=== PATIENT | female | born 1965 | race Asian ===

== ENCOUNTER 2017-08-25 20:28 | Inpatient (IN) | payer OTHER ==
[~2017-08-25] VITALS: Ht 152.4 cm; Wt 45.4 kg
[~2017-08-25 20:28] MED LIST: AMLODIPINE-ATO1 EAC4 ORAL; LOSARTAN-HCTZ1 EAC1 ORAL
[2017-08-25 20:40] VITALS: BP 99/75
--- NOTE | 2017-08-25 20:49 | Emergency Room Report ---
History of Present Illness General Chief Complaint: Nausea, Vomiting, and Diarrhea Source: Patient, Family Member, EMS Present Illness HPI Patient is a 60-year-old female brought in by EMS after increased nausea and abdominal pain. The patient reported history of alcohol abuse. Patient had increased pain to epigastric area associated nausea vomiting. Patient reportedly had been drinking alcohol more heavily in the past week. The patient had some lower pain in addition. Patient any fever. She had been mentating normally. Allergies: Coded Allergies: No Known Allergies (Unverified , 08/25/17) Patient History Past Medical History: see triage record Now: No Reviewed Nursing Documentation: PMH: Agreed, PSxH: Agreed Nursing Documentation-PMH Hx Hypertension: Yes History Of Psychiatric Problem: Yes - Alcoholism Review of Systems All Other Systems: negative except mentioned in HPI Physical Exam Vital Signs Date Time Temp Pulse Resp B/P (MAP) Pulse Ox O2 Delivery O2 Flow Rate FiO2 08/25/17 20:30 98.2 82 18 113/78 99 Room Air Sp02 EP Interpretation: reviewed, normal General Appearance: normal inspection, well appearing, no apparent distress, alert, GCS 15, Chronically Ill Head: atraumatic ENT: normal ENT inspection, hearing grossly normal, normal voice Neck: normal inspection, full range of motion, supple, no bony tend Respiratory: normal inspection, lungs clear, normal breath sounds, no respiratory distress, no retraction, no wheezing Cardiovascular #1: regular rate, rhythm, no edema Gastrointestinal: normal inspection, soft, no guarding, no hernia, tenderness - mild diffuse tenderness Genitourinary: no CVA tenderness Musculoskeletal: normal inspection, back normal, normal range of motion Neurologic: normal inspection, alert, oriented x3, responsive, web coordinator III-XII nml as tested, speech normal Psychiatric: normal inspection, judgement/insight normal, mood/affect normal Skin: normal inspection, normal color, no rash Medical Decision Making Diagnostic Impression: Primary Impression: Dehydration Additional Impressions: Hypotension Common bile duct dilation Gastritis ER Course Patient presented for abdominal pain. Differential diagnoses included ischemic bowel, appendicitis, perforated viscus, abdominal aortic aneurysm, inferior myocardial infarction, viral gastroenteritis Because of complexity of patient's case laboratory testing and imaging studies were ordered. Patient given IV fluids as well as IV Pepcid. Laboratory testing was notable for normal white blood count. The patient's liver tests were notable for some elevation of the transaminases without evidence of hepatitis. CT abdomen pelvis read by radiology showed mildly dilated common bile duct up to 8mm, no calcified gallstones, questionable mucosal thickening. A CT head was ordered due to headache and recent fall. CT head read by radiology showed no evidence of acute intracranial hemorrhage or CVA, chronic white matter changes noted Fatty infiltration of liver. Dr. Soares was contacted for inpatient management due to complexity of medical condition. Labs Test 08/25/17 20:55 08/25/17 23:30 White Blood Count 5.6 K/UL (4.8-10.8) Red Blood Count 2.81 M/UL (4.20-5.40) Hemoglobin 11.1 G/DL (12.0-16.0) Hematocrit 33.6 % (37.0-47.0) Mean Corpuscular Volume 119 FL (80-99) Mean Corpuscular Hemoglobin 39.5 PG (27.0-31.0) Mean Corpuscular Hemoglobin Concent 33.1 G/DL (32.0-36.0) Red Cell Distribution Width 12.1 % (11.6-14.8) Platelet Count 323 K/UL (150-450) Mean Platelet Volume 4.7 FL (6.5-10.1) Neutrophils (%) (Auto) % (45.0-75.0) Lymphocytes (%) (Auto) % (20.0-45.0) Monocytes (%) (Auto) % (1.0-10.0) Eosinophils (%) (Auto) % (0.0-3.0) Basophils (%) (Auto) % (0.0-2.0) Differential Total Cells Counted 100 Neutrophils % (Manual) 48 % (45-75) Lymphocytes % (Manual) 39 % (20-45) Monocytes % (Manual) 10 % (1-10) Eosinophils % (Manual) 2 % (0-3) Basophils % (Manual) 0 % (0-2) Band Neutrophils 1 % (0-8) Platelet Estimate Adequate Platelet Morphology Normal Hypochromasia 1+ Anisocytosis 1+ Macrocytosis 2+ Prothrombin Time 9.8 SEC (9.30-11.50) Prothromb Time International Ratio 0.9 (0.9-1.1) Activated Partial Thromboplast Time 30 SEC (23-33) Sodium Level 139 MMOL/L (136-145) Potassium Level 3.4 MMOL/L (3.5-5.1) Chloride Level 98 MMOL/L (98-107) Carbon Dioxide Level 28 MMOL/L (21-32) Anion Gap 13 mmol/L (5-15) Blood Urea Nitrogen 7 mg/dL (7-18) Creatinine 0.6 MG/DL (0.55-1.30) Estimat Glomerular Filtration Rate > 60 mL/min (>60) Glucose Level 82 MG/DL (74-106) Calcium Level 9.3 MG/DL (8.5-10.1) Total Bilirubin 1.1 MG/DL (0.2-1.0) Direct Bilirubin 0.5 MG/DL (0.0-0.3) Aspartate Amino Transf (AST/SGOT) 178 U/L (15-37) Alanine Aminotransferase (ALT/SGPT) 44 U/L (12-78) Alkaline Phosphatase 118 U/L (46-116) Total Protein 7.8 G/DL (6.4-8.2) Albumin 4.1 G/DL (3.4-5.0) Globulin 3.7 g/dL Albumin/Globulin Ratio 2.1 (1.0-2.7) Lipase 167 U/L (73-393) Urine Color Pale yellow Urine Appearance Clear Urine pH 7 (4.5-8.0) Urine Specific [place] 1.010 (1.005-1.035) Urine Protein Negative (NEGATIVE) Urine Glucose (UA) Negative (NEGATIVE) Urine Ketones Negative (NEGATIVE) Urine Occult Blood Negative (NEGATIVE) Urine Nitrite Negative (NEGATIVE) Urine Bilirubin Negative (NEGATIVE) Urine Urobilinogen Normal MG/DL (0.0-1.0) Urine Leukocyte Esterase Negative (NEGATIVE) Last Vital Signs Date Time Temp Pulse Resp B/P (MAP) Pulse Ox O2 Delivery O2 Flow Rate FiO2 08/25/17 20:30 98.2 82 18 113/78 99 Room Air Status: unchanged Disposition: ADMITTED INPATIENT Condition: Serious Jmaes Horn Aug 25, 2017 20:49
[2017-08-25 21:23] LABS: MEAN CORPUSCULAR HEMOGLOBIN 39.5 PG (27.0-31.0); MEAN CORPUSCULAR HGB CONC 33.1 G/DL (32.0-36.0); MEAN CORPUSCULAR VOLUME 119 FL (80-99); MEAN PLATELET VOLUME 4.7 FL (6.5-10.1); PLATELET COUNT 323 K/UL (150-450); RED BLOOD COUNT 2.81 M/UL (4.20-5.40); RED CELL DISTRIBUTION WIDTH 12.1 % (11.6-14.8); WHITE BLOOD COUNT 5.6 K/UL (4.8-10.8)
[2017-08-25 21:30] LABS: INR 0.9 (0.9-1.1); PROTHROMBIN TIME 9.8 SEC (9.30-11.50)
[2017-08-25 21:51] LABS: ALANINE AMINOTRANSFERASE 44 U/L (12-78); ANION GAP 13 mmol/L (5-15); ASPARTATE AMINO TRANSFERASE 178 U/L (15-37); CALCIUM 9.3 MG/DL (8.5-10.1); CARBON DIOXIDE 28 MMOL/L (21-32); CHLORIDE 98 MMOL/L (98-107); CREATININE 0.6 MG/DL (0.55-1.30); GLOMERULAR FILTRATION RATE > 60 mL/min (>60); LIPASE 167 U/L (73-393); POTASSIUM 3.4 MMOL/L (3.5-5.1); SODIUM 139 MMOL/L (136-145)
[2017-08-25 22:26] LABS: TOTAL PROTEIN 7.8 G/DL (6.4-8.2)
[2017-08-25 22:29] LABS: ALBUMIN/GLOBULIN RATIO 2.1 (1.0-2.7)
[2017-08-25 22:30] LABS: BILIRUBIN,DIRECT 0.5 MG/DL (0.0-0.3)
[2017-08-25 22:38] LABS: BAND NEUTROPHILS % (MANUAL) 1 % (0-8); EOSINOPHILS % (MANUAL) 2 % (0-3); LYMPHOCYTES % (MANUAL) 39 % (20-45); NEUTROPHILS % (MANUAL) 48 % (45-75); TOTAL CELLS COUNTED 100
[2017-08-25 22:39] LABS: ANISOCYTOSIS 1+; BASOPHILS % (MANUAL) 0 % (0-2); HYPOCHROMASIA 1+; MACROCYTES 2+; PLATELET ESTIMATE ADEQUATE; PLATELET MORPHOLOGY NORMAL
[2017-08-25 23:30] VITALS: BP 115/78
[2017-08-26] VITALS (7 sets, daily range): BP systolic 88–138; BP diastolic 58–85
[2017-08-26] LABS: APPEARANCE,URINE CLEAR; KETONES,URINE NEGATIVE (NEGATIVE); LEUKOCYTE ESTERASE ,URINE NEGATIVE (NEGATIVE); NITRITE,URINE NEGATIVE (NEGATIVE); PH,URINE 7 (4.5-8.0); PROTEIN,URINE NEGATIVE (NEGATIVE); UROBILINOGEN,URINE NORMAL MG/DL (0.0-1.0)
[2017-08-26] MEDS ORDERED: Sodium Chloride 500ML 500 ML IVPB ONE (02:15)
[2017-08-26] MEDS ORDERED: UNOBMED (02:55)
[2017-08-26] MEDS ORDERED: Miralax 17gm pkt ORAL PRN (07:00)
[2017-08-26] MEDS ORDERED: Morphine Sulfate 2mg/ml Inj IVP PRN (07:00)
[2017-08-26] MEDS ORDERED: Nitroglycerin Subl 0.4mg tab SL PRN (07:00)
[2017-08-26] MEDS ORDERED: LORazepam Inj 2mg/ml 1ml IV PRN (07:00)
[2017-08-26] MEDS ORDERED: Mylanta II UD 30ml ORAL PRN (07:00)
[2017-08-26] MEDS: Heparin 5000 units/ml inj SUBQ SCH ×2 (09:00→20:37)
[2017-08-26] MEDS: Pantoprazole Inj IV SCH (09:03)
--- NOTE | 2017-08-26 09:36 | Diagnostic Imaging Report ---
Clinical Indication: Nausea, vomiting, diarrhea x2.5 weeks Technique: No oral contrast utilized, per emergency room physician request IV administration nonionic contrast. Venous phase spiral acquisition obtained through the abdomen and pelvis. Multiplanar reconstructions were generated. Total dose length product 424 mGycm. CTDIvol(s) 8 mGy. Dose reduction achieved using automated exposure control Comparison: None Findings: The appendix is normal. No evidence of diverticulosis or diverticulitis. No small bowel distention. No free or loculated intraperitoneal air or fluid is evident. The distal esophagus, stomach, duodenum are unremarkable. There is equivocal mild wall thickening of the ascending colon. The extrahepatic bile ducts are mildly ectatic, common hepatic duct measuring up to 9 mm in diameter. No downstream obstructive lesion is demonstrated. No gallstones are evident on CT. The liver demonstrates diffuse low attenuation, consistent with fatty change. The pancreas, spleen, adrenals, kidneys are unremarkable. No retroperitoneal or mesenteric mass or adenopathy. No pelvic mass or adenopathy. The bones are unremarkable except for some degenerative spondylosis changes. The included lung bases demonstrate some posterior dependent atelectasis bilaterally. Impression: Equivocal mild wall thickening of the ascending colon, could indicate mild colitis changes if real. Correlate with clinical findings No acute abnormality otherwise Ectatic extrahepatic bile ducts, without definite downstream obstructing lesion. Significance uncertain. Correlate with liver function tests, consider MRCP if clinically suspicious Fatty liver This agrees with the preliminary interpretation provided overnight by [facility] telerad[facility] service. The CT scanner at [facility] is accredited by the [employer] and the scans are performed using protocols designed to limit radiation exposure to as low as reasonably achievable to attain images of sufficient resolution adequate for diagnostic evaluation.
--- NOTE | 2017-08-26 09:57 | Diagnostic Imaging Report ---
Indication: PAIN Technique: spiral acquisitions obtained through the brain. Angled axial and coronal 5 x 5 mm slices were reconstructed. No IV contrast utilized. Radiation dose was minimized using automated exposure control Total dose length product 1459 mGycm. CTDIvol(s) 70 mGy Comparison: none FINDINGS: No acute hemorrhage or edema. No mass effect or midline shift. There is age-related enlargement of the ventricles and extra axial CSF spaces. There is periventricular deep white matter ischemic change. Normal al-white differentiation. Visualized orbits are unremarkable. Visualized sinuses are unremarkable. Intact calvarium. IMPRESSION: Chronic and age-related changes. Negative for acute intracranial bleed or mass effect This agrees with the preliminary interpretation provided overnight by [facility] service. The CT scanner at [facility] is accredited by the [employer] and the scans are performed using protocols designed to limit radiation exposure to as low as reasonably achievable to attain images of sufficient resolution adequate for diagnostic evaluation
--- NOTE | 2017-08-26 12:45 | Diagnostic Imaging Report ---
Indication: Abdominal pain, abnormal liver function tests. Technique: Riojas-scale and duplex images of the upper abdomen were obtained Comparison: Reference made to CT scan Findings: Gallbladder is unremarkable, without stones, wall thickening, nor pericholecystic fluid. Sonographic Anders's sign is negative. Common bile duct measures 10 mm in diameter. No intrahepatic biliary ductal dilatation. Liver demonstrates diffusely increased echogenicity, consistent with fatty change described on recent CT scan. Portal vein and hepatic veins are patent. Pancreas is unremarkable. Spleen is unremarkable. Left kidney measures 10.3 cm in length. Right kidney measures 9.4 cm length. Both kidneys demonstrate normal echogenicity. There is no hydronephrosis. No focal abnormality . Non-aneurysmal abdominal aorta . Impression: Negative for gallstones. Common bile duct is dilated, however. Downstream obstruction not completely excludable despite absence of evidence of such on recent CT. Correlate with liver function tests, consider further evaluation with MRCP if clinically indicated Fatty liver, also demonstrated on recent CT scan
--- NOTE | 2017-08-26 14:07 | GI Initial Consult Note ---
History of Present Illness General Date patient seen: Aug 26, 2017 Time patient seen: 13:59 Reason for Hospitalization: Nausea, Vomiting, and Diarrhea Referring physician: SAMANTHA LESTER Reason for Consultation: ETOH HEPATITIS Present Illness HPI Patient is a 60-year-old female brought in by EMS after increased nausea and abdominal pain. The patient reported history of alcohol abuse. Patient had increased pain to epigastric area associated nausea vomiting. Patient reportedly had been drinking alcohol more heavily in the past week. The patient had some lower pain in addition. Patient any fever. She had been mentating normally. GI consulted for alcoholic hepatitis. HPI as noted above. Pt seen on floor, awake A&Ox4 NAD with no active s/x of N/V/D. Pt reports some nausea, hunger, and ETOH withdrawal symptoms. Per patient, she has been drinking 2-3 bottles of soju daily because of caregiver strain from her mother. In addition, the patient state she needs ETOH to sleep. She has been drinking heavily for the past year. Unknown history of endoscopy/colonoscopy. Home Meds Reported Medications Unable to Obtain Medications (UNABLE TO OBTAIN MEDS) 1 Ea Ea 08/26/17 Med list reviewed/reconciled: Yes Allergies: Coded Allergies: No Known Allergies (Unverified , 08/25/17) Patient History History Provided By: Patient, Medical Record PMH Narrative Past Medical History: see triage record Now: No Reviewed Nursing Documentation: PMH: Agreed, PSxH: Agreed Nursing Documentation-PMH Hx Hypertension: Yes History Of Psychiatric Problem: Yes - Alcoholism Social History: Reports: alcohol use Review of Systems All Other Systems: negative except mentioned in HPI Physical Exam Vital Signs Date Time Temp Pulse Resp B/P (MAP) Pulse Ox O2 Delivery O2 Flow Rate FiO2 08/25/17 20:30 98.2 82 18 113/78 99 Room Air Sp02 EP Interpretation: reviewed, normal Labs Laboratory Tests Test 08/25/17 20:55 08/25/17 23:30 White Blood Count 5.6 K/UL (4.8-10.8) Red Blood Count 2.81 M/UL (4.20-5.40) L Hemoglobin 11.1 G/DL (12.0-16.0) L Hematocrit 33.6 % (37.0-47.0) L Mean Corpuscular Volume 119 FL (80-99) H Mean Corpuscular Hemoglobin 39.5 PG (27.0-31.0) H Mean Corpuscular Hemoglobin Concent 33.1 G/DL (32.0-36.0) Red Cell Distribution Width 12.1 % (11.6-14.8) Platelet Count 323 K/UL (150-450) Mean Platelet Volume 4.7 FL (6.5-10.1) L Neutrophils (%) (Auto) % (45.0-75.0) Lymphocytes (%) (Auto) % (20.0-45.0) Monocytes (%) (Auto) % (1.0-10.0) Eosinophils (%) (Auto) % (0.0-3.0) Basophils (%) (Auto) % (0.0-2.0) Differential Total Cells Counted 100 Neutrophils % (Manual) 48 % (45-75) Lymphocytes % (Manual) 39 % (20-45) Monocytes % (Manual) 10 % (1-10) Eosinophils % (Manual) 2 % (0-3) Basophils % (Manual) 0 % (0-2) Band Neutrophils 1 % (0-8) Platelet Estimate Adequate Platelet Morphology Normal Hypochromasia 1+ Anisocytosis 1+ Macrocytosis 2+ Prothrombin Time 9.8 SEC (9.30-11.50) Prothromb Time International Ratio 0.9 (0.9-1.1) Activated Partial Thromboplast Time 30 SEC (23-33) Sodium Level 139 MMOL/L (136-145) Potassium Level 3.4 MMOL/L (3.5-5.1) L Chloride Level 98 MMOL/L (98-107) Carbon Dioxide Level 28 MMOL/L (21-32) Anion Gap 13 mmol/L (5-15) Blood Urea Nitrogen 7 mg/dL (7-18) Creatinine 0.6 MG/DL (0.55-1.30) Estimat Glomerular Filtration Rate > 60 mL/min (>60) Glucose Level 82 MG/DL (74-106) Calcium Level 9.3 MG/DL (8.5-10.1) Total Bilirubin 1.1 MG/DL (0.2-1.0) H Direct Bilirubin 0.5 MG/DL (0.0-0.3) H Aspartate Amino Transf (AST/SGOT) 178 U/L (15-37) H Alanine Aminotransferase (ALT/SGPT) 44 U/L (12-78) Alkaline Phosphatase 118 U/L (46-116) H Total Protein 7.8 G/DL (6.4-8.2) Albumin 4.1 G/DL (3.4-5.0) Globulin 3.7 g/dL Albumin/Globulin Ratio 2.1 (1.0-2.7) Lipase 167 U/L (73-393) Urine Color Pale yellow Urine Appearance Clear Urine pH 7 (4.5-8.0) Urine Specific [place] 1.010 (1.005-1.035) Urine Protein Negative (NEGATIVE) Urine Glucose (UA) Negative (NEGATIVE) Urine Ketones Negative (NEGATIVE) Urine Occult Blood Negative (NEGATIVE) Urine Nitrite Negative (NEGATIVE) Urine Bilirubin Negative (NEGATIVE) Urine Urobilinogen Normal MG/DL (0.0-1.0) Urine Leukocyte Esterase Negative (NEGATIVE) General Appearance: well appearing, no apparent distress, alert Head: normocephalic EENT: PERRL/EOMI, normal ENT inspection Neck: supple Respiratory: normal breath sounds, no respiratory distress Cardiovascular: normal rate Gastrointestinal: normal inspection, non tender, soft, normal bowel sounds, non -distended Rectal: deferred Genitourinary: no CVA tenderness Musculoskeletal: normal inspection, back normal Neurologic: normal inspection, alert, oriented x3, responsive Psychiatric: normal inspection, judgement/insight normal, memory normal Skin: normal inspection, normal color, no rash, warm/dry, palpation normal, well hydrated Lymphatic: normal inspection, no adenopathy Current Medications Current Medications Medications (Trade) Dose Ordered Sig/Desiree Route PRN Reason Start Time Stop Time Status Last Admin Dose Admin Acetaminophen (Tylenol) 650 mg Q4H PRN ORAL fever 08/26/17 07:00 09/25/17 06:59 Al Hydroxide/Mg Hydroxide (Mylanta II) 30 ml Q6H PRN ORAL dyspepsia 08/26/17 07:00 09/25/17 06:59 Dextrose (Dextrose 50%) STAT PRN IV Hypoglycemia 08/26/17 07:00 09/25/17 06:59 Dextrose/Sodium Chloride 1,000 ml @ 75 mls/hr [id number] IV 08/26/17 17:40 09/25/17 17:39 Diphenhydramine HCl (Benadryl) 25 mg Q6H PRN ORAL Itching/Pruritis 08/26/17 07:00 09/25/17 06:59 Heparin Sodium (Porcine) (Heparin 5000 units/ml) 5,000 units EVERY 12 HOURS SUBQ 08/26/17 09:00 09/25/17 08:59 Lorazepam (Ativan 2mg/ml 1ml) 1 mg EVERY 4 HOURS PRN IV agitation 08/26/17 07:00 09/02/17 06:59 Metoclopramide HCl (Reglan) 10 mg EVERY 6 HOURS PRN IVP servere nauasea 08/26/17 07:00 09/25/17 06:59 Morphine Sulfate (Morphine Sulfate) 2 mg EVERY 4 HOURS PRN IVP severe Pain (Pain Scale 7-10) 08/26/17 07:00 09/02/17 06:59 Nitroglycerin (Ntg) 0.4 mg Q5M X 3 DOSES PRN SL Prn Chest Pain 08/26/17 07:00 09/25/17 06:59 Ondansetron HCl (Zofran) 4 mg Q6H PRN IVP Nausea & Vomiting 08/26/17 07:00 09/25/17 06:59 Pantoprazole (Protonix) 40 mg DAILY IV 08/26/17 09:00 09/25/17 08:59 08/26/17 09:03 Polyethylene Glycol (Miralax) 17 gm HSPRN PRN ORAL Constipation 08/26/17 07:00 09/25/17 06:59 Temazepam (Restoril) 15 mg HSPRN PRN ORAL Insomnia 08/26/17 07:00 09/02/17 06:59 GI: Plan Problems: (1) Hepatitis, alcoholic, acute (2) Dehydration (3) Hypotension (4) Common bile duct dilation (5) Gastritis Plan macrocytic, hyperchromic anemia abdominal US reviewed >> No biliary obstruction. CBD dilation of 10mm >> will consider MRCP. supportive/symptomatic treatment at this time advance to cardiac diet Librium Benadryl prn insomnia follow LFTs anemia work up OB stool r/o GI bleed monitor H&H, prn transfusions bowel regime ppi fu labs, B12/folate needs support for alcoholism Discussed with Dr. Guerrero. Thank you for this patient referral, we will follow. Xochitl Bartlett N.P. Aug 26, 2017 14:07
[2017-08-26] MEDS ORDERED: DiphenhydrAMINE 50mg/ml Inj IVP PRN (14:15)
--- NOTE | 2017-08-26 15:12 | History and Physical ---
History of Present Illness General Date patient seen: Aug 25, 2017 Reason for Hospitalization: Nausea, Vomiting, and Diarrhea Present Illness HPI 60-year-old female with hx of ETOH abuse brought in by EMS after increased nausea and abdominal pain. Patient had increased pain to epigastric area associated nausea vomiting. Patient reportedly had been drinking alcohol more heavily in the past week. The patient had some lower pain in addition. Pt is admitted for possible ETOH hepatitis and intractable nausea and vomiting. Allergies: Coded Allergies: No Known Allergies (Unverified , 08/25/17) Medication History Miscellaneous Medications Unable to Obtain Medications (Unable To Obtain Meds), (Reported) Patient History Healthcare decision maker Resuscitation status Full Code Advanced Directive on File Past Medical/Surgical History Past Medical/Surgical History: (1) ETOH abuse Review of Systems All Other Systems: negative except mentioned in HPI Physical Exam General Appearance: WD/WN Lines, tubes and drains: peripheral HEENT: normocephalic, atraumatic Neck: non-tender, normal alignment Respiratory/Chest: chest wall non-tender, lungs clear Breasts: no masses Abdomen: normal bowel sounds, non tender Genitourinary/Rectal: normal genital exam, normal rectal exam Extremities: normal range of motion Last 24 Hour Vital Signs Date Time Temp Pulse Resp B/P (MAP) Pulse Ox O2 Delivery O2 Flow Rate FiO2 08/26/17 12:15 100.2 79 21 130/83 97 Room Air 08/26/17 05:28 98.1 76 20 134/85 91 Room Air 08/26/17 05:10 98.2 74 17 107/68 99 Room Air 08/26/17 05:00 98.2 74 17 107/68 99 Room Air 08/26/17 03:00 70 16 105/63 98 Room Air 08/26/17 01:30 69 17 88/58 99 Room Air 08/25/17 23:30 84 16 115/78 95 Room Air 08/25/17 20:40 98.5 74 17 99/75 97 Room Air 08/25/17 20:30 98.2 82 18 113/78 99 Room Air Laboratory Tests Test 08/25/17 20:55 08/25/17 23:30 White Blood Count 5.6 K/UL (4.8-10.8) Red Blood Count 2.81 M/UL (4.20-5.40) L Hemoglobin 11.1 G/DL (12.0-16.0) L Hematocrit 33.6 % (37.0-47.0) L Mean Corpuscular Volume 119 FL (80-99) H Mean Corpuscular Hemoglobin 39.5 PG (27.0-31.0) H Mean Corpuscular Hemoglobin Concent 33.1 G/DL (32.0-36.0) Red Cell Distribution Width 12.1 % (11.6-14.8) Platelet Count 323 K/UL (150-450) Mean Platelet Volume 4.7 FL (6.5-10.1) L Neutrophils (%) (Auto) % (45.0-75.0) Lymphocytes (%) (Auto) % (20.0-45.0) Monocytes (%) (Auto) % (1.0-10.0) Eosinophils (%) (Auto) % (0.0-3.0) Basophils (%) (Auto) % (0.0-2.0) Differential Total Cells Counted 100 Neutrophils % (Manual) 48 % (45-75) Lymphocytes % (Manual) 39 % (20-45) Monocytes % (Manual) 10 % (1-10) Eosinophils % (Manual) 2 % (0-3) Basophils % (Manual) 0 % (0-2) Band Neutrophils 1 % (0-8) Platelet Estimate Adequate Platelet Morphology Normal Hypochromasia 1+ Anisocytosis 1+ Macrocytosis 2+ Prothrombin Time 9.8 SEC (9.30-11.50) Prothromb Time International Ratio 0.9 (0.9-1.1) Activated Partial Thromboplast Time 30 SEC (23-33) Sodium Level 139 MMOL/L (136-145) Potassium Level 3.4 MMOL/L (3.5-5.1) L Chloride Level 98 MMOL/L (98-107) Carbon Dioxide Level 28 MMOL/L (21-32) Anion Gap 13 mmol/L (5-15) Blood Urea Nitrogen 7 mg/dL (7-18) Creatinine 0.6 MG/DL (0.55-1.30) Estimat Glomerular Filtration Rate > 60 mL/min (>60) Glucose Level 82 MG/DL (74-106) Calcium Level 9.3 MG/DL (8.5-10.1) Total Bilirubin 1.1 MG/DL (0.2-1.0) H Direct Bilirubin 0.5 MG/DL (0.0-0.3) H Aspartate Amino Transf (AST/SGOT) 178 U/L (15-37) H Alanine Aminotransferase (ALT/SGPT) 44 U/L (12-78) Alkaline Phosphatase 118 U/L (46-116) H Total Protein 7.8 G/DL (6.4-8.2) Albumin 4.1 G/DL (3.4-5.0) Globulin 3.7 g/dL Albumin/Globulin Ratio 2.1 (1.0-2.7) Lipase 167 U/L (73-393) Urine Color Pale yellow Urine Appearance Clear Urine pH 7 (4.5-8.0) Urine Specific [place] 1.010 (1.005-1.035) Urine Protein Negative (NEGATIVE) Urine Glucose (UA) Negative (NEGATIVE) Urine Ketones Negative (NEGATIVE) Urine Occult Blood Negative (NEGATIVE) Urine Nitrite Negative (NEGATIVE) Urine Bilirubin Negative (NEGATIVE) Urine Urobilinogen Normal MG/DL (0.0-1.0) Urine Leukocyte Esterase Negative (NEGATIVE) Height (Feet): 5 Height (Inches): 0.00 Weight (Pounds): 100 Medications Current Medications Medications (Trade) Dose Ordered Sig/Desiree Route PRN Reason Start Time Stop Time Status Last Admin Dose Admin Al Hydroxide/Mg Hydroxide (Mylanta II) 30 ml Q6H PRN ORAL dyspepsia 08/26/17 07:00 09/25/17 06:59 Chlordiazepoxide (Librium) 25 mg Q6H PRN ORAL Agitation 08/26/17 14:15 09/02/17 14:14 Dextrose (Dextrose 50%) STAT PRN IV Hypoglycemia 08/26/17 07:00 09/25/17 06:59 Dextrose/Sodium Chloride 1,000 ml @ 75 mls/hr [id number] IV 08/26/17 17:40 09/25/17 17:39 Diphenhydramine HCl (Benadryl) 25 mg Q6H PRN ORAL Itching/Pruritis 08/26/17 07:00 09/25/17 06:59 Diphenhydramine HCl (Benadryl) 25 mg QHS PRN IVP INSOMNIA 08/26/17 14:15 09/25/17 14:14 Heparin Sodium (Porcine) (Heparin 5000 units/ml) 5,000 units EVERY 12 HOURS SUBQ 08/26/17 09:00 09/25/17 08:59 Lorazepam (Ativan 2mg/ml 1ml) 1 mg EVERY 4 HOURS PRN IV agitation 08/26/17 07:00 09/02/17 06:59 Metoclopramide HCl (Reglan) 10 mg EVERY 6 HOURS PRN IVP servere nauasea 08/26/17 07:00 09/25/17 06:59 Morphine Sulfate (Morphine Sulfate) 2 mg EVERY 4 HOURS PRN IVP severe Pain (Pain Scale 7-10) 08/26/17 07:00 09/02/17 06:59 Nitroglycerin (Ntg) 0.4 mg Q5M X 3 DOSES PRN SL Prn Chest Pain 08/26/17 07:00 09/25/17 06:59 Ondansetron HCl (Zofran) 4 mg Q6H PRN IVP Nausea & Vomiting 08/26/17 07:00 09/25/17 06:59 Pantoprazole (Protonix) 40 mg DAILY IV 08/26/17 09:00 09/25/17 08:59 08/26/17 09:03 Polyethylene Glycol (Miralax) 17 gm HSPRN PRN ORAL Constipation 08/26/17 07:00 09/25/17 06:59 Temazepam (Restoril) 15 mg HSPRN PRN ORAL Insomnia 08/26/17 07:00 09/02/17 06:59 Assessment/Plan Problem List: (1) Hepatitis, alcoholic, acute ICD Codes: K70.10 - Alcoholic hepatitis without ascites SNOMED: 3942360 (2) ETOH abuse ICD Codes: F10.10 - Alcohol abuse, uncomplicated SNOMED: 18843933 (3) Gastritis ICD Codes: K29.70 - Gastritis, unspecified, without bleeding SNOMED: 5598858 Assessment/Plan NPO IV hydration GI evaluation SAMANTHA KAY Aug 26, 2017 15:12
--- NOTE | 2017-08-26 15:13 | Pulmonology Progress Note ---
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 Subjective ROS Limited/Unobtainable: No Constitutional: Reports: no symptoms HEENT: Repors: no symptoms Respiratory: Reports: no symptoms Allergies: Coded Allergies: No Known Allergies (Unverified , 08/25/17) Objective Last 24 Hour Vital Signs Date Time Temp Pulse Resp B/P (MAP) Pulse Ox O2 Delivery O2 Flow Rate FiO2 08/26/17 12:15 100.2 79 21 130/83 97 Room Air 08/26/17 05:28 98.1 76 20 134/85 91 Room Air 08/26/17 05:10 98.2 74 17 107/68 99 Room Air 08/26/17 05:00 98.2 74 17 107/68 99 Room Air 08/26/17 03:00 70 16 105/63 98 Room Air 08/26/17 01:30 69 17 88/58 99 Room Air 08/25/17 23:30 84 16 115/78 95 Room Air 08/25/17 20:40 98.5 74 17 99/75 97 Room Air 08/25/17 20:30 98.2 82 18 113/78 99 Room Air General Appearance: WD/WN HEENT: normocephalic, atraumatic, PERRL Respiratory/Chest: lungs clear, normal breath sounds Breasts: no masses Cardiovascular: normal rate, no JVD Abdomen: no organomegaly Genitourinary: normal external genitalia Skin: no ulcers Laboratory Tests 08/25/17 20:55: White Blood Count 5.6, Red Blood Count 2.81L, Hemoglobin 11.1L, Hematocrit 33.6L , Mean Corpuscular Volume 119H, Mean Corpuscular Hemoglobin 39.5H, Mean Corpuscular Hemoglobin Concent 33.1, Red Cell Distribution Width 12.1, Platelet Count 323, Mean Platelet Volume 4.7L, Neutrophils (%) (Auto) , Lymphocytes (%) ( Auto) , Monocytes (%) (Auto) , Eosinophils (%) (Auto) , Basophils (%) (Auto) , Differential Total Cells Counted 100, Neutrophils % (Manual) 48, Lymphocytes % ( Manual) 39, Monocytes % (Manual) 10, Eosinophils % (Manual) 2, Basophils % ( Manual) 0, Band Neutrophils 1, Platelet Estimate Adequate, Platelet Morphology Normal, Hypochromasia 1+, Anisocytosis 1+, Macrocytosis 2+, Prothrombin Time 9.8 , Prothromb Time International Ratio 0.9, Activated Partial Thromboplast Time 30 , Sodium Level 139, Potassium Level 3.4L, Chloride Level 98, Carbon Dioxide Level 28, Anion Gap 13, Blood Urea Nitrogen 7, Creatinine 0.6, Estimat Glomerular Filtration Rate > 60, Glucose Level 82, Calcium Level 9.3, Total Bilirubin 1.1H, Direct Bilirubin 0.5H, Aspartate Amino Transf (AST/SGOT) 178H, Alanine Aminotransferase (ALT/SGPT) 44, Alkaline Phosphatase 118H, Total Protein 7.8, Albumin 4.1, Globulin 3.7, Albumin/Globulin Ratio 2.1, Lipase 167 08/25/17 23:30: Urine Color Pale yellow, Urine Appearance Clear, Urine pH 7, Urine Specific [place] 1.010, Urine Protein Negative, Urine Glucose (UA) Negative, Urine Ketones Negative, Urine Occult Blood Negative, Urine Nitrite Negative, Urine Bilirubin Negative, Urine Urobilinogen Normal, Urine Leukocyte Esterase Negative Current Medications Medications (Trade) Dose Ordered Sig/Desiree Route PRN Reason Start Time Stop Time Status Last Admin Dose Admin Al Hydroxide/Mg Hydroxide (Mylanta II) 30 ml Q6H PRN ORAL dyspepsia 08/26/17 07:00 09/25/17 06:59 Chlordiazepoxide (Librium) 25 mg Q6H PRN ORAL Agitation 08/26/17 14:15 09/02/17 14:14 Dextrose (Dextrose 50%) STAT PRN IV Hypoglycemia 08/26/17 07:00 09/25/17 06:59 Dextrose/Sodium Chloride 1,000 ml @ 75 mls/hr [id number] IV 08/26/17 17:40 09/25/17 17:39 Diphenhydramine HCl (Benadryl) 25 mg Q6H PRN ORAL Itching/Pruritis 08/26/17 07:00 09/25/17 06:59 Diphenhydramine HCl (Benadryl) 25 mg QHS PRN IVP INSOMNIA 08/26/17 14:15 09/25/17 14:14 Heparin Sodium (Porcine) (Heparin 5000 units/ml) 5,000 units EVERY 12 HOURS SUBQ 08/26/17 09:00 09/25/17 08:59 Lorazepam (Ativan 2mg/ml 1ml) 1 mg EVERY 4 HOURS PRN IV agitation 08/26/17 07:00 09/02/17 06:59 Metoclopramide HCl (Reglan) 10 mg EVERY 6 HOURS PRN IVP serverdaniela umanzora 08/26/17 07:00 09/25/17 06:59 Morphine Sulfate (Morphine Sulfate) 2 mg EVERY 4 HOURS PRN IVP severe Pain (Pain Scale 7-10) 08/26/17 07:00 09/02/17 06:59 Nitroglycerin (Ntg) 0.4 mg Q5M X 3 DOSES PRN SL Prn Chest Pain 08/26/17 07:00 09/25/17 06:59 Ondansetron HCl (Zofran) 4 mg Q6H PRN IVP Nausea & Vomiting 08/26/17 07:00 09/25/17 06:59 Pantoprazole (Protonix) 40 mg DAILY IV 08/26/17 09:00 09/25/17 08:59 08/26/17 09:03 Polyethylene Glycol (Miralax) 17 gm HSPRN PRN ORAL Constipation 08/26/17 07:00 09/25/17 06:59 Temazepam (Restoril) 15 mg HSPRN PRN ORAL Insomnia 08/26/17 07:00 09/02/17 06:59 SAMANTHA KAY Aug 26, 2017 15:13
[2017-08-26] MEDS: D5 1/2NS 1,000 ML IV SCH (17:25)
[2017-08-27] VITALS: BP 142/77
[2017-08-27 04:35] VITALS: BP 106/72
[2017-08-27] MEDS: D5 1/2NS 1,000 ML IV SCH (06:10)
[2017-08-27 08:03] VITALS: BP 113/77
[2017-08-27] MEDS: Pantoprazole Inj IV SCH (08:35)
[2017-08-27 08:38] LABS: MEAN CORPUSCULAR HEMOGLOBIN 41.5 PG (27.0-31.0); MEAN CORPUSCULAR VOLUME 119 FL (80-99); MEAN PLATELET VOLUME 5.1 FL (6.5-10.1); PLATELET COUNT 306 K/UL (150-450); RED CELL DISTRIBUTION WIDTH 12.3 % (11.6-14.8); WHITE BLOOD COUNT 6.8 K/UL (4.8-10.8)
[2017-08-27] MEDS: Heparin 5000 units/ml inj SUBQ SCH (08:49)
[2017-08-27 09:03] LABS: ALANINE AMINOTRANSFERASE 37 U/L (12-78); ALBUMIN/GLOBULIN RATIO 1.1 (1.0-2.7); AMYLASE 64 U/L (25-115); ANION GAP 8 mmol/L (5-15); ASPARTATE AMINO TRANSFERASE 94 U/L (15-37); CALCIUM 9.4 MG/DL (8.5-10.1); CARBON DIOXIDE 28 MMOL/L (21-32); CHLORIDE 102 MMOL/L (98-107); CREATININE 0.6 MG/DL (0.55-1.30); GLOMERULAR FILTRATION RATE > 60 mL/min (>60); LIPASE 101 U/L (73-393); POTASSIUM 3.8 MMOL/L (3.5-5.1); SODIUM 138 MMOL/L (136-145)
[2017-08-27 09:11] LABS: BILIRUBIN,DIRECT 0.7 MG/DL (0.0-0.3)
[2017-08-27 11:16] LABS: BAND NEUTROPHILS % (MANUAL) 0 % (0-8); BASOPHILS % (MANUAL) 0 % (0-2); EOSINOPHILS % (MANUAL) 4 % (0-3); LYMPHOCYTES % (MANUAL) 14 % (20-45); MACROCYTES 1+; NEUTROPHILS % (MANUAL) 74 % (45-75); PLATELET ESTIMATE ADEQUATE; PLATELET MORPHOLOGY NORMAL; TOTAL CELLS COUNTED 100
[2017-08-27] MEDS: chlordiazePOXIDE 25mg Cap ORAL PRN ×2 (11:24→17:28)
[2017-08-27] MEDS: Metoclopramide 10mg/2ml Inj IVP PRN ×2 (11:24→17:28)
--- NOTE | 2017-08-27 11:30 | GI Progress Note ---
Assessment/Plan Problems: (1) ETOH abuse ICD Codes: F10.10 - Alcohol abuse, uncomplicated SNOMED: 15050601 (2) Hepatitis, alcoholic, acute ICD Codes: K70.10 - Alcoholic hepatitis without ascites SNOMED: 0621641 (3) Gastritis ICD Codes: K29.70 - Gastritis, unspecified, without bleeding SNOMED: 7070789 (4) Common bile duct dilation ICD Codes: K83.8 - Other specified diseases of biliary tract SNOMED: 674953525 (5) Dehydration ICD Codes: E86.0 - Dehydration SNOMED: 92594869 Status: stable Status Narrative Discussed with Dr. Guerrero. Assessment/Plan macrocytic, hyperchromic anemia abdominal US reviewed >> No biliary obstruction. CBD dilation of 10mm >> defer MRCP. supportive/symptomatic treatment at this time cardiac diet, tolerating Librium prn Benadryl prn insomnia follow LFTs OB stool r/o GI bleed monitor H&H, prn transfusions bowel regime ppi fu labs, B12/folate needs support for alcoholism Subjective Gastrointestinal/Abdominal: Reports: abdominal pain Objective Last 24 Hour Vital Signs Date Time Temp Pulse Resp B/P (MAP) Pulse Ox O2 Delivery O2 Flow Rate FiO2 08/27/17 08:03 98.6 80 19 113/77 95 Room Air 08/27/17 04:35 98.2 76 18 106/72 94 Room Air 08/27/17 00:00 97.9 80 18 142/77 94 Room Air 08/26/17 20:15 98.4 79 19 138/81 92 Room Air 08/26/17 15:49 97.8 80 19 127/77 95 Room Air 08/26/17 12:15 100.2 79 21 130/83 97 Room Air Intake and Output 08/27/17 08/28/17 19:00 07:00 Intake Total 75 ml Balance 75 ml IV Total 75 ml Laboratory Tests Test 08/27/17 08:00 White Blood Count 6.8 K/UL (4.8-10.8) Red Blood Count 2.60 M/UL (4.20-5.40) L Hemoglobin 10.8 G/DL (12.0-16.0) L Hematocrit 30.8 % (37.0-47.0) L Mean Corpuscular Volume 119 FL (80-99) H Mean Corpuscular Hemoglobin 41.5 PG (27.0-31.0) H Mean Corpuscular Hemoglobin Concent 35.0 G/DL (32.0-36.0) Red Cell Distribution Width 12.3 % (11.6-14.8) Platelet Count 306 K/UL (150-450) Mean Platelet Volume 5.1 FL (6.5-10.1) L Neutrophils (%) (Auto) % (45.0-75.0) Lymphocytes (%) (Auto) % (20.0-45.0) Monocytes (%) (Auto) % (1.0-10.0) Eosinophils (%) (Auto) % (0.0-3.0) Basophils (%) (Auto) % (0.0-2.0) Differential Total Cells Counted 100 Neutrophils % (Manual) 74 % (45-75) Lymphocytes % (Manual) 14 % (20-45) L Monocytes % (Manual) 8 % (1-10) Eosinophils % (Manual) 4 % (0-3) H Basophils % (Manual) 0 % (0-2) Band Neutrophils 0 % (0-8) Platelet Estimate Adequate Platelet Morphology Normal Macrocytosis 1+ Activated Partial Thromboplast Time 32 SEC (23-33) Sodium Level 138 MMOL/L (136-145) Potassium Level 3.8 MMOL/L (3.5-5.1) Chloride Level 102 MMOL/L (98-107) Carbon Dioxide Level 28 MMOL/L (21-32) Anion Gap 8 mmol/L (5-15) Blood Urea Nitrogen 4 mg/dL (7-18) L Creatinine 0.6 MG/DL (0.55-1.30) Estimat Glomerular Filtration Rate > 60 mL/min (>60) Glucose Level 109 MG/DL (74-106) H Calcium Level 9.4 MG/DL (8.5-10.1) Total Bilirubin 2.1 MG/DL (0.2-1.0) H Direct Bilirubin 0.7 MG/DL (0.0-0.3) H Aspartate Amino Transf (AST/SGOT) 94 U/L (15-37) H Alanine Aminotransferase (ALT/SGPT) 37 U/L (12-78) Alkaline Phosphatase 108 U/L (46-116) Total Protein 7.0 G/DL (6.4-8.2) Albumin 3.7 G/DL (3.4-5.0) Globulin 3.3 g/dL Albumin/Globulin Ratio 1.1 (1.0-2.7) Amylase Level 64 U/L (25-115) Lipase 101 U/L (73-393) Height (Feet): 5 Height (Inches): 0.00 Weight (Pounds): 100 General Appearance: WD/WN, no apparent distress, alert Cardiovascular: normal rate Respiratory/Chest: normal breath sounds, no respiratory distress Abdominal Exam: normal bowel sounds, non tender, soft Extremities: normal range of motion, non-tender Xochitl Bartlett N.P. Aug 27, 2017 11:30
[2017-08-27 11:45] VITALS: BP 104/56
[2017-08-27 16:00] VITALS: BP 114/81
[2017-08-27] MEDS ORDERED: LIBRIUM10 MG ORAL (16:08)
[2017-08-27] MEDS ORDERED: REGLAN10 MG ORAL (16:10)
[2017-08-27] MEDS ORDERED: D5 1/2NS 1000ml IV ONE (19:39)
--- NOTE | 2017-08-28 10:30 | Discharge Summary ---
Discharge Summary Hospital Course Date of Admission Aug 26, 2017 at 02:37 Date of Discharge Aug 27, 2017 at 19:40 Admitting Diagnosis abdominal pain, gastritis GIANA Williamson is a 52 year old female who was admitted on Aug 26, 2017 at 02:37 for Abdominal Pain, Gastritis Hospital Course [id number] Discharge Discharge Disposition Patient was discharged to Home (01) Discharge Diagnoses: Emi Major NP Aug 28, 2017 10:30
--- NOTE | 2017-08-29 03:45 | Discharge Summary 2 SIG ---
DATE OF ADMISSION: 08/26/2017 DATE OF DISCHARGE: 08/27/2017 MAINTENANCE LEADER: Brandyn Guerrero M.D. BRIEF HOSPITAL COURSE: The patient is a 52-year-old female with history of ETOH abuse was brought in by EMS after increased nausea and abdominal pain. The pain was described to be located in the epigastric area and with associated nausea and vomiting. She has reportedly been drinking alcohol more heavily in the past week. On evaluation at ED, there was elevation in liver transaminases. CT of the abdomen and pelvis showed mildly dilated common bile duct. CT of the head showed no evidence of acute intracranial hemorrhage. She was admitted to medical floor and was placed on NPO with IV hydration. She underwent GI evaluation. She was given Librium. Abdominal CT was negative for gallstones. MRCP was canceled. She was tolerating diet and LFTs down trended. She was referred to health social work professor and was eventually discharged home. FINAL DIAGNOSES: 1. Acute alcoholic hepatitis. 2. Ethanol abuse. 3. Gastritis. 4. Dehydration. 5. Common bile duct dilation. DISPOSITION: The patient was discharged home. DISCHARGE MEDICATIONS: Refer to med list. FOLLOWUP: The patient was advised to follow up with PMD in a week. Yuni Soares M.D. I have been assigned to dictate discharge summary on this account and I was not involved in the patient's management. Emi Major N.P. DR: SABA JOB#: [id number] CC: YANELY
== END 2017-08-27 19:40 | disposition home or self-care (01) | DRG 280 ==
LOC: EDBD 20:28 → EMR 20:51 → EDBD 20:51 → EDUNIT# 08-26 02:37 → 4E 08-26 02:37 → EDBEDREQ 08-26 03:02
DX: K70.10 Alcoholic hepatitis without ascites (principal); I95.9 Hypotension, unspecified; K83.8 Other specified diseases of biliary tract; F10.188 Alcohol abuse with other alcohol-induced disorder; K29.70 Gastritis, unspecified, without bleeding; E86.0 Dehydration; F10.10 Alcohol abuse, uncomplicated
CPT/HCPCS: 36415; 70450; 74177; 76700; 80053; 81003; 82150; 82248; 83690; 85007; 85025; 85610; 85730; 99285; J2405; J2765

== ENCOUNTER 2017-10-03 20:20 | Inpatient (IN) | payer MEDICAID, OTHER ==
[~2017-10-03] VITALS: Ht 152.4 cm; Wt 39.9 kg
[~2017-10-03 20:20] MED LIST changes: +LIBRIUM10 MG ORAL; +REGLAN10 MG ORAL; +UNOBMED
--- NOTE | 2017-10-03 21:00 | Emergency Room Report ---
History of Present Illness General Chief Complaint: Abdominal Pain Source: Patient Present Illness HPI 52-year-old female history of chronic alcohol abuse p/w nvd abdominal pain 7 days. Patient states pain started after vomiting, localized to epigastric area, non radiating, burning in nature, intermittent. No relieving or exacerbating factors. Severity is 5/10. Pt reports n/v, more than 6 episodes of nbnb vomiting per day, more than 6 episodes of watery non bloody diarrhea Denies fever, chills. No hx of abdominal surgeries. No hx of endoscopies/colonoscopies. Daughter states that patient is a chronic alcoholic, but has not drink alcohol and she cannot keep anything down Allergies: Coded Allergies: No Known Allergies (Unverified , 02/15/15) Patient History Past Medical History: see triage record Past Surgical History: none Pertinent Family History: none Now: No Reviewed Nursing Documentation: PMH: Agreed, PSxH: Agreed Nursing Documentation-PMH Past Medical History: No History, Except For Hx Hypertension: Yes Hx Cancer: No Hx Gastrointestinal Problems: No Hx Neurological Problems: No Review of Systems All Other Systems: negative except mentioned in HPI Physical Exam Vital Signs Date Time Temp Pulse Resp B/P (MAP) Pulse Ox O2 Delivery O2 Flow Rate FiO2 10/03/17 20:22 97.5 125 14 99/70 97 Room Air Sp02 EP Interpretation: reviewed, normal General Appearance: alert, GCS 15, non-toxic, moderate distress Head: normocephalic, atraumatic Eyes: bilateral eye normal inspection, bilateral eye PERRL, bilateral eye EOMI ENT: normal ENT inspection, normal pharynx, normal voice, dry mucus membranes Neck: normal inspection, full range of motion, supple Respiratory: normal inspection, lungs clear, normal breath sounds, no respiratory distress, no retraction, no wheezing, speaking full sentences, chest symmetrical Cardiovascular #1: normal inspection, regular rate, rhythm, no edema, normal capillary refill Cardiovascular #2: 2+ radial (R), 2+ radial (L) Gastrointestinal: soft, non-distended, no guarding, other - mild epigastric tenderness no guarding or rebound Musculoskeletal: normal inspection, back normal, normal range of motion, non- tender Neurologic: normal inspection, alert, oriented x3, responsive, motor strength/ tone normal, sensory intact, normal gait, speech normal Psychiatric: normal inspection, judgement/insight normal, memory normal Skin: normal inspection, normal color, no rash, warm/dry, well hydrated, normal turgor Medical Decision Making Diagnostic Impression: Primary Impression: Intractable nausea and vomiting Additional Impressions: Hypokalemia Hyponatremia Dehydration Alcohol abuse ER Course 52-year-old female, chronic alcohol abuse, with abdominal pain and intractable nausea vomiting Differential Diagnosis: Alcoholic gastritis, Gastritis, gastroenteritis, cholecystitis, appendicitis, diverticulitis,cardiac, UTI/pyelo At this time abdomen is soft nontender, not likely to have acute intra- abdominal surgical pathology, will hold CT for now. Plan: Basic labs, ua, ekg Pepcid, maalox, pain control, IVF ER course: Patient has remained HD stable during ED stay. Continues to appear very weak, will admit for intractable nausea vomiting +hypokalemic, supplemented Disposition: Patient will be admitted to med surg. Discussed with hospitalist Please note that this Emergency Department Report was dictated using [employer] assessor technology software, occasionally this can lead to erroneous entry secondary to interpretation by the dictation equipment EKG Diagnostic Results EP Interpretation: Yes Rate: Tachycardic Rhythm: NSR ST Segments: TWI V2 only ASA given to patient: No Rhythm Strip EP Interpretation: Yes Rate: 100 Rhythm: NSR, no PVCs, no ectopy Laboratory Tests Test 10/03/17 20:50 10/03/17 21:00 10/04/17 06:20 Urine Color [place] Urine Appearance Slightly cloudy Urine pH 6.5 (4.5-8.0) Urine Specific [place] 1.010 (1.005-1.035) Urine Protein 1+ (NEGATIVE) H Urine Glucose (UA) Negative (NEGATIVE) Urine Ketones 1+ (NEGATIVE) H Urine Occult Blood Negative (NEGATIVE) Urine Nitrite Negative (NEGATIVE) Urine Bilirubin 1+ (NEGATIVE) H Urine Ictotest Positive Urine Urobilinogen 8 MG/DL (0.0-1.0) H Urine Leukocyte Esterase 2+ (NEGATIVE) H Urine RBC 2-4 /HPF (0 - 2) H Urine WBC 0-2 /HPF (0 - 2) Urine Squamous Epithelial Cells Occasional /LPF Urine Bacteria Few /HPF (NONE) White Blood Count 5.5 K/UL (4.8-10.8) 4.6 K/UL (4.8-10.8) L Red Blood Count 2.30 M/UL (4.20-5.40) L 1.95 M/UL (4.20-5.40) L Hemoglobin 9.0 G/DL (12.0-16.0) L 7.6 G/DL (12.0-16.0) L Hematocrit 25.8 % (37.0-47.0) L 22.4 % (37.0-47.0) L Mean Corpuscular Volume 112 FL (80-99) H 115 FL (80-99) H Mean Corpuscular Hemoglobin 39.2 PG (27.0-31.0) H 39.1 PG (27.0-31.0) H Mean Corpuscular Hemoglobin Concent 35.0 G/DL (32.0-36.0) 34.1 G/DL (32.0-36.0) Red Cell Distribution Width 10.4 % (11.6-14.8) L 10.5 % (11.6-14.8) L Platelet Count 414 K/UL (150-450) 376 K/UL (150-450) Mean Platelet Volume 5.9 FL (6.5-10.1) L 5.9 FL (6.5-10.1) L Neutrophils (%) (Auto) 68.9 % (45.0-75.0) % (45.0-75.0) Lymphocytes (%) (Auto) 18.5 % (20.0-45.0) L % (20.0-45.0) Monocytes (%) (Auto) 9.5 % (1.0-10.0) % (1.0-10.0) Eosinophils (%) (Auto) 823.0 % (0.0-3.0) H % (0.0-3.0) Basophils (%) (Auto) 2.2 % (0.0-2.0) H % (0.0-2.0) Sodium Level 129 MMOL/L (136-145) L 135 MMOL/L (136-145) L Potassium Level 2.8 MMOL/L (3.5-5.1) L 4.4 MMOL/L (3.5-5.1) # Chloride Level 90 MMOL/L (98-107) L 102 MMOL/L (98-107) Carbon Dioxide Level 24 MMOL/L (21-32) 24 MMOL/L (21-32) Anion Gap 15 mmol/L (5-15) 9 mmol/L (5-15) Blood Urea Nitrogen 19 mg/dL (7-18) H 14 mg/dL (7-18) Creatinine 0.8 MG/DL (0.55-1.30) 0.7 MG/DL (0.55-1.30) Estimate Glomerular Filtration Rate > 60 mL/min (>60) > 60 mL/min (>60) Glucose Level 109 MG/DL (74-106) H 101 MG/DL (74-106) Calcium Level 10.1 MG/DL (8.5-10.1) 9.1 MG/DL (8.5-10.1) Total Bilirubin 2.1 MG/DL (0.2-1.0) H 2.1 MG/DL (0.2-1.0) H Direct Bilirubin 0.9 MG/DL (0.0-0.3) H 0.8 MG/DL (0.0-0.3) H Aspartate Amino Transferase (AST) 325 U/L (15-37) H 230 U/L (15-37) H Alanine Aminotransferase (ALT) 74 U/L (12-78) 53 U/L (12-78) Alkaline Phosphatase 151 U/L (46-116) H 117 U/L (46-116) H Troponin I 0.000 ng/mL (0.000-0.056) Total Protein 8.4 G/DL (6.4-8.2) H 6.9 G/DL (6.4-8.2) Albumin 4.3 G/DL (3.4-5.0) 3.4 G/DL (3.4-5.0) Globulin 4.1 g/dL 3.5 g/dL Albumin/Globulin Ratio 1.0 (1.0-2.7) 1.0 (1.0-2.7) Lipase 235 U/L (73-393) 235 U/L (73-393) Serum Alcohol 101 mg/dL Differential Total Cells Counted 100 Neutrophils % (Manual) 58 % (45-75) Lymphocytes % (Manual) 29 % (20-45) Monocytes % (Manual) 12 % (1-10) H Eosinophils % (Manual) 1 % (0-3) Basophils % (Manual) 0 % (0-2) Band Neutrophils 0 % (0-8) Platelet Estimate Adequate Platelet Morphology Normal Hypochromasia 1+ Macrocytosis 1+ PTT 30 SEC (23-33) Amylase Level 54 U/L (25-115) Last Vital Signs Date Time Temp Pulse Resp B/P (MAP) Pulse Ox O2 Delivery O2 Flow Rate FiO2 10/03/17 20:22 97.5 125 14 99/70 97 Room Air Dominik Carrasco M.D. Oct 03, 2017 21:00
[2017-10-03 21:07] VITALS: BP 109/70
[2017-10-03 21:08] LABS: APPEARANCE,URINE SLIGHTLY CLOUDY; KETONES,URINE 1+ (NEGATIVE); LEUKOCYTE ESTERASE ,URINE 2+ (NEGATIVE); NITRITE,URINE NEGATIVE (NEGATIVE); PH,URINE 6.5 (4.5-8.0); PROTEIN,URINE 1+ (NEGATIVE); UROBILINOGEN,URINE 8 MG/DL (0.0-1.0)
[2017-10-03 21:13] LABS: ICTOTEST POSITIVE
[2017-10-03 21:14] LABS: MEAN CORPUSCULAR HEMOGLOBIN 39.2 PG (27.0-31.0); MEAN CORPUSCULAR VOLUME 112 FL (80-99); MEAN PLATELET VOLUME 5.9 FL (6.5-10.1); PLATELET COUNT 414 K/UL (150-450); RED CELL DISTRIBUTION WIDTH 10.4 % (11.6-14.8); WHITE BLOOD COUNT 5.5 K/UL (4.8-10.8)
[2017-10-03 21:20] LABS: BACTERIA,URINE FEW /HPF; SQUAMOUS EPITHELIAL CELL,UR OCCASIONAL /LPF (NONE/OCC); WBC,URINE 0-2 /HPF (0 - 2)
[2017-10-03 21:22] LABS: BASOPHILS % (AUTO) 2.2 % (0.0-2.0); LYMPHOCYTES % (AUTO) 18.5 % (20.0-45.0); MONOCYTES % (AUTO) 9.5 % (1.0-10.0); NEUTROPHILS % (AUTO) 68.9 % (45.0-75.0)
[2017-10-03 21:33] LABS: ANION GAP 15 mmol/L (5-15); CALCIUM 10.1 MG/DL (8.5-10.1); CARBON DIOXIDE 24 MMOL/L (21-32); CHLORIDE 90 MMOL/L (98-107); CREATININE 0.8 MG/DL (0.55-1.30); GLOMERULAR FILTRATION RATE > 60 mL/min (>60); POTASSIUM 2.8 MMOL/L (3.5-5.1); SODIUM 129 MMOL/L (136-145)
[2017-10-03 21:43] LABS: ALANINE AMINOTRANSFERASE 74 U/L (12-78); ALCOHOL 101 mg/dL; ASPARTATE AMINO TRANSFERASE 325 U/L (15-37); LIPASE 235 U/L (73-393); TOTAL PROTEIN 8.4 G/DL (6.4-8.2)
[2017-10-03 21:44] LABS: BILIRUBIN,DIRECT 0.9 MG/DL (0.0-0.3)
[2017-10-03] MEDS ORDERED: Miralax 17gm pkt ORAL PRN (22:30)
[2017-10-03] MEDS ORDERED: Nitroglycerin Subl 0.4mg tab SL PRN (22:30)
[2017-10-03] MEDS ORDERED: LORazepam Inj 2mg/ml 1ml IV PRN (22:30)
[2017-10-03] MEDS ORDERED: Mylanta II UD 30ml ORAL PRN (22:30)
[2017-10-03] MEDS ORDERED: NS 250 ML IVPB ONE (22:30)
[2017-10-03] MEDS ORDERED: Metoclopramide 10mg/2ml Inj IVP PRN (22:30)
[2017-10-03] MEDS ORDERED: Morphine Sulfate 2mg/ml Inj IVP PRN (22:30)
[2017-10-03 22:57] VITALS: BP 104/69
[2017-10-03] MEDS: D5 1/2NS 1,000 ML IV SCH (23:30)
[2017-10-03 23:48] VITALS: BP 109/72
[2017-10-04 00:30] VITALS: BP 109/76
[2017-10-04 04:00] VITALS: BP 112/68
[2017-10-04 07:54] LABS: MEAN CORPUSCULAR HEMOGLOBIN 39.1 PG (27.0-31.0); MEAN CORPUSCULAR HGB CONC 34.1 G/DL (32.0-36.0); MEAN CORPUSCULAR VOLUME 115 FL (80-99); MEAN PLATELET VOLUME 5.9 FL (6.5-10.1); PLATELET COUNT 376 K/UL (150-450); RED BLOOD COUNT 1.95 M/UL (4.20-5.40); RED CELL DISTRIBUTION WIDTH 10.5 % (11.6-14.8); WHITE BLOOD COUNT 4.6 K/UL (4.8-10.8)
[2017-10-04 08:33] VITALS: BP 99/62
[2017-10-04 08:36] LABS: ALANINE AMINOTRANSFERASE 53 U/L (12-78); AMYLASE 54 U/L (25-115); ANION GAP 9 mmol/L (5-15); ASPARTATE AMINO TRANSFERASE 230 U/L (15-37); BILIRUBIN,DIRECT 0.8 MG/DL (0.0-0.3); CALCIUM 9.1 MG/DL (8.5-10.1); CARBON DIOXIDE 24 MMOL/L (21-32); CHLORIDE 102 MMOL/L (98-107); CREATININE 0.7 MG/DL (0.55-1.30); GLOMERULAR FILTRATION RATE > 60 mL/min (>60); LIPASE 235 U/L (73-393); POTASSIUM 4.4 MMOL/L (3.5-5.1); SODIUM 135 MMOL/L (136-145); TOTAL PROTEIN 6.9 G/DL (6.4-8.2)
[2017-10-04 08:38] LABS: BAND NEUTROPHILS % (MANUAL) 0 % (0-8); BASOPHILS % (MANUAL) 0 % (0-2); EOSINOPHILS % (MANUAL) 1 % (0-3); HYPOCHROMASIA 1+; LYMPHOCYTES % (MANUAL) 29 % (20-45); MACROCYTES 1+; NEUTROPHILS % (MANUAL) 58 % (45-75); PLATELET ESTIMATE ADEQUATE; PLATELET MORPHOLOGY NORMAL; TOTAL CELLS COUNTED 100
[2017-10-04] MEDS: Pantoprazole Inj IV SCH (09:24)
[2017-10-04] MEDS: Heparin 5000 units/ml inj SUBQ SCH ×2 (09:26→20:26)
--- NOTE | 2017-10-04 10:32 | History and Physical ---
History of Present Illness General Date patient seen: Oct 04, 2017 Time patient seen: 08:30 Reason for Hospitalization: Abdominal Pain Present Illness HPI 52-year-old female with history of chronic alcohol abuse p/w nausea, vomiting , abdominal pain x 7 days. epigastric pain, started after vomiting, non radiating, burning , intermittent , 5/10 on a scale 1 to 10 more than 6 episodes of non bloody non bilious vomiting per day, more than 6 episodes of watery non bloody diarrhea Denied fever, chills. No prior hx of abdominal surgeries. serum alcohol level-101 workup in ED revealed hypo Na, hypo K, anemia, low blood pressure with tachycardia lipase WNK, elevated AST, T/D bili this am HH down further -7.6/22.4 patient was given Pepcid, Maalox, started on IVF , medicated for pain and transferred to [facility] floor for further management Allergies: Coded Allergies: No Known Allergies (Unverified , 02/15/15) Medication History Scheduled Amlodipine-Atorvastatin 10-20 Mg (Amlodipine-Atorvastatin 10-20 Mg), 1 TAB ORAL DAILY, (Reported) Losartan/Hydrochlorothiazide (Losartan-Hctz 100-25 Mg Tab), 1 TAB ORAL DAILY, ( Reported) Patient History History Provided By: Patient, Medical Record Healthcare decision maker Resuscitation status Full Code Advanced Directive on File No Past Medical/Surgical History Past Medical/Surgical History: (1) Alcohol abuse (2) Tobacco abuse (3) Hepatitis, alcoholic, acute Review of Systems Constitutional: Reports: weakness Eye: Reports: no symptoms ENT: Reports: no symptoms Respiratory: Reports: no symptoms Cardiovascular: Reports: no symptoms Gastrointestinal: Reports: see HPI Genitourinary: Reports: no symptoms Musculoskeletal: Reports: no symptoms Skin: Reports: no symptoms Psychiatric: Reports: no symptoms Neurological: Reports: no symptoms Endocrine: Reports: no symptoms Hematologic/Lymphatic: Reports: anemia Physical Exam General Appearance: no apparent distress, alert, cachetic Lines, tubes and drains: peripheral Neck: non-tender, supple Respiratory/Chest: lungs clear, normal breath sounds, no respiratory distress, no accessory muscle use Cardiovascular/Chest: normal rate, regular rhythm, no JVD Abdomen: normal bowel sounds - epigastric tenderness, no guarding, no rebound , soft Extremities: normal range of motion, non-tender, no calf tenderness, normal capillary refill Neurologic: no motor/sensory deficits, alert, oriented x 3, responsive Musculoskeletal: normal muscle bulk Last 24 Hour Vital Signs Date Time Temp Pulse Resp B/P (MAP) Pulse Ox O2 Delivery O2 Flow Rate FiO2 10/04/17 08:33 98.3 89 16 99/62 96 Room Air 10/04/17 06:48 Room Air 10/04/17 04:00 97.8 92 19 112/68 96 10/04/17 00:30 97.6 100 18 109/76 96 10/04/17 00:15 97.4 97 18 109/72 97 Room Air 10/03/17 23:48 97.4 97 18 109/72 97 Room Air 10/03/17 22:57 97.4 98 18 104/69 98 Room Air 10/03/17 21:07 97.5 98 16 109/70 99 Room Air 10/03/17 20:22 97.5 125 14 99/70 97 Room Air Laboratory Tests Test 10/03/17 20:50 10/03/17 21:00 10/04/17 06:20 Urine Color [place] Urine Appearance Slightly cloudy Urine pH 6.5 (4.5-8.0) Urine Specific [place] 1.010 (1.005-1.035) Urine Protein 1+ (NEGATIVE) H Urine Glucose (UA) Negative (NEGATIVE) Urine Ketones 1+ (NEGATIVE) H Urine Occult Blood Negative (NEGATIVE) Urine Nitrite Negative (NEGATIVE) Urine Bilirubin 1+ (NEGATIVE) H Urine Ictotest Positive Urine Urobilinogen 8 MG/DL (0.0-1.0) H Urine Leukocyte Esterase 2+ (NEGATIVE) H Urine RBC 2-4 /HPF (0 - 2) H Urine WBC 0-2 /HPF (0 - 2) Urine Squamous Epithelial Cells Occasional /LPF Urine Bacteria Few /HPF (NONE) White Blood Count 5.5 K/UL (4.8-10.8) 4.6 K/UL (4.8-10.8) L Red Blood Count 2.30 M/UL (4.20-5.40) L 1.95 M/UL (4.20-5.40) L Hemoglobin 9.0 G/DL (12.0-16.0) L 7.6 G/DL (12.0-16.0) L Hematocrit 25.8 % (37.0-47.0) L 22.4 % (37.0-47.0) L Mean Corpuscular Volume 112 FL (80-99) H 115 FL (80-99) H Mean Corpuscular Hemoglobin 39.2 PG (27.0-31.0) H 39.1 PG (27.0-31.0) H Mean Corpuscular Hemoglobin Concent 35.0 G/DL (32.0-36.0) 34.1 G/DL (32.0-36.0) Red Cell Distribution Width 10.4 % (11.6-14.8) L 10.5 % (11.6-14.8) L Platelet Count 414 K/UL (150-450) 376 K/UL (150-450) Mean Platelet Volume 5.9 FL (6.5-10.1) L 5.9 FL (6.5-10.1) L Neutrophils (%) (Auto) 68.9 % (45.0-75.0) % (45.0-75.0) Lymphocytes (%) (Auto) 18.5 % (20.0-45.0) L % (20.0-45.0) Monocytes (%) (Auto) 9.5 % (1.0-10.0) % (1.0-10.0) Eosinophils (%) (Auto) 823.0 % (0.0-3.0) H % (0.0-3.0) Basophils (%) (Auto) 2.2 % (0.0-2.0) H % (0.0-2.0) Sodium Level 129 MMOL/L (136-145) L 135 MMOL/L (136-145) L Potassium Level 2.8 MMOL/L (3.5-5.1) L 4.4 MMOL/L (3.5-5.1) # Chloride Level 90 MMOL/L (98-107) L 102 MMOL/L (98-107) Carbon Dioxide Level 24 MMOL/L (21-32) 24 MMOL/L (21-32) Anion Gap 15 mmol/L (5-15) 9 mmol/L (5-15) Blood Urea Nitrogen 19 mg/dL (7-18) H 14 mg/dL (7-18) Creatinine 0.8 MG/DL (0.55-1.30) 0.7 MG/DL (0.55-1.30) Estimat Glomerular Filtration Rate > 60 mL/min (>60) > 60 mL/min (>60) Glucose Level 109 MG/DL (74-106) H 101 MG/DL (74-106) Calcium Level 10.1 MG/DL (8.5-10.1) 9.1 MG/DL (8.5-10.1) Total Bilirubin 2.1 MG/DL (0.2-1.0) H 2.1 MG/DL (0.2-1.0) H Direct Bilirubin 0.9 MG/DL (0.0-0.3) H 0.8 MG/DL (0.0-0.3) H Aspartate Amino Transf (AST/SGOT) 325 U/L (15-37) H 230 U/L (15-37) H Alanine Aminotransferase (ALT/SGPT) 74 U/L (12-78) 53 U/L (12-78) Alkaline Phosphatase 151 U/L (46-116) H 117 U/L (46-116) H Troponin I 0.000 ng/mL (0.000-0.056) Total Protein 8.4 G/DL (6.4-8.2) H 6.9 G/DL (6.4-8.2) Albumin 4.3 G/DL (3.4-5.0) 3.4 G/DL (3.4-5.0) Globulin 4.1 g/dL 3.5 g/dL Albumin/Globulin Ratio 1.0 (1.0-2.7) 1.0 (1.0-2.7) Lipase 235 U/L (73-393) 235 U/L (73-393) Serum Alcohol 101 mg/dL Differential Total Cells Counted 100 Neutrophils % (Manual) 58 % (45-75) Lymphocytes % (Manual) 29 % (20-45) Monocytes % (Manual) 12 % (1-10) H Eosinophils % (Manual) 1 % (0-3) Basophils % (Manual) 0 % (0-2) Band Neutrophils 0 % (0-8) Platelet Estimate Adequate Platelet Morphology Normal Hypochromasia 1+ Macrocytosis 1+ Activated Partial Thromboplast Time 30 SEC (23-33) Amylase Level 54 U/L (25-115) Height (Feet): 5 Height (Inches): 0.00 Weight (Pounds): 88 Medications Current Medications Medications (Trade) Dose Ordered Sig/Desiree Route PRN Reason Start Time Stop Time Status Last Admin Dose Admin Acetaminophen (Tylenol) 650 mg Q4H PRN ORAL fever 10/03/17 22:30 11/02/17 22:29 Al Hydroxide/Mg Hydroxide (Mylanta II) 30 ml Q6H PRN ORAL dyspepsia 10/03/17 22:30 11/02/17 22:29 Dextrose (Dextrose 50%) STAT PRN IV Hypoglycemia 10/03/17 22:30 11/02/17 22:29 Dextrose/Sodium Chloride 1,000 ml @ 75 mls/hr [id number] IV 10/03/17 23:30 11/02/17 23:29 10/03/17 23:30 Diphenhydramine HCl (Benadryl) 25 mg Q6H PRN ORAL Itching/Pruritis 10/03/17 22:30 11/02/17 22:29 Heparin Sodium (Porcine) (Heparin 5000 units/ml) 5,000 units EVERY 12 HOURS SUBQ 10/04/17 09:00 11/03/17 08:59 10/04/17 09:26 Lorazepam (Ativan 2mg/ml 1ml) 1 mg Q4H PRN IV agitation 10/03/17 22:30 10/10/17 22:29 Metoclopramide HCl (Reglan) 10 mg Q6H PRN IVP servere nausea 10/03/17 22:30 11/02/17 22:29 Morphine Sulfate (Morphine Sulfate) 2 mg Q4H PRN IVP severe Pain (Pain Scale 7-10) 10/03/17 22:30 10/10/17 22:29 Nitroglycerin (Ntg) 0.4 mg Q5M X 3 DOSES PRN SL Prn Chest Pain 10/03/17 22:30 11/02/17 22:29 Ondansetron HCl (Zofran) 4 mg Q6H PRN IVP Nausea & Vomiting 10/03/17 22:30 11/02/17 22:29 Pantoprazole (Protonix) 40 mg DAILY IV 10/04/17 09:00 11/03/17 08:59 10/04/17 09:24 Polyethylene Glycol (Miralax) 17 gm HSPRN PRN ORAL Constipation 10/03/17 22:30 11/02/17 22:29 Promethazine HCl (Phenergan) 25 mg EVERY 8 HOURS PRN IV refractory nausea 10/03/17 22:30 11/02/17 22:29 UNV Temazepam (Restoril) 15 mg HSPRN PRN ORAL Insomnia 10/03/17 22:30 10/10/17 22:29 10/04/17 02:16 Assessment/Plan Assessment/Plan ASSESSMENT intractable n/v with epigastric pain likely alcoholic gastritis acute anemia requiring blood transfusion dehydration hypo Na hypo K transaminitis ETOH abuse PLAN OF CARE MS floor IVF NPO GI consult transfuse 1 u PRBC anemia w/up GI prophylaxis a/emetic prn K and Na stable after K replacement and IVF with NS trend LFT children's counselor on ETOH cessation case discussed and evaluated by supervising physician Dipti Bowens NP ([facility]) Oct 04, 2017 10:32
[2017-10-04 12:27] VITALS: BP 102/67
[2017-10-04] MEDS: D5 1/2NS 1,000 ML IV SCH (12:31)
[2017-10-04] MEDS ORDERED: NS 250 ML IVPB ONE (15:00)
[2017-10-04 16:31] VITALS: BP 89/60
--- NOTE | 2017-10-04 18:20 | Cardiology Report ---
APPROVED REPORT EKG Measurement Heart [id number] Sinus tachycardia Possible Left atrial enlargement Nonspecific ST and T wave abnormality Abnormal ECG
[2017-10-04 20:00] VITALS: BP 105/69
--- NOTE | 2017-10-04 20:54 | General Progress Note ---
Assessment/Plan Assessment/Plan GI CONSULT Assessment - EtOH abuse - EtOH hepatitis - severe anemia - RUQ pain Recommendations - IVF - MVI/Thiamine - Transfuse PRN - PPI - watch for DT - EGD Friday Thank you Camron Gardner MD Subjective Allergies: Coded Allergies: No Known Allergies (Unverified , 02/15/15) Objective Last 24 Hour Vital Signs Date Time Temp Pulse Resp B/P (MAP) Pulse Ox O2 Delivery O2 Flow Rate FiO2 10/04/17 17:07 98.4 10/04/17 16:31 99.1 81 16 89/60 97 Room Air 10/04/17 12:27 97.6 95 18 102/67 98 Room Air 10/04/17 08:33 98.3 89 16 99/62 96 Room Air 10/04/17 06:48 Room Air 10/04/17 04:00 97.8 92 19 112/68 96 10/04/17 00:30 97.6 100 18 109/76 96 10/04/17 00:15 97.4 97 18 109/72 97 Room Air 10/03/17 23:48 97.4 97 18 109/72 97 Room Air 10/03/17 22:57 97.4 98 18 104/69 98 Room Air 10/03/17 21:07 97.5 98 16 109/70 99 Room Air Intake and Output 10/04/17 10/05/17 19:00 07:00 Intake Total 585 ml Balance 585 ml Intake Oral 360 ml IV Total 225 ml # Voids 1 Laboratory Tests 10/03/17 21:00: White Blood Count 5.5, Red Blood Count 2.30L, Hemoglobin 9.0L, Hematocrit 25.8L , Mean Corpuscular Volume 112H, Mean Corpuscular Hemoglobin 39.2H, Mean Corpuscular Hemoglobin Concent 35.0, Red Cell Distribution Width 10.4L, Platelet Count 414, Mean Platelet Volume 5.9L, Neutrophils (%) (Auto) 68.9, Lymphocytes (%) (Auto) 18.5L, Monocytes (%) (Auto) 9.5, Eosinophils (%) (Auto) 823.0H, Basophils (%) (Auto) 2.2H, Sodium Level 129L, Potassium Level 2.8L, Chloride Level 90L, Carbon Dioxide Level 24, Anion Gap 15, Blood Urea Nitrogen 19H, Creatinine 0.8, Estimat Glomerular Filtration Rate > 60, Glucose Level 109H , Calcium Level 10.1, Total Bilirubin 2.1H, Direct Bilirubin 0.9H, Aspartate Amino Transf (AST/SGOT) 325H, Alanine Aminotransferase (ALT/SGPT) 74, Alkaline Phosphatase 151H, Troponin I 0.000, Total Protein 8.4H, Albumin 4.3, Globulin 4.1, Albumin/Globulin Ratio 1.0, Lipase 235, Serum Alcohol 101 10/04/17 06:20: White Blood Count 4.6L, Red Blood Count 1.95L, Hemoglobin 7.6L, Hematocrit 22.4L , Mean Corpuscular Volume 115H, Mean Corpuscular Hemoglobin 39.1H, Mean Corpuscular Hemoglobin Concent 34.1, Red Cell Distribution Width 10.5L, Platelet Count 376, Mean Platelet Volume 5.9L, Neutrophils (%) (Auto) , Lymphocytes (%) (Auto) , Monocytes (%) (Auto) , Eosinophils (%) (Auto) , Basophils (%) (Auto) , Sodium Level 135L, Potassium Level 4.4#, Chloride Level 102, Carbon Dioxide Level 24, Anion Gap 9, Blood Urea Nitrogen 14, Creatinine 0.7, Estimat Glomerular Filtration Rate > 60, Glucose Level 101, Calcium Level 9.1, Total Bilirubin 2.1H, Direct Bilirubin 0.8H, Aspartate Amino Transf (AST/ SGOT) 230H, Alanine Aminotransferase (ALT/SGPT) 53, Alkaline Phosphatase 117H, Total Protein 6.9, Albumin 3.4, Globulin 3.5, Albumin/Globulin Ratio 1.0, Lipase 235, Differential Total Cells Counted 100, Neutrophils % (Manual) 58, Lymphocytes % (Manual) 29, Monocytes % (Manual) 12H, Eosinophils % (Manual) 1, Basophils % (Manual) 0, Band Neutrophils 0, Platelet Estimate Adequate, Platelet Morphology Normal, Hypochromasia 1+, Macrocytosis 1+, Activated Partial Thromboplast Time 30, Amylase Level 54 Height (Feet): 5 Height (Inches): 0.00 Weight (Pounds): 88 CAMRON GARDNER Oct 04, 2017 20:54
--- NOTE | 2017-10-05 01:15 | Consultation ---
DATE OF CONSULTATION: 10/04/2017 GASTROENTEROLOGY CONSULTATION CONSULTING PHYSICIAN: Camron Gardner M.D. REFERRING PHYSICIAN: Yuni Soares M.D. CHIEF COMPLAINT: I was asked to see this patient by Dr. Yuni Soares for evaluation of anemia. HISTORY OF PRESENT ILLNESS: The patient is a 52-year-old Sami woman with history of longstanding alcohol abuse, who came into the hospital due to nausea, vomiting, and abdominal pain for about seven days. The patient was found to have severe anemia and therefore, she was admitted and she has had to be transfused. The patient was admitted about a month ago with different set of items and at that time, she was noted to have some mild elevation in bilirubin. She did not have any gallstones, but did have some biliary ductal dilatation with no obstruction either on ultrasound or CT scan. This was felt to be medical liver disease. On this occasion, she still has an elevated bilirubin level with AST and ALT ratio suggestive of alcoholic hepatitis. In addition, she has detectable alcohol level consistent with alcohol use history. She has had no reported history of melena or hematochezia, but her blood count is severely low and dramatically lower than what it was a month ago. PAST MEDICAL HISTORY: History of alcoholism, history of hypertension, and history of mild bilirubin elevation. FAMILY HISTORY: Noncontributory. SOCIAL HISTORY: The patient is a Sami, drinks alcohol heavily. REVIEW OF SYSTEMS: Otherwise negative. PHYSIAL EXAMINATION: GENERAL: woman seen in her room. HEENT: Normocephalic and atraumatic. Oropharynx is clear. NECK: Supple. CHEST: Clear to auscultation. CARDIOVASCULAR: Regular rate. ABDOMEN: Soft with some right lower quadrant abdominal tenderness. EXTREMITIES: No edema. LABORATORY DATA: Noted. ASSESSMENT: This patient presents with progressive anemia which is dramatically lower than what it was a month ago. The patient does have abdominal pain and she will undergo endoscopy to evaluate the upper gastrointestinal tract for ulcers or other bleeding lesions such as varices. In the meantime, the patient should receive blood transfusion to keep the hemoglobin above 7. I will check coagulation parameters in the morning. She received proton-pump inhibitor and should be observed very closely. In the meantime, the patient will be observed very closely and she should be kept on proton-pump inhibitor. The liver test abnormalities are likely due to alcoholic hepatitis and should resolve with abstinence of alcohol. RECOMMENDATIONS: Per above discussion and per orders written in the chart. Thank you for asking me to participate in the care of this patient. Camron Gardner M.D. DR: Alexey JOB#: [id number] CC: YANELY
[2017-10-05] MEDS: D5 1/2NS 1,000 ML IV SCH ×3 (02:10→21:21)
[2017-10-05 04:00] VITALS: BP 91/70
--- NOTE | 2017-10-05 07:41 | Pulmonology Progress Note ---
Assessment/Plan Assessment/Plan ASSESSMENT intractable n/v with epigastric pain likely alcoholic gastritis dehydration hypo Na hypo ka acute anemia requiring blood transfusion transaminitis ETOH abuse PLAN OF CARE MS floor IVF CL diet and advance as tolerated GI follows EGD planned for next week s/p 1 u PRBC HH better anemia w/up with stable iron, high ferritin check stool OB< CEA GI prophylaxis a/emetic prn replace K trend LFT auto travel counselor on ETOH cessation case discussed and evaluated by supervising physician Subjective Allergies: Coded Allergies: No Known Allergies (Unverified , 02/15/15) Subjective HH better after blood transfusion tolerates CL diet seen and evaluated by GI GI procedure planned no n/v/ + intermittent abdominal pain Objective Last 24 Hour Vital Signs Date Time Temp Pulse Resp B/P (MAP) Pulse Ox O2 Delivery O2 Flow Rate FiO2 10/05/17 04:00 97.9 77 18 91/70 98 Room Air 10/04/17 20:00 97.8 83 18 105/69 99 Room Air 10/04/17 17:07 98.4 10/04/17 16:31 99.1 81 16 89/60 97 Room Air 10/04/17 12:27 97.6 95 18 102/67 98 Room Air 10/04/17 08:33 98.3 89 16 99/62 96 Room Air Objective General Appearance: no apparent distress, alert, cachetic Lines, tubes and drains: peripheral Neck: non-tender, supple Respiratory/Chest: lungs clear, normal breath sounds, no respiratory distress, no accessory muscle use Cardiovascular/Chest: normal rate, regular rhythm, no JVD Abdomen: normal bowel sounds - epigastric tenderness, no guarding, no rebound , soft Extremities: normal range of motion, non-tender, no calf tenderness, normal capillary refill Neurologic: no motor/sensory deficits, alert, oriented x 3, responsive Musculoskeletal: normal muscle bulk Laboratory Tests 10/05/17 05:20: Prothrombin Time [Pending], Prothromb Time International Ratio [Pending], Activated Partial Thromboplast Time [Pending], Sodium Level [Pending], Potassium Level [Pending], Chloride Level [Pending], Carbon Dioxide Level [ Pending], Blood Urea Nitrogen [Pending], Creatinine [Pending], Estimat Glomerular Filtration Rate [Pending], Glucose Level [Pending], Calcium Level [ Pending], Iron Level [Pending], Unsaturated Iron Binding [Pending], Ferritin [ Pending], Vitamin B12 Level [Pending], Folate [Pending] Current Medications Medications (Trade) Dose Ordered Sig/Desiree Route PRN Reason Start Time Stop Time Status Last Admin Dose Admin Acetaminophen (Tylenol) 650 mg Q4H PRN ORAL fever 10/03/17 22:30 11/02/17 22:29 10/04/17 16:08 Al Hydroxide/Mg Hydroxide (Mylanta II) 30 ml Q6H PRN ORAL dyspepsia 10/03/17 22:30 11/02/17 22:29 Dextrose (Dextrose 50%) STAT PRN IV Hypoglycemia 10/03/17 22:30 11/02/17 22:29 Dextrose/Sodium Chloride 1,000 ml @ 75 mls/hr [id number] IV 10/03/17 23:30 11/02/17 23:29 10/05/17 06:54 Diphenhydramine HCl (Benadryl) 25 mg Q6H PRN ORAL Itching/Pruritis 10/03/17 22:30 11/02/17 22:29 Heparin Sodium (Porcine) (Heparin 5000 units/ml) 5,000 units EVERY 12 HOURS SUBQ 10/04/17 09:00 11/03/17 08:59 10/04/17 20:26 Lorazepam (Ativan 2mg/ml 1ml) 1 mg Q4H PRN IV agitation 10/03/17 22:30 10/10/17 22:29 Metoclopramide HCl (Reglan) 10 mg Q6H PRN IVP servere nausea 10/03/17 22:30 11/02/17 22:29 Morphine Sulfate (Morphine Sulfate) 2 mg Q4H PRN IVP severe Pain (Pain Scale 7-10) 10/03/17 22:30 10/10/17 22:29 Nitroglycerin (Ntg) 0.4 mg Q5M X 3 DOSES PRN SL Prn Chest Pain 10/03/17 22:30 11/02/17 22:29 Ondansetron HCl (Zofran) 4 mg Q6H PRN IVP Nausea & Vomiting 10/03/17 22:30 11/02/17 22:29 Pantoprazole (Protonix) 40 mg DAILY IV 10/04/17 09:00 11/03/17 08:59 10/04/17 09:24 Polyethylene Glycol (Miralax) 17 gm HSPRN PRN ORAL Constipation 10/03/17 22:30 11/02/17 22:29 Temazepam (Restoril) 15 mg HSPRN PRN ORAL Insomnia 10/03/17 22:30 10/10/17 22:29 10/04/17 20:24 Kwan ([facility])Dipti NP Oct 05, 2017 07:40
[2017-10-05 07:55] LABS: PROTHROMBIN TIME 10.7 SEC (9.30-11.50)
[2017-10-05] MEDS: Pantoprazole Inj IV SCH (08:14)
[2017-10-05] MEDS: Heparin 5000 units/ml inj SUBQ SCH ×2 (08:17→21:00)
[2017-10-05 08:20] VITALS: BP 100/67
[2017-10-05 08:28] LABS: ANION GAP 8 mmol/L (5-15); CALCIUM 9.2 MG/DL (8.5-10.1); CARBON DIOXIDE 25 MMOL/L (21-32); CHLORIDE 103 MMOL/L (98-107); CREATININE 0.6 MG/DL (0.55-1.30); FERRITIN 3368 NG/ML (8-388); GLOMERULAR FILTRATION RATE > 60 mL/min (>60); POTASSIUM 3.3 MMOL/L (3.5-5.1); SODIUM 136 MMOL/L (136-145)
[2017-10-05 08:29] LABS: BASOPHILS % (AUTO) 2.3 % (0.0-2.0); EOSINOPHILS % (AUTO) 3.7 % (0.0-3.0); LYMPHOCYTES % (AUTO) 31.9 % (20.0-45.0); MEAN CORPUSCULAR HEMOGLOBIN 37.7 PG (27.0-31.0); MEAN CORPUSCULAR HGB CONC 35.5 G/DL (32.0-36.0); MEAN CORPUSCULAR VOLUME 106 FL (80-99); MONOCYTES % (AUTO) 14.3 % (1.0-10.0); NEUTROPHILS % (AUTO) 47.8 % (45.0-75.0); PLATELET COUNT 345 K/UL (150-450); RED BLOOD COUNT 2.33 M/UL (4.20-5.40); RED CELL DISTRIBUTION WIDTH 17.1 % (11.6-14.8)
[2017-10-05 08:44] LABS: FOLIC ACID 11.1 NG/ML (8.6-58.9); IRON 170 ug/dL (50-175); TOTAL IRON BINDING CAPACITY 171 ug/dL (250-450)
[2017-10-05 13:42] VITALS: BP 123/75
[2017-10-05] MEDS ORDERED: D5 1/2NS 1000ml IV ONE (14:47)
[2017-10-05] MEDS ORDERED: Tubing IV Secondary IV ONE (14:47)
[2017-10-05] MEDS ORDERED: NS 275ml ONE (14:47)
[2017-10-05 17:58] VITALS: BP 103/65
--- NOTE | 2017-10-05 19:52 | General Progress Note ---
Assessment/Plan Assessment/Plan Assessment - EtOH abuse - EtOH hepatitis - severe anemia - RUQ pain Recommendations - IVF - MVI/Thiamine - Transfuse PRN - PPI - watch for DT - EGD Friday Subjective Allergies: Coded Allergies: No Known Allergies (Unverified , 02/15/15) Subjective above noted NAD still with some abd pain Objective Last 24 Hour Vital Signs Date Time Temp Pulse Resp B/P (MAP) Pulse Ox O2 Delivery O2 Flow Rate FiO2 10/05/17 17:58 97.8 87 17 103/65 99 Room Air 10/05/17 13:42 97.0 102 20 123/75 93 10/05/17 08:20 98.0 78 17 100/67 99 Room Air 10/05/17 04:00 97.9 77 18 91/70 98 Room Air 10/04/17 20:00 97.8 83 18 105/69 99 Room Air Intake and Output 10/05/17 10/06/17 19:00 07:00 Intake Total 1740 ml Balance 1740 ml Intake Oral 840 ml IV Total 900 ml # Voids 2 Laboratory Tests 10/05/17 05:20: White Blood Count 4.0L, Red Blood Count 2.33L, Hemoglobin 8.8L, Hematocrit 24.7L , Mean Corpuscular Volume 106H, Mean Corpuscular Hemoglobin 37.7H, Mean Corpuscular Hemoglobin Concent 35.5, Red Cell Distribution Width 17.1H, Platelet Count 345, Mean Platelet Volume 6.0L, Neutrophils (%) (Auto) 47.8, Lymphocytes (%) (Auto) 31.9, Monocytes (%) (Auto) 14.3H, Eosinophils (%) (Auto) 3.7H, Basophils (%) (Auto) 2.3H, Prothrombin Time 10.7, Prothromb Time International Ratio 1.0, Activated Partial Thromboplast Time 32, Sodium Level 136, Potassium Level 3.3L, Chloride Level 103, Carbon Dioxide Level 25, Anion Gap 8, Blood Urea Nitrogen 6L, Creatinine 0.6, Estimat Glomerular Filtration Rate > 60, Glucose Level 113H, Calcium Level 9.2, Iron Level 170, Total Iron Binding Capacity 171L, Percent Iron Saturation 99H, Unsaturated Iron Binding 1L , Ferritin 3368H, Vitamin B12 Level 1396H, Folate 11.1 Height (Feet): 5 Height (Inches): 0.00 Weight (Pounds): 88 Objective Thin woman NCAT supple CTA RRR Soft ND mild TTP RUQ no edema non focal BAKARI AKBAR Oct 05, 2017 19:52
[2017-10-05 20:16] VITALS: BP 96/65
[2017-10-06] VITALS (10 sets, daily range): BP systolic 100–119; BP diastolic 71–79
--- NOTE | 2017-10-06 07:48 | Anethesia Preoperative Eval ---
Anesthesia Pre-op PMH/ROS General Date of Evaluation: Oct 06, 2017 Time of Evaluation: 07:45 Anesthesiologist: pablito ASA Score: ASA 3 Mallampati Score Class I : Soft palate, uvula, fauces, pillars visible Class II: Soft palate, uvula, fauces visible Class III: Soft palate, base of uvula visible Class IV: Only hard plate visible Mallampati Classification: Class II Surgeon: waldemar Diagnosis: intractable nausea and vomiting Surgical Procedure: egd Anesthesia History: none Social History: current smoker, alcohol use Family History: no anesthesia problems Allergies: Coded Allergies: No Known Allergies (Unverified , 02/15/15) Medications: see eMAR Past Medical History Cardiovascular: Reports: HTN Anesthesia Pre-op Phys. Exam Physician Exam Last Vital Signs Date Time Temp Pulse Resp B/P (MAP) Pulse Ox O2 Delivery O2 Flow Rate FiO2 10/06/17 04:00 97.8 79 17 113/72 98 10/05/17 17:58 Room Air Constitutional: NAD Neurologic: CN 2-12 intact Cardiovascular: RRR Respiratory: CTA Gastrointestinal: S/NT/ND Airway Exam Mallampati Score: Class II MO: full Neck: supple TMD: 2fb ROM: full Anesthesia Pre-op A/P Labs Labs Test 10/03/17 20:50 10/03/17 21:00 10/04/17 06:20 10/05/17 05:20 Urine Color [place] Urine Appearance Slightly cloudy Urine pH 6.5 (4.5-8.0) Urine Specific [place] 1.010 (1.005-1.035) Urine Protein 1+ (NEGATIVE) Urine Glucose (UA) Negative (NEGATIVE) Urine Ketones 1+ (NEGATIVE) Urine Occult Blood Negative (NEGATIVE) Urine Nitrite Negative (NEGATIVE) Urine Bilirubin 1+ (NEGATIVE) Urine Ictotest Positive Urine Urobilinogen 8 MG/DL (0.0-1.0) Urine Leukocyte Esterase 2+ (NEGATIVE) Urine RBC 2-4 /HPF (0 - 2) Urine WBC 0-2 /HPF (0 - 2) Urine Squamous Epithelial Cells Occasional /LPF Urine Bacteria Few /HPF (NONE) White Blood Count 5.5 K/UL (4.8-10.8) 4.6 K/UL (4.8-10.8) 4.0 K/UL (4.8-10.8) Red Blood Count 2.30 M/UL (4.20-5.40) 1.95 M/UL (4.20-5.40) 2.33 M/UL (4.20-5.40) Hemoglobin 9.0 G/DL (12.0-16.0) 7.6 G/DL (12.0-16.0) 8.8 G/DL (12.0-16.0) Hematocrit 25.8 % (37.0-47.0) 22.4 % (37.0-47.0) 24.7 % (37.0-47.0) Mean Corpuscular Volume 112 FL (80-99) 115 FL (80-99) 106 FL (80-99) Mean Corpuscular Hemoglobin 39.2 PG (27.0-31.0) 39.1 PG (27.0-31.0) 37.7 PG (27.0-31.0) Mean Corpuscular Hemoglobin Concent 35.0 G/DL (32.0-36.0) 34.1 G/DL (32.0-36.0) 35.5 G/DL (32.0-36.0) Red Cell Distribution Width 10.4 % (11.6-14.8) 10.5 % (11.6-14.8) 17.1 % (11.6-14.8) Platelet Count 414 K/UL (150-450) 376 K/UL (150-450) 345 K/UL (150-450) Mean Platelet Volume 5.9 FL (6.5-10.1) 5.9 FL (6.5-10.1) 6.0 FL (6.5-10.1) Neutrophils (%) (Auto) 68.9 % (45.0-75.0) % (45.0-75.0) 47.8 % (45.0-75.0) Lymphocytes (%) (Auto) 18.5 % (20.0-45.0) % (20.0-45.0) 31.9 % (20.0-45.0) Monocytes (%) (Auto) 9.5 % (1.0-10.0) % (1.0-10.0) 14.3 % (1.0-10.0) Eosinophils (%) (Auto) 823.0 % (0.0-3.0) % (0.0-3.0) 3.7 % (0.0-3.0) Basophils (%) (Auto) 2.2 % (0.0-2.0) % (0.0-2.0) 2.3 % (0.0-2.0) Sodium Level 129 MMOL/L (136-145) 135 MMOL/L (136-145) 136 MMOL/L (136-145) Potassium Level 2.8 MMOL/L (3.5-5.1) 4.4 MMOL/L (3.5-5.1) 3.3 MMOL/L (3.5-5.1) Chloride Level 90 MMOL/L (98-107) 102 MMOL/L (98-107) 103 MMOL/L (98-107) Carbon Dioxide Level 24 MMOL/L (21-32) 24 MMOL/L (21-32) 25 MMOL/L (21-32) Anion Gap 15 mmol/L (5-15) 9 mmol/L (5-15) 8 mmol/L (5-15) Blood Urea Nitrogen 19 mg/dL (7-18) 14 mg/dL (7-18) 6 mg/dL (7-18) Creatinine 0.8 MG/DL (0.55-1.30) 0.7 MG/DL (0.55-1.30) 0.6 MG/DL (0.55-1.30) Estimat Glomerular Filtration Rate > 60 mL/min (>60) > 60 mL/min (>60) > 60 mL/min (>60) Glucose Level 109 MG/DL (74-106) 101 MG/DL (74-106) 113 MG/DL (74-106) Calcium Level 10.1 MG/DL (8.5-10.1) 9.1 MG/DL (8.5-10.1) 9.2 MG/DL (8.5-10.1) Total Bilirubin 2.1 MG/DL (0.2-1.0) 2.1 MG/DL (0.2-1.0) Direct Bilirubin 0.9 MG/DL (0.0-0.3) 0.8 MG/DL (0.0-0.3) Aspartate Amino Transf (AST/SGOT) 325 U/L (15-37) 230 U/L (15-37) Alanine Aminotransferase (ALT/SGPT) 74 U/L (12-78) 53 U/L (12-78) Alkaline Phosphatase 151 U/L (46-116) 117 U/L (46-116) Troponin I 0.000 ng/mL (0.000-0.056) Total Protein 8.4 G/DL (6.4-8.2) 6.9 G/DL (6.4-8.2) Albumin 4.3 G/DL (3.4-5.0) 3.4 G/DL (3.4-5.0) Globulin 4.1 g/dL 3.5 g/dL Albumin/Globulin Ratio 1.0 (1.0-2.7) 1.0 (1.0-2.7) Lipase 235 U/L (73-393) 235 U/L (73-393) Serum Alcohol 101 mg/dL Differential Total Cells Counted 100 Neutrophils % (Manual) 58 % (45-75) Lymphocytes % (Manual) 29 % (20-45) Monocytes % (Manual) 12 % (1-10) Eosinophils % (Manual) 1 % (0-3) Basophils % (Manual) 0 % (0-2) Band Neutrophils 0 % (0-8) Platelet Estimate Adequate Platelet Morphology Normal Hypochromasia 1+ Macrocytosis 1+ Activated Partial Thromboplast Time 30 SEC (23-33) 32 SEC (23-33) Amylase Level 54 U/L (25-115) Prothrombin Time 10.7 SEC (9.30-11.50) Prothromb Time International Ratio 1.0 (0.9-1.1) Iron Level 170 ug/dL (50-175) Total Iron Binding Capacity 171 ug/dL (250-450) Percent Iron Saturation 99 % (15-50) Unsaturated Iron Binding 1 ug/dL (112-346) Ferritin 3368 NG/ML (8-388) Vitamin B12 Level 1396 PG/ML (193-986) Folate 11.1 NG/ML (8.6-58.9) Risk Assessment & Plan Assessment: asa3 Plan: mac Status Change Before Surgery: No Pre-Antibiotics Drug: CAROL ANN Flores Oct 06, 2017 07:48
[2017-10-06 08:19] LABS: BASOPHILS % (AUTO) 2.3 % (0.0-2.0); EOSINOPHILS % (AUTO) 3.7 % (0.0-3.0); LYMPHOCYTES % (AUTO) 30.9 % (20.0-45.0); MEAN CORPUSCULAR HEMOGLOBIN 37.4 PG (27.0-31.0); MEAN CORPUSCULAR HGB CONC 35.1 G/DL (32.0-36.0); MEAN CORPUSCULAR VOLUME 107 FL (80-99); MEAN PLATELET VOLUME 5.5 FL (6.5-10.1); NEUTROPHILS % (AUTO) 49.1 % (45.0-75.0); PLATELET COUNT 450 K/UL (150-450); RED BLOOD COUNT 2.49 M/UL (4.20-5.40); RED CELL DISTRIBUTION WIDTH 17.1 % (11.6-14.8); WHITE BLOOD COUNT 4.7 K/UL (4.8-10.8)
[2017-10-06 08:33] LABS: ALANINE AMINOTRANSFERASE 43 U/L (12-78); ANION GAP 6 mmol/L (5-15); ASPARTATE AMINO TRANSFERASE 130 U/L (15-37); CALCIUM 9.5 MG/DL (8.5-10.1); CARBON DIOXIDE 29 MMOL/L (21-32); CHLORIDE 105 MMOL/L (98-107); CREATININE 0.7 MG/DL (0.55-1.30); GLOMERULAR FILTRATION RATE > 60 mL/min (>60); POTASSIUM 3.4 MMOL/L (3.5-5.1); SODIUM 140 MMOL/L (136-145); TOTAL PROTEIN 6.4 G/DL (6.4-8.2)
[2017-10-06] MEDS ORDERED: DiphenhydrAMINE 50mg/ml Inj IVP PRN (08:45)
[2017-10-06] MEDS ORDERED: fentaNYL 100 mcg/2 mL IV PRN (08:45)
[2017-10-06] MEDS ORDERED: Atropine Inj 1mg/10ml Syr IV PRN (08:45)
[2017-10-06] MEDS ORDERED: Midazolam 2mg/2ml Inj IVP PRN (08:45)
[2017-10-06] MEDS ORDERED: NS 500ML IV ONE (08:57)
[2017-10-06] MEDS ORDERED: Lidocaine 1% MPF 10mg/ml 5ml ONE (09:00)
[2017-10-06] MEDS ORDERED: Propofol 200mg/20ml IV ONE (09:00)
[2017-10-06] MEDS: Pantoprazole Inj IV SCH ×2 (09:00→10:53)
[2017-10-06] MEDS: Heparin 5000 units/ml inj SUBQ SCH ×2 (09:00→10:54)
--- NOTE | 2017-10-06 09:26 | Pre-Procedure Note/Attestation ---
Pre-Procedure Note/Attestation Complete Prior to Procedure Planned Procedure: not applicable Procedure Narrative: egd Indications for Procedure Pre-Operative Diagnosis: anemia Attestation I attest that I discussed the nature of the procedure; its benefits; risks and complications; and alternatives (and the risks and benefits of such alternatives ), prior to the procedure, with the patient (or the patient's legal outside dealer sales representative). I attest that, if there was a reasonable possibility of needing a blood transfusion, the patient (or the patient's legal outside dealer sales representative) was given the [facility] standardized written summary, pursuant to the [facility] Blood Safety Act ([place] Health and Safety Code # 1645, as amended). I attest that I re-evaluated the patient just prior to the surgery and that there has been no change in the patient's H&P, except as documented below: KATRINA BECERRIL Oct 06, 2017 09:26
--- NOTE | 2017-10-06 09:35 | Endoscopy Procedure Note ---
Endoscopy Procedure Note Indication for Procedure: vomiting Operative Findings/Diagnosis: gastritis Specimen: yes Pt Tolerated Procedure Well: Yes Estimated Blood Loss: none Anesthesiologist: balaji Anesthesia: MAC Implant(s) used?: No 50 yrs or older w/o bx or poly: Not Applicable 10yrs. F/U not recommended: Not Applicable KATRINA BECERRIL Oct 06, 2017 09:35
--- NOTE | 2017-10-06 10:04 | Immediate Post-Op Evaluation ---
Immediate Post-Op Evalulation Immediate Post-Op Evalulation Procedure: egd Date of Evaluation: Oct 06, 2017 Time of Evaluation: 09:57 IV Fluids: 200ml 0.9ns Blood Products: none Estimated Blood Loss: negligible Blood Pressure Systolic: 100 Blood Pressure Diastolic: 73 Pulse Rate: 69 Respiratory Rate: 18 O2 Sat by Pulse Oximetry: 100 Temperature (Fahrenheit): 97.3 Pain Score (1-10): 0 Nausea: No Vomiting: No Complications none Patient Status: awake, reacts, patent Hydration Status: adequate Drug: CAROL ANN Flores Oct 06, 2017 10:04
--- NOTE | 2017-10-06 10:06 | 48 Hour Post Anesthesia Eval ---
Post Anesthesia Evaluation Procedure: egd Date of Evaluation: Oct 06, 2017 Time of Evaluation: 10:05 Blood Pressure Systolic: 118 0: 79 Pulse Rate: 69 Respiratory Rate: 18 Temperature (Fahrenheit): 97.3 O2 Sat by Pulse Oximetry: 100 Airway: patent Nausea: No Vomiting: No Pain Intensity: 0 Hydration Status: adequate Cardiopulmonary Status: stable Mental Status/LOC: patient returned to baseline Post-Anesthesia Complications: none Follow-up care needed: N/A CAROL ANN SOLORZANO Oct 06, 2017 10:06
[2017-10-06] MEDS: D5 1/2NS 1,000 ML IV SCH (13:02)
--- NOTE | 2017-10-06 13:55 | Diagnostic Imaging Report ---
Indication: Abdominal pain Technique: Riojas-scale and duplex images of the upper abdomen were obtained Comparison: None Findings: Gallbladder is unremarkable, without stones, wall thickening, nor pericholecystic fluid. Common bile duct measures 2 mm in diameter. No intrahepatic biliary ductal dilatation. Liver demonstrates normal echogenicity, no focal abnormality. Portal vein and hepatic veins are patent. Pancreas is unremarkable. Spleen is unremarkable. Left kidney measures 10.8 cm in length. Right kidney measures 10.5 cm length. Both kidneys demonstrate normal echogenicity. There is no hydronephrosis. No focal abnormality . Non-aneurysmal abdominal aorta . Impression: Negative
--- NOTE | 2017-10-06 15:32 | Pulmonology Progress Note ---
Assessment/Plan Problems: (1) Intractable nausea and vomiting (2) Alcohol abuse (3) Hyponatremia Assessment/Plan improving endoscopy noted pt wants to go home. Subjective ROS Limited/Unobtainable: No Interval Events: endoscopy done, showing onlyl gastritis Constitutional: Reports: no symptoms Allergies: Coded Allergies: No Known Allergies (Unverified , 02/15/15) Objective Last 24 Hour Vital Signs Date Time Temp Pulse Resp B/P (MAP) Pulse Ox O2 Delivery O2 Flow Rate FiO2 10/06/17 12:00 98.1 74 18 112/74 100 10/06/17 10:20 97.6 61 13 118/75 100 Room Air 10/06/17 10:06 69 18 100 10/06/17 10:05 61 13 119/77 100 Nasal Cannula 3.0 10/06/17 10:04 69 18 100 10/06/17 09:55 63 12 118/79 100 Nasal Cannula 3.0 10/06/17 09:50 65 13 114/76 100 Nasal Cannula 3.0 10/06/17 09:45 97.3 69 21 100/73 100 Nasal Cannula 3.0 10/06/17 08:00 98.4 71 18 110/71 97 10/06/17 04:00 97.8 79 17 113/72 98 10/06/17 00:34 98.3 80 18 111/75 98 10/05/17 20:16 99.2 87 19 96/65 96 10/05/17 17:58 97.8 87 17 103/65 99 Room Air Intake and Output 10/06/17 10/07/17 19:00 07:00 Intake Total 575 ml Output Total 300 ml Balance 275 ml IV Total 575 ml Output Urine Total 300 ml # Voids 1 General Appearance: WD/WN HEENT: normocephalic, atraumatic, anicteric Respiratory/Chest: chest wall non-tender, lungs clear Breasts: no masses Cardiovascular: normal peripheral pulses Abdomen: normal bowel sounds, soft, non tender Genitourinary: normal external genitalia Skin: no rash Microbiology Date/Time Source Procedure Growth Status 10/05/17 18:00 Stool Clostridium difficile Toxin Assay - Final Complete Laboratory Tests 10/06/17 06:51: White Blood Count 4.7L, Red Blood Count 2.49L, Hemoglobin 9.3L, Hematocrit 26.6L , Mean Corpuscular Volume 107H, Mean Corpuscular Hemoglobin 37.4H, Mean Corpuscular Hemoglobin Concent 35.1, Red Cell Distribution Width 17.1H, Platelet Count 450, Mean Platelet Volume 5.5L, Neutrophils (%) (Auto) 49.1, Lymphocytes (%) (Auto) 30.9, Monocytes (%) (Auto) 14.0H, Eosinophils (%) (Auto) 3.7H, Basophils (%) (Auto) 2.3H, Sodium Level 140, Potassium Level 3.4L, Chloride Level 105, Carbon Dioxide Level 29, Anion Gap 6, Blood Urea Nitrogen 2L , Creatinine 0.7, Estimat Glomerular Filtration Rate > 60, Glucose Level 102, Calcium Level 9.5, Total Bilirubin 0.9, Aspartate Amino Transf (AST/SGOT) 130H, Alanine Aminotransferase (ALT/SGPT) 43, Alkaline Phosphatase 107, Total Protein 6.4, Albumin 3.2L, Globulin 3.2, Albumin/Globulin Ratio 1.0 Current Medications Medications (Trade) Dose Ordered Sig/Desiree Route PRN Reason Start Time Stop Time Status Last Admin Dose Admin Acetaminophen (Tylenol) 650 mg Q4H PRN ORAL fever 10/03/17 22:30 11/02/17 22:29 10/04/17 16:08 Al Hydroxide/Mg Hydroxide (Mylanta II) 30 ml Q6H PRN ORAL dyspepsia 10/03/17 22:30 11/02/17 22:29 Dextrose (Dextrose 50%) STAT PRN IV Hypoglycemia 10/03/17 22:30 11/02/17 22:29 Dextrose/Sodium Chloride 1,000 ml @ 75 mls/hr [id number] IV 10/03/17 23:30 11/02/17 23:29 10/06/17 13:02 Diphenhydramine HCl (Benadryl) 25 mg Q6H PRN ORAL Itching/Pruritis 10/03/17 22:30 11/02/17 22:29 Heparin Sodium (Porcine) (Heparin 5000 units/ml) 5,000 units EVERY 12 HOURS SUBQ 10/04/17 09:00 11/03/17 08:59 10/06/17 10:54 Lorazepam (Ativan 2mg/ml 1ml) 1 mg Q4H PRN IV agitation 10/03/17 22:30 10/10/17 22:29 Metoclopramide HCl (Reglan) 10 mg Q6H PRN IVP servere nausea 10/03/17 22:30 11/02/17 22:29 Morphine Sulfate (Morphine Sulfate) 2 mg Q4H PRN IVP severe Pain (Pain Scale 7-10) 10/03/17 22:30 10/10/17 22:29 Nitroglycerin (Ntg) 0.4 mg Q5M X 3 DOSES PRN SL Prn Chest Pain 10/03/17 22:30 11/02/17 22:29 Ondansetron HCl (Zofran) 4 mg Q6H PRN IVP Nausea & Vomiting 10/03/17 22:30 11/02/17 22:29 Pantoprazole (Protonix) 40 mg DAILY IV 10/04/17 09:00 11/03/17 08:59 10/06/17 10:53 Polyethylene Glycol (Miralax) 17 gm HSPRN PRN ORAL Constipation 10/03/17 22:30 11/02/17 22:29 Temazepam (Restoril) 15 mg HSPRN PRN ORAL Insomnia 10/03/17 22:30 10/10/17 22:29 10/05/17 21:47 SAMANTHA KAY Oct 06, 2017 15:32
--- NOTE | 2017-10-06 15:45 | Procedure Note ---
DATE OF PROCEDURE: 10/06/2017 SURGEON: Brandyn Guerrero M.D. REFERRING PHYSICIAN: Yuni Soares M.D. PROCEDURE: Upper endoscopy with biopsy. ANESTHESIOLOGIST: Juan Rivera. INSTRUMENT: Olympus adult flexible upper endoscope. INDICATION: Anemia, history of alcohol usage, nausea, and vomiting. DESCRIPTION OF PROCEDURE: The procedure, risks, benefits, and possible consequences, including hemorrhage, aspiration, perforation and infection, and alternative treatments, were explained to the patient/legal guardian by Dr. Brandyn Guerrero and the patient/legal guardian understood and accepted these risks. After informed consent was obtained, the patient was adequately sedated. The Olympus upper endoscope was advanced from mouth into the second portion of duodenum and retroflexion was performed in the stomach. The patient had evidence of diffuse gastritis. Random biopsy from antrum and body of the stomach was obtained to rule out H. pylori infection. No evidence of any esophageal or gastric varices. In the duodenal bulb, there was a small polyp which was removed with the cold biopsy forcep technique. The patient tolerated the procedure very well without any complication. SUMMARY OF FINDINGS: 1. Diffuse gastritis, status post biopsy. 2. One duodenal polyp removed, see above for details. 3. No evidence of any gastric nor esophageal varices. RECOMMENDATIONS: Follow up biopsy results and treat accordingly. I want to thank Dr. Soares for this kind referral. Brandyn Guerrero M.D. DR: AUTUMN JOB#: [id number] CC: Yuni Soares M.D.; Fax#: [phone]
[2017-10-07 11:31] LABS: OTHERS PATHOLOGIST COMMENT
--- NOTE | 2017-10-08 11:40 | Discharge Summary ---
Discharge Summary Hospital Course Date of Admission Oct 03, 2017 at 23:20 Date of Discharge Oct 06, 2017 at 20:30 Admitting Diagnosis intractable nausea/vomiting GIANA Williamson is a 52 year old female who was admitted on Oct 03, 2017 at 23:20 for Intractable Nausea/Vomiting Hospital Course dc summary #[id number] Discharge Medications Continued Medications: Amlodipine-Atorvastatin 10-20 Mg (Amlodipine-Atorvastatin 10-20 Mg) 1 Each Tablet 1 TAB ORAL DAILY, TAB Discharge Condition Upon Discharge: stable Discharge Disposition Patient was discharged to Home () Discharge Diagnoses: Kwan (Bianca),Dipti MOSELEY Oct 08, 2017 11:40
--- NOTE | 2017-10-08 20:45 | Discharge Summary 2 SIG ---
DATE OF ADMISSION: 10/03/2017 DATE OF DISCHARGE: 10/06/2017 REASON FOR ADMISSION: 52-year-old female with a history of alcohol abuse presented with nausea, vomiting and epigastric abdominal pain for seven days. Pain started after vomiting. Pain described as nonradiating, burning, intermittent. In addition, she described more than six episodes of nonbloody nonbilious vomiting, and more than six episodes of watery nonbloody diarrhea. She denied fever or chills. No prior history of abdominal surgery. Serum alcohol level in the emergency room -101. Workup in the emergency room revealed hyponatremia, hypokalemia, anemia, and low blood pressure with tachycardia. Lipase within normal limits. Elevated AST, total and direct bilirubin. The patient was given Pepcid and Maalox, started on IV fluids, medicated for pain and transferred to Medical/Surgical floor for further management with the diagnosis of intractable nausea and vomiting, epigastric pain, likely alcoholic gastritis, dehydration, hyponatremia and hypokalemia. HOSPITAL COURSE: The patient was admitted to Medical/Surgical floor. The patient was kept NPO. The patient started on IV fluids. Pain management provided. Antiemetic provided as needed. The patient started on PPI. GI consult requested. The next day after admission, hemoglobin trending down: hemoglobin - 7.6 and hematocrit -22.4. The patient undergone transfusion of one unit of packed red blood cells after which hemoglobin prior to discharge -9.3 and hematocrit -26.6. Sodium improved with IV hydration. Sodium -140 prior to discharge. Potassium was replaced, K- 3.4 prior to discharge. Anemia workup initiated and revealed stable iron, stable B12 and folate. Abdominal ultrasound revealed unremarkable spleen. Normal echogenicity of bilateral kidneys. No hydronephrosis. No focal abnormality. Gallbladder unremarkable. No stones. No pericholecystic fluid. No biliary ductal dilatation. Liver demonstrated normal echogenicity. Pancreas unremarkable. The patient was initially on symptomatic treatment. GI scheduled the patient for esophagogastroduodenoscopy due to the acute anemia, nausea, vomiting and epigastric pain. The patient subsequently undergone on 10/06/2017 esophagogastroduodenoscopy, which revealed diffuse gastritis, status post biopsy, one duodenal polyp was removed and no evidence of any gastric or esophageal varices. GI recommended follow up with the biopsy results and treat accordingly. Biopsy results still pending. Diet was advanced as tolerated. The patient was able to tolerate diet. Hemoglobin and hematocrit remained stable as well as the electrolytes. Stool for C.difficile negative. Diarrhea subsided. LFT were closely monitored, last total bilirubin - 0.9. AST down to 130 from initial of 325. The patient was stable for discharge home. The patient was counseled on abstinence from alcohol. FINAL DIAGNOSES: 1. Intractable nausea, vomiting, and diarrhea with epigastric pain, resolved. 2. Likely alcoholic gastritis. 3. Dehydration. 4. Electrolyte abnormalities: hyponatremia, hypokalemia, corrected. 5. Acute anemia requiring blood transfusion. 6. Transaminitis. 7. Alcohol abuse. 8. Status post EGD on 10/06. DISCHARGE MEDICATIONS: See medication reconciliation list. DISCHARGE INSTRUCTION: The patient was discharged home. Follow up with primary medical doctor in next week. Yuni Soares M.D. [facility] NKathy DR: HARMAN JOB#: [id number] CC: YANELY
== END 2017-10-06 20:30 | disposition home or self-care (01) | DRG 241 ==
LOC: EMR 21:32 → EDBEDREQ 21:38 → 3E 23:20 → EDBEDREQ 23:29 → 3E 10-05 20:09
PROC: 30233N1 Transfusion of Nonautologous Red Blood Cells into Peripheral Vein, Percutaneous Approach (ICD-10-PCS; principal; 2017-10-04)
PROC: 0DB68ZX Excision of Stomach, Via Natural or Artificial Opening Endoscopic, Diagnostic (ICD-10-PCS; 2017-10-06)
PROC: 0DB78ZX Excision of Stomach, Pylorus, Via Natural or Artificial Opening Endoscopic, Diagnostic (ICD-10-PCS; 2017-10-06)
PROC: 0DB98ZZ Excision of Duodenum, Via Natural or Artificial Opening Endoscopic (ICD-10-PCS; 2017-10-06)
DX: K29.20 Alcoholic gastritis without bleeding (principal); E87.1 Hypo-osmolality and hyponatremia; E86.0 Dehydration; E87.6 Hypokalemia; F10.20 Alcohol dependence, uncomplicated; D64.9 Anemia, unspecified; R74.0 Nonspecific elevation of levels of transaminase and lactic acid dehydrogenase [LDH]; K31.7 Polyp of stomach and duodenum
CPT/HCPCS: 36415; 76700; 80048; 80053; 80329; 81003; 82150; 82248; 82378; 82607; 82728; 82746; 83540; 83550; 83690; 84484; 85007; 85025; 85610; 85730; 86850; 86900; 86901; 86920; 87324; 93005; 94003; 94150; 97802; 99285; J2405; J8499

== ENCOUNTER 2017-12-31 21:06 | Inpatient (IN) | payer OTHER ==
[~2017-12-31] VITALS: Ht 149.9 cm; Wt 39.5 kg
[2017-12-31 21:49] VITALS: BP 141/91
[2017-12-31] MEDS ORDERED: Sodium Chloride 500ML 500 ML IV ONE (22:26)
--- NOTE | 2017-12-31 22:48 | Emergency Room Report ---
History of Present Illness General Chief Complaint: Syncope Source: Patient Present Illness [facility] The patient 52 female presented after increased falls. Patient had prior history of alcohol abuse. She reports having increased pain to her head. She reports having some chest pain. Patient had drinking alcohol earlier in the day. She did vomit multiple times she denies hematemesis. Allergies: Coded Allergies: No Known Allergies (Unverified , 02/15/15) Patient History Past Medical History: see triage record Last Menstrual Period: na Reviewed Nursing Documentation: PMH: Agreed, PSxH: Agreed Nursing Documentation-PMH Hx Hypertension: Yes Hx Cancer: No Hx Gastrointestinal Problems: No - alcoholic Hx Neurological Problems: No Review of Systems All Other Systems: negative except mentioned in HPI Physical Exam Vital Signs Date Time Temp Pulse Resp B/P (MAP) Pulse Ox O2 Delivery O2 Flow Rate FiO2 12/31/17 21:12 99.1 85 18 144/94 98 Room Air 99.1 Sp02 EP Interpretation: reviewed, normal General Appearance: normal inspection, well appearing, no apparent distress, alert, GCS 15 Head: atraumatic ENT: normal ENT inspection, hearing grossly normal, normal voice Neck: normal inspection, full range of motion, supple, no bony tend Respiratory: normal inspection, lungs clear, normal breath sounds, no respiratory distress, no retraction, no wheezing Cardiovascular #1: regular rate, rhythm, no edema Gastrointestinal: normal inspection, normal bowel sounds, non tender, soft, no guarding, no hernia Genitourinary: no CVA tenderness Musculoskeletal: normal inspection, back normal, normal range of motion Neurologic: normal inspection, alert, responsive, speech normal Psychiatric: normal inspection, judgement/insight normal, mood/affect normal Skin: normal inspection, normal color, no rash Medical Decision Making Diagnostic Impression: Primary Impression: Syncope Additional Impressions: Hepatitis, alcoholic, acute Hypoglycemia ER Course Patient is a syncope. Differential diagnosis included but not limited to syncope versus seizure. Potential causes for syncope included arrhythmia, dehydration, acute coronary syndrome, severe anemia, pulmonary embolus. Because of complexity of patient's case laboratory testing and imaging studies were ordered. Lab for studies are notable for hyperglycemia. Patient given IV glucose with improvement in her blood sugar. The patient given IV medications for nausea. The patient noted have a likely hypoglycemia secondary to poor reserve. Dr. Parish Hamlin was contacted for inpatient management. Labs Test 12/31/17 22:40 White Blood Count 4.9 K/UL (4.8-10.8) Red Blood Count 3.17 M/UL (4.20-5.40) Hemoglobin 12.5 G/DL (12.0-16.0) Hematocrit 35.2 % (37.0-47.0) Mean Corpuscular Volume 111 FL (80-99) Mean Corpuscular Hemoglobin 39.5 PG (27.0-31.0) Mean Corpuscular Hemoglobin Concent 35.6 G/DL (32.0-36.0) Red Cell Distribution Width 13.6 % (11.6-14.8) Platelet Count 314 K/UL (150-450) Mean Platelet Volume 5.4 FL (6.5-10.1) Neutrophils (%) (Auto) 52.9 % (45.0-75.0) Lymphocytes (%) (Auto) 34.5 % (20.0-45.0) Monocytes (%) (Auto) 8.9 % (1.0-10.0) Eosinophils (%) (Auto) 1.2 % (0.0-3.0) Basophils (%) (Auto) 2.5 % (0.0-2.0) Sodium Level 134 MMOL/L (136-145) Potassium Level 3.4 MMOL/L (3.5-5.1) Chloride Level 92 MMOL/L (98-107) Carbon Dioxide Level 24 MMOL/L (21-32) Anion Gap 18 mmol/L (5-15) Blood Urea Nitrogen 7 mg/dL (7-18) Creatinine 0.5 MG/DL (0.55-1.30) Estimat Glomerular Filtration Rate > 60 mL/min (>60) Glucose Level 45 MG/DL (74-106) Calcium Level 9.4 MG/DL (8.5-10.1) Total Bilirubin 2.1 MG/DL (0.2-1.0) Direct Bilirubin 0.9 MG/DL (0.0-0.3) Aspartate Amino Transf (AST/SGOT) 103 U/L (15-37) Alanine Aminotransferase (ALT/SGPT) 42 U/L (12-78) Alkaline Phosphatase 129 U/L (46-116) Total Creatine Kinase 45 U/L (26-308) Creatine Kinase MB 0.8 NG/ML (0.0-3.6) Creatine Kinase MB Relative Index 1.7 Troponin I 0.000 ng/mL (0.000-0.056) Pro-B-Type Natriuretic Peptide 49 pg/mL (0-125) Total Protein 7.9 G/DL (6.4-8.2) Albumin 4.2 G/DL (3.4-5.0) Globulin 3.7 g/dL Albumin/Globulin Ratio 1.1 (1.0-2.7) Lipase 101 U/L (73-393) Serum Alcohol 206 mg/dL EKG Diagnostic Results Rate: normal Rhythm: NSR ST Segments: no acute changes Rhythm Strip Diag. Results EP Interpretation: yes Rhythm: NSR, no PVC's, no ectopy Last Vital Signs Date Time Temp Pulse Resp B/P (MAP) Pulse Ox O2 Delivery O2 Flow Rate FiO2 12/31/17 21:49 69 19 141/91 95 Room Air 12/31/17 21:12 99.1 99.1 Status: unchanged Disposition: ADMITTED INPATIENT Condition: Serious Referrals: NON PHYSICIAN (PCP) James Horn Dec 31, 2017 22:48
[2017-12-31 22:56] LABS: HEMATOCRIT 35.2 % (37.0-47.0); HEMOGLOBIN 12.5 G/DL (12.0-16.0); MEAN CORPUSCULAR VOLUME 111 FL (80-99); PLATELET COUNT 314 K/UL (150-450); RED BLOOD COUNT 3.17 M/UL (4.20-5.40); RED CELL DISTRIBUTION WIDTH 13.6 % (11.6-14.8); WHITE BLOOD COUNT 4.9 K/UL (4.8-10.8)
[2017-12-31 22:57] LABS: BASOPHILS % (AUTO) 2.5 % (0.0-2.0); EOSINOPHILS % (AUTO) 1.2 % (0.0-3.0); LYMPHOCYTES % (AUTO) 34.5 % (20.0-45.0); MONOCYTES % (AUTO) 8.9 % (1.0-10.0); NEUTROPHILS % (AUTO) 52.9 % (45.0-75.0)
[2017-12-31 23:08] LABS: ANION GAP 18 mmol/L (5-15); BLOOD UREA NITROGEN 7 mg/dL (7-18); CALCIUM 9.4 MG/DL (8.5-10.1); CARBON DIOXIDE 24 MMOL/L (21-32); CHLORIDE 92 MMOL/L (98-107); CREATININE 0.5 MG/DL (0.55-1.30); POTASSIUM 3.4 MMOL/L (3.5-5.1); SODIUM 134 MMOL/L (136-145)
[2017-12-31 23:22] LABS: ALANINE AMINOTRANSFERASE 42 U/L (12-78); ALBUMIN 4.2 G/DL (3.4-5.0); ALBUMIN/GLOBULIN RATIO 1.1 (1.0-2.7); ALKALINE PHOSPHATASE 129 U/L (46-116); ASPARTATE AMINO TRANSFERASE 103 U/L (15-37); BILIRUBIN,TOTAL 2.1 MG/DL (0.2-1.0); CKMB 0.8 NG/ML (0.0-3.6); CREATINE KINASE 45 U/L (26-308)
[2017-12-31 23:24] LABS: BILIRUBIN,DIRECT 0.9 MG/DL (0.0-0.3)
[2018-01-01 01:00] VITALS: BP 98/65
[2018-01-01 03:25] VITALS: BP 121/69
[2018-01-01] MEDS ORDERED: D5 1/2NS w/KCl 20mEq 1,000 ML IV SCH (05:00)
[2018-01-01] MEDS ORDERED: D5 1/2NS w/KCl 20mEq 1,000 ML IV ONE (05:02)
[2018-01-01 05:37] VITALS: BP 124/69
[2018-01-01] MEDS ORDERED: VITAMIN D400 INTLU ORAL (06:10)
[2018-01-01] MEDS ORDERED: CITALOPRAM HBR20 M1 ORAL (06:10)
[2018-01-01] MEDS ORDERED: VITAMIN B-121000 MCG PO (06:10)
[2018-01-01] MEDS ORDERED: METOCLOPRAMIDE H5 M1 ORAL (06:10)
[2018-01-01] MEDS ORDERED: FOLIC ACID1 MG ORAL (06:10)
[2018-01-01] MEDS ORDERED: OMEPRAZOLE40 M1 ORAL (06:10)
[2018-01-01] MEDS ORDERED: BYSTOLIC2.5 MG ORAL (06:10)
[2018-01-01] MEDS ORDERED: ZANTAC150 MG ORAL (06:10)
[2018-01-01 07:17] VITALS: BP 126/75
[2018-01-01 08:39] VITALS: BP 114/72
--- NOTE | 2018-01-01 09:19 | General Progress Note ---
Progress Note Progress Note [id number] full note dictated KANDY DEAN Jan 01, 2018 09:19
--- NOTE | 2018-01-01 10:00 | Diagnostic Imaging Report ---
Indication: Shortness of breath Technique: One view of the chest Comparison: 02/15/2015 Findings: Fairly extensive granulomas calcifications project in the left lung apex and right paratracheal region. Left basilar opacity likely represents a nipple shadow. The lungs and pleural spaces are otherwise clear. Heart size is normal. No significant interim change Impression: Left basilar nodular opacity, probably nipple shadow. Recommend repeat chest radiograph with nipple markers. Dr. Parish Hamlin notified of this finding at the time of interpretation No acute process otherwise Evidence of old granulomatous disease
--- NOTE | 2018-01-01 10:41 | Neurology Progress Note ---
Objective Physical Exam Last Vital Signs Date Time Temp Pulse Resp B/P (MAP) Pulse Ox O2 Delivery O2 Flow Rate FiO2 01/01/18 09:06 98.0 74 14 114/72 98 Room Air 98.0 Laboratory Tests Test 12/31/17 22:40 White Blood Count 4.9 K/UL (4.8-10.8) Red Blood Count 3.17 M/UL (4.20-5.40) L Hemoglobin 12.5 G/DL (12.0-16.0) Hematocrit 35.2 % (37.0-47.0) L Mean Corpuscular Volume 111 FL (80-99) H Mean Corpuscular Hemoglobin 39.5 PG (27.0-31.0) H Mean Corpuscular Hemoglobin Concent 35.6 G/DL (32.0-36.0) Red Cell Distribution Width 13.6 % (11.6-14.8) Platelet Count 314 K/UL (150-450) Mean Platelet Volume 5.4 FL (6.5-10.1) L Neutrophils (%) (Auto) 52.9 % (45.0-75.0) Lymphocytes (%) (Auto) 34.5 % (20.0-45.0) Monocytes (%) (Auto) 8.9 % (1.0-10.0) Eosinophils (%) (Auto) 1.2 % (0.0-3.0) Basophils (%) (Auto) 2.5 % (0.0-2.0) H Sodium Level 134 MMOL/L (136-145) L Potassium Level 3.4 MMOL/L (3.5-5.1) L Chloride Level 92 MMOL/L (98-107) L Carbon Dioxide Level 24 MMOL/L (21-32) Anion Gap 18 mmol/L (5-15) H Blood Urea Nitrogen 7 mg/dL (7-18) Creatinine 0.5 MG/DL (0.55-1.30) L Estimat Glomerular Filtration Rate > 60 mL/min (>60) Glucose Level 45 MG/DL (74-106) L Calcium Level 9.4 MG/DL (8.5-10.1) Total Bilirubin 2.1 MG/DL (0.2-1.0) H Direct Bilirubin 0.9 MG/DL (0.0-0.3) H Aspartate Amino Transf (AST/SGOT) 103 U/L (15-37) H Alanine Aminotransferase (ALT/SGPT) 42 U/L (12-78) Alkaline Phosphatase 129 U/L (46-116) H Total Creatine Kinase 45 U/L (26-308) Creatine Kinase MB 0.8 NG/ML (0.0-3.6) Creatine Kinase MB Relative Index 1.7 Troponin I 0.000 ng/mL (0.000-0.056) Pro-B-Type Natriuretic Peptide 49 pg/mL (0-125) Total Protein 7.9 G/DL (6.4-8.2) Albumin 4.2 G/DL (3.4-5.0) Globulin 3.7 g/dL Albumin/Globulin Ratio 1.1 (1.0-2.7) Lipase 101 U/L (73-393) Serum Alcohol 206 mg/dL Impression/Recommendations Problems: (1) Syncope (2) Transaminitis (3) Intractable abdominal pain (4) Hepatitis, alcoholic, acute Status: unchanged Recommendations # [id number] BASIM GARCIA Jan 01, 2018 10:41
--- NOTE | 2018-01-01 10:57 | GI Initial Consult Note ---
History of Present Illness General Date patient seen: Jan 01, 2018 Time patient seen: 10:47 Reason for Hospitalization: Syncope Referring physician: JAIDA JACKSON Reason for Consultation: ALCOHOLIC HEPATITIS Present Illness HPI The patient 52 female presented after increased falls. Patient had prior history of alcohol abuse. She reports having increased pain to her head. She reports having some chest pain. Patient had drinking alcohol earlier in the day. She did vomit multiple times she denies hematemesis. GI consulted for alcoholic hepatitis. Pt seen, awake A&Ox4 no active s/sx of V/ D. No agitation seen. Reports of nausea. Per patient, had ETOH abuse approximately 2 bottles daily with abdominal pain x 1 month. No other medical history noted. She presents today with elevated ETOH serum level and abnormal LFTs. Unknown history of endoscopy / colonoscopy. Home Meds Reported Medications Nebivolol Hcl* (BYSTOLIC*) 2.5 Mg Tablet, 2.5 MG ORAL DAILY, TAB 01/01/18 Vitamin D (Vitamin D3) 400 Unit Tablet, 2000 UNITS ORAL DAILY, TAB 01/01/18 Metoclopramide Hcl* (METOCLOPRAMIDE HCL*) 5 Mg Tablet, 10 MG ORAL EVERY 6 HOURS , TAB 01/01/18 Ranitidine Hcl* (ZANTAC*) 150 Mg Tablet, 300 MG ORAL DAILY, TAB 0 Refills 01/01/18 Folic Acid* (FOLIC ACID*) 1 Mg Tablet, 1 MG ORAL DAILY, TAB 01/01/18 Citalopram Hydrobromide* (CITALOPRAM HBR*) 20 Mg Tablet, 20 MG ORAL DAILY, TAB 01/01/18 Cyanocobalamin (Vitamin B-12) (VITAMIN B-12) 1,000 Mcg Tablet, 1000 MCG PO DAILY , TAB 01/01/18 Omeprazole (OMEPRAZOLE) 40 Mg Capsule.dr, 40 MG ORAL DAILY, CAP 01/01/18 Metoclopramide Hcl* (REGLAN*) 10 Mg Tablet, 10 MG ORAL EVERY 8 HOURS, #30 TAB 08/27/17 Chlordiazepoxide Hcl* (LIBRIUM*) 10 Mg Capsule, 25 MG ORAL EVERY 8 HOURS, #30 CAP 0 Refills 08/27/17 Unable to Obtain Medications (UNABLE TO OBTAIN MEDS) 1 Ea Ea 08/26/17 Losartan/Hydrochlorothiazide (LOSARTAN-HCTZ 100-25 MG TAB) 1 Each Tablet, 1 TAB ORAL DAILY, TAB 02/16/15 Amlodipine-Atorvastatin 10-20 Mg (AMLODIPINE-ATORVASTATIN 10-20 MG) 1 Each Tablet, 1 TAB ORAL DAILY, TAB 02/16/15 Med list reviewed/reconciled: Yes Allergies: Coded Allergies: No Known Allergies (Unverified , 02/15/15) Patient History Limited by: medical condition History Provided By: Patient PMH Narrative Past Medical History: see triage record Last Menstrual Period: na Reviewed Nursing Documentation: PMH: Agreed, PSxH: Agreed Nursing Documentation-PMH Hx Hypertension: Yes Hx Cancer: No Hx Gastrointestinal Problems: No - alcoholic Hx Neurological Problems: No Social History: Reports: alcohol use Review of Systems All Other Systems: negative except mentioned in HPI Physical Exam Vital Signs Date Time Temp Pulse Resp B/P (MAP) Pulse Ox O2 Delivery O2 Flow Rate FiO2 12/31/17 21:12 99.1 85 18 144/94 98 Room Air 99.1 Sp02 EP Interpretation: reviewed, normal Labs Laboratory Tests Test 12/31/17 22:40 White Blood Count 4.9 K/UL (4.8-10.8) Red Blood Count 3.17 M/UL (4.20-5.40) L Hemoglobin 12.5 G/DL (12.0-16.0) Hematocrit 35.2 % (37.0-47.0) L Mean Corpuscular Volume 111 FL (80-99) H Mean Corpuscular Hemoglobin 39.5 PG (27.0-31.0) H Mean Corpuscular Hemoglobin Concent 35.6 G/DL (32.0-36.0) Red Cell Distribution Width 13.6 % (11.6-14.8) Platelet Count 314 K/UL (150-450) Mean Platelet Volume 5.4 FL (6.5-10.1) L Neutrophils (%) (Auto) 52.9 % (45.0-75.0) Lymphocytes (%) (Auto) 34.5 % (20.0-45.0) Monocytes (%) (Auto) 8.9 % (1.0-10.0) Eosinophils (%) (Auto) 1.2 % (0.0-3.0) Basophils (%) (Auto) 2.5 % (0.0-2.0) H Sodium Level 134 MMOL/L (136-145) L Potassium Level 3.4 MMOL/L (3.5-5.1) L Chloride Level 92 MMOL/L (98-107) L Carbon Dioxide Level 24 MMOL/L (21-32) Anion Gap 18 mmol/L (5-15) H Blood Urea Nitrogen 7 mg/dL (7-18) Creatinine 0.5 MG/DL (0.55-1.30) L Estimat Glomerular Filtration Rate > 60 mL/min (>60) Glucose Level 45 MG/DL (74-106) L Calcium Level 9.4 MG/DL (8.5-10.1) Total Bilirubin 2.1 MG/DL (0.2-1.0) H Direct Bilirubin 0.9 MG/DL (0.0-0.3) H Aspartate Amino Transf (AST/SGOT) 103 U/L (15-37) H Alanine Aminotransferase (ALT/SGPT) 42 U/L (12-78) Alkaline Phosphatase 129 U/L (46-116) H Total Creatine Kinase 45 U/L (26-308) Creatine Kinase MB 0.8 NG/ML (0.0-3.6) Creatine Kinase MB Relative Index 1.7 Troponin I 0.000 ng/mL (0.000-0.056) Pro-B-Type Natriuretic Peptide 49 pg/mL (0-125) Total Protein 7.9 G/DL (6.4-8.2) Albumin 4.2 G/DL (3.4-5.0) Globulin 3.7 g/dL Albumin/Globulin Ratio 1.1 (1.0-2.7) Lipase 101 U/L (73-393) Serum Alcohol 206 mg/dL General Appearance: well appearing, no apparent distress, alert Head: normocephalic EENT: PERRL/EOMI, normal ENT inspection Neck: supple Respiratory: normal breath sounds, no respiratory distress Cardiovascular: normal rate Gastrointestinal: normal inspection, non tender, soft, normal bowel sounds, non -distended Rectal: deferred Genitourinary: no CVA tenderness Musculoskeletal: normal inspection, back normal Neurologic: normal inspection, alert, oriented x3, responsive Psychiatric: normal inspection, judgement/insight normal, memory normal Skin: normal inspection, normal color, no rash, warm/dry, palpation normal, well hydrated Lymphatic: normal inspection, no adenopathy Current Medications Current Medications Medications (Trade) Dose Ordered Sig/Desiree Route PRN Reason Start Time Stop Time Status Last Admin Dose Admin Acetaminophen (Tylenol) 650 mg Q4H PRN ORAL Mild Pain (Pain Scale 1-3) 01/01/18 11:00 01/31/18 10:59 Dextrose (Dextrose 50%) STAT PRN IV Hypoglycemia 01/01/18 10:15 01/31/18 10:14 UNV Lorazepam (Ativan 2mg/ml 1ml) 0.5 mg Q4H PRN IV For Anxiety 01/01/18 10:15 01/08/18 10:14 UNV Lorazepam (Ativan) 0.5 mg TIDPRN PRN ORAL For Anxiety 01/01/18 10:30 01/08/18 10:29 UNV Ondansetron HCl (Zofran) 4 mg Q6H PRN IVP Nausea & Vomiting 01/01/18 11:00 01/31/18 10:59 Pantoprazole (Protonix) 40 mg ACBREAKFAST ORAL 01/02/18 06:30 02/01/18 06:29 Thiamine HCl 100 mg/Folic Acid 1 mg/Magnesium Sulfate 2000 mg/ Multivitamins 10 ml/Sodium Chloride 1,015.2 ml @ 125 mls/ hr Q24H IV 01/01/18 10:30 01/31/18 10:29 UNV GI: Plan Problems: (1) Transaminitis (2) Hepatitis, alcoholic, acute (3) Intractable abdominal pain (4) Dizziness (5) ETOH abuse Plan symptomatic treatment adv diet PO/IV hydration + electrolyte replacement zofran prn ativan prn B12/folate supplement alcohol abstinence trend LFTs outpatient GI procedures Discussed with Dr. Guerrero. Thank you for this patient referral, we will follow. Xochitl Bartlett N.P. Jan 01, 2018 10:57
[2018-01-01] MEDS ORDERED: LORazepam Inj 2mg/ml 1ml IV PRN ×2 (11:00)
[2018-01-01 11:38] LABS: CHOLESTEROL 222 MG/DL (< 200); HDL CHOLESTEROL 137 MG/DL (40-60); TRIGLYCERIDES 66 MG/DL (30-150)
[2018-01-01] MEDS ORDERED: Thiamine HCl 100 MG, Folic Acid 1 MG, Magnesium Sulfate 2,000 MG, Multivitamin - 12 Inj... IV SCH ×5 (12:30)
--- NOTE | 2018-01-01 12:33 | Consultation ---
History of Present Illness General Date patient seen: Jan 01, 2018 Chief Complaint: Syncope Referring physician: JAIDA JACKSON Reason for Consultation: ALCOHOLIC HEPATITIS Present Illness HPI 52 female with hx of ETOH abuse presented after increased falls and pain to her head. She reports having some chest pain. Patient had drinking alcohol earlier in the day. She did vomit multiple times she denies hematemesis. Allergies: Coded Allergies: No Known Allergies (Unverified , 02/15/15) Medication History Scheduled Amlodipine-Atorvastatin 10-20 Mg (Amlodipine-Atorvastatin 10-20 Mg), 1 TAB ORAL DAILY, (Reported) Chlordiazepoxide Hcl* (Librium*), 25 MG ORAL EVERY 8 HOURS, (Reported) Citalopram Hydrobromide* (Citalopram Hbr*), 20 MG ORAL DAILY, (Reported) Cyanocobalamin (Vitamin B-12) (Vitamin B-12), 1,000 MCG PO DAILY, (Reported) Folic Acid* (Folic Acid*), 1 MG ORAL DAILY, (Reported) Losartan/Hydrochlorothiazide (Losartan-Hctz 100-25 Mg Tab), 1 TAB ORAL DAILY, ( Reported) Metoclopramide Hcl* (Reglan*), 10 MG ORAL EVERY 8 HOURS, (Reported) Metoclopramide Hcl* (Metoclopramide Hcl*), 10 MG ORAL EVERY 6 HOURS, (Reported) Nebivolol Hcl* (Bystolic*), 2.5 MG ORAL DAILY, (Reported) Omeprazole (Omeprazole), 40 MG ORAL DAILY, (Reported) Ranitidine Hcl* (Zantac*), 300 MG ORAL DAILY, (Reported) Vitamin D (Vitamin D3), 2,000 UNITS ORAL DAILY, (Reported) Miscellaneous Medications Unable to Obtain Medications (Unable To Obtain Meds), (Reported) Patient History Healthcare decision maker Resuscitation status Advanced Directive on File Past Medical/Surgical History Past Medical/Surgical History: (1) Hepatitis, alcoholic, acute (2) Hyponatremia (3) ETOH abuse Review of Systems All Other Systems: negative except mentioned in HPI Physical Exam General Appearance: WD/WN, no apparent distress Lines, tubes and drains: peripheral HEENT: normocephalic, atraumatic Neck: non-tender, normal alignment Respiratory/Chest: chest wall non-tender, lungs clear Cardiovascular/Chest: normal peripheral pulses, normal rate Abdomen: normal bowel sounds, soft Genitourinary/Rectal: normal genital exam Extremities: normal range of motion Skin Exam: normal pigmentation Last 24 Hour Vital Signs Date Time Temp Pulse Resp B/P (MAP) Pulse Ox O2 Delivery O2 Flow Rate FiO2 01/01/18 12:20 105 01/01/18 12:10 105 01/01/18 12:05 105 01/01/18 12:00 87 01/01/18 09:06 98.0 74 14 114/72 98 Room Air 98.0 01/01/18 08:39 98.0 74 14 114/72 98 Room Air 98.0 01/01/18 07:17 98.0 73 12 126/75 98 Room Air 98.0 01/01/18 05:37 67 12 124/69 98 Room Air 01/01/18 03:25 98.0 65 14 121/69 96 Room Air 98.0 01/01/18 02:15 121/69 01/01/18 01:00 98.0 75 14 98/65 96 Room Air 98.0 12/31/17 21:49 69 19 141/91 95 Room Air 12/31/17 21:12 99.1 85 18 144/94 98 Room Air 99.1 Intake and Output 12/31/17 01/01/18 19:00 07:00 Intake Total 500 ml Balance 500 ml IV Total 500 ml Laboratory Tests Test 12/31/17 22:40 01/01/18 11:15 White Blood Count 4.9 K/UL (4.8-10.8) Red Blood Count 3.17 M/UL (4.20-5.40) L Hemoglobin 12.5 G/DL (12.0-16.0) Hematocrit 35.2 % (37.0-47.0) L Mean Corpuscular Volume 111 FL (80-99) H Mean Corpuscular Hemoglobin 39.5 PG (27.0-31.0) H Mean Corpuscular Hemoglobin Concent 35.6 G/DL (32.0-36.0) Red Cell Distribution Width 13.6 % (11.6-14.8) Platelet Count 314 K/UL (150-450) Mean Platelet Volume 5.4 FL (6.5-10.1) L Neutrophils (%) (Auto) 52.9 % (45.0-75.0) Lymphocytes (%) (Auto) 34.5 % (20.0-45.0) Monocytes (%) (Auto) 8.9 % (1.0-10.0) Eosinophils (%) (Auto) 1.2 % (0.0-3.0) Basophils (%) (Auto) 2.5 % (0.0-2.0) H Sodium Level 134 MMOL/L (136-145) L Potassium Level 3.4 MMOL/L (3.5-5.1) L Chloride Level 92 MMOL/L (98-107) L Carbon Dioxide Level 24 MMOL/L (21-32) Anion Gap 18 mmol/L (5-15) H Blood Urea Nitrogen 7 mg/dL (7-18) Creatinine 0.5 MG/DL (0.55-1.30) L Estimat Glomerular Filtration Rate > 60 mL/min (>60) Glucose Level 45 MG/DL (74-106) L Calcium Level 9.4 MG/DL (8.5-10.1) Total Bilirubin 2.1 MG/DL (0.2-1.0) H Direct Bilirubin 0.9 MG/DL (0.0-0.3) H Aspartate Amino Transf (AST/SGOT) 103 U/L (15-37) H Alanine Aminotransferase (ALT/SGPT) 42 U/L (12-78) Alkaline Phosphatase 129 U/L (46-116) H Total Creatine Kinase 45 U/L (26-308) Creatine Kinase MB 0.8 NG/ML (0.0-3.6) Creatine Kinase MB Relative Index 1.7 Troponin I 0.000 ng/mL (0.000-0.056) Pro-B-Type Natriuretic Peptide 49 pg/mL (0-125) Total Protein 7.9 G/DL (6.4-8.2) Albumin 4.2 G/DL (3.4-5.0) Globulin 3.7 g/dL Albumin/Globulin Ratio 1.1 (1.0-2.7) Lipase 101 U/L (73-393) Serum Alcohol 206 mg/dL Triglycerides Level 66 MG/DL (30-150) Cholesterol Level 222 MG/DL (< 200) H LDL Cholesterol 87 mg/dL (<100) HDL Cholesterol 137 MG/DL (40-60) H Cholesterol/HDL Ratio 1.6 (3.3-4.4) L Vitamin B12 Level 760 PG/ML (193-986) Height (Feet): 5 Weight (Pounds): 86 Medications Current Medications Medications (Trade) Dose Ordered Sig/Desiree Route PRN Reason Start Time Stop Time Status Last Admin Dose Admin Acetaminophen (Tylenol) 650 mg Q4H PRN ORAL Mild Pain (Pain Scale 1-3) 01/01/18 11:00 01/31/18 10:59 Dextrose (Dextrose 50%) STAT PRN IV Hypoglycemia 01/01/18 11:00 01/31/18 10:59 Folic Acid 1 mg/ Magnesium Sulfate 2000 mg/ Multivitamins 10 ml/Sodium Chloride 1,014.2 ml @ 125 mls/ hr Q24H IV 01/01/18 12:00 01/31/18 11:59 Lorazepam (Ativan 2mg/ml 1ml) 0.5 mg Q4H PRN IV For Anxiety 01/01/18 11:00 01/08/18 10:59 Lorazepam (Ativan) 0.5 mg TIDPRN PRN ORAL For Anxiety 01/01/18 11:00 01/08/18 10:59 Multivitamins (Multivitamins) 1 tab DAILY ORAL 01/01/18 11:30 01/31/18 11:29 01/01/18 12:06 Ondansetron HCl (Zofran) 4 mg Q6H PRN IVP Nausea & Vomiting 01/01/18 11:00 01/31/18 10:59 01/01/18 12:06 Pantoprazole (Protonix) 40 mg ACBREAKFAST ORAL 01/02/18 06:30 02/01/18 06:29 Thiamine HCl 100 mg/Sodium Chloride 56 ml @ 112 mls/hr Q24H IVPB 01/01/18 12:00 01/31/18 11:59 Assessment/Plan Problem List: (1) Dizziness ICD Codes: R42 - Dizziness and giddiness SNOMED: 040639061 (2) Acute chest pain ICD Codes: R07.9 - Chest pain, unspecified SNOMED: 880509559 (3) Hyponatremia ICD Codes: E87.1 - Hypo-osmolality and hyponatremia SNOMED: 77388864 (4) Hepatitis, alcoholic, acute ICD Codes: K70.10 - Alcoholic hepatitis without ascites SNOMED: 3345945 (5) ETOH abuse ICD Codes: F10.10 - Alcohol abuse, uncomplicated SNOMED: 73252284 Assessment/Plan serial ekg, troponin Banana bag symptomatic treatment SAMANTHA KAY Jan 01, 2018 12:33
--- NOTE | 2018-01-01 12:36 | Diagnostic Imaging Report ---
Indication: Shortness of breath, evaluation of abnormality seen on prior chest radiograph Technique: One view of the chest Comparison: 12/31/2017 Findings: Previously demonstrated left basilar nodular opacity is again demonstrated, and is marked by nipple markers, confirming it is indeed a nipple shadow. Cranial was calcifications in the right paratracheal region and left upper lobe are unchanged. No new pulmonary opacities demonstrated. Heart size is normal Impression: Previous reported left basilar nodular opacity is confirmed to represent a nipple shadow Other stable findings as described. No acute process
[2018-01-01] MEDS: Folic Acid 1 MG, Magnesium Sulfate 2,000 MG, Multivitamin - 12 Injection 10 ML in NS w/... IV SCH ×2 (12:44→12:57)
[2018-01-01] MEDS: Thiamine HCl 100 MG in NS 55 ML IVPB SCH ×2 (12:44→12:58)
[2018-01-01 14:56] LABS: APPEARANCE,URINE CLEAR; BILIRUBIN, URINE 2+ (NEGATIVE); COLOR,URINE BROWN; GLUCOSE, URINE (UA) 1+ (NEGATIVE); KETONES,URINE 4+ (NEGATIVE); LEUKOCYTE ESTERASE ,URINE 1+ (NEGATIVE); PH,URINE 6 (4.5-8.0); PROTEIN,URINE 2+ (NEGATIVE); UROBILINOGEN,URINE 8 MG/DL (0.0-1.0)
[2018-01-01 15:02] LABS: NITRITE,URINE NEGATIVE (NEGATIVE)
--- NOTE | 2018-01-01 16:30 | Consultation ---
DATE OF CONSULTATION: 01/01/2018 NEPHROLOGY CONSULTATION CONSULTING PHYSICIAN: Chani Williamson M.D. REFERRING PHYSICIAN: Parish Hamlin M.D. REASON FOR CONSULTATION: Hyponatremia, hypokalemia, and electrolyte imbalance. HISTORY OF PRESENT ILLNESS: The patient is a 52-year-old female who presented to emergency room with multiple episodes of fall. Apparently the patient has history of prior ETOH abuse. She reports having increasing pain in her right upper quadrant of the . She had multiple episodes of nausea and vomiting. She was admitted to the hospital for possible ETOH abuse and multiple falls, found to have abnormal electrolytes. I was called for management of renal disease and electrolyte imbalance. PAST MEDICAL HISTORY: History of ETOH abuse. No other history was reported. ALLERGIES: No known drug allergies. SOCIAL HISTORY: Regularly drinking alcohol. There is no history of tobacco or drug use. FAMILY HISTORY: Noncontributory. REVIEW OF SYSTEMS: GENERAL: She complained of generalized weakness. Denied any fever, chills, or night sweats. HEAD AND NECK: Denies any dysphagia, odynophagia, blurry vision, headache, or neck stiffness. PULMONARY: Mild shortness of breath. No cough. No sputum. CARDIOVASCULAR: Denies any chest pain or palpitations. GASTROINTESTINAL: Complained of her right upper quadrant pain, nausea, vomiting. No melena. No hematemesis or hematochezia. GENITOURINARY: Denies any dysuria, frequency, hematuria. MUSCULOSKELETAL: Denies any weakness or numbness. PHYSICAL EXAMINATION: VITAL SIGNS: The patient had temperature of 99 degrees, blood pressure 144/94, respiratory rate of 18. HEAD AND NECK: No JVP. No LAD. No thyromegaly. Extraocular movement intact. Pupils are reactive to light and accommodation. LUNGS: Clear to auscultation. CARDIAC: Regular rate and rhythm. S1 and S2. No murmur. No rub. ABDOMEN: Right upper quadrant tenderness. No guarding. No rebound. EXTREMITIES: No edema. No clubbing. No cyanosis. LABORATORY AND DIAGNOSTIC DATA: Revealed WBC count of 4.9, hemoglobin of 12.5, hematocrit of 35, platelet count of 340. Chemistry revealed sodium 134, potassium 3.4, chloride 92, bicarb 24, BUN of 7, creatinine of 0.5, glucose . Total bilirubin of 2.1, AST 103, ALT of 42. There is no UA. ASSESSMENT: 1. Mild hyponatremia. 2. Hypokalemia. 3. Dehydration. 4. Intractable nausea and vomiting. 5. Possible alcohol withdrawal. PLAN: 1. Plan for the patient to obtain a UA. 2. Replace the potassium. 3. Check the chemistries again. 4. I would do ultrasound of the abdomen. 5. Check the magnesium level. 6. Mix all IV piggyback with normal saline. Again, I would like to thank Dr. Parish Hamlin for allowing me to participate in the care of this patient. Chani Williamson M.D. DR: Mayte JOB#: [id number] CC:
[2018-01-01] MEDS: Morphine Sulfate 2mg/ml Inj IVP PRN (17:28)
--- NOTE | 2018-01-01 19:34 | Cardiology Progress Note ---
Assessment/Plan Assessment/Plan The patient is seen and examined, full consult note will be dictated. Objective Last 24 Hour Vital Signs Date Time Temp Pulse Resp B/P (MAP) Pulse Ox O2 Delivery O2 Flow Rate FiO2 01/01/18 16:15 106 01/01/18 16:10 77 01/01/18 16:05 77 01/01/18 16:00 72 01/01/18 12:20 105 01/01/18 12:10 105 01/01/18 12:05 105 01/01/18 12:00 87 01/01/18 12:00 77 01/01/18 09:06 98.0 74 14 114/72 98 Room Air 98.0 01/01/18 08:39 98.0 74 14 114/72 98 Room Air 98.0 01/01/18 07:17 98.0 73 12 126/75 98 Room Air 98.0 01/01/18 05:37 67 12 124/69 98 Room Air 01/01/18 03:25 98.0 65 14 121/69 96 Room Air 98.0 01/01/18 02:15 121/69 01/01/18 01:00 98.0 75 14 98/65 96 Room Air 98.0 12/31/17 21:49 69 19 141/91 95 Room Air 12/31/17 21:12 99.1 85 18 144/94 98 Room Air 99.1 Intake and Output 12/31/17 01/01/18 19:00 07:00 Intake Total 500 ml Balance 500 ml IV Total 500 ml Laboratory Tests Test 12/31/17 22:40 01/01/18 11:15 01/01/18 14:30 White Blood Count 4.9 K/UL (4.8-10.8) Red Blood Count 3.17 M/UL (4.20-5.40) L Hemoglobin 12.5 G/DL (12.0-16.0) Hematocrit 35.2 % (37.0-47.0) L Mean Corpuscular Volume 111 FL (80-99) H Mean Corpuscular Hemoglobin 39.5 PG (27.0-31.0) H Mean Corpuscular Hemoglobin Concent 35.6 G/DL (32.0-36.0) Red Cell Distribution Width 13.6 % (11.6-14.8) Platelet Count 314 K/UL (150-450) Mean Platelet Volume 5.4 FL (6.5-10.1) L Neutrophils (%) (Auto) 52.9 % (45.0-75.0) Lymphocytes (%) (Auto) 34.5 % (20.0-45.0) Monocytes (%) (Auto) 8.9 % (1.0-10.0) Eosinophils (%) (Auto) 1.2 % (0.0-3.0) Basophils (%) (Auto) 2.5 % (0.0-2.0) H Sodium Level 134 MMOL/L (136-145) L Potassium Level 3.4 MMOL/L (3.5-5.1) L Chloride Level 92 MMOL/L (98-107) L Carbon Dioxide Level 24 MMOL/L (21-32) Anion Gap 18 mmol/L (5-15) H Blood Urea Nitrogen 7 mg/dL (7-18) Creatinine 0.5 MG/DL (0.55-1.30) L Estimat Glomerular Filtration Rate > 60 mL/min (>60) Glucose Level 45 MG/DL (74-106) L Calcium Level 9.4 MG/DL (8.5-10.1) Total Bilirubin 2.1 MG/DL (0.2-1.0) H Direct Bilirubin 0.9 MG/DL (0.0-0.3) H Aspartate Amino Transf (AST/SGOT) 103 U/L (15-37) H Alanine Aminotransferase (ALT/SGPT) 42 U/L (12-78) Alkaline Phosphatase 129 U/L (46-116) H Total Creatine Kinase 45 U/L (26-308) Creatine Kinase MB 0.8 NG/ML (0.0-3.6) Creatine Kinase MB Relative Index 1.7 Troponin I 0.000 ng/mL (0.000-0.056) Pro-B-Type Natriuretic Peptide 49 pg/mL (0-125) Total Protein 7.9 G/DL (6.4-8.2) Albumin 4.2 G/DL (3.4-5.0) Globulin 3.7 g/dL Albumin/Globulin Ratio 1.1 (1.0-2.7) Lipase 101 U/L (73-393) Serum Alcohol 206 mg/dL Triglycerides Level 66 MG/DL (30-150) Cholesterol Level 222 MG/DL (< 200) H LDL Cholesterol 87 mg/dL (<100) HDL Cholesterol 137 MG/DL (40-60) H Cholesterol/HDL Ratio 1.6 (3.3-4.4) L Vitamin B12 Level 760 PG/ML (193-986) Urine Color Brown Urine Appearance Clear Urine pH 6 (4.5-8.0) Urine Specific [place] 1.020 (1.005-1.035) Urine Protein 2+ (NEGATIVE) H Urine Glucose (UA) 1+ (NEGATIVE) H Urine Ketones 4+ (NEGATIVE) H Urine Occult Blood 1+ (NEGATIVE) H Urine Nitrite Negative (NEGATIVE) Urine Bilirubin 2+ (NEGATIVE) H Urine Ictotest Negative Urine Urobilinogen 8 MG/DL (0.0-1.0) H Urine Leukocyte Esterase 1+ (NEGATIVE) H Urine RBC 2-4 /HPF (0 - 2) H Urine WBC 2-4 /HPF (0 - 2) Urine Squamous Epithelial Cells Few /LPF (NONE/OCC) Urine Bacteria Few /HPF (NONE) Urine Random Total Protein 39 MG/DL (< 11.9) H Urine Random Sodium 71 mmol/L (20-110) Urine Potassium Timed 69 mmol/L (12-62) H SHAHZAD IVEY Jan 01, 2018 19:34
--- NOTE | 2018-01-01 19:45 | Consultation ---
DATE OF CONSULTATION: 01/01/2018 NEUROLOGICAL CONSULTATION REQUESTING PHYSICIAN: Parish Hamlin D.O. HISTORY OF PRESENT ILLNESS: This is a 52-year-old female, seen in neurological consultation to evaluate episodes of recurrent loss of consciousness. The patient informs that within the last 3-4 years, she has at least 10 episodes of being "fainted." The last episode she described like a month ago, describing a pattern of loss of consciousness. The patient noted that occurred mainly when she is getting up from supine position or she is prolonged standing. The patient recalled that when she gets up, she feels very dizzy, at times, she was found to be unconscious by her daughter. She denies urine or bowel incontinence or tongue biting. She is unaware of having generalized tremors or other seizure activities. The patient arrived to this facility after having increasing abdominal pain. The patient now recalled that she developed epigastric pain at least months ago, but last 10 days, she also developed recurrent nausea and vomiting. Denying headache, visual or hearing abnormalities. She was brought to the emergency room. Her vital signs were stable, blood pressure 144/94, temperature 99.1 degrees and pulse oximetry 98%. She was able to ambulate, being stable. Her Flora coma scale was 15. Her initial laboratory work included elevated MCV, MCH, and hematocrit of 35.2. Chemistry panel; sodium 134, potassium 3.4, chloride 92, but also elevated total bilirubin 2.1, direct 0.9, elevated AST 103, and alkaline phosphatase 129. Normal CPK. Normal troponin, lipase and BNP. Toxicology panel, alcohol level of 206. Her chest x-ray revealed old granulomatous disease, left basilar nodular opacity. Following admission till present, there was no paroxysmal event. MEDICATIONS: Treatment list prior to admission included atorvastatin, amlodipine, Librium p.r.n., B12 supplements, citalopram 20 mg daily, folate, losartan, hydrochlorothiazide, Reglan, Bystolic, omeprazole, Zantac, and vitamin D supplement. Following admission, she was maintained on IV fluids, sodium chloride supplements, Ativan p.r.n., and Protonix. The patient reported sleeping well. The patient now indicate that she is drinking at least one liter a day of Bengali alcohol, . She indicates that she takes it because she has daily episodes of palpitation and following use of alcohol, she feel "calm down", intermittently depressed. She also indicate some cramping sensation in both legs, tingling in both feet, but main concern is persistent epigastric pain discomfort, nausea, vomiting, and positional dizziness. FAMILY HISTORY: Noncontributory. SOCIAL HISTORY: Lives alone, has a daughter, who is supportive. She is unemployed. REVIEW OF SYSTEMS: Otherwise, was negative. She has no difficulty with ambulation. No chest pain. No urine or bowel incontinence. No tongue biting. No shortness of breath. PHYSICAL EXAMINATION: GENERAL: Well developed, somewhat ill-appearing lady, not in acute distress with nasal cannula in place. VITAL SIGNS: Her blood pressure 114/72 and temperature 98.0 degrees. HEENT: Head, normocephalic. No evidence of trauma. Eyes, ears, and throat are clear. NECK: Supple. No meningeal signs. MUSCULOSKELETAL: Unremarkable. There are no deformities. Peripheral pulses 1+ and symmetric. MENTAL STATUS EXAMINATION: She is alert and oriented x3. Spoke predominantly Bengali with a Bengali speaking nurse. She was coherent, follows command, mood appears somewhat depressed. CRANIAL NERVE II: Pupils both responding to light and accommodation. Extraocular movement intact. No nystagmus. CRANIAL NERVE V: Normal corneal responses. CRANIAL NERVE VII: No facial asymmetry. CRANIAL NERVE VIII: Normal hearing. CRANIAL NERVE IX THROUGH XII: With normal limits. Normal swallowing. MOTOR EXAMINATION: Normal muscle tone. Strength 5/5 in all extremities. Fine tremor of both hands noted. Deep tendon reflexes are brisk, 3+ bilaterally. Plantar response is flexor. SENSORY EXAMINATION: Withdrawing to pin stimulation in upper and lower extremities. Gait is slow, stable. IMPRESSION: 1. Recurrent syncope, probably vasovagal, rule out orthostatic hypotension, doubt presence of seizure activity. 2. Alcohol abuse, alcohol intoxication, rule out impending alcohol withdrawal. 3. Transaminitis, probably alcoholic liver disease. 4. History of alcohol gastritis, now presenting with persistent epigastric pain. 5. Hypertension. 6. History of hyperlipidemia. 7. Intermittent palpitation, rule out supraventricular tachycardia. 8. 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 9. Anxiety, rule out depression. RECOMMENDATIONS: 1. Start on banana bag (thiamine, folate, and normal saline supplement). 2. Librium 25 mg q.6 h. p.r.n. 3. Orthostatic blood pressure every shift x3. 4. Observe for any paroxysmal events, maintain cardiac monitoring to detect cardiac arrhythmia/tachycardia. 5. GI workup pending. Thank you for allowing me to see this interesting patient in neurological consultation. Omid Timo Benito DR: ANDERSON JOB#: [id number] CC:
[2018-01-01] MEDS: LORazepam 0.5mg tab ORAL PRN (21:46)
--- NOTE | 2018-01-01 21:51 | General Progress Note ---
Assessment/Plan Problem List: (1) Hepatitis, alcoholic, acute ICD Codes: K70.10 - Alcoholic hepatitis without ascites SNOMED: 9684539 (2) Syncope ICD Codes: R55 - Syncope and collapse SNOMED: 977318332 (3) Hypoglycemia ICD Codes: E16.2 - Hypoglycemia, unspecified SNOMED: 240140151 (4) ETOH abuse ICD Codes: F10.10 - Alcohol abuse, uncomplicated SNOMED: 17118623 Assessment/Plan hypoglycemic is due to alcohol intake will monitor glucose without insulin coverage IVF - banana bag is ordered Subjective Allergies: Coded Allergies: No Known Allergies (Unverified , 02/15/15) All Systems: reviewed and negative except above Subjective admitted with syncopal episode hx of alcoholism - ETOH level very high no hx of DM hypoglycemia on presentation Objective Last 24 Hour Vital Signs Date Time Temp Pulse Resp B/P (MAP) Pulse Ox O2 Delivery O2 Flow Rate FiO2 01/01/18 20:30 106 106 106 01/01/18 16:15 106 01/01/18 16:10 77 01/01/18 16:05 77 01/01/18 16:00 72 01/01/18 12:20 105 01/01/18 12:10 105 01/01/18 12:05 105 01/01/18 12:00 87 01/01/18 12:00 77 01/01/18 09:06 98.0 74 14 114/72 98 Room Air 98.0 01/01/18 08:39 98.0 74 14 114/72 98 Room Air 98.0 01/01/18 07:17 98.0 73 12 126/75 98 Room Air 98.0 01/01/18 05:37 67 12 124/69 98 Room Air 01/01/18 03:25 98.0 65 14 121/69 96 Room Air 98.0 01/01/18 02:15 121/69 01/01/18 01:00 98.0 75 14 98/65 96 Room Air 98.0 12/31/17 21:49 69 19 141/91 95 Room Air Intake and Output 12/31/17 01/01/18 19:00 07:00 Intake Total 500 ml Balance 500 ml IV Total 500 ml Laboratory Tests 12/31/17 22:40: White Blood Count 4.9, Red Blood Count 3.17L, Hemoglobin 12.5, Hematocrit 35.2L , Mean Corpuscular Volume 111H, Mean Corpuscular Hemoglobin 39.5H, Mean Corpuscular Hemoglobin Concent 35.6, Red Cell Distribution Width 13.6, Platelet Count 314, Mean Platelet Volume 5.4L, Neutrophils (%) (Auto) 52.9, Lymphocytes ( %) (Auto) 34.5, Monocytes (%) (Auto) 8.9, Eosinophils (%) (Auto) 1.2, Basophils (%) (Auto) 2.5H, Sodium Level 134L, Potassium Level 3.4L, Chloride Level 92L, Carbon Dioxide Level 24, Anion Gap 18H, Blood Urea Nitrogen 7, Creatinine 0.5L, Estimat Glomerular Filtration Rate > 60, Glucose Level 45L, Calcium Level 9.4, Total Bilirubin 2.1H, Direct Bilirubin 0.9H, Aspartate Amino Transf (AST/SGOT) 103H, Alanine Aminotransferase (ALT/SGPT) 42, Alkaline Phosphatase 129H, Total Creatine Kinase 45, Creatine Kinase MB 0.8, Creatine Kinase MB Relative Index 1.7, Troponin I 0.000, Pro-B-Type Natriuretic Peptide 49, Total Protein 7.9, Albumin 4.2, Globulin 3.7, Albumin/Globulin Ratio 1.1, Lipase 101, Serum Alcohol 206 01/01/18 11:15: Triglycerides Level 66, Cholesterol Level 222H, LDL Cholesterol 87, HDL Cholesterol 137H, Cholesterol/HDL Ratio 1.6L, Vitamin B12 Level 760 01/01/18 14:30: Urine Color Brown, Urine Appearance Clear, Urine pH 6, Urine Specific [place] 1.020, Urine Protein 2+H, Urine Glucose (UA) 1+H, Urine Ketones 4+H, Urine Occult Blood 1+H, Urine Nitrite Negative, Urine Bilirubin 2+H, Urine Ictotest Negative, Urine Urobilinogen 8H, Urine Leukocyte Esterase 1+H, Urine RBC 2-4H, Urine WBC 2-4, Urine Squamous Epithelial Cells Few, Urine Bacteria Few, Urine Random Total Protein 39H, Urine Random Sodium 71, Urine Potassium Timed 69H Height (Feet): 4 Height (Inches): 11.00 Weight (Pounds): 87 General Appearance: no apparent distress EENT: pale conjunctivae Neck: normal alignment Cardiovascular: normal rate Respiratory/Chest: lungs clear Abdomen: normal bowel sounds Pelvis: normal external exam Edema: no edema noted Arm (L), no edema noted Arm (R), no edema noted Leg (L), no edema noted Leg (R), no edema noted Pedal (L), no edema noted Pedal (R), no edema noted Generalized Objective Current Medications Medications (Trade) Dose Ordered Sig/Desiree Route PRN Reason Start Time Stop Time Status Last Admin Dose Admin Acetaminophen (Tylenol) 650 mg Q4H PRN ORAL Mild Pain (Pain Scale 1-3) 01/01/18 11:00 01/31/18 10:59 Dextrose (Dextrose 50%) STAT PRN IV Hypoglycemia 01/01/18 11:00 01/31/18 10:59 Folic Acid 1 mg/ Magnesium Sulfate 2000 mg/ Multivitamins 10 ml/Sodium Chloride 1,014.2 ml @ 125 mls/ hr Q24H IV 01/01/18 12:00 01/31/18 11:59 01/01/18 12:57 Lorazepam (Ativan 2mg/ml 1ml) 0.5 mg Q4H PRN IV For Anxiety 01/01/18 11:00 01/08/18 10:59 Lorazepam (Ativan) 0.5 mg TIDPRN PRN ORAL For Anxiety 01/01/18 11:00 01/08/18 10:59 Morphine Sulfate (Morphine Sulfate) 2 mg Q4H PRN IVP Moderate to Severe Pain (4-10) 01/01/18 14:30 01/08/18 14:29 01/01/18 17:28 Multivitamins (Multivitamins) 1 tab DAILY ORAL 01/01/18 11:30 01/31/18 11:29 01/01/18 12:06 Ondansetron HCl (Zofran) 4 mg Q6H PRN IVP Nausea & Vomiting 01/01/18 11:00 01/31/18 10:59 01/01/18 18:40 Pantoprazole (Protonix) 40 mg ACBREAKFAST ORAL 01/02/18 06:30 02/01/18 06:29 Thiamine HCl 100 mg/Sodium Chloride 56 ml @ 112 mls/hr Q24H IVPB 01/01/18 12:00 01/31/18 11:59 01/01/18 12:58 REMINTGON MARTIN 1, 2018 21:50
--- NOTE | 2018-01-02 | History and Physical Report ---
DATE OF ADMISSION: 01/01/2018 APPROXIMATE TIME: 2 p.m. CONSULTANTS: 1. Alhaji Espinoza M.D. 2. Chani Williamson M.D. 3. Benjamin Avila M.D. 4. Brandyn Guerrero M.D. 5. Omid Benito M.D. CHIEF COMPLAINT: Syncope, chest pain, alcohol abuse, hypoglycemia. BRIEF HISTORY: This is a 52-year-old female who lives at home presents with history of syncope and some palpitations, slight chest pain and tightness, no radiation. No loss of consciousness. She also had abdominal pain as well. The patient diagnosed with the above. Hypoglycemic at 45, admitted to telemetry for further care. Currently, slightly calm in bed, slight leg pain bilaterally, no complaints. REVIEW OF SYSTEMS: Slight chest pain. Slight short of breath. No nausea, vomiting, or diarrhea. PAST MEDICAL HISTORY: Includes hepatitis, alcohol abuse, chest pain. PAST SURGICAL HISTORY: None. MEDICATIONS: Include pantoprazole, morphine, thiamine, folic acid, multivitamin, Tylenol, Zofran, lorazepam, dextrose. ALLERGIES: Denies. SOCIAL HISTORY: Positive . Positive alcohol. No intravenous drug use. FAMILY HISTORY: Noncontributory. PHYSICAL EXAMINATION: GENERAL: Calm in bed, oriented x2, in no acute distress. VITAL SIGNS: Temperature is 98, pulse 84, respiratory rate 14, blood pressure 114/72. CARDIOVASCULAR: No murmur. LUNGS: Distant and clear. ABDOMEN: Bowel sounds distant. EXTREMITIES: No cyanosis, clubbing, or edema. NEUROLOGIC: The patient moves all extremities, slightly weak. LABORATORY DATA: CBC, hematocrit 35 otherwise CBC is normal. BMP shows sodium 134, potassium 3.4, chloride 92, BUN and creatinine 7 and 0.5, glucose 45. Total bilirubin 2.1 and direct bilirubin 0.9, AST 103 alkaline phosphatase 129. Troponin 0.00. ASSESSMENT: 1. Syncope. 2. Abdominal pain. 3. Chest pain, possible palpitations. 4. Alcohol abuse. 5. Hypokalemia. 6. Hypoglycemia. 7. Nausea and vomiting. 8. Hepatitis history. PLAN: 1. Continue premedications. 2. OT/PT. 3. Dietary evaluation. 4. IV fluids. 5. Replace potassium. 6. CBC and BMP in morning. 7. Cardiology followup. 8. Dr. Espinoza, Dr. Williamson, Dr. Avila, Dr. Guerrero, and Dr. Benito to consult. Parish Hamlin D.O. DR: Breanna JOB#: [id number] CC:
--- NOTE | 2018-01-02 07:04 | General Progress Note ---
Assessment/Plan Problem List: (1) UTI (urinary tract infection) ICD Codes: N39.0 - Urinary tract infection, site not specified SNOMED: 62476748 (2) Nausea ICD Codes: R11.0 - Nausea SNOMED: 010749532 (3) Vomiting ICD Codes: R11.10 - Vomiting, unspecified SNOMED: 562070985 (4) Hypoglycemia ICD Codes: E16.2 - Hypoglycemia, unspecified SNOMED: 861917154 (5) Syncope ICD Codes: R55 - Syncope and collapse SNOMED: 079563390 (6) Dizziness ICD Codes: R42 - Dizziness and giddiness SNOMED: 397103695 (7) Acute chest pain ICD Codes: R07.9 - Chest pain, unspecified SNOMED: 897793368 Status: unchanged Assessment/Plan ot pt diet abx ivf cardio gi f/u cbc bmp am Subjective Constitutional: Reports: weakness Allergies: Coded Allergies: No Known Allergies (Unverified , 02/15/15) All Systems: reviewed and negative except above Subjective calm in bed sl cp Objective Last 24 Hour Vital Signs Date Time Temp Pulse Resp B/P (MAP) Pulse Ox O2 Delivery O2 Flow Rate FiO2 01/02/18 04:00 74 82 106 01/02/18 04:00 73 01/02/18 00:00 95 01/02/18 00:00 74 01/01/18 20:30 106 106 106 01/01/18 20:00 66 95 93 01/01/18 20:00 71 01/01/18 16:15 106 01/01/18 16:10 77 01/01/18 16:05 77 01/01/18 16:00 72 01/01/18 12:20 105 01/01/18 12:10 105 01/01/18 12:05 105 01/01/18 12:00 87 01/01/18 12:00 77 01/01/18 09:06 98.0 74 14 114/72 98 Room Air 98.0 01/01/18 08:39 98.0 74 14 114/72 98 Room Air 98.0 01/01/18 07:17 98.0 73 12 126/75 98 Room Air 98.0 Intake and Output 01/01/18 01/02/18 19:00 07:00 Intake Total 715 ml Balance 715 ml Intake Oral 590 ml IV Total 125 ml # Voids 2 2 Laboratory Tests 01/01/18 11:15: Triglycerides Level 66, Cholesterol Level 222H, LDL Cholesterol 87, HDL Cholesterol 137H, Cholesterol/HDL Ratio 1.6L, Vitamin B12 Level 760 01/01/18 14:30: Urine Color Brown, Urine Appearance Clear, Urine pH 6, Urine Specific [place] 1.020, Urine Protein 2+H, Urine Glucose (UA) 1+H, Urine Ketones 4+H, Urine Occult Blood 1+H, Urine Nitrite Negative, Urine Bilirubin 2+H, Urine Ictotest Negative, Urine Urobilinogen 8H, Urine Leukocyte Esterase 1+H, Urine RBC 2-4H, Urine WBC 2-4, Urine Squamous Epithelial Cells Few, Urine Bacteria Few, Urine Random Total Protein 39H, Urine Random Sodium 71, Urine Potassium Timed 69H Height (Feet): 4 Height (Inches): 11.00 Weight (Pounds): 87 General Appearance: lethargic EENT: normal ENT inspection Neck: normal alignment Cardiovascular: normal peripheral pulses, normal rate, regular rhythm Respiratory/Chest: chest wall non-tender, lungs clear, normal breath sounds Abdomen: normal bowel sounds, non tender, soft Extremities: normal inspection Edema: no edema noted Arm (L), no edema noted Arm (R), no edema noted Leg (L), no edema noted Leg (R), no edema noted Pedal (L), no edema noted Pedal (R), no edema noted Generalized Neurologic: motor weakness Skin: normal pigmentation, warm/dry JAIDA JACKSON Jan 02, 2018 07:04
[2018-01-02 08:00] VITALS: BP 117/79
[2018-01-02 08:12] LABS: HEMATOCRIT 31.9 % (37.0-47.0); HEMOGLOBIN 11.2 G/DL (12.0-16.0); MEAN CORPUSCULAR VOLUME 114 FL (80-99); PLATELET COUNT 273 K/UL (150-450); RED BLOOD COUNT 2.81 M/UL (4.20-5.40); RED CELL DISTRIBUTION WIDTH 13.5 % (11.6-14.8); WHITE BLOOD COUNT 5.1 K/UL (4.8-10.8)
[2018-01-02 08:36] LABS: ALANINE AMINOTRANSFERASE 37 U/L (12-78); ALBUMIN 3.6 G/DL (3.4-5.0); ALBUMIN/GLOBULIN RATIO 1.1 (1.0-2.7); ALKALINE PHOSPHATASE 116 U/L (46-116); ANION GAP 7 mmol/L (5-15); ASPARTATE AMINO TRANSFERASE 121 U/L (15-37); BILIRUBIN,TOTAL 2.5 MG/DL (0.2-1.0); BLOOD UREA NITROGEN 6 mg/dL (7-18); CALCIUM 9.1 MG/DL (8.5-10.1); CARBON DIOXIDE 29 MMOL/L (21-32); CHLORIDE 99 MMOL/L (98-107); CREATININE 0.6 MG/DL (0.55-1.30); PHOSPHORUS 2.8 MG/DL (2.5-4.9); POTASSIUM 4.1 MMOL/L (3.5-5.1); SODIUM 135 MMOL/L (136-145)
[2018-01-02 08:37] LABS: BILIRUBIN,DIRECT 0.8 MG/DL (0.0-0.3)
[2018-01-02] MEDS ORDERED: Sodium Chloride 500ML 500 ML IV ONE (09:15)
--- NOTE | 2018-01-02 10:50 | GI Progress Note ---
Assessment/Plan Problems: (1) Nausea ICD Codes: R11.0 - Nausea SNOMED: 633722760 (2) Hepatitis, alcoholic, acute ICD Codes: K70.10 - Alcoholic hepatitis without ascites SNOMED: 9801829 (3) Hepatitis, alcoholic, acute ICD Codes: K70.10 - Alcoholic hepatitis without ascites SNOMED: 0516129 (4) Transaminitis ICD Codes: R74.0 - Nonspec elev of levels of transamns & lactic acid dehydrgnse SNOMED: 415368784 Status: stable Status Narrative Discussed with Dr. Guerrero. Assessment/Plan symptomatic treatment adv diet PO/IV hydration + electrolyte replacement zofran prn Ativan prn B12/folate supplement alcohol abstinence trend LFTs outpatient GI procedures Subjective Subjective nausea anxious Objective Last 24 Hour Vital Signs Date Time Temp Pulse Resp B/P (MAP) Pulse Ox O2 Delivery O2 Flow Rate FiO2 01/02/18 08:00 51 55 65 01/02/18 08:00 98.0 73 20 117/79 95 Room Air 98.0 01/02/18 08:00 83 01/02/18 04:00 74 82 106 01/02/18 04:00 73 01/02/18 00:00 95 01/02/18 00:00 74 01/01/18 20:30 106 106 106 01/01/18 20:00 66 95 93 01/01/18 20:00 71 01/01/18 16:15 106 01/01/18 16:10 77 01/01/18 16:05 77 01/01/18 16:00 72 01/01/18 12:20 105 01/01/18 12:10 105 01/01/18 12:05 105 01/01/18 12:00 87 01/01/18 12:00 77 Intake and Output 01/01/18 01/02/18 19:00 07:00 Intake Total 715 ml Balance 715 ml Intake Oral 590 ml IV Total 125 ml # Voids 2 2 Laboratory Tests Test 01/01/18 11:15 01/01/18 14:30 01/02/18 07:24 Triglycerides Level 66 MG/DL (30-150) Cholesterol Level 222 MG/DL (< 200) H LDL Cholesterol 87 mg/dL (<100) HDL Cholesterol 137 MG/DL (40-60) H Cholesterol/HDL Ratio 1.6 (3.3-4.4) L Vitamin B12 Level 760 PG/ML (193-986) Urine Color Brown Urine Appearance Clear Urine pH 6 (4.5-8.0) Urine Specific [place] 1.020 (1.005-1.035) Urine Protein 2+ (NEGATIVE) H Urine Glucose (UA) 1+ (NEGATIVE) H Urine Ketones 4+ (NEGATIVE) H Urine Occult Blood 1+ (NEGATIVE) H Urine Nitrite Negative (NEGATIVE) Urine Bilirubin 2+ (NEGATIVE) H Urine Ictotest Negative Urine Urobilinogen 8 MG/DL (0.0-1.0) H Urine Leukocyte Esterase 1+ (NEGATIVE) H Urine RBC 2-4 /HPF (0 - 2) H Urine WBC 2-4 /HPF (0 - 2) Urine Squamous Epithelial Cells Few /LPF (NONE/OCC) Urine Bacteria Few /HPF (NONE) Urine Random Total Protein 39 MG/DL (< 11.9) H Urine Random Sodium 71 mmol/L (20-110) Urine Potassium Timed 69 mmol/L (12-62) H White Blood Count 5.1 K/UL (4.8-10.8) Red Blood Count 2.81 M/UL (4.20-5.40) L Hemoglobin 11.2 G/DL (12.0-16.0) L Hematocrit 31.9 % (37.0-47.0) L Mean Corpuscular Volume 114 FL (80-99) H Mean Corpuscular Hemoglobin 39.9 PG (27.0-31.0) H Mean Corpuscular Hemoglobin Concent 35.1 G/DL (32.0-36.0) Red Cell Distribution Width 13.5 % (11.6-14.8) Platelet Count 273 K/UL (150-450) Mean Platelet Volume 6.1 FL (6.5-10.1) L Neutrophils (%) (Auto) % (45.0-75.0) Lymphocytes (%) (Auto) % (20.0-45.0) Monocytes (%) (Auto) % (1.0-10.0) Eosinophils (%) (Auto) % (0.0-3.0) Basophils (%) (Auto) % (0.0-2.0) Neutrophils % (Manual) Pending Lymphocytes % (Manual) Pending Platelet Estimate Pending Platelet Morphology Pending Sodium Level 135 MMOL/L (136-145) L Potassium Level 4.1 MMOL/L (3.5-5.1) Chloride Level 99 MMOL/L (98-107) Carbon Dioxide Level 29 MMOL/L (21-32) Anion Gap 7 mmol/L (5-15) Blood Urea Nitrogen 6 mg/dL (7-18) L Creatinine 0.6 MG/DL (0.55-1.30) Estimat Glomerular Filtration Rate > 60 mL/min (>60) Glucose Level 111 MG/DL (74-106) H Calcium Level 9.1 MG/DL (8.5-10.1) Phosphorus Level 2.8 MG/DL (2.5-4.9) Magnesium Level 2.0 MG/DL (1.8-2.4) Total Bilirubin 2.5 MG/DL (0.2-1.0) H Direct Bilirubin 0.8 MG/DL (0.0-0.3) H Aspartate Amino Transf (AST/SGOT) 121 U/L (15-37) H Alanine Aminotransferase (ALT/SGPT) 37 U/L (12-78) Alkaline Phosphatase 116 U/L (46-116) Total Protein 6.8 G/DL (6.4-8.2) Albumin 3.6 G/DL (3.4-5.0) Globulin 3.2 g/dL Albumin/Globulin Ratio 1.1 (1.0-2.7) Height (Feet): 4 Height (Inches): 11.00 Weight (Pounds): 87 General Appearance: WD/WN, no apparent distress, alert, thin Cardiovascular: normal rate Respiratory/Chest: normal breath sounds, no respiratory distress Abdominal Exam: normal bowel sounds, non tender, soft Extremities: normal range of motion, non-tender Xochitl Bartlett N.Becky Jan 02, 2018 10:50
[2018-01-02] MEDS: LORazepam 0.5mg tab ORAL PRN (11:20)
[2018-01-02] MEDS: Heparin 5000 units/ml inj SUBQ SCH ×2 (11:25→21:00)
--- NOTE | 2018-01-02 11:29 | Cardiology Report ---
APPROVED REPORT EKG Measurement Heart [id number] Sinus rhythm with 1st degree AV block Prolonged QT Abnormal ECG
[2018-01-02 12:00] VITALS: BP 105/73
[2018-01-02 16:00] VITALS: BP 106/72
--- NOTE | 2018-01-02 16:09 | General Progress Note ---
Assessment/Plan Problem List: (1) Hepatitis, alcoholic, acute ICD Codes: K70.10 - Alcoholic hepatitis without ascites SNOMED: 3222272 (2) Syncope ICD Codes: R55 - Syncope and collapse SNOMED: 960072751 (3) Hypoglycemia ICD Codes: E16.2 - Hypoglycemia, unspecified SNOMED: 183697352 (4) ETOH abuse ICD Codes: F10.10 - Alcohol abuse, uncomplicated SNOMED: 56962865 Assessment/Plan no more hypoglycemic episode will monitor glucose without insulin coverage Subjective Allergies: Coded Allergies: No Known Allergies (Unverified , 02/15/15) All Systems: reviewed and negative except above Subjective events noted Objective Last 24 Hour Vital Signs Date Time Temp Pulse Resp B/P (MAP) Pulse Ox O2 Delivery O2 Flow Rate FiO2 01/02/18 12:00 67 01/02/18 12:00 97.5 70 18 105/73 95 Room Air 97.5 01/02/18 08:00 51 55 65 01/02/18 08:00 98.0 73 20 117/79 95 Room Air 98.0 01/02/18 08:00 83 01/02/18 04:00 74 82 106 01/02/18 04:00 73 01/02/18 00:00 95 01/02/18 00:00 74 01/01/18 20:30 106 106 106 01/01/18 20:00 66 95 93 01/01/18 20:00 71 01/01/18 16:15 106 01/01/18 16:10 77 Intake and Output 01/01/18 01/02/18 19:00 07:00 Intake Total 715 ml Balance 715 ml Intake Oral 590 ml IV Total 125 ml # Voids 2 2 Laboratory Tests 01/02/18 07:24: White Blood Count 5.1, Red Blood Count 2.81L, Hemoglobin 11.2L, Hematocrit 31.9L , Mean Corpuscular Volume 114H, Mean Corpuscular Hemoglobin 39.9H, Mean Corpuscular Hemoglobin Concent 35.1, Red Cell Distribution Width 13.5, Platelet Count 273, Mean Platelet Volume 6.1L, Neutrophils (%) (Auto) , Lymphocytes (%) ( Auto) , Monocytes (%) (Auto) , Eosinophils (%) (Auto) , Basophils (%) (Auto) , Differential Total Cells Counted 100, Neutrophils % (Manual) 63, Lymphocytes % ( Manual) 29, Monocytes % (Manual) 7, Eosinophils % (Manual) 1, Basophils % ( Manual) 0, Band Neutrophils 0, Platelet Estimate Adequate, Platelet Morphology Normal, Macrocytosis 1+, Sodium Level 135L, Potassium Level 4.1, Chloride Level 99, Carbon Dioxide Level 29, Anion Gap 7, Blood Urea Nitrogen 6L, Creatinine 0.6 , Estimat Glomerular Filtration Rate > 60, Glucose Level 111H, Calcium Level 9.1 , Phosphorus Level 2.8, Magnesium Level 2.0, Total Bilirubin 2.5H, Direct Bilirubin 0.8H, Aspartate Amino Transf (AST/SGOT) 121H, Alanine Aminotransferase (ALT/SGPT) 37, Alkaline Phosphatase 116, Total Protein 6.8, Albumin 3.6, Globulin 3.2, Albumin/Globulin Ratio 1.1 Height (Feet): 4 Height (Inches): 11.00 Weight (Pounds): 87 General Appearance: no apparent distress EENT: pale conjunctivae Neck: normal alignment Cardiovascular: normal rate Respiratory/Chest: lungs clear Abdomen: normal bowel sounds Pelvis: normal external exam Objective Current Medications Medications (Trade) Dose Ordered Sig/Desiree Route PRN Reason Start Time Stop Time Status Last Admin Dose Admin Acetaminophen (Tylenol) 650 mg Q4H PRN ORAL Mild Pain (Pain Scale 1-3) 01/01/18 11:00 01/31/18 10:59 Dextrose (Dextrose 50%) STAT PRN IV Hypoglycemia 01/01/18 11:00 01/31/18 10:59 Folic Acid 1 mg/ Magnesium Sulfate 2000 mg/ Multivitamins 10 ml/Sodium Chloride 1,014.2 ml @ 125 mls/ hr Q24H IV 01/01/18 12:00 01/31/18 11:59 01/01/18 12:57 Heparin Sodium (Porcine) (Heparin 5000 units/ml) 5,000 units Q12HR SUBQ 01/02/18 09:46 02/01/18 09:45 01/02/18 11:25 Lorazepam (Ativan 2mg/ml 1ml) 0.5 mg Q4H PRN IV For Anxiety 01/01/18 11:00 01/08/18 10:59 Lorazepam (Ativan) 0.5 mg TIDPRN PRN ORAL For Anxiety 01/01/18 11:00 01/08/18 10:59 01/02/18 11:20 Morphine Sulfate (Morphine Sulfate) 2 mg Q4H PRN IVP Moderate to Severe Pain (4-10) 01/01/18 14:30 01/08/18 14:29 01/01/18 17:28 Multivitamins (Multivitamins) 1 tab DAILY ORAL 01/01/18 11:30 01/31/18 11:29 01/02/18 09:20 Ondansetron HCl (Zofran) 4 mg Q6H PRN IVP Nausea & Vomiting 01/01/18 11:00 01/31/18 10:59 01/02/18 09:24 Pantoprazole (Protonix) 40 mg ACBREAKFAST ORAL 01/02/18 06:30 02/01/18 06:29 01/02/18 06:35 Thiamine HCl 100 mg/Sodium Chloride 56 ml @ 112 mls/hr Q24H IVPB 01/01/18 12:00 01/31/18 11:59 01/01/18 12:58 REMINGTON MARTIN 2, 2018 16:09
--- NOTE | 2018-01-02 16:32 | Consultation ---
Consult Note Consult Note ID DIC # [id number] OSVALDO COTTER M.D. Jan 02, 2018 16:32
--- NOTE | 2018-01-02 18:22 | Nephrology Progress Note ---
Assessment/Plan Assessment 1. Mild hyponatremia. 2. Hypokalemia. 3. Dehydration. 4. Intractable nausea and vomiting. 5. Possible alcohol withdrawal. Plan to continue free water restriction monitoring renal function replace electrolyte check mg IVF Subjective Constitutional: Reports: malaise, weakness HEENT: Reports: no symptoms Genitourinary: Reports: no symptoms Neurologic/Psychiatric: Reports: no symptoms Subjective alert and awake Objective Objective Last 24 Hour Vital Signs Date Time Temp Pulse Resp B/P (MAP) Pulse Ox O2 Delivery O2 Flow Rate FiO2 01/02/18 16:00 79 01/02/18 16:00 97.5 73 20 106/72 93 Room Air 97.5 01/02/18 12:00 67 01/02/18 12:00 97.5 70 18 105/73 95 Room Air 97.5 01/02/18 08:00 51 55 65 01/02/18 08:00 98.0 73 20 117/79 95 Room Air 98.0 01/02/18 08:00 83 01/02/18 04:00 74 82 106 01/02/18 04:00 73 01/02/18 00:00 95 01/02/18 00:00 74 01/01/18 20:30 106 106 106 01/01/18 20:00 66 95 93 01/01/18 20:00 71 Intake and Output 01/01/18 01/02/18 19:00 07:00 Intake Total 715 ml Balance 715 ml Intake Oral 590 ml IV Total 125 ml # Voids 2 2 Laboratory Tests 01/02/18 07:24: White Blood Count 5.1, Red Blood Count 2.81L, Hemoglobin 11.2L, Hematocrit 31.9L , Mean Corpuscular Volume 114H, Mean Corpuscular Hemoglobin 39.9H, Mean Corpuscular Hemoglobin Concent 35.1, Red Cell Distribution Width 13.5, Platelet Count 273, Mean Platelet Volume 6.1L, Neutrophils (%) (Auto) , Lymphocytes (%) ( Auto) , Monocytes (%) (Auto) , Eosinophils (%) (Auto) , Basophils (%) (Auto) , Differential Total Cells Counted 100, Neutrophils % (Manual) 63, Lymphocytes % ( Manual) 29, Monocytes % (Manual) 7, Eosinophils % (Manual) 1, Basophils % ( Manual) 0, Band Neutrophils 0, Platelet Estimate Adequate, Platelet Morphology Normal, Macrocytosis 1+, Sodium Level 135L, Potassium Level 4.1, Chloride Level 99, Carbon Dioxide Level 29, Anion Gap 7, Blood Urea Nitrogen 6L, Creatinine 0.6 , Estimat Glomerular Filtration Rate > 60, Glucose Level 111H, Calcium Level 9.1 , Phosphorus Level 2.8, Magnesium Level 2.0, Total Bilirubin 2.5H, Direct Bilirubin 0.8H, Aspartate Amino Transf (AST/SGOT) 121H, Alanine Aminotransferase (ALT/SGPT) 37, Alkaline Phosphatase 116, Total Protein 6.8, Albumin 3.6, Globulin 3.2, Albumin/Globulin Ratio 1.1, Hepatitis A IgM Antibody [Pending], Hepatitis B Surface Antigen [Pending], Hepatitis B Core IgM Antibody [Pending], Hepatitis C Antibody [Pending] Height (Feet): 4 Height (Inches): 11.00 Weight (Pounds): 87 Objective HEAD AND NECK: No JVP. No LAD. No thyromegaly. Extraocular movement intact. Pupils are reactive to light and accommodation. LUNGS: Clear to auscultation. CARDIAC: Regular rate and rhythm. S1 and S2. No murmur. No rub. ABDOMEN: Right upper quadrant tenderness. No guarding. No rebound. EXTREMITIES: No edema. No clubbing. No cyanosis. KANDY DEAN Jan 02, 2018 18:22
[2018-01-02] MEDS: Morphine Sulfate 2mg/ml Inj IVP PRN (19:58)
[2018-01-02 20:14] VITALS: BP 115/77
--- NOTE | 2018-01-02 23:30 | Consultation ---
DATE OF CONSULTATION: INFECTIOUS DISEASE CONSULTATION CONSULTING PHYSICIAN: Torin Jacobsen M.D. REFERRING PHYSICIAN: Parish Hamlin D.O. REASON FOR CONSULTATION: Evaluation of patient for hepatitis. HISTORY OF PRESENT ILLNESS: The patient is a 52-year-old female with multiple medical problDems as listed below, who was admitted to this medical center with syncopal episode and chest tightness. The patient was found to have elevated liver function tests. The patient denies having dysuria, fever, or chills; however, the patient has occasional cough. The patient is a smoker and also complaining of epigastric pain. PAST MEDICAL HISTORY: 1. Hypertension. 2. History of alcohol abuse. MEDICATIONS: Currently is off of antibiotics. FAMILY HISTORY: Not contributing. SOCIAL HISTORY: Significant for smoking and drugs (tobacco), or alcohol abuse. PHYSICAL EXAMINATION: VITAL SIGNS: Temperature 97, blood pressure 104/73, pulse 86, respiratory rate 18. HEENT: No pale conjunctiva. No icterus. CHEST: Clear. HEART: S1 and S2. ABDOMEN: Mild epigastric pain. EXTREMITIES: No cyanosis at this time. NEUROLOGIC: Awake and alert. LABORATORY AND DIAGNOSTIC DATA: White blood cells 5.1, hemoglobin 11, and platelets 273,000. UA unremarkable. BUN 6, creatinine 0.6. AST 121, ALT is 7, alkaline phosphatase is 116. Chest x-ray showed left basal nodular opacity that is confined to be in by comparing the previous x-ray. ASSESSMENT: The patient is a 52-year-old female: 1. Hepatitis, mostly due to alcohol abuse in view of patient's AST be significantly elevated compared to ALT. 2. Rule out viral hepatitis and rule out cirrhosis. PLAN: 1. We will monitor the patient off of antibiotics, resume hepatitis panel. 2. Ultrasound of the abdomen. 3. Monitor patient's liver function tests, CBC and BMP. 4. Based on the patient's laboratories, we will do further recommendations. Thank you, Dr. Parish Hamlin, for allowing me to participate in the care of this patient. I will follow the patient with you during this hospitalization. Torin Jacobsen M.D. DR: EUSEBIO JOB#: [id number] CC:
[2018-01-03] VITALS: BP 126/77
[2018-01-03] MEDS: LORazepam 0.5mg tab ORAL PRN ×2 (00:07→08:52)
[2018-01-03 04:00] VITALS: BP 115/76
[2018-01-03 08:00] VITALS: BP 122/75
[2018-01-03 08:04] LABS: HEMATOCRIT 30.5 % (37.0-47.0); HEMOGLOBIN 10.8 G/DL (12.0-16.0); MEAN CORPUSCULAR VOLUME 114 FL (80-99); PLATELET COUNT 261 K/UL (150-450); RED BLOOD COUNT 2.67 M/UL (4.20-5.40); RED CELL DISTRIBUTION WIDTH 13.1 % (11.6-14.8); WHITE BLOOD COUNT 4.1 K/UL (4.8-10.8)
[2018-01-03 08:27] LABS: ANION GAP 6 mmol/L (5-15); BLOOD UREA NITROGEN 5 mg/dL (7-18); CALCIUM 9.7 MG/DL (8.5-10.1); CARBON DIOXIDE 30 MMOL/L (21-32); CHLORIDE 99 MMOL/L (98-107); CREATININE 0.6 MG/DL (0.55-1.30); POTASSIUM 4.1 MMOL/L (3.5-5.1); SODIUM 135 MMOL/L (136-145)
[2018-01-03] MEDS: Morphine Sulfate 2mg/ml Inj IVP PRN (08:43)
[2018-01-03] MEDS: Heparin 5000 units/ml inj SUBQ SCH (08:52)
--- NOTE | 2018-01-03 09:46 | General Progress Note ---
Assessment/Plan Problem List: (1) UTI (urinary tract infection) ICD Codes: N39.0 - Urinary tract infection, site not specified SNOMED: 13146190 (2) Nausea ICD Codes: R11.0 - Nausea SNOMED: 312730432 (3) Vomiting ICD Codes: R11.10 - Vomiting, unspecified SNOMED: 090914185 (4) Hypoglycemia ICD Codes: E16.2 - Hypoglycemia, unspecified SNOMED: 628276857 (5) Syncope ICD Codes: R55 - Syncope and collapse SNOMED: 076559538 (6) Dizziness ICD Codes: R42 - Dizziness and giddiness SNOMED: 910293111 (7) Acute chest pain ICD Codes: R07.9 - Chest pain, unspecified SNOMED: 547874969 Status: unchanged Assessment/Plan ot pt diet abx ivf cardio gi f/u cbc bmp am dc plan Subjective Constitutional: Reports: weakness Allergies: Coded Allergies: No Known Allergies (Unverified , 02/15/15) All Systems: reviewed and negative except above Subjective calm in bed sl cp Objective Last 24 Hour Vital Signs Date Time Temp Pulse Resp B/P (MAP) Pulse Ox O2 Delivery O2 Flow Rate FiO2 01/03/18 08:00 97.2 67 20 122/75 96 Room Air 97.2 01/03/18 04:00 97.9 66 18 115/76 95 Room Air 97.9 01/03/18 04:00 70 01/03/18 00:00 98.1 67 20 126/77 96 Room Air 98.1 01/03/18 00:00 64 01/02/18 20:14 98.6 81 20 115/77 Room Air 97.0 98.6 01/02/18 20:00 83 01/02/18 16:00 79 01/02/18 16:00 97.5 73 20 106/72 93 Room Air 97.5 01/02/18 12:00 67 01/02/18 12:00 97.5 70 18 105/73 95 Room Air 97.5 Intake and Output 01/02/18 01/03/18 19:00 07:00 Intake Total 1260 ml Balance 1260 ml Intake Oral 760 ml IV Total 500 ml # Voids 1 6 Laboratory Tests 01/03/18 06:10: White Blood Count 4.1L, Red Blood Count 2.67L, Hemoglobin 10.8L, Hematocrit 30.5L, Mean Corpuscular Volume 114H, Mean Corpuscular Hemoglobin 40.6H, Mean Corpuscular Hemoglobin Concent 35.6, Red Cell Distribution Width 13.1, Platelet Count 261, Mean Platelet Volume 5.9L, Neutrophils (%) (Auto) , Lymphocytes (%) ( Auto) , Monocytes (%) (Auto) , Eosinophils (%) (Auto) , Basophils (%) (Auto) , Neutrophils % (Manual) [Pending], Lymphocytes % (Manual) [Pending], Platelet Estimate [Pending], Platelet Morphology [Pending], Sodium Level 135L, Potassium Level 4.1, Chloride Level 99, Carbon Dioxide Level 30, Anion Gap 6, Blood Urea Nitrogen 5L, Creatinine 0.6, Estimat Glomerular Filtration Rate > 60, Glucose Level 92, Calcium Level 9.7 Height (Feet): 4 Height (Inches): 11.00 Weight (Pounds): 87 General Appearance: lethargic EENT: normal ENT inspection Neck: normal alignment Cardiovascular: normal peripheral pulses, normal rate, regular rhythm Respiratory/Chest: chest wall non-tender, lungs clear, normal breath sounds Abdomen: normal bowel sounds, non tender, soft Extremities: normal inspection Edema: no edema noted Arm (L), no edema noted Arm (R), no edema noted Leg (L), no edema noted Leg (R), no edema noted Pedal (L), no edema noted Pedal (R), no edema noted Generalized Neurologic: responsive, motor weakness Skin: normal pigmentation, warm/dry JAIDA JACKSON Jan 03, 2018 09:46
--- NOTE | 2018-01-03 11:41 | General Progress Note ---
Assessment/Plan Problem List: (1) Vomiting ICD Codes: R11.10 - Vomiting, unspecified SNOMED: 575705259 (2) Hepatitis, alcoholic, acute ICD Codes: K70.10 - Alcoholic hepatitis without ascites SNOMED: 6868799 Assessment/Plan symptomatic treatment PO/IV hydration + electrolyte replacement zofran prn Ativan prn B12/folate supplement alcohol abstinence trend LFTs outpatient GI procedures Subjective ROS Limited/Unobtainable: Yes Allergies: Coded Allergies: No Known Allergies (Unverified , 02/15/15) Subjective no event Objective Last 24 Hour Vital Signs Date Time Temp Pulse Resp B/P (MAP) Pulse Ox O2 Delivery O2 Flow Rate FiO2 01/03/18 08:00 97.2 67 20 122/75 96 Room Air 97.2 01/03/18 07:04 66 01/03/18 04:00 97.9 66 18 115/76 95 Room Air 97.9 01/03/18 04:00 70 01/03/18 00:00 98.1 67 20 126/77 96 Room Air 98.1 01/03/18 00:00 64 01/02/18 20:14 98.6 81 20 115/77 Room Air 97.0 98.6 01/02/18 20:00 83 01/02/18 16:00 79 01/02/18 16:00 97.5 73 20 106/72 93 Room Air 97.5 01/02/18 12:00 67 01/02/18 12:00 97.5 70 18 105/73 95 Room Air 97.5 Intake and Output 01/02/18 01/03/18 19:00 07:00 Intake Total 1260 ml Balance 1260 ml Intake Oral 760 ml IV Total 500 ml # Voids 1 6 Laboratory Tests 01/03/18 06:10: White Blood Count 4.1L, Red Blood Count 2.67L, Hemoglobin 10.8L, Hematocrit 30.5L, Mean Corpuscular Volume 114H, Mean Corpuscular Hemoglobin 40.6H, Mean Corpuscular Hemoglobin Concent 35.6, Red Cell Distribution Width 13.1, Platelet Count 261, Mean Platelet Volume 5.9L, Neutrophils (%) (Auto) , Lymphocytes (%) ( Auto) , Monocytes (%) (Auto) , Eosinophils (%) (Auto) , Basophils (%) (Auto) , Differential Total Cells Counted 100, Neutrophils % (Manual) 49, Lymphocytes % ( Manual) 42, Monocytes % (Manual) 4, Eosinophils % (Manual) 2, Basophils % ( Manual) 3H, Band Neutrophils 0, Platelet Estimate Adequate, Platelet Morphology Normal, Hypochromasia 1+, Macrocytosis 2+, Sodium Level 135L, Potassium Level 4.1, Chloride Level 99, Carbon Dioxide Level 30, Anion Gap 6, Blood Urea Nitrogen 5L, Creatinine 0.6, Estimat Glomerular Filtration Rate > 60, Glucose Level 92, Calcium Level 9.7 Height (Feet): 4 Height (Inches): 11.00 Weight (Pounds): 87 General Appearance: no apparent distress EENT: normal ENT inspection Neck: supple Cardiovascular: normal peripheral pulses, normal rate Respiratory/Chest: decreased breath sounds Abdomen: normal bowel sounds, non tender, soft Extremities: non-tender KATRINA BECERRIL Jan 03, 2018 11:41
[2018-01-03 12:00] VITALS: BP 109/71
[2018-01-03] MEDS: Folic Acid 1 MG, Magnesium Sulfate 2,000 MG, Multivitamin - 12 Injection 10 ML in NS w/... IV SCH (12:00)
[2018-01-03] MEDS: Thiamine HCl 100 MG in NS 55 ML IVPB SCH (12:00)
[2018-01-03] MEDS ORDERED: NS 500ML ONE (13:44)
--- NOTE | 2018-01-03 14:48 | Nephrology Progress Note ---
Assessment/Plan Assessment 1. Mild hyponatremia. 2. Hypokalemia. 3. Dehydration. 4. Intractable nausea and vomiting. 5. Possible alcohol withdrawal. Plan to continue free water restriction monitoring renal function replace electrolyte IVF Subjective Constitutional: Reports: no symptoms HEENT: Reports: no symptoms Genitourinary: Reports: no symptoms Neurologic/Psychiatric: Reports: no symptoms Subjective alert and awake Objective Objective Last 24 Hour Vital Signs Date Time Temp Pulse Resp B/P (MAP) Pulse Ox O2 Delivery O2 Flow Rate FiO2 01/03/18 12:00 97.2 19 109/71 95 Room Air 97.2 01/03/18 12:00 68 01/03/18 08:00 97.2 67 20 122/75 96 Room Air 97.2 01/03/18 07:04 66 01/03/18 04:00 97.9 66 18 115/76 95 Room Air 97.9 01/03/18 04:00 70 01/03/18 00:00 98.1 67 20 126/77 96 Room Air 98.1 01/03/18 00:00 64 01/02/18 20:14 98.6 81 20 115/77 Room Air 97.0 98.6 01/02/18 20:00 83 01/02/18 16:00 79 01/02/18 16:00 97.5 73 20 106/72 93 Room Air 97.5 Intake and Output 01/02/18 01/03/18 19:00 07:00 Intake Total 1260 ml Balance 1260 ml Intake Oral 760 ml IV Total 500 ml # Voids 1 6 Laboratory Tests 01/03/18 06:10: White Blood Count 4.1L, Red Blood Count 2.67L, Hemoglobin 10.8L, Hematocrit 30.5L, Mean Corpuscular Volume 114H, Mean Corpuscular Hemoglobin 40.6H, Mean Corpuscular Hemoglobin Concent 35.6, Red Cell Distribution Width 13.1, Platelet Count 261, Mean Platelet Volume 5.9L, Neutrophils (%) (Auto) , Lymphocytes (%) ( Auto) , Monocytes (%) (Auto) , Eosinophils (%) (Auto) , Basophils (%) (Auto) , Differential Total Cells Counted 100, Neutrophils % (Manual) 49, Lymphocytes % ( Manual) 42, Monocytes % (Manual) 4, Eosinophils % (Manual) 2, Basophils % ( Manual) 3H, Band Neutrophils 0, Platelet Estimate Adequate, Platelet Morphology Normal, Hypochromasia 1+, Macrocytosis 2+, Sodium Level 135L, Potassium Level 4.1, Chloride Level 99, Carbon Dioxide Level 30, Anion Gap 6, Blood Urea Nitrogen 5L, Creatinine 0.6, Estimat Glomerular Filtration Rate > 60, Glucose Level 92, Calcium Level 9.7 Height (Feet): 4 Height (Inches): 11.00 Weight (Pounds): 87 Objective HEAD AND NECK: No JVP. No LAD. No thyromegaly. Extraocular movement intact. Pupils are reactive to light and accommodation. LUNGS: Clear to auscultation. CARDIAC: Regular rate and rhythm. S1 and S2. No murmur. No rub. ABDOMEN: Right upper quadrant tenderness. No guarding. No rebound. EXTREMITIES: No edema. No clubbing. No cyanosis. KANDY DEAN Jan 03, 2018 14:48
--- NOTE | 2018-01-03 23:22 | Cardiology Progress Note ---
Assessment/Plan Assessment/Plan 1. Possible syncope vs fall due to ETOH intoxication and gait imbalance, replace electrolyte, hydration and banana bag and anti-emetics. 2D echo shows normal LV systolic function with LVEF at 65%. 2. ETOH abuse 3. HTN, consider propranolol or clonidine. Subjective Subjective Sinus rhythm at 68. Denies chest pain or SOB. Objective Last 24 Hour Vital Signs Date Time Temp Pulse Resp B/P (MAP) Pulse Ox O2 Delivery O2 Flow Rate FiO2 01/03/18 12:00 97.2 19 109/71 95 Room Air 97.2 01/03/18 12:00 68 01/03/18 08:00 97.2 67 20 122/75 96 Room Air 97.2 01/03/18 07:04 66 01/03/18 04:00 97.9 66 18 115/76 95 Room Air 97.9 01/03/18 04:00 70 01/03/18 00:00 98.1 67 20 126/77 96 Room Air 98.1 01/03/18 00:00 64 Intake and Output 01/02/18 01/03/18 19:00 07:00 Intake Total 1260 ml Balance 1260 ml Intake Oral 760 ml IV Total 500 ml # Voids 1 6 2D Echo: LVEF 65%, Grade I LVDD, RVSP 40 mmHg, Mild MR Laboratory Tests Test 01/03/18 06:10 White Blood Count 4.1 K/UL (4.8-10.8) L Red Blood Count 2.67 M/UL (4.20-5.40) L Hemoglobin 10.8 G/DL (12.0-16.0) L Hematocrit 30.5 % (37.0-47.0) L Mean Corpuscular Volume 114 FL (80-99) H Mean Corpuscular Hemoglobin 40.6 PG (27.0-31.0) H Mean Corpuscular Hemoglobin Concent 35.6 G/DL (32.0-36.0) Red Cell Distribution Width 13.1 % (11.6-14.8) Platelet Count 261 K/UL (150-450) Mean Platelet Volume 5.9 FL (6.5-10.1) L Neutrophils (%) (Auto) % (45.0-75.0) Lymphocytes (%) (Auto) % (20.0-45.0) Monocytes (%) (Auto) % (1.0-10.0) Eosinophils (%) (Auto) % (0.0-3.0) Basophils (%) (Auto) % (0.0-2.0) Differential Total Cells Counted 100 Neutrophils % (Manual) 49 % (45-75) Lymphocytes % (Manual) 42 % (20-45) Monocytes % (Manual) 4 % (1-10) Eosinophils % (Manual) 2 % (0-3) Basophils % (Manual) 3 % (0-2) H Band Neutrophils 0 % (0-8) Platelet Estimate Adequate Platelet Morphology Normal Hypochromasia 1+ Macrocytosis 2+ Sodium Level 135 MMOL/L (136-145) L Potassium Level 4.1 MMOL/L (3.5-5.1) Chloride Level 99 MMOL/L (98-107) Carbon Dioxide Level 30 MMOL/L (21-32) Anion Gap 6 mmol/L (5-15) Blood Urea Nitrogen 5 mg/dL (7-18) L Creatinine 0.6 MG/DL (0.55-1.30) Estimat Glomerular Filtration Rate > 60 mL/min (>60) Glucose Level 92 MG/DL (74-106) Calcium Level 9.7 MG/DL (8.5-10.1) Objective HEENT: Atraumatic, anicteric, PERRLA, EOMI. NECK: No JVP, no carotid bruit. LUNGS: Clear to auscultation. CARDIAC: Regular rate and rhythm. Normal S1 and S2. No murmur, gallops or rubs. ABDOMEN: Right upper quadrant tenderness. No guarding. No rebound. EXTREMITIES: No edema, clubbing or cyanosis. SHAHZAD IVEY Jan 03, 2018 23:22
--- NOTE | 2018-01-04 03:30 | Consultation ---
DATE OF CONSULTATION: 01/01/2018 CARDIOLOGY CONSULTATION REFERRING PHYSICIAN: Parish Hamlin D.O. REASON FOR CONSULTATION: Management of syncope. HISTORY OF PRESENT ILLNESS: The patient is a very unfortunate 52-year-old [place] female, who presents to the hospital after increased number of falls that have been going on recently. The patient has prior history of alcohol abuse. It appears that she had complained of chest pain and headaches, which is attributed to her recent fall. The patient was drinking alcohol prior to her fall. She had also a few episodes of emesis. At the time she was brought in to this hospital, initial blood pressure was 144/94 and heart rate of 84. Blood pressure, however, dropped to 98/65 mmHg. Cardiology consultation was made at the request of Dr. Hamlin for management of syncope and possible hypovolemia. PAST MEDICAL HISTORY: Includes hypertension and history of ETOH abuse. MEDICATIONS: List of medications include amlodipine and atorvastatin 10/20 mg one tablet daily, Librium 25 mg q.8 h., citalopram 20 mg p.o. daily, vitamin B12 1000 mcg p.o. daily, folic acid 1 mg p.o. daily, losartan and hydrochlorothiazide 100/25 mg one tablet daily, Reglan 10 mg p.o. q.8 h., Bystolic 2.5 mg daily, omeprazole 40 mg p.o. daily, Zantac 300 mg p.o. daily, and vitamin D3 2000 units p.o. daily. ALLERGIES: No known drug allergies. SOCIAL HISTORY: No history of tobacco or illicit drug use. She drinks alcohol on a regular basis. FAMILY HISTORY: No premature coronary artery disease in first-degree relatives. REVIEW OF SYSTEMS: HEENT: Denies any blurred vision. She had dizziness and lightheadedness as well as headaches. CONSTITUTIONAL: Complains of generalized weakness, but no fever, chills, night sweats, or weight loss. CARDIOVASCULAR: Denies any chest pain, shortness of breath, PND, orthopnea, or leg swelling. PULMONARY: Denies any cough, hemoptysis, or wheezing. GASTROINTESTINAL: Denies any diarrhea or constipation. She has a few episodes of emesis associated with her falls. No hematemesis, hematochezia, or melena. GENITOURINARY: Denies any hematuria, dysuria, or incontinence. NEUROLOGIC: Denies any motor dysfunction, sensory deficits, or altered speech. PHYSICAL EXAMINATION: VITAL SIGNS: Blood pressure was 144/94 mmHg, the blood pressure dropped to 98/65 mmHg, initial heart rate was 69, respirations 19, O2 saturation 95% on room air, and temperature 98.0 degrees Fahrenheit. GENERAL: The patient is a very unfortunate 52-year-old female, in no apparent respiratory distress. HEENT: Atraumatic and normocephalic. Anicteric. Pupils are equal, round, and reactive to light and accommodation. Extraocular muscles intact. NECK: JVP less than 5 cm. No carotid bruits. Carotid upstrokes 2+ bilaterally. CVS: Normal S1 and S2. Regular rate and rhythm. No murmurs, gallops, or rubs. PMI is at fourth intercostal space at the midclavicular line. LUNGS: Clear to auscultation bilaterally. ABDOMEN: Some right upper quadrant tenderness. No guarding or rebound. Positive bowel sounds. EXTREMITIES: No evidence of edema, clubbing, or cyanosis. LABORATORY AND DIAGNOSTIC DATA: Laboratory findings, WBC was 4.9, hemoglobin was 12.5, hematocrit was 35.2, and platelet counts 314,000. Sodium was 134, potassium was 3.4, chloride 92, bicarbonate 24, BUN of 7, creatinine 0.5, glucose was 45, and calcium was 9.4. AST was 103. Total bilirubin was 2.1. Troponin I is 0.0. ProBNP was 49. Total cholesterol was 222, HDL of 137, and LDL of 87. Toxicology showed serum alcohol of 206. A 12-lead electrocardiogram was significant for sinus rhythm with first-degree AV block and prolonged QT interval. ASSESSMENT AND PLAN: The patient is a very unfortunate 52-year-old female, seen in Cardiology consultation at the request of Dr. Hamlin. 1. Possible syncope. The patient has had trouble with ethyl alcohol intoxication. Her fall could be secondary to gait imbalance due to alcohol. She was clinically dehydrated, given the episodes of emesis as well as laboratory findings of dehydration including hyponatremia and hypokalemia. She would benefit from aggressive hydration for hemodynamic stability, electrolyte replacement in particular magnesium as there is also presence of QT prolongation on 12-lead electrocardiogram. I would like to obtain magnesium level in this patient. She would benefit from 2D echocardiography and carotid artery ultrasound and also orthostatic vitals. 2. History of hypertension. I would avoid diuretics as the patient might be hypovolemic. Clonidine and propranolol would be good choices for management of hypertension. I would like to thank, Dr. Hamlin, for the courtesy of this consultation. Alhaji Espinoza M.D. DR: Ree JOB#: [id number] CC:
--- NOTE | 2018-01-04 12:46 | Diagnostic Imaging Report ---
Indication:Abdominal pain Technique: Grayscale and duplex Doppler imaging of the abdomen performed. Comparison: None Findings: The demonstrated part of the pancreas, gallbladder, aorta and IVC, both kidneys, spleen appear unremarkable. Liver is echogenic. CBD is 6 mm. There is no biliary ductal dilatation identified. Doppler evaluation of the main portal vein shows patency. There is no ascites. No hydronephrosis seen. Impression: Fatty liver
--- NOTE | 2018-01-04 14:54 | Cardiology Report ---
APPROVED REPORT EXAM: Two-dimensional and M-mode echocardiogram with Doppler and color Doppler. INDICATION Syncope M-Mode DIMENSIONS IVSd1.2 (0.7-1.1cm)Left Atrium (MM)3.1 (1.6-4.0cm) LVDd3.7 (3.5-5.6cm)Aortic Root3.1 (2.0-3.7cm) PWd1.2 (0.7-1.1cm)Aortic Cusp Exc.1.8 (1.5-2.0cm) LVDs2.3 (2.5-4.0cm) PWs1.7 cm Normal left ventricular chamber size, systolic function and wall motion. Left ventricular ejection fraction estimated to be 65 %. No evidence of left ventricular hypertrophy. No evidence of pericardial effusion. All other cardiac chamber sizes are within normal limits. Mild focal aortic valve sclerosis with adequate cusp excursion. Mildly thickened mitral valve leaflets with normal excursion. Mild mitral annulus and aortic root calcification. Pulmonic valve not well visualized. Normal tricuspid valve structure. IVC at normal size with physiologic collapse. A color flow and spectral Doppler study was performed and revealed: Trace aortic regurgitation. Mild mitral regurgitation. Mitral diastolic velocities suggest reduced left ventricular relaxation c/w mild LV diastolic dysfunction (Grade I ). Mild tricuspid regurgitation. Tricuspid systolic velocities suggests peak right ventricular systolic pressure of 40 mmHg, consistent with mild pulmonary hypertension.
--- NOTE | 2018-01-07 08:31 | Discharge Summary ---
Discharge Summary Hospital Course Date of Admission Jan 01, 2018 at 03:18 Date of Discharge Jan 03, 2018 at 13:45 Admitting Diagnosis SYNCOPE GIANA Williamson is a 52 year old female who was admitted on Jan 01, 2018 at 03:18 for Syncope Hospital Course dc summary #[id number] Discharge Condition Upon Discharge: stable Discharge Disposition Patient was discharged to Home with Home Health(06) Discharge Diagnoses: Discharge Instructions Discharge Instructions Special Instructions I have been assigned to complete a D/C Summary on this account. I was not involved in the patient management Dipti Bowens NP ([place]) Jan 07, 2018 08:31
--- NOTE | 2018-01-08 03:45 | Discharge Summary 2 SIG ---
DATE OF ADMISSION: 01/01/2018 DATE OF DISCHARGE: 01/03/2018 REASON FOR ADMISSION: 52-year-old female with a history of alcohol abuse and hypertension, presented to emergency department complaining of recurrent falls. The patient had a recent fall that morning prior to presentation. The patient with a history of alcohol abuse. She admitted to drinking alcohol and vomiting multiple times in the morning prior to fall. She denied hematemesis. Vital signs were stable. No leukocytosis. Stable hemoglobin and hematocrit. Sodium -134 and potassium -3.4. Troponin negative. Pro BNP-49. AST -103 and ALT -42. Lipase -101. Serum alcohol level -206. EKG showed normal sinus rhythm. No acute ischemic changes. Blood sugar - 45. The patient was admitted with diagnoses of probable syncope, acute alcoholic hepatitis, and hypoglycemia. HOSPITAL COURSE: The patient admitted. Cardiology, Neurology, Nephrology, Endocrinology, and GI consults were requested. The patient was aggressively hydrated with banana bag. Electrolytes were replaced as needed. Librium was ordered as needed for withdrawal symptoms. Magnesium level was stable. Echocardiogram revealed preserved ejection fraction of 65%, right ventricular systolic pressure of 40 consistent with mild pulmonary hypertension. No evidence of wall motion abnormalities. DVT and GI prophylaxis provided. Blood pressure remained stable. No need for antihypertensive at this time. Multimedia Developer recommended that if the need for antihypertensive medication arise, consider propranolol or clonidine. Lipid panel revealed total cholesterol -222 and LDL- 137. The patient was counseled on low-fat low-cholesterol diet and therapeutic lifestyle changes. Hepatitis panel was negative. Abdominal ultrasound revealed fatty liver. No other acute changes. Per torch cutter, the patient possibly had a syncope due to acute alcohol intoxication. Mechanical fall could also be secondary to gait imbalance or alcohol intoxication. She was clinically dehydrated as well , given multiple episodes of n vomiting and laboratory findings of dehydration, including hyponatremia and hypokalemia. He recommended to avoid diuretic because the patient was hypovolemic at that time. Loss Claim Clerk followed. Electrolytes replaced and stable prior to discharge. Visual Basic Programmer seen the patient, hypoglycemia was secondary to alcohol abuse. No further episodes of hypoglycemia. The patient was nondiabetic. Blood sugar remained stable. GI closely followed. Antiemetic provided as needed. Diet advanced and the patient was able to tolerate diet. The patient was advised on alcohol abstinence and recommended outpatient GI procedure. The patient was stable for discharge. FINAL DIAGNOSES: 1. Possible syncope secondary to alcohol intoxication. 2. Acute alcoholic hepatitis. 3. Hypoglycemia. 4. Transaminitis. 5. Acute alcohol intoxication. 6. Alcohol abuse. 7. History of hypertension. 8. Hyperlipidemia. 9. History of alcoholic gastritis. 10. Dehydration secondary to intractable nausea and vomiting. 11. Electrolyte imbalance: hypokalemia and hyponatremia. DISCHARGE INSTRUCTIONS: The patient discharged home with home health services. Follow up with the primary care provider next week. DISCHARGE MEDICATIONS: List of medication was given to the patient. Parish Hamlin D.O. I have been assigned to dictate discharge summary on this account and I was not involved in the patient's management. Dipti BlackburnMohawk Valley General HospitalIsrrael N.PPilar DR: HARMAN JOB#: [id number] CC: YANELY
== END 2018-01-03 13:45 | disposition home health service (06) | DRG 280 ==
LOC: EMR 21:51 → 2E 01-01 03:18 → EDBEDREQ 01-01 05:22 → 2E 01-02 06:33
DX: K70.10 Alcoholic hepatitis without ascites (principal); E87.1 Hypo-osmolality and hyponatremia; I10 Essential (primary) hypertension; E16.2 Hypoglycemia, unspecified; R55 Syncope and collapse; E86.0 Dehydration; E87.6 Hypokalemia; F10.20 Alcohol dependence, uncomplicated; Z91.81 History of falling; R10.9 Unspecified abdominal pain; R07.9 Chest pain, unspecified; R42 Dizziness and giddiness; R00.2 Palpitations; G62.9 Polyneuropathy, unspecified; F41.9 Anxiety disorder, unspecified; N39.0 Urinary tract infection, site not specified; R74.0 Nonspecific elevation of levels of transaminase and lactic acid dehydrogenase [LDH]; E78.5 Hyperlipidemia, unspecified; R11.2 Nausea with vomiting, unspecified
CPT/HCPCS: 36415; 71045; 76700; 80048; 80053; 80061; 80329; 81001; 82044; 82248; 82550; 82553; 82607; 82962; 83690; 83735; 83880; 84100; 84133; 84300; 84484; 85007; 85025; 86705; 86709; 86803; 87340; 93005; 93306; 97803; 99285; J2405

== ENCOUNTER 2018-01-25 17:50 | Inpatient (IN) | payer OTHER ==
[~2018-01-25] VITALS: Ht 154.9 cm; Wt 39.0 kg
[~2018-01-25 17:50] MED LIST changes: +BYSTOLIC2.5 MG ORAL; +CITALOPRAM HBR20 M1 ORAL; +FOLIC ACID1 MG ORAL; +METOCLOPRAMIDE H5 M1 ORAL; +OMEPRAZOLE40 M1 ORAL; +VITAMIN B-121000 MCG PO; +VITAMIN D400 INTLU ORAL; +ZANTAC150 MG ORAL
[2018-01-25] MEDS ORDERED: BYSTOLIC2.5 MG ORAL (18:04)
[2018-01-25] MEDS ORDERED: LOSARTAN POTASS25 MG ORAL (18:04)
[2018-01-25] MEDS ORDERED: VITAMIN B-122000 MC1 PO (18:04)
[2018-01-25] MEDS ORDERED: VITAMIN B-1100 MG ORAL (18:04)
[2018-01-25 18:13] VITALS: BP 109/74
[2018-01-25] MEDS ORDERED: Morphine Sulfate 4mg/ml Inj IVP ONE (18:30)
[2018-01-25 19:06] LABS: APPEARANCE,URINE SLIGHTLY CLOUDY; BILIRUBIN, URINE 1+ (NEGATIVE); GLUCOSE, URINE (UA) NEGATIVE (NEGATIVE); KETONES,URINE 4+ (NEGATIVE); LEUKOCYTE ESTERASE ,URINE 1+ (NEGATIVE); NITRITE,URINE NEGATIVE (NEGATIVE); PH,URINE 6 (4.5-8.0); PROTEIN,URINE 3+ (NEGATIVE); UROBILINOGEN,URINE 4 MG/DL (0.0-1.0)
[2018-01-25 19:09] LABS: COLOR,URINE AMBER
[2018-01-25 19:11] LABS: HEMATOCRIT 32.9 % (37.0-47.0); HEMOGLOBIN 11.9 G/DL (12.0-16.0); MEAN CORPUSCULAR VOLUME 115 FL (80-99); PLATELET COUNT 319 K/UL (150-450); RED BLOOD COUNT 2.87 M/UL (4.20-5.40); RED CELL DISTRIBUTION WIDTH 11.3 % (11.6-14.8); WHITE BLOOD COUNT 5.9 K/UL (4.8-10.8)
[2018-01-25 19:12] LABS: BASOPHILS % (AUTO) 2.3 % (0.0-2.0); EOSINOPHILS % (AUTO) 0.8 % (0.0-3.0); LYMPHOCYTES % (AUTO) 27.5 % (20.0-45.0); MONOCYTES % (AUTO) 8.7 % (1.0-10.0); NEUTROPHILS % (AUTO) 60.8 % (45.0-75.0)
[2018-01-25 19:25] LABS: AMMONIA 27 umol/L (11-32); ANION GAP 21 mmol/L (5-15); BLOOD UREA NITROGEN 8 mg/dL (7-18); CALCIUM 9.3 MG/DL (8.5-10.1); CARBON DIOXIDE 22 MMOL/L (21-32); CHLORIDE 91 MMOL/L (98-107); CREATININE 0.6 MG/DL (0.55-1.30); POTASSIUM 3.5 MMOL/L (3.5-5.1); SODIUM 134 MMOL/L (136-145)
[2018-01-25 19:35] LABS: ALANINE AMINOTRANSFERASE 37 U/L (12-78); ALBUMIN 4.2 G/DL (3.4-5.0); ALBUMIN/GLOBULIN RATIO 1.1 (1.0-2.7); ALKALINE PHOSPHATASE 115 U/L (46-116); ASPARTATE AMINO TRANSFERASE 91 U/L (15-37); BILIRUBIN,TOTAL 2.4 MG/DL (0.2-1.0)
[2018-01-25 19:38] LABS: BILIRUBIN,DIRECT 0.7 MG/DL (0.0-0.3)
--- NOTE | 2018-01-25 19:41 | Emergency Room Report ---
History of Present Illness General Chief Complaint: Abdominal Pain Source: Patient Present Illness HPI Patient presents with vomiting and epigastric pain. This is been going on for several days. She was a evaluated for this a few months ago. She's been drinking alcohol and feels it might be related to that. She is vomiting bile. No coffeegrounds or blood. No melena. Stools have been loose and brown color. The pain in her stomach is 10/10, constant, burning and radiates somewhat to her back. She was hospitalized in October for similar complaints and had endoscopy. This revealed gastritis felt to be secondary to alcohol. Also in the past 2 days as she's had several syncopal episodes. She's hit her knees and also the back of her head. Her legs have been weak. She is unable to keep down her usual medications orally. According to the patient she lost consciousness today for approximately 1 hour. She has some tenderness in her head also and also her knees but is ambulatory. Several years ago she had a seizure but hasn't had seizure since that time. She drinks alcohol daily and feels she cannot stop. She get the shakes when she tries to stop. She is depressed about this. She was admitted 01/01-01/03. D/C dx: 1. Possible syncope secondary to alcohol intoxication. 2. Acute alcoholic hepatitis. 3. Hypoglycemia. 4. Transaminitis. 5. Acute alcohol intoxication. 6. Alcohol abuse. 7. History of hypertension. 8. Hyperlipidemia. 9. History of alcoholic gastritis. 10. Dehydration secondary to intractable nausea and vomiting. 11. Electrolyte imbalance: hypokalemia and hyponatremia. Allergies: Coded Allergies: No Known Allergies (Unverified , 02/15/15) Patient History Past Medical History: see triage record, old chart reviewed Social History: Reports: smoking, alcohol use Social History Narrative at home Reviewed Nursing Documentation: PMH: Agreed; PSxH: Agreed Nursing Documentation-PMH Past Medical History: No History, Except For Hx Hypertension: Yes Hx Cancer: No Hx Gastrointestinal Problems: No - alcoholic Hx Neurological Problems: No Review of Systems All Other Systems: negative except mentioned in HPI Physical Exam Vital Signs Date Time Temp Pulse Resp B/P (MAP) Pulse Ox O2 Delivery O2 Flow Rate FiO2 01/25/18 17:55 98.2 70 18 109/74 91 Room Air 98.2 Sp02 EP Interpretation: reviewed, abnormal - low as interpreted by me General Appearance: GCS 15, mild distress - with vomiting, thin, other - weak Head: normocephalic, other - tenderness occiput Eyes: bilateral eye normal inspection, bilateral eye PERRL ENT: moist mucus membranes Neck: supple Respiratory: lungs clear, normal breath sounds Cardiovascular #1: regular rate, rhythm Cardiovascular #2: 2+ radial (R) Gastrointestinal: normal inspection, normal bowel sounds, no mass, non- distended, no guarding, no rebound, tenderness - epigastric Genitourinary: no CVA tenderness Musculoskeletal: back normal, normal range of motion Neurologic: alert, oriented x3, canteen operator III-XII nml as tested, motor strength/tone normal - subjective weakness, DTRs symmetric, sensory intact Psychiatric: depressed affect Skin: warm/dry, other - sallo, abrasions - knees Medical Decision Making Diagnostic Impression: Primary Impression: Syncope Qualified Codes: R55 - Syncope and collapse Additional Impressions: Intractable abdominal pain Alcohol intoxication Qualified Codes: F10.929 - Alcohol use, unspecified with intoxication, unspecified Weakness Head injury Qualified Codes: S09.90XA - Unspecified injury of head, initial encounter Falling episodes Gastritis Qualified Codes: K29.20 - Alcoholic gastritis without bleeding Alcohol dependence Qualified Codes: F10.229 - Alcohol dependence with intoxication, unspecified ER Course The patient presents with abdominal pain vomiting and syncopal episodes with history of alcohol abuse. The differential is broad and can include gastritis, hepatitis, vasovagal, arrhythmia, acute myocardial infarction, dehydration, GI bleed, hypoglycemia, vitamin deficiency amongst others. The patient needs evaluation with CT the head, chest x-ray, abdominal films and laboratory. The patient will be treated for pain, gastritis and given IV hydration. Also patient will be given a dose of thiamine. Due to the fact that she is weak and has had syncopal episodes she needs to have continuous cardiac monitoring. She is at risk for alcohol withdrawal and possibly DTs. EKG without injury. Abd film with NSBGP. Labs with normal WBC. CMP with elevated LFTs. CT head without bleed, mass, fx or infarct -- involutional changes. Patient vomiting stopped. Still complained of epigastric pain. Repeat morphine. Discussion with patient regarding alcohol addiction and need for measures for cessation. Admit telemetry Dr. Hamlin. (Later notified that Dr. Peace covering.) Laboratory Tests Test 01/25/18 18:33 White Blood Count 5.9 K/UL (4.8-10.8) Red Blood Count 2.87 M/UL (4.20-5.40) L Hemoglobin 11.9 G/DL (12.0-16.0) L Hematocrit 32.9 % (37.0-47.0) L Mean Corpuscular Volume 115 FL (80-99) H Mean Corpuscular Hemoglobin 41.5 PG (27.0-31.0) H Mean Corpuscular Hemoglobin Concent 36.2 G/DL (32.0-36.0) H Red Cell Distribution Width 11.3 % (11.6-14.8) L Platelet Count 319 K/UL (150-450) Mean Platelet Volume 5.6 FL (6.5-10.1) L Neutrophils (%) (Auto) 60.8 % (45.0-75.0) Lymphocytes (%) (Auto) 27.5 % (20.0-45.0) Monocytes (%) (Auto) 8.7 % (1.0-10.0) Eosinophils (%) (Auto) 0.8 % (0.0-3.0) Basophils (%) (Auto) 2.3 % (0.0-2.0) H Prothrombin Time 10.1 SEC (9.30-11.50) Prothrombin Time INR 1.0 (0.9-1.1) PTT 29 SEC (23-33) Urine Color [place] Urine Appearance Slightly cloudy Urine pH 6 (4.5-8.0) Urine Specific [place] 1.015 (1.005-1.035) Urine Protein 3+ (NEGATIVE) H Urine Glucose (UA) Negative (NEGATIVE) Urine Ketones 4+ (NEGATIVE) H Urine Occult Blood 1+ (NEGATIVE) H Urine Nitrite Negative (NEGATIVE) Urine Bilirubin 1+ (NEGATIVE) H Urine Ictotest Positive Urine Urobilinogen 4 MG/DL (0.0-1.0) H Urine Leukocyte Esterase 1+ (NEGATIVE) H Urine RBC 0-2 /HPF (0 - 2) Urine WBC 2-4 /HPF (0 - 2) Urine Squamous Epithelial Cells Moderate /LPF (NONE/OCC) H Urine Bacteria Few /HPF (NONE) Sodium Level 134 MMOL/L (136-145) L Potassium Level 3.5 MMOL/L (3.5-5.1) Chloride Level 91 MMOL/L (98-107) L Carbon Dioxide Level 22 MMOL/L (21-32) Anion Gap 21 mmol/L (5-15) H Blood Urea Nitrogen 8 mg/dL (7-18) Creatinine 0.6 MG/DL (0.55-1.30) Estimate Glomerular Filtration Rate > 60 mL/min (>60) Glucose Level 58 MG/DL (74-106) L Calcium Level 9.3 MG/DL (8.5-10.1) Total Bilirubin 2.4 MG/DL (0.2-1.0) H Direct Bilirubin 0.7 MG/DL (0.0-0.3) H Aspartate Amino Transferase (AST) 91 U/L (15-37) H Alanine Aminotransferase (ALT) 37 U/L (12-78) Alkaline Phosphatase 115 U/L (46-116) Ammonia 27 umol/L (11-32) Troponin I 0.000 ng/mL (0.000-0.056) Total Protein 8.1 G/DL (6.4-8.2) Albumin 4.2 G/DL (3.4-5.0) Globulin 3.9 g/dL Albumin/Globulin Ratio 1.1 (1.0-2.7) Lipase 121 U/L (73-393) Urine Opiates Screen Negative (NEGATIVE) Urine Barbiturates Screen Negative (NEGATIVE) Phencyclidine (PCP) Screen Negative (NEGATIVE) Urine Amphetamines Screen Negative (NEGATIVE) Urine Benzodiazepines Screen Negative (NEGATIVE) Urine Cocaine Screen Negative (NEGATIVE) Urine Marijuana (THC) Screen Negative (NEGATIVE) Serum Alcohol 219 mg/dL EKG Diagnostic Results Rate: normal Rhythm: NSR ST Segments: no acute changes Rhythm Strip Diag. Results EP Interpretation: yes Rhythm: NSR, no PVC's, no ectopy Other X-Ray Diagnostic Results Other X-Ray Diagnostic Results : X-Ray ordered: abd # of Views/Limited Vs Complete: 1 View Indication: Pain EP Interpretation: Yes Interpretation: nonspecific bowel gas, no sbo, other - no masses Impression: Other Electronically Signed by: Electronically signed by Omid Lacy MD CT/MRI/US Diagnostic Results CT/MRI/US Diagnostic Results : Imaging Test Ordered: herd Impression No mass, fractures or bleed. Involutional changes. Last Vital Signs Date Time Temp Pulse Resp B/P (MAP) Pulse Ox O2 Delivery O2 Flow Rate FiO2 01/25/18 23:30 97.9 65 21 149/84 94 Room Air 97.9 Status: improved Disposition: ADMITTED INPATIENT Condition: Serious Referrals: NON PHYSICIAN (PCP) Omid Lacy M.D. Jan 25, 2018 19:41
[2018-01-25] MEDS ORDERED: Thiamine HCl 100mg/ml 2 ml Inj ONE (20:08)
[2018-01-25] MEDS: Thiamine HCl 100 MG in D5W 55 ML IVPB SCH (20:18)
[2018-01-25 20:30] VITALS: BP 128/75
[2018-01-25 23:00] VITALS: BP 113/70
[2018-01-25 23:30] VITALS: BP 149/84
[2018-01-26] MEDS ORDERED: Morphine Sulfate 2mg/ml Inj IVP PRN (01:30)
[2018-01-26] MEDS: D5 1/2NS 1,000 ML IV SCH ×2 (01:59→18:22)
[2018-01-26 04:00] VITALS: BP 133/76
[2018-01-26 07:57] LABS: HEMATOCRIT 30.6 % (37.0-47.0); HEMOGLOBIN 10.6 G/DL (12.0-16.0); MEAN CORPUSCULAR VOLUME 115 FL (80-99); PLATELET COUNT 291 K/UL (150-450); RED BLOOD COUNT 2.67 M/UL (4.20-5.40); RED CELL DISTRIBUTION WIDTH 11.1 % (11.6-14.8); WHITE BLOOD COUNT 5.1 K/UL (4.8-10.8)
[2018-01-26 08:00] VITALS: BP 133/76
[2018-01-26 08:27] LABS: ALANINE AMINOTRANSFERASE 27 U/L (12-78); ALBUMIN 3.5 G/DL (3.4-5.0); ALBUMIN/GLOBULIN RATIO 1.1 (1.0-2.7); ALKALINE PHOSPHATASE 97 U/L (46-116); ANION GAP 14 mmol/L (5-15); ASPARTATE AMINO TRANSFERASE 73 U/L (15-37); BILIRUBIN,TOTAL 2.5 MG/DL (0.2-1.0); BLOOD UREA NITROGEN 6 mg/dL (7-18); CALCIUM 8.4 MG/DL (8.5-10.1); CARBON DIOXIDE 25 MMOL/L (21-32); CHLORIDE 101 MMOL/L (98-107); CREATININE 0.6 MG/DL (0.55-1.30); POTASSIUM 3.2 MMOL/L (3.5-5.1); SODIUM 140 MMOL/L (136-145)
[2018-01-26 08:28] LABS: BILIRUBIN,DIRECT 0.8 MG/DL (0.0-0.3)
[2018-01-26] MEDS ORDERED: LORazepam Inj 2mg/ml 1ml IV PRN (09:00)
--- NOTE | 2018-01-26 09:41 | Diagnostic Imaging Report ---
Indication: Syncope, dizziness, headache, trauma Technique: spiral acquisitions obtained through the brain. Angled axial and coronal 5 x 5 mm slices were reconstructed. No IV contrast utilized. Radiation dose was minimized using automated exposure control Total dose length product 1242.37 mGycm. CTDIvol(s) 70.38 mGy Comparison: 02/15/2015 FINDINGS: No acute hemorrhage or edema. No mass effect or midline shift. There is age-related enlargement of the ventricles and extra axial CSF spaces. There is periventricular deep white matter ischemic change. Normal al-white differentiation. Visualized orbits are unremarkable. Visualized sinuses are unremarkable. Intact calvarium. IMPRESSION: Chronic and age-related changes, somewhat out of proportion to patient's age. Negative for acute intracranial bleed or mass effect This agrees with the preliminary interpretation provided overnight by [facility] teleradiology service. The CT scanner at [facility] is accredited by the [employer] and the scans are performed using protocols designed to limit radiation exposure to as low as reasonably achievable to attain images of sufficient resolution adequate for diagnostic evaluation
--- NOTE | 2018-01-26 09:42 | Diagnostic Imaging Report ---
Indication: Abdominal pain and nausea Technique: Supine view of the abdomen Comparison: Findings: Bowel gas pattern is unremarkable. No unusual masses or calcifications. Impression: No acute process This agrees with the preliminary interpretation provided by the emergency room physician
[2018-01-26] MEDS: Pantoprazole Inj IVP SCH (11:05)
--- NOTE | 2018-01-26 11:31 | GI Initial Consult Note ---
History of Present Illness General Date patient seen: Jan 26, 2018 Time patient seen: 11:23 Reason for Hospitalization: Abdominal Pain Referring physician: JAIDA JACKSON Reason for Consultation: N/V Present Illness HPI Patient presents with vomiting and epigastric pain. This is been going on for several days. She was a evaluated for this a few months ago. She's been drinking alcohol and feels it might be related to that. She is vomiting bile. No coffeegrounds or blood. No melena. Stools have been loose and brown color. The pain in her stomach is 10/10, constant, burning and radiates somewhat to her back. She was hospitalized in October for similar complaints and had endoscopy. This revealed gastritis felt to be secondary to alcohol. Also in the past 2 days as she's had several syncopal episodes. She's hit her knees and also the back of her head. Her legs have been weak. She is unable to keep down her usual medications orally. According to the patient she lost consciousness today for approximately 1 hour. She has some tenderness in her head also and also her knees but is ambulatory. Several years ago she had a seizure but hasn't had seizure since that time. She drinks alcohol daily and feels she cannot stop. She get the shakes when she tries to stop. She is depressed about this. GI consulted for alcoholic hepatitis. Pt seen, awake A&Ox4 no active s/sx of V/ D. No agitation seen. Reports of nausea. Per patient, had ETOH abuse approximately 2 bottles daily with abdominal pain x 1 month. No other medical history noted. She presents today with elevated ETOH serum level and abnormal LFTs. Unknown history of endoscopy / colonoscopy. She was admitted 01/01-01/03. D/C dx: 1. Possible syncope secondary to alcohol intoxication. 2. Acute alcoholic hepatitis. 3. Hypoglycemia. 4. Transaminitis. 5. Acute alcohol intoxication. 6. Alcohol abuse. 7. History of hypertension. 8. Hyperlipidemia. 9. History of alcoholic gastritis. 10. Dehydration secondary to intractable nausea and vomiting. 11. Electrolyte imbalance: hypokalemia and hyponatremia. Home Meds Reported Medications Nebivolol Hcl* (BYSTOLIC*) 2.5 Mg Tablet, 2.5 MG ORAL DAILY, TAB 01/25/18 Losartan Potassium* (LOSARTAN POTASSIUM*) 25 Mg Tablet, 25 MG ORAL DAILY, TAB 01/25/18 Cyanocobalamin (Vitamin B-12) (Vitamin B-12) 2,000 Mcg Tablet, 1000 MCG PO DAILY , TAB 01/25/18 Thiamine Hcl* (VITAMIN B-1*) 100 Mg Tablet, 250 MG ORAL DAILY, #30 TAB 0 Refills 01/25/18 Nebivolol Hcl* (BYSTOLIC*) 2.5 Mg Tablet, 2.5 MG ORAL DAILY, TAB 01/01/18 Vitamin D (Vitamin D3) 400 Unit Tablet, 2000 UNITS ORAL DAILY, TAB 01/01/18 Metoclopramide Hcl* (METOCLOPRAMIDE HCL*) 5 Mg Tablet, 10 MG ORAL EVERY 6 HOURS , TAB 01/01/18 Ranitidine Hcl* (ZANTAC*) 150 Mg Tablet, 300 MG ORAL DAILY, TAB 0 Refills 01/01/18 Folic Acid* (FOLIC ACID*) 1 Mg Tablet, 1 MG ORAL DAILY, TAB 01/01/18 Citalopram Hydrobromide* (CITALOPRAM HBR*) 20 Mg Tablet, 20 MG ORAL DAILY, TAB 01/01/18 Cyanocobalamin (Vitamin B-12) (VITAMIN B-12) 1,000 Mcg Tablet, 1000 MCG PO DAILY , TAB 01/01/18 Omeprazole (OMEPRAZOLE) 40 Mg Capsule.dr, 40 MG ORAL DAILY, CAP 01/01/18 Metoclopramide Hcl* (REGLAN*) 10 Mg Tablet, 10 MG ORAL EVERY 8 HOURS, #30 TAB 08/27/17 Chlordiazepoxide Hcl* (LIBRIUM*) 10 Mg Capsule, 25 MG ORAL EVERY 8 HOURS, #30 CAP 0 Refills 08/27/17 Unable to Obtain Medications (UNABLE TO OBTAIN MEDS) 1 Ea Ea 08/26/17 Losartan/Hydrochlorothiazide (LOSARTAN-HCTZ 100-25 MG TAB) 1 Each Tablet, 1 TAB ORAL DAILY, TAB 02/16/15 Amlodipine-Atorvastatin 10-20 Mg (AMLODIPINE-ATORVASTATIN 10-20 MG) 1 Each Tablet, 1 TAB ORAL DAILY, TAB 02/16/15 Med list reviewed/reconciled: Yes Allergies: Coded Allergies: No Known Allergies (Unverified , 02/15/15) Patient History History Provided By: Patient, Medical Record PMH Narrative Past Medical History: see triage record, old chart reviewed Social History: Reports: smoking, alcohol use Social History Narrative at home Reviewed Nursing Documentation: PMH: Agreed; PSxH: Agreed Nursing Documentation-PMH Past Medical History: No History, Except For Hx Hypertension: Yes Hx Cancer: No Hx Gastrointestinal Problems: No - alcoholic Hx Neurological Problems: No Social History: Reports: alcohol use - abuse Review of Systems All Other Systems: negative except mentioned in HPI Physical Exam Vital Signs Date Time Temp Pulse Resp B/P (MAP) Pulse Ox O2 Delivery O2 Flow Rate FiO2 01/25/18 17:55 98.2 70 18 109/74 91 Room Air 98.2 Sp02 EP Interpretation: reviewed, normal Labs Laboratory Tests Test 01/25/18 18:33 01/26/18 07:30 White Blood Count 5.9 K/UL (4.8-10.8) 5.1 K/UL (4.8-10.8) Red Blood Count 2.87 M/UL (4.20-5.40) L 2.67 M/UL (4.20-5.40) L Hemoglobin 11.9 G/DL (12.0-16.0) L 10.6 G/DL (12.0-16.0) L Hematocrit 32.9 % (37.0-47.0) L 30.6 % (37.0-47.0) L Mean Corpuscular Volume 115 FL (80-99) H 115 FL (80-99) H Mean Corpuscular Hemoglobin 41.5 PG (27.0-31.0) H 39.8 PG (27.0-31.0) H Mean Corpuscular Hemoglobin Concent 36.2 G/DL (32.0-36.0) H 34.7 G/DL (32.0-36.0) Red Cell Distribution Width 11.3 % (11.6-14.8) L 11.1 % (11.6-14.8) L Platelet Count 319 K/UL (150-450) 291 K/UL (150-450) Mean Platelet Volume 5.6 FL (6.5-10.1) L 5.2 FL (6.5-10.1) L Neutrophils (%) (Auto) 60.8 % (45.0-75.0) % (45.0-75.0) Lymphocytes (%) (Auto) 27.5 % (20.0-45.0) % (20.0-45.0) Monocytes (%) (Auto) 8.7 % (1.0-10.0) % (1.0-10.0) Eosinophils (%) (Auto) 0.8 % (0.0-3.0) % (0.0-3.0) Basophils (%) (Auto) 2.3 % (0.0-2.0) H % (0.0-2.0) Prothrombin Time 10.1 SEC (9.30-11.50) Prothromb Time International Ratio 1.0 (0.9-1.1) Activated Partial Thromboplast Time 29 SEC (23-33) Urine Color [place] Urine Appearance Slightly cloudy Urine pH 6 (4.5-8.0) Urine Specific [place] 1.015 (1.005-1.035) Urine Protein 3+ (NEGATIVE) H Urine Glucose (UA) Negative (NEGATIVE) Urine Ketones 4+ (NEGATIVE) H Urine Occult Blood 1+ (NEGATIVE) H Urine Nitrite Negative (NEGATIVE) Urine Bilirubin 1+ (NEGATIVE) H Urine Ictotest Positive Urine Urobilinogen 4 MG/DL (0.0-1.0) H Urine Leukocyte Esterase 1+ (NEGATIVE) H Urine RBC 0-2 /HPF (0 - 2) Urine WBC 2-4 /HPF (0 - 2) Urine Squamous Epithelial Cells Moderate /LPF (NONE/OCC) H Urine Bacteria Few /HPF (NONE) Sodium Level 134 MMOL/L (136-145) L 140 MMOL/L (136-145) Potassium Level 3.5 MMOL/L (3.5-5.1) 3.2 MMOL/L (3.5-5.1) L Chloride Level 91 MMOL/L (98-107) L 101 MMOL/L (98-107) Carbon Dioxide Level 22 MMOL/L (21-32) 25 MMOL/L (21-32) Anion Gap 21 mmol/L (5-15) H 14 mmol/L (5-15) Blood Urea Nitrogen 8 mg/dL (7-18) 6 mg/dL (7-18) L Creatinine 0.6 MG/DL (0.55-1.30) 0.6 MG/DL (0.55-1.30) Estimat Glomerular Filtration Rate > 60 mL/min (>60) > 60 mL/min (>60) Glucose Level 58 MG/DL (74-106) L 79 MG/DL (74-106) Calcium Level 9.3 MG/DL (8.5-10.1) 8.4 MG/DL (8.5-10.1) L Total Bilirubin 2.4 MG/DL (0.2-1.0) H 2.5 MG/DL (0.2-1.0) H Direct Bilirubin 0.7 MG/DL (0.0-0.3) H 0.8 MG/DL (0.0-0.3) H Aspartate Amino Transf (AST/SGOT) 91 U/L (15-37) H 73 U/L (15-37) H Alanine Aminotransferase (ALT/SGPT) 37 U/L (12-78) 27 U/L (12-78) Alkaline Phosphatase 115 U/L (46-116) 97 U/L (46-116) Ammonia 27 umol/L (11-32) Troponin I 0.000 ng/mL (0.000-0.056) Total Protein 8.1 G/DL (6.4-8.2) 6.7 G/DL (6.4-8.2) Albumin 4.2 G/DL (3.4-5.0) 3.5 G/DL (3.4-5.0) Globulin 3.9 g/dL 3.2 g/dL Albumin/Globulin Ratio 1.1 (1.0-2.7) 1.1 (1.0-2.7) Lipase 121 U/L (73-393) Urine Opiates Screen Negative (NEGATIVE) Urine Barbiturates Screen Negative (NEGATIVE) Phencyclidine (PCP) Screen Negative (NEGATIVE) Urine Amphetamines Screen Negative (NEGATIVE) Urine Benzodiazepines Screen Negative (NEGATIVE) Urine Cocaine Screen Negative (NEGATIVE) Urine Marijuana (THC) Screen Negative (NEGATIVE) Serum Alcohol 219 mg/dL Differential Total Cells Counted 100 Neutrophils % (Manual) 64 % (45-75) Lymphocytes % (Manual) 23 % (20-45) Monocytes % (Manual) 11 % (1-10) H Eosinophils % (Manual) 1 % (0-3) Basophils % (Manual) 1 % (0-2) Band Neutrophils 0 % (0-8) Platelet Estimate Adequate Platelet Morphology Normal Macrocytosis 1+ General Appearance: well appearing, no apparent distress, alert Head: normocephalic EENT: PERRL/EOMI, normal ENT inspection Neck: supple Respiratory: normal breath sounds, no respiratory distress Cardiovascular: normal rate Gastrointestinal: normal inspection, non tender, soft, normal bowel sounds, non -distended Rectal: deferred Genitourinary: no CVA tenderness Musculoskeletal: normal inspection, back normal Neurologic: normal inspection, alert, oriented x3, responsive Psychiatric: normal inspection, judgement/insight normal, memory normal Skin: normal inspection, normal color, no rash, warm/dry, palpation normal, well hydrated Lymphatic: normal inspection, no adenopathy Current Medications Current Medications Medications (Trade) Dose Ordered Sig/Desiree Route PRN Reason Start Time Stop Time Status Last Admin Dose Admin Acetaminophen (Tylenol) 650 mg Q4H PRN ORAL Mild Pain (Pain Scale 1-3) 01/26/18 01:30 02/25/18 01:29 Dextrose (Dextrose 50%) STAT PRN IV Hypoglycemia 01/26/18 01:30 02/25/18 01:29 Dextrose/Sodium Chloride 1,000 ml @ 60 mls/hr [id number] IV 01/26/18 02:22 02/25/18 02:21 01/26/18 01:59 Folic Acid (Folate) 1 mg DAILY ORAL 01/26/18 09:45 02/25/18 09:44 01/26/18 11:05 Lorazepam (Ativan 2mg/ml 1ml) 1 mg Q4H PRN IV For Anxiety 01/26/18 09:00 02/02/18 08:59 Morphine Sulfate (Morphine Sulfate) 2 mg Q4H PRN IVP Moderate Pain (Pain Scale 4-6) 01/26/18 01:30 02/02/18 01:29 Multivitamins (Multivitamins) 1 tab DAILY ORAL 01/26/18 09:45 02/25/18 09:44 01/26/18 11:05 Ondansetron HCl (Zofran) 4 mg Q6H PRN IVP Nausea & Vomiting 01/26/18 01:30 02/25/18 01:29 Pantoprazole (Protonix) 40 mg DAILY IVP 01/26/18 11:00 02/25/18 10:59 01/26/18 11:05 Thiamine HCl 100 mg/Dextrose 56 ml @ 112 mls/hr Q24H IVPB 01/25/18 19:45 02/24/18 19:44 01/25/18 20:18 GI: Plan Problems: (1) ETOH abuse (2) Intractable abdominal pain (3) Syncope (4) Weakness (5) Alcohol intoxication (6) Vomiting (7) Nausea (8) Hepatitis, alcoholic, acute Plan symptomatic treatment / supportive care FLD, adv as tolerated PO/IV hydration + electrolyte replacement zofran prn Ativan prn B12/folate supplement alcohol abstinence trend LFTs needs social security assessor outpatient GI procedures Discussed with Dr. Guerrero. Thank you for this patient referral, we will follow. Xochitl Bartlett N.P. Jan 26, 2018 11:31
[2018-01-26 12:00] VITALS: BP 131/77
--- NOTE | 2018-01-26 12:25 | Infectious Diseases Prog Note ---
Assessment/Plan Assessment/Plan ID consult dictated # [id number] Subjective Allergies: Coded Allergies: No Known Allergies (Unverified , 02/15/15) Objective Vital Signs Last 24 Hour Vital Signs Date Time Temp Pulse Resp B/P (MAP) Pulse Ox O2 Delivery O2 Flow Rate FiO2 01/26/18 08:00 98.1 65 18 133/76 94 Room Air 98.1 01/26/18 08:00 73 01/26/18 04:00 98.2 73 20 133/76 95 Room Air 98.2 01/26/18 00:00 67 01/25/18 23:30 97.9 65 21 149/84 94 Room Air 97.9 01/25/18 23:25 98.2 64 13 113/70 94 Room Air 208.8 01/25/18 23:00 64 13 113/70 94 Room Air 01/25/18 20:30 68 17 128/75 95 Room Air 01/25/18 18:39 98.2 01/25/18 18:13 98.2 18 109/74 91 Room Air 98.2 01/25/18 17:55 98.2 70 18 109/74 91 Room Air 98.2 Height (Feet): 5 Height (Inches): 1.00 Weight (Pounds): 86 Laboratory Tests Test 01/25/18 18:33 01/26/18 07:30 White Blood Count 5.9 K/UL (4.8-10.8) 5.1 K/UL (4.8-10.8) Red Blood Count 2.87 M/UL (4.20-5.40) L 2.67 M/UL (4.20-5.40) L Hemoglobin 11.9 G/DL (12.0-16.0) L 10.6 G/DL (12.0-16.0) L Hematocrit 32.9 % (37.0-47.0) L 30.6 % (37.0-47.0) L Mean Corpuscular Volume 115 FL (80-99) H 115 FL (80-99) H Mean Corpuscular Hemoglobin 41.5 PG (27.0-31.0) H 39.8 PG (27.0-31.0) H Mean Corpuscular Hemoglobin Concent 36.2 G/DL (32.0-36.0) H 34.7 G/DL (32.0-36.0) Red Cell Distribution Width 11.3 % (11.6-14.8) L 11.1 % (11.6-14.8) L Platelet Count 319 K/UL (150-450) 291 K/UL (150-450) Mean Platelet Volume 5.6 FL (6.5-10.1) L 5.2 FL (6.5-10.1) L Neutrophils (%) (Auto) 60.8 % (45.0-75.0) % (45.0-75.0) Lymphocytes (%) (Auto) 27.5 % (20.0-45.0) % (20.0-45.0) Monocytes (%) (Auto) 8.7 % (1.0-10.0) % (1.0-10.0) Eosinophils (%) (Auto) 0.8 % (0.0-3.0) % (0.0-3.0) Basophils (%) (Auto) 2.3 % (0.0-2.0) H % (0.0-2.0) Prothrombin Time 10.1 SEC (9.30-11.50) Prothromb Time International Ratio 1.0 (0.9-1.1) Activated Partial Thromboplast Time 29 SEC (23-33) Urine Color [place] Urine Appearance Slightly cloudy Urine pH 6 (4.5-8.0) Urine Specific [place] 1.015 (1.005-1.035) Urine Protein 3+ (NEGATIVE) H Urine Glucose (UA) Negative (NEGATIVE) Urine Ketones 4+ (NEGATIVE) H Urine Occult Blood 1+ (NEGATIVE) H Urine Nitrite Negative (NEGATIVE) Urine Bilirubin 1+ (NEGATIVE) H Urine Ictotest Positive Urine Urobilinogen 4 MG/DL (0.0-1.0) H Urine Leukocyte Esterase 1+ (NEGATIVE) H Urine RBC 0-2 /HPF (0 - 2) Urine WBC 2-4 /HPF (0 - 2) Urine Squamous Epithelial Cells Moderate /LPF (NONE/OCC) H Urine Bacteria Few /HPF (NONE) Sodium Level 134 MMOL/L (136-145) L 140 MMOL/L (136-145) Potassium Level 3.5 MMOL/L (3.5-5.1) 3.2 MMOL/L (3.5-5.1) L Chloride Level 91 MMOL/L (98-107) L 101 MMOL/L (98-107) Carbon Dioxide Level 22 MMOL/L (21-32) 25 MMOL/L (21-32) Anion Gap 21 mmol/L (5-15) H 14 mmol/L (5-15) Blood Urea Nitrogen 8 mg/dL (7-18) 6 mg/dL (7-18) L Creatinine 0.6 MG/DL (0.55-1.30) 0.6 MG/DL (0.55-1.30) Estimat Glomerular Filtration Rate > 60 mL/min (>60) > 60 mL/min (>60) Glucose Level 58 MG/DL (74-106) L 79 MG/DL (74-106) Calcium Level 9.3 MG/DL (8.5-10.1) 8.4 MG/DL (8.5-10.1) L Total Bilirubin 2.4 MG/DL (0.2-1.0) H 2.5 MG/DL (0.2-1.0) H Direct Bilirubin 0.7 MG/DL (0.0-0.3) H 0.8 MG/DL (0.0-0.3) H Aspartate Amino Transf (AST/SGOT) 91 U/L (15-37) H 73 U/L (15-37) H Alanine Aminotransferase (ALT/SGPT) 37 U/L (12-78) 27 U/L (12-78) Alkaline Phosphatase 115 U/L (46-116) 97 U/L (46-116) Ammonia 27 umol/L (11-32) Troponin I 0.000 ng/mL (0.000-0.056) Total Protein 8.1 G/DL (6.4-8.2) 6.7 G/DL (6.4-8.2) Albumin 4.2 G/DL (3.4-5.0) 3.5 G/DL (3.4-5.0) Globulin 3.9 g/dL 3.2 g/dL Albumin/Globulin Ratio 1.1 (1.0-2.7) 1.1 (1.0-2.7) Lipase 121 U/L (73-393) Urine Opiates Screen Negative (NEGATIVE) Urine Barbiturates Screen Negative (NEGATIVE) Phencyclidine (PCP) Screen Negative (NEGATIVE) Urine Amphetamines Screen Negative (NEGATIVE) Urine Benzodiazepines Screen Negative (NEGATIVE) Urine Cocaine Screen Negative (NEGATIVE) Urine Marijuana (THC) Screen Negative (NEGATIVE) Serum Alcohol 219 mg/dL Differential Total Cells Counted 100 Neutrophils % (Manual) 64 % (45-75) Lymphocytes % (Manual) 23 % (20-45) Monocytes % (Manual) 11 % (1-10) H Eosinophils % (Manual) 1 % (0-3) Basophils % (Manual) 1 % (0-2) Band Neutrophils 0 % (0-8) Platelet Estimate Adequate Platelet Morphology Normal Macrocytosis 1+ Current Medications Medications (Trade) Dose Ordered Sig/Desiree Route PRN Reason Start Time Stop Time Status Last Admin Dose Admin Acetaminophen (Tylenol) 650 mg Q4H PRN ORAL Mild Pain (Pain Scale 1-3) 01/26/18 01:30 02/25/18 01:29 Dextrose (Dextrose 50%) STAT PRN IV Hypoglycemia 01/26/18 01:30 02/25/18 01:29 Dextrose/Sodium Chloride 1,000 ml @ 60 mls/hr [id number] IV 01/26/18 02:22 02/25/18 02:21 01/26/18 01:59 Folic Acid (Folate) 1 mg DAILY ORAL 01/26/18 09:45 02/25/18 09:44 01/26/18 11:05 Lorazepam (Ativan 2mg/ml 1ml) 1 mg Q4H PRN IV For Anxiety 01/26/18 09:00 02/02/18 08:59 Morphine Sulfate (Morphine Sulfate) 2 mg Q4H PRN IVP Moderate Pain (Pain Scale 4-6) 01/26/18 01:30 02/02/18 01:29 Multivitamins (Multivitamins) 1 tab DAILY ORAL 01/26/18 09:45 02/25/18 09:44 01/26/18 11:05 Ondansetron HCl (Zofran) 4 mg Q6H PRN IVP Nausea & Vomiting 01/26/18 01:30 02/25/18 01:29 Pantoprazole (Protonix) 40 mg DAILY IVP 01/26/18 11:00 02/25/18 10:59 01/26/18 11:05 Thiamine HCl 100 mg/Dextrose 56 ml @ 112 mls/hr Q24H IVPB 01/25/18 19:45 02/24/18 19:44 01/25/18 20:18 PAZ MARTINEZ Jan 26, 2018 12:25
[2018-01-26 16:00] VITALS: BP 126/76
[2018-01-26 20:00] VITALS: BP 149/85
--- NOTE | 2018-01-26 20:30 | Cardiology Progress Note ---
Assessment/Plan Assessment/Plan The patient is seen and examined, full consult note will be dictated shortly, Objective Last 24 Hour Vital Signs Date Time Temp Pulse Resp B/P (MAP) Pulse Ox O2 Delivery O2 Flow Rate FiO2 01/26/18 16:00 98.0 71 17 126/76 94 Room Air 98.0 01/26/18 16:00 73 01/26/18 12:00 69 01/26/18 12:00 98.1 66 20 131/77 94 98.1 01/26/18 08:00 98.1 65 18 133/76 94 Room Air 98.1 01/26/18 08:00 73 01/26/18 04:00 98.2 73 20 133/76 95 Room Air 98.2 01/26/18 00:00 67 01/25/18 23:30 97.9 65 21 149/84 94 Room Air 97.9 01/25/18 23:25 98.2 64 13 113/70 94 Room Air 208.8 01/25/18 23:00 64 13 113/70 94 Room Air Intake and Output 01/25/18 01/26/18 19:00 07:00 Intake Total 0 ml 300 ml Balance 0 ml 300 ml Intake Oral 0 ml IV Total 300 ml # Voids 1 Laboratory Tests Test 01/26/18 07:30 White Blood Count 5.1 K/UL (4.8-10.8) Red Blood Count 2.67 M/UL (4.20-5.40) L Hemoglobin 10.6 G/DL (12.0-16.0) L Hematocrit 30.6 % (37.0-47.0) L Mean Corpuscular Volume 115 FL (80-99) H Mean Corpuscular Hemoglobin 39.8 PG (27.0-31.0) H Mean Corpuscular Hemoglobin Concent 34.7 G/DL (32.0-36.0) Red Cell Distribution Width 11.1 % (11.6-14.8) L Platelet Count 291 K/UL (150-450) Mean Platelet Volume 5.2 FL (6.5-10.1) L Neutrophils (%) (Auto) % (45.0-75.0) Lymphocytes (%) (Auto) % (20.0-45.0) Monocytes (%) (Auto) % (1.0-10.0) Eosinophils (%) (Auto) % (0.0-3.0) Basophils (%) (Auto) % (0.0-2.0) Differential Total Cells Counted 100 Neutrophils % (Manual) 64 % (45-75) Lymphocytes % (Manual) 23 % (20-45) Monocytes % (Manual) 11 % (1-10) H Eosinophils % (Manual) 1 % (0-3) Basophils % (Manual) 1 % (0-2) Band Neutrophils 0 % (0-8) Platelet Estimate Adequate Platelet Morphology Normal Macrocytosis 1+ Sodium Level 140 MMOL/L (136-145) Potassium Level 3.2 MMOL/L (3.5-5.1) L Chloride Level 101 MMOL/L (98-107) Carbon Dioxide Level 25 MMOL/L (21-32) Anion Gap 14 mmol/L (5-15) Blood Urea Nitrogen 6 mg/dL (7-18) L Creatinine 0.6 MG/DL (0.55-1.30) Estimat Glomerular Filtration Rate > 60 mL/min (>60) Glucose Level 79 MG/DL (74-106) Calcium Level 8.4 MG/DL (8.5-10.1) L Total Bilirubin 2.5 MG/DL (0.2-1.0) H Direct Bilirubin 0.8 MG/DL (0.0-0.3) H Aspartate Amino Transf (AST/SGOT) 73 U/L (15-37) H Alanine Aminotransferase (ALT/SGPT) 27 U/L (12-78) Alkaline Phosphatase 97 U/L (46-116) Total Protein 6.7 G/DL (6.4-8.2) Albumin 3.5 G/DL (3.4-5.0) Globulin 3.2 g/dL Albumin/Globulin Ratio 1.1 (1.0-2.7) SHAHZAD IVEY Jan 26, 2018 20:30
[2018-01-26] MEDS: Thiamine HCl 100 MG in D5W 55 ML IVPB SCH (21:51)
--- NOTE | 2018-01-26 22:31 | Consultation ---
DATE OF CONSULTATION: 01/26/2018 INFECTIOUS DISEASES CONSULTATION PRIMARY ATTENDING PHYSICIAN: Parish Hamlin D.O. REASON FOR CONSULTATION: Hepatitis. HISTORY OF PRESENT ILLNESS: This is a 52-year-old female, admitted last night with nausea, vomiting, and syncopal episode. The patient has history of alcohol abuse and has history of multiple admissions in the past. She was recently discharged from hospital on 01/03/2018. PAST MEDICAL HISTORY: Significant for syncopal episode, alcoholic hepatitis, gastritis, hypertension, and anemia. MEDICATIONS: Getting Protonix, multivitamin, folic acid, Tylenol, morphine, Zofran, and thiamine. ALLERGIES: No known drug allergies. SOCIAL HISTORY: , has a kid, lives alone. Drinking two bottles of alcoholic beverage every day. The patient is also a smoker. REVIEW OF SYSTEMS: No fever. No chills. No coughing. No shortness of breath. Nausea and vomiting mostly water. She has on and off diarrhea and constipation. PHYSICAL EXAMINATION: VITAL SIGNS: Temperature 98.1 degrees, pulse 65, and blood pressure 133/76. GENERAL APPEARANCE: No acute distress, seems to be thin. HEAD AND NECK: No oral lesions. HEART: S1 and S2 regular. LUNGS: Clear. ABDOMEN: Soft and nontender. EXTREMITIES: She has no edema. LABORATORY DATA: WBC 5.1, hemoglobin 10.6, hematocrit 30.6, and platelets 291. Sodium 140, potassium 3.2, chloride 101, bicarbonate 25, BUN 6, and creatinine 0.6. Total bilirubin with elevated AST of 73. Albumin is 3.5. In the previous admission has abdominal ultrasound, which showed fatty liver. IMPRESSION: 1. Alcoholic hepatitis. 2. Alcoholic gastritis, nausea, vomiting, anemia, and nicotine dependence. 3. Fatty liver. RECOMMENDATIONS: We will observe off antibiotic. We will discuss the case with GI doctor. If there was no hepatitis test, suggest for evaluation for viral hepatitis B and C. At the end of my exam, I thank Dr. Parish Hamlin for involving me in the care of this patient. Fito Milton M.D. DR: Paxton JOB#: [id number] CC: YANELY
--- NOTE | 2018-01-26 23:16 | History and Physical Report ---
DATE OF ADMISSION: 01/25/2018 This is a patient of Dr. Parish Hamlin, I am covering Dr. Parish Hamlin. HISTORY OF PRESENT ILLNESS: The patient is admitted for abdominal pain, nausea, and vomiting, rule out pancreatitis. The patient has a history of alcohol abuse and actively has alcohol problem, was complaining of vomiting x1 week as well as abdominal pain for one week. No rectal bleeding. No hematemesis. She does have a history of hepatitis from alcohol in the past. Denies fever or chills. PAST MEDICAL HISTORY: Significant for alcohol abuse, hypertension, GERD, history of electrolyte imbalance. PAST SURGICAL HISTORY: None. MEDICATIONS: Folic acid, omeprazole, . SOCIAL HISTORY: History of alcohol abuse, history of smoking. No history of drug abuse. REVIEW OF SYSTEMS: HEENT: Denies headaches. RESPIRATORY: Denies shortness of breath. Denies cough. CARDIOVASCULAR: Denies chest pain. Denies orthopnea. GASTROINTESTINAL: She does have nausea and vomiting x1 week. No hematemesis. No rectal bleeding. She does have occasional heartburn. EXTREMITIES: Denies pain in the lower extremities. NEUROLOGIC: Denies change in vision or speech pattern. PHYSICAL EXAMINATION: VITAL SIGNS: Temperature 98.2 degrees, pulse 64, blood pressure is 113/70. HEENT: PERRLA. NECK: Supple. No lymphadenopathy. CHEST: Clear to auscultation. GASTROINTESTINAL: She does have mild tenderness in the epigastric area. EXTREMITIES: No edema. NEUROLOGIC: Reflexes equal on both sides. Moves all four extremities. LABORATORY AND DIAGNOSTIC DATA: WBC of 5.9, hemoglobin 11.9, and platelets 319. Sodium 134, potassium 3.5, creatinine 0.6, and glucose of 58. ASSESSMENT AND PLAN: 1. Syncope. 2. Abdominal pain, rule out pancreatitis due to alcohol. 3. Hypokalemia, elevated bilirubin, and borderline LFTs. 4. . Vaibhav Peace M.D. DR: NORMAN JOB#: [id number] CC:
[2018-01-27] VITALS: BP 154/85
[2018-01-27 04:00] VITALS: BP 137/89
[2018-01-27 06:49] LABS: HEMATOCRIT 27.5 % (37.0-47.0); HEMOGLOBIN 10.1 G/DL (12.0-16.0); MEAN CORPUSCULAR VOLUME 114 FL (80-99); PLATELET COUNT 256 K/UL (150-450); RED BLOOD COUNT 2.42 M/UL (4.20-5.40); RED CELL DISTRIBUTION WIDTH 10.6 % (11.6-14.8); WHITE BLOOD COUNT 4.3 K/UL (4.8-10.8)
[2018-01-27 07:13] LABS: ALANINE AMINOTRANSFERASE 28 U/L (12-78); ALBUMIN 3.4 G/DL (3.4-5.0); ALBUMIN/GLOBULIN RATIO 1.1 (1.0-2.7); ALKALINE PHOSPHATASE 94 U/L (46-116); ANION GAP 7 mmol/L (5-15); ASPARTATE AMINO TRANSFERASE 71 U/L (15-37); BILIRUBIN,TOTAL 2.5 MG/DL (0.2-1.0); BLOOD UREA NITROGEN 2 mg/dL (7-18); CALCIUM 9.1 MG/DL (8.5-10.1); CARBON DIOXIDE 31 MMOL/L (21-32); CHLORIDE 100 MMOL/L (98-107); CREATININE 0.5 MG/DL (0.55-1.30); POTASSIUM 3.2 MMOL/L (3.5-5.1); SODIUM 138 MMOL/L (136-145)
[2018-01-27 07:17] LABS: BILIRUBIN,DIRECT 0.8 MG/DL (0.0-0.3)
[2018-01-27 08:00] VITALS: BP 140/81
[2018-01-27] MEDS: Pantoprazole Inj IVP SCH (08:07)
--- NOTE | 2018-01-27 09:54 | GI Progress Note ---
Assessment/Plan Status: progressing Status Narrative Discussed with Dr. Guerrero. Assessment/Plan symptomatic treatment / supportive care adv to regular diet today PO/IV hydration + electrolyte replacement zofran prn Ativan prn B12/folate supplement alcohol abstinence trend LFTs needs hospital social worker outpatient GI procedures Subjective Gastrointestinal/Abdominal: Reports: no symptoms Objective Last 24 Hour Vital Signs Date Time Temp Pulse Resp B/P (MAP) Pulse Ox O2 Delivery O2 Flow Rate FiO2 01/27/18 08:00 65 01/27/18 08:00 98.1 78 18 140/81 94 Room Air 98.1 01/27/18 04:00 61 01/27/18 04:00 97.0 64 20 137/89 96 Room Air 97.0 01/27/18 00:00 63 01/27/18 00:00 97.7 81 20 154/85 93 Room Air 97.7 01/26/18 20:00 98.2 70 20 149/85 97 Room Air 98.2 01/26/18 20:00 107 01/26/18 16:00 98.0 71 17 126/76 94 Room Air 98.0 01/26/18 16:00 73 01/26/18 12:00 69 01/26/18 12:00 98.1 66 20 131/77 94 98.1 Intake and Output 01/26/18 01/27/18 19:00 07:00 Intake Total 1040 ml 416 ml Output Total 4 ml Balance 1036 ml 416 ml Intake Oral 380 ml IV Total 660 ml 416 ml Output Urine Total 4 ml # Voids 2 Laboratory Tests Test 01/27/18 05:20 White Blood Count 4.3 K/UL (4.8-10.8) L Red Blood Count 2.42 M/UL (4.20-5.40) L Hemoglobin 10.1 G/DL (12.0-16.0) L Hematocrit 27.5 % (37.0-47.0) L Mean Corpuscular Volume 114 FL (80-99) H Mean Corpuscular Hemoglobin 39.6 PG (27.0-31.0) H Mean Corpuscular Hemoglobin Concent 34.9 G/DL (32.0-36.0) Red Cell Distribution Width 10.6 % (11.6-14.8) L Platelet Count 256 K/UL (150-450) Mean Platelet Volume 6.0 FL (6.5-10.1) L Neutrophils (%) (Auto) % (45.0-75.0) Lymphocytes (%) (Auto) % (20.0-45.0) Monocytes (%) (Auto) % (1.0-10.0) Eosinophils (%) (Auto) % (0.0-3.0) Basophils (%) (Auto) % (0.0-2.0) Differential Total Cells Counted 100 Neutrophils % (Manual) 58 % (45-75) Lymphocytes % (Manual) 21 % (20-45) Monocytes % (Manual) 13 % (1-10) H Eosinophils % (Manual) 6 % (0-3) H Basophils % (Manual) 2 % (0-2) Band Neutrophils 0 % (0-8) Reactive Lymphocytes 1+ Platelet Estimate Adequate Platelet Morphology Normal Stomatocytes 1+ Sodium Level 138 MMOL/L (136-145) Potassium Level 3.2 MMOL/L (3.5-5.1) L Chloride Level 100 MMOL/L (98-107) Carbon Dioxide Level 31 MMOL/L (21-32) Anion Gap 7 mmol/L (5-15) Blood Urea Nitrogen 2 mg/dL (7-18) L Creatinine 0.5 MG/DL (0.55-1.30) L Estimat Glomerular Filtration Rate > 60 mL/min (>60) Glucose Level 150 MG/DL (74-106) H Calcium Level 9.1 MG/DL (8.5-10.1) Total Bilirubin 2.5 MG/DL (0.2-1.0) H Direct Bilirubin 0.8 MG/DL (0.0-0.3) H Aspartate Amino Transf (AST/SGOT) 71 U/L (15-37) H Alanine Aminotransferase (ALT/SGPT) 28 U/L (12-78) Alkaline Phosphatase 94 U/L (46-116) Total Protein 6.4 G/DL (6.4-8.2) Albumin 3.4 G/DL (3.4-5.0) Globulin 3.0 g/dL Albumin/Globulin Ratio 1.1 (1.0-2.7) Height (Feet): 5 Height (Inches): 1.00 Weight (Pounds): 86 General Appearance: WD/WN, no apparent distress, alert Cardiovascular: normal rate Respiratory/Chest: normal breath sounds, no respiratory distress Abdominal Exam: normal bowel sounds, non tender, soft Extremities: normal range of motion, non-tender Xochitl Bartlett N.P. Jan 27, 2018 09:54
[2018-01-27] MEDS: D5 1/2NS 1,000 ML IV SCH (10:08)
[2018-01-27 11:27] VITALS: BP 134/96
--- NOTE | 2018-01-27 12:51 | Infectious Diseases Prog Note ---
Assessment/Plan Assessment/Plan IMPRESSION: 1. Alcoholic hepatitis. 2. Alcoholic gastritis, nausea, vomiting, anemia, and nicotine dependence. 3. Fatty liver. 4. Anemia RECOMMENDATIONS: We will observe off antibiotic Subjective ROS Limited/Unobtainable: No Constitutional: Reports: other - dosen't feel good Respiratory: Reports: dry cough Gastrointestinal/Abdominal: Reports: nausea, vomiting, other - upper abdominal pain Genitourinary: Reports: no symptoms Neurologic: Reports: no symptoms Allergies: Coded Allergies: No Known Allergies (Unverified , 02/15/15) Objective Vital Signs Last 24 Hour Vital Signs Date Time Temp Pulse Resp B/P (MAP) Pulse Ox O2 Delivery O2 Flow Rate FiO2 01/27/18 11:27 98.4 87 19 134/96 98 Room Air 98.4 01/27/18 08:00 65 01/27/18 08:00 98.1 78 18 140/81 94 Room Air 98.1 01/27/18 04:00 61 01/27/18 04:00 97.0 64 20 137/89 96 Room Air 97.0 01/27/18 00:00 63 01/27/18 00:00 97.7 81 20 154/85 93 Room Air 97.7 01/26/18 20:00 98.2 70 20 149/85 97 Room Air 98.2 01/26/18 20:00 107 01/26/18 16:00 98.0 71 17 126/76 94 Room Air 98.0 01/26/18 16:00 73 Height (Feet): 5 Height (Inches): 1.00 Weight (Pounds): 86 General Appearance: no acute distress HEENT: mucous membranes moist Respiratory/Chest: lungs clear Cardiovascular: normal rate Abdomen: other - soft , epigastric tenderness Extremities: no edema Neurologic/Psychiatric: alert, oriented x 3, responsive Laboratory Tests Test 01/27/18 05:20 White Blood Count 4.3 K/UL (4.8-10.8) L Red Blood Count 2.42 M/UL (4.20-5.40) L Hemoglobin 10.1 G/DL (12.0-16.0) L Hematocrit 27.5 % (37.0-47.0) L Mean Corpuscular Volume 114 FL (80-99) H Mean Corpuscular Hemoglobin 39.6 PG (27.0-31.0) H Mean Corpuscular Hemoglobin Concent 34.9 G/DL (32.0-36.0) Red Cell Distribution Width 10.6 % (11.6-14.8) L Platelet Count 256 K/UL (150-450) Mean Platelet Volume 6.0 FL (6.5-10.1) L Neutrophils (%) (Auto) % (45.0-75.0) Lymphocytes (%) (Auto) % (20.0-45.0) Monocytes (%) (Auto) % (1.0-10.0) Eosinophils (%) (Auto) % (0.0-3.0) Basophils (%) (Auto) % (0.0-2.0) Differential Total Cells Counted 100 Neutrophils % (Manual) 58 % (45-75) Lymphocytes % (Manual) 21 % (20-45) Monocytes % (Manual) 13 % (1-10) H Eosinophils % (Manual) 6 % (0-3) H Basophils % (Manual) 2 % (0-2) Band Neutrophils 0 % (0-8) Reactive Lymphocytes 1+ Platelet Estimate Adequate Platelet Morphology Normal Stomatocytes 1+ Sodium Level 138 MMOL/L (136-145) Potassium Level 3.2 MMOL/L (3.5-5.1) L Chloride Level 100 MMOL/L (98-107) Carbon Dioxide Level 31 MMOL/L (21-32) Anion Gap 7 mmol/L (5-15) Blood Urea Nitrogen 2 mg/dL (7-18) L Creatinine 0.5 MG/DL (0.55-1.30) L Estimat Glomerular Filtration Rate > 60 mL/min (>60) Glucose Level 150 MG/DL (74-106) H Calcium Level 9.1 MG/DL (8.5-10.1) Total Bilirubin 2.5 MG/DL (0.2-1.0) H Direct Bilirubin 0.8 MG/DL (0.0-0.3) H Aspartate Amino Transf (AST/SGOT) 71 U/L (15-37) H Alanine Aminotransferase (ALT/SGPT) 28 U/L (12-78) Alkaline Phosphatase 94 U/L (46-116) Total Protein 6.4 G/DL (6.4-8.2) Albumin 3.4 G/DL (3.4-5.0) Globulin 3.0 g/dL Albumin/Globulin Ratio 1.1 (1.0-2.7) Current Medications Medications (Trade) Dose Ordered Sig/Desiree Route PRN Reason Start Time Stop Time Status Last Admin Dose Admin Acetaminophen (Tylenol) 650 mg Q4H PRN ORAL Mild Pain (Pain Scale 1-3) 01/26/18 01:30 02/25/18 01:29 Dextrose (Dextrose 50%) STAT PRN IV Hypoglycemia 01/26/18 01:30 02/25/18 01:29 Dextrose/Sodium Chloride 1,000 ml @ 60 mls/hr [id number] IV 01/26/18 02:22 02/25/18 02:21 01/27/18 10:08 Folic Acid (Folate) 1 mg DAILY ORAL 01/26/18 09:45 02/25/18 09:44 01/27/18 08:07 Lorazepam (Ativan 2mg/ml 1ml) 1 mg Q4H PRN IV For Anxiety 01/26/18 09:00 02/02/18 08:59 01/26/18 23:27 Morphine Sulfate (Morphine Sulfate) 2 mg Q4H PRN IVP Moderate Pain (Pain Scale 4-6) 01/26/18 01:30 02/02/18 01:29 Multivitamins (Multivitamins) 1 tab DAILY ORAL 01/26/18 09:45 02/25/18 09:44 01/27/18 08:07 Ondansetron HCl (Zofran) 4 mg Q6H PRN IVP Nausea & Vomiting 01/26/18 01:30 02/25/18 01:29 Pantoprazole (Protonix) 40 mg DAILY IVP 01/26/18 11:00 02/25/18 10:59 01/27/18 08:07 Potassium Chloride (K-Dur) 40 meq TWICE A DAY ORAL 01/27/18 10:15 02/26/18 10:14 Thiamine HCl 100 mg/Dextrose 56 ml @ 112 mls/hr Q24H IVPB 01/25/18 19:45 02/24/18 19:44 01/26/18 21:51 PAZ MARTINEZ Jan 27, 2018 12:51
--- NOTE | 2018-01-27 14:44 | Consultation ---
Consult Note Consult Note aske to eval for electrolyte adjustment Patient presents with vomiting and epigastric pain. This is been going on for several days. She was a evaluated for this a few months ago. She's been drinking alcohol and feels it might be related to that. She is vomiting bile. No coffeegrounds or blood. No melena. Stools have been loose and brown color. The pain in her stomach is 10/10, constant, burning and radiates somewhat to her back. She was hospitalized in October for similar complaints and had endoscopy. This revealed gastritis felt to be secondary to alcohol. Also in the past 2 days as she's had several syncopal episodes. She's hit her knees and also the back of her head. Her legs have been weak. She is unable to keep down her usual medications orally. According to the patient she lost consciousness today for approximately 1 hour. She has some tenderness in her head also and also her knees but is ambulatory. Several years ago she had a seizure but hasn't had seizure since that time. She drinks alcohol daily and feels she cannot stop. She get the shakes when she tries to stop. She is depressed about this. She was admitted 01/01-01/03. D/C dx: 1. Possible syncope secondary to alcohol intoxication. 2. Acute alcoholic hepatitis. 3. Hypoglycemia. 4. Transaminitis. 5. Acute alcohol intoxication. 6. Alcohol abuse. 7. History of hypertension. 8. Hyperlipidemia. 9. History of alcoholic gastritis. 10. Dehydration secondary to intractable nausea and vomiting. 11. Electrolyte imbalance: hypokalemia and hyponatremia. examined , data reviewed Assessment/Plan Hypokalemia dehydration ETOH abuse gastritis Anemia PO K Hydrate ? KINA Galvez Jan 27, 2018 14:44
[2018-01-27] MEDS ORDERED: D5 1/2NS 1000ml IV ONE (15:41)
[2018-01-27 15:45] LABS: % IRON SATURATION 104 % (15-50); IRON 185 ug/dL (50-175); TOTAL IRON BINDING CAPACITY 178 ug/dL (250-450)
[2018-01-27 15:57] LABS: FERRITIN 1966 NG/ML (8-388)
[2018-01-27 15:59] VITALS: BP 127/78
--- NOTE | 2018-01-27 17:00 | Consultation ---
DATE OF CONSULTATION: 01/26/2018 CARDIOLOGY CONSULTATION CONSULTING PHYSICIAN: Alhaji Espinoza M.D. REFERRING PHYSICIAN: 1. Parish Hamlin D.O. 2. Vaibhav Peace M.D. REASON FOR CONSULTATION: Management of tachycardia. HISTORY OF PRESENT ILLNESS: This is a very unfortunate 52-year-old lady, who is recently discharged from this facility presents again with vomiting and epigastric pain following drinking alcohol heavily. The patient had no coffee-ground or blood emesis. She also complained of diarrhea and epigastric pain 10/10 constant. In October 2017, she was hospitalized and had endoscopy, which was reported to be gastritis. She had a few episodes of syncopes in the past, one leading to trauma to the knees and back of her head. She came to the hospital after she had another episode of loss of consciousness on 01/25/2018. At the time of arrival to the hospital, the blood pressure was 109/74 mmHg and pulse of 70. She was admitted to telemetry for further evaluation and management. PAST MEDICAL HISTORY: Including history of alcoholic hepatitis, history of syncope, history of hypoglycemia, history of alcohol intoxication, history of hypertension, history of hyperlipidemia, history of alcohol gastritis, and history of electrolyte derangement due to alcohol use. PAST SURGICAL HISTORY: None. MEDICATIONS: List of medications at home includes amlodipine, atorvastatin 10/20 one tablet daily, Levaquin 25 mg q.8 hours, escitalopram 20 mg p.o. daily, vitamin B12 1000 mcg p.o. daily, folic acid 1 mg p.o. daily, losartan 25 mg p.o. daily, Reglan 10 mg p.o. q.8 hours, Bystolic 2.5 mg daily, omeprazole 40 mg p.o. daily, Zantac 300 mg daily, thiamine hydrochloride 250 mg daily, and vitamin D3 2000 units daily. ALLERGIES: No known drug allergies. SOCIAL HISTORY: Drinking alcohol on a daily basis. Also uses tobacco. Denies any drug use. She lives at home. FAMILY HISTORY: No premature coronary artery disease in the first-degree relatives. REVIEW OF SYSTEMS: A 12-system review done is essentially negative except what is mentioned in the history of present illness. PHYSICAL EXAMINATION: VITAL SIGNS: At the time of arrival to the hospital, blood pressure was 109/74, respirations 18, pulse of 70, temperature 98.2 degrees Fahrenheit, and O2 saturation 91% on room air. GENERAL: The patient is a very unfortunate 52-year-old female, in no apparent respiratory distress, appears to be depressed, narrative with flat affect. HEENT: Atraumatic and normocephalic. Anicteric. Pupils are equal, round, and reactive to light and accommodation. Extraocular muscles intact. There is some tenderness over the occipital region. NECK: JVP is less than 5 cm. No carotid bruit. Carotid upstrokes 2+ bilaterally. CVS: Normal S1, S2. Regular rate and rhythm. No murmurs, gallops, or rubs. PMI is at fourth intercostal space in the midclavicular line. LUNGS: Clear to auscultation bilaterally. ABDOMEN: Soft, nontender, and nondistended. No hepatosplenomegaly. No murmurs, gallops, or rubs. There is some epigastric tenderness, but no rebound and no guarding. No hepatosplenomegaly. Positive bowel sounds. EXTREMITIES: No evidence of edema, clubbing, or cyanosis. DIAGNOSTIC DATA: A 12-lead electrocardiogram shows sinus rhythm with no ST and T-wave abnormalities. Abdominal x-ray showed no acute processes. CT of head shows chronic and age-related changes. Otherwise, negative for acute intracranial bleed or mass effect. LABORATORY FINDINGS: WBC 5.9, hemoglobin 11.9, hematocrit 32.9, and platelet count is 319,000. Sodium is 134, potassium is 3.5, chloride 91, bicarbonate 22, BUN of 18, creatinine 0.6, glucose is 58, and calcium is 9.3. AST was 91 and ALT was 37. INR is 1.0. Toxicology showed serum alcohol of 219. Otherwise, urine tox screen was all negative. A 2D echocardiography done on 01/01/2018 in this facility showed normal LV systolic function with LVEF over 65%. No evidence of left ventricular hypertrophy, mild mitral regurgitation, grade 1 LV diastolic dysfunction, and mild tricuspid regurgitation with right ventricular systolic pressure noted at 40 mmHg consistent with mild pulmonary hypertension. A 12-lead electrocardiogram from 12/31/2017 in this facility showed sinus rhythm with first-degree AV block and no ST and T-wave abnormalities. QT interval was prolonged. ASSESSMENT AND PLAN: The patient is a very unfortunate 52-year-old lady, who is seen in Cardiology consultation at the request of Dr. Peace, who is covering for Dr. Hamlin. 1. Syncopal event. This is most likely due to water and electrolyte depletion. The patient has problem with alcoholism, require to replace magnesium, phosphorus, potassium, as well as provide her with adequate hydration. Alcohol anonymous with the health care social worker arrangements. A 2D echocardiography, of note, earlier this month at her previous admission had shown normal LV systolic function with LVEF of about 65%. There has been no evidence of cardiac arrhythmias throughout this and previous admissions. 2. First-degree atrioventricular block, asymptomatic. 3. Alcoholic hepatitis. 4. Possible acute pancreatitis. I would like to thank, Dr. Peace and Dr. Hamlin, for the courtesy of this consultation. Alhaji Espinoza M.D. DR: STEPHANIA JOB#: [id number] CC:
[2018-01-27 20:00] VITALS: BP 131/89
--- NOTE | 2018-01-27 21:12 | General Progress Note ---
Assessment/Plan Problem List: (1) Alcohol intoxication ICD Codes: F10.929 - Alcohol use, unspecified with intoxication, unspecified SNOMED: 62750761 Qualifiers: Qualified Codes: F10.929 - Alcohol use, unspecified with intoxication, unspecified (2) Gastritis ICD Codes: K29.70 - Gastritis, unspecified, without bleeding SNOMED: 7897463 Qualifiers: Qualified Codes: K29.20 - Alcoholic gastritis without bleeding (3) Weakness ICD Codes: R53.1 - Weakness SNOMED: 13944997 (4) Intractable abdominal pain ICD Codes: R10.9 - Unspecified abdominal pain SNOMED: 67397618, 881097455 (5) Syncope ICD Codes: R55 - Syncope and collapse SNOMED: 396484091 Qualifiers: Qualified Codes: R55 - Syncope and collapse Status: progressing Assessment/Plan afebrile abdominal pain is improving etoh abuse afebrile Subjective ROS Limited/Unobtainable: Yes Allergies: Coded Allergies: No Known Allergies (Unverified , 02/15/15) Objective Last 24 Hour Vital Signs Date Time Temp Pulse Resp B/P (MAP) Pulse Ox O2 Delivery O2 Flow Rate FiO2 01/27/18 16:00 85 01/27/18 15:59 97.8 72 20 127/78 97 Room Air 97.8 01/27/18 12:00 75 01/27/18 11:27 98.4 87 19 134/96 98 Room Air 98.4 01/27/18 08:00 65 01/27/18 08:00 98.1 78 18 140/81 94 Room Air 98.1 01/27/18 04:00 61 01/27/18 04:00 97.0 64 20 137/89 96 Room Air 97.0 01/27/18 00:00 63 01/27/18 00:00 97.7 81 20 154/85 93 Room Air 97.7 Intake and Output 01/26/18 01/27/18 18:59 06:59 Intake Total 1100 ml 416 ml Output Total 4 ml Balance 1096 ml 416 ml Intake Oral 380 ml IV Total 720 ml 416 ml Output Urine Total 4 ml # Voids 2 Laboratory Tests 01/27/18 05:20: White Blood Count 4.3L, Red Blood Count 2.42L, Hemoglobin 10.1L, Hematocrit 27.5L, Mean Corpuscular Volume 114H, Mean Corpuscular Hemoglobin 39.6H, Mean Corpuscular Hemoglobin Concent 34.9, Red Cell Distribution Width 10.6L, Platelet Count 256, Mean Platelet Volume 6.0L, Neutrophils (%) (Auto) , Lymphocytes (%) (Auto) , Monocytes (%) (Auto) , Eosinophils (%) (Auto) , Basophils (%) (Auto) , Differential Total Cells Counted 100, Neutrophils % ( Manual) 58, Lymphocytes % (Manual) 21, Monocytes % (Manual) 13H, Eosinophils % ( Manual) 6H, Basophils % (Manual) 2, Band Neutrophils 0, Reactive Lymphocytes 1+ , Platelet Estimate Adequate, Platelet Morphology Normal, Stomatocytes 1+, Sodium Level 138, Potassium Level 3.2L, Chloride Level 100, Carbon Dioxide Level 31, Anion Gap 7, Blood Urea Nitrogen 2L, Creatinine 0.5L, Estimat Glomerular Filtration Rate > 60, Glucose Level 150H, Calcium Level 9.1, Total Bilirubin 2.5H, Direct Bilirubin 0.8H, Aspartate Amino Transf (AST/SGOT) 71H, Alanine Aminotransferase (ALT/SGPT) 28, Alkaline Phosphatase 94, Total Protein 6.4, Albumin 3.4, Globulin 3.0, Albumin/Globulin Ratio 1.1 01/27/18 07:50: Uric Acid 4.0, Iron Level 185H, Total Iron Binding Capacity 178L, Percent Iron Saturation 104H, Unsaturated Iron Binding -7L, Ferritin 1966H, Vitamin B12 Level 1399H, Folate 16.5 Height (Feet): 5 Height (Inches): 1.00 Weight (Pounds): 86 EENT: PERRL/EOMI Neck: supple Cardiovascular: normal rate Respiratory/Chest: lungs clear Vaibhav Peace MD Jan 27, 2018 21:12
[2018-01-27] MEDS ORDERED: Thiamine HCl 100 MG in NS 55 ML IVPB SCH (23:00)
--- NOTE | 2018-01-27 23:52 | Cardiology Progress Note ---
Assessment/Plan Assessment/Plan 1. Syncopal event, normal LV systolic function with LVEF of about 65%, replace electrolytes and water. There has been no evidence of cardiac arrhythmias so far. 2. First-degree atrioventricular block, asymptomatic. 3. Alcoholic hepatitis. 4. Possible acute pancreatitis. Subjective Subjective Sinus rhythm at 72. Objective Last 24 Hour Vital Signs Date Time Temp Pulse Resp B/P (MAP) Pulse Ox O2 Delivery O2 Flow Rate FiO2 01/27/18 16:00 85 01/27/18 15:59 97.8 72 20 127/78 97 Room Air 97.8 01/27/18 12:00 75 01/27/18 11:27 98.4 87 19 134/96 98 Room Air 98.4 01/27/18 08:00 65 01/27/18 08:00 98.1 78 18 140/81 94 Room Air 98.1 01/27/18 04:00 61 01/27/18 04:00 97.0 64 20 137/89 96 Room Air 97.0 01/27/18 00:00 63 01/27/18 00:00 97.7 81 20 154/85 93 Room Air 97.7 Intake and Output 01/26/18 01/27/18 19:00 07:00 Intake Total 1040 ml 416 ml Output Total 4 ml Balance 1036 ml 416 ml Intake Oral 380 ml IV Total 660 ml 416 ml Output Urine Total 4 ml # Voids 2 Laboratory Tests Test 01/27/18 05:20 01/27/18 07:50 White Blood Count 4.3 K/UL (4.8-10.8) L Red Blood Count 2.42 M/UL (4.20-5.40) L Hemoglobin 10.1 G/DL (12.0-16.0) L Hematocrit 27.5 % (37.0-47.0) L Mean Corpuscular Volume 114 FL (80-99) H Mean Corpuscular Hemoglobin 39.6 PG (27.0-31.0) H Mean Corpuscular Hemoglobin Concent 34.9 G/DL (32.0-36.0) Red Cell Distribution Width 10.6 % (11.6-14.8) L Platelet Count 256 K/UL (150-450) Mean Platelet Volume 6.0 FL (6.5-10.1) L Neutrophils (%) (Auto) % (45.0-75.0) Lymphocytes (%) (Auto) % (20.0-45.0) Monocytes (%) (Auto) % (1.0-10.0) Eosinophils (%) (Auto) % (0.0-3.0) Basophils (%) (Auto) % (0.0-2.0) Differential Total Cells Counted 100 Neutrophils % (Manual) 58 % (45-75) Lymphocytes % (Manual) 21 % (20-45) Monocytes % (Manual) 13 % (1-10) H Eosinophils % (Manual) 6 % (0-3) H Basophils % (Manual) 2 % (0-2) Band Neutrophils 0 % (0-8) Reactive Lymphocytes 1+ Platelet Estimate Adequate Platelet Morphology Normal Stomatocytes 1+ Sodium Level 138 MMOL/L (136-145) Potassium Level 3.2 MMOL/L (3.5-5.1) L Chloride Level 100 MMOL/L (98-107) Carbon Dioxide Level 31 MMOL/L (21-32) Anion Gap 7 mmol/L (5-15) Blood Urea Nitrogen 2 mg/dL (7-18) L Creatinine 0.5 MG/DL (0.55-1.30) L Estimat Glomerular Filtration Rate > 60 mL/min (>60) Glucose Level 150 MG/DL (74-106) H Calcium Level 9.1 MG/DL (8.5-10.1) Total Bilirubin 2.5 MG/DL (0.2-1.0) H Direct Bilirubin 0.8 MG/DL (0.0-0.3) H Aspartate Amino Transf (AST/SGOT) 71 U/L (15-37) H Alanine Aminotransferase (ALT/SGPT) 28 U/L (12-78) Alkaline Phosphatase 94 U/L (46-116) Total Protein 6.4 G/DL (6.4-8.2) Albumin 3.4 G/DL (3.4-5.0) Globulin 3.0 g/dL Albumin/Globulin Ratio 1.1 (1.0-2.7) Uric Acid 4.0 MG/DL (2.6-7.2) Iron Level 185 ug/dL (50-175) H Total Iron Binding Capacity 178 ug/dL (250-450) L Percent Iron Saturation 104 % (15-50) H Unsaturated Iron Binding -7 ug/dL (112-346) L Ferritin 1966 NG/ML (8-388) H Vitamin B12 Level 1399 PG/ML (193-986) H Folate 16.5 NG/ML (8.6-58.9) Objective HEENT: Atraumatic and normocephalic. Anicteric. Pupils are equal, round, and reactive to light and accommodation. Extraocular muscles intact. There is some tenderness over the occipital region. NECK: JVP is less than 5 cm. No carotid bruit. Carotid upstrokes 2+ bilaterally. CVS: Normal S1, S2. Regular rate and rhythm. No murmurs, gallops, or rubs. PMI is at fourth intercostal space in the midclavicular line. LUNGS: Clear to auscultation bilaterally. ABDOMEN: Soft, nontender, and nondistended. No hepatosplenomegaly. No murmurs, gallops, or rubs. There is some epigastric tenderness, but no rebound and no guarding. No hepatosplenomegaly. Positive bowel sounds. EXTREMITIES: No evidence of edema, clubbing, or cyanosis. SHAHZAD IVEY Jan 27, 2018 23:52
[2018-01-28] VITALS: BP 117/75
[2018-01-28 04:00] VITALS: BP 137/87
[2018-01-28] MEDS: D5 1/2NS 1,000 ML IV SCH (04:09)
[2018-01-28 08:00] VITALS: BP 119/83
[2018-01-28 08:35] LABS: HEMATOCRIT 30.3 % (37.0-47.0); HEMOGLOBIN 10.7 G/DL (12.0-16.0); MEAN CORPUSCULAR VOLUME 115 FL (80-99); PLATELET COUNT 259 K/UL (150-450); RED BLOOD COUNT 2.64 M/UL (4.20-5.40); RED CELL DISTRIBUTION WIDTH 11.1 % (11.6-14.8); WHITE BLOOD COUNT 4.4 K/UL (4.8-10.8)
[2018-01-28] MEDS: Pantoprazole Inj IVP SCH (08:40)
[2018-01-28 08:43] LABS: ANION GAP 5 mmol/L (5-15); BLOOD UREA NITROGEN 3 mg/dL (7-18); CALCIUM 9.5 MG/DL (8.5-10.1); CARBON DIOXIDE 31 MMOL/L (21-32); CHLORIDE 100 MMOL/L (98-107); CREATININE 0.5 MG/DL (0.55-1.30); SODIUM 136 MMOL/L (136-145)
--- NOTE | 2018-01-28 10:14 | Nephrology Progress Note ---
Assessment/Plan Problem List: (1) Hypokalemia Assessment Hypokalemia dehydration ETOH abuse gastritis Anemia Plan PO K Hydrate ? DC planing Subjective ROS Limited/Unobtainable: No Objective Objective Last 24 Hour Vital Signs Date Time Temp Pulse Resp B/P (MAP) Pulse Ox O2 Delivery O2 Flow Rate FiO2 01/28/18 08:00 97.3 69 20 119/83 98 Room Air 97.3 01/28/18 08:00 80 01/28/18 04:00 71 01/28/18 04:00 97.7 69 20 137/87 95 Room Air 97.7 01/28/18 00:00 98.2 75 20 117/75 95 Room Air 98.2 01/28/18 00:00 78 01/27/18 20:00 78 01/27/18 20:00 98.0 72 20 131/89 97 Room Air 98.0 01/27/18 16:00 85 01/27/18 15:59 97.8 72 20 127/78 97 Room Air 97.8 01/27/18 12:00 75 01/27/18 11:27 98.4 87 19 134/96 98 Room Air 98.4 Intake and Output 01/27/18 01/28/18 19:00 07:00 Intake Total 1260 ml 600 ml Balance 1260 ml 600 ml Intake Oral 600 ml IV Total 660 ml 600 ml # Voids 2 Laboratory Tests 01/28/18 07:30: White Blood Count 4.4L, Red Blood Count 2.64L, Hemoglobin 10.7L, Hematocrit 30.3L, Mean Corpuscular Volume 115H, Mean Corpuscular Hemoglobin 40.5H, Mean Corpuscular Hemoglobin Concent 35.3, Red Cell Distribution Width 11.1L, Platelet Count 259, Mean Platelet Volume 6.1L, Neutrophils (%) (Auto) , Lymphocytes (%) (Auto) , Monocytes (%) (Auto) , Eosinophils (%) (Auto) , Basophils (%) (Auto) , Differential Total Cells Counted 100, Neutrophils % ( Manual) 65, Lymphocytes % (Manual) 28, Monocytes % (Manual) 4, Eosinophils % ( Manual) 2, Basophils % (Manual) 1, Band Neutrophils 0, Platelet Estimate Adequate, Platelet Morphology Normal, Hypochromasia 1+, Macrocytosis 1+, Sodium Level 136, Potassium Level 4.0, Chloride Level 100, Carbon Dioxide Level 31, Anion Gap 5, Blood Urea Nitrogen 3L, Creatinine 0.5L, Estimat Glomerular Filtration Rate > 60, Glucose Level 131H, Calcium Level 9.5 Height (Feet): 5 Height (Inches): 1.00 Weight (Pounds): 86 General Appearance: no apparent distress Objective no change KINA MCMAHAN Jan 28, 2018 10:14
[2018-01-28] MEDS ORDERED: Morphine Sulfate 2mg/ml Inj IVP PRN (11:00)
[2018-01-28] MEDS ORDERED: LORazepam Inj 2mg/ml 1ml IV PRN (11:00)
[2018-01-28] MEDS ORDERED: D5 1/2NS 1,000 ML IV SCH (11:00)
--- NOTE | 2018-01-28 12:13 | GI Progress Note ---
Assessment/Plan Problems: (1) ETOH abuse ICD Codes: F10.10 - Alcohol abuse, uncomplicated SNOMED: 76438811 (2) Hepatitis, alcoholic, acute ICD Codes: K70.10 - Alcoholic hepatitis without ascites SNOMED: 7230465 (3) Vomiting ICD Codes: R11.10 - Vomiting, unspecified SNOMED: 466742595 (4) Nausea ICD Codes: R11.0 - Nausea SNOMED: 300926271 (5) Syncope ICD Codes: R55 - Syncope and collapse SNOMED: 216860307 Qualifiers: Qualified Codes: R55 - Syncope and collapse (6) Gastritis ICD Codes: K29.70 - Gastritis, unspecified, without bleeding SNOMED: 1227382 Qualifiers: Qualified Codes: K29.20 - Alcoholic gastritis without bleeding (7) Alcohol dependence ICD Codes: F10.20 - Alcohol dependence, uncomplicated SNOMED: 03065694 Qualifiers: Qualified Codes: F10.229 - Alcohol dependence with intoxication, unspecified Status: stable Status Narrative Discussed with Dr. Guerrero. Assessment/Plan okay for DC per GI standpoint symptomatic treatment / supportive care regular diet PO/IV hydration + electrolyte replacement zofran prn Ativan prn B12/folate supplement alcohol abstinence trend LFTs needs director social service outpatient GI procedures Subjective Subjective wants to go home Objective Last 24 Hour Vital Signs Date Time Temp Pulse Resp B/P (MAP) Pulse Ox O2 Delivery O2 Flow Rate FiO2 01/28/18 08:00 97.3 69 20 119/83 98 Room Air 97.3 01/28/18 08:00 80 01/28/18 04:00 71 01/28/18 04:00 97.7 69 20 137/87 95 Room Air 97.7 01/28/18 00:00 98.2 75 20 117/75 95 Room Air 98.2 01/28/18 00:00 78 01/27/18 20:00 78 01/27/18 20:00 98.0 72 20 131/89 97 Room Air 98.0 01/27/18 16:00 85 01/27/18 15:59 97.8 72 20 127/78 97 Room Air 97.8 Intake and Output 01/27/18 01/28/18 19:00 07:00 Intake Total 1260 ml 600 ml Balance 1260 ml 600 ml Intake Oral 600 ml IV Total 660 ml 600 ml # Voids 2 Laboratory Tests Test 01/28/18 07:30 White Blood Count 4.4 K/UL (4.8-10.8) L Red Blood Count 2.64 M/UL (4.20-5.40) L Hemoglobin 10.7 G/DL (12.0-16.0) L Hematocrit 30.3 % (37.0-47.0) L Mean Corpuscular Volume 115 FL (80-99) H Mean Corpuscular Hemoglobin 40.5 PG (27.0-31.0) H Mean Corpuscular Hemoglobin Concent 35.3 G/DL (32.0-36.0) Red Cell Distribution Width 11.1 % (11.6-14.8) L Platelet Count 259 K/UL (150-450) Mean Platelet Volume 6.1 FL (6.5-10.1) L Neutrophils (%) (Auto) % (45.0-75.0) Lymphocytes (%) (Auto) % (20.0-45.0) Monocytes (%) (Auto) % (1.0-10.0) Eosinophils (%) (Auto) % (0.0-3.0) Basophils (%) (Auto) % (0.0-2.0) Differential Total Cells Counted 100 Neutrophils % (Manual) 65 % (45-75) Lymphocytes % (Manual) 28 % (20-45) Monocytes % (Manual) 4 % (1-10) Eosinophils % (Manual) 2 % (0-3) Basophils % (Manual) 1 % (0-2) Band Neutrophils 0 % (0-8) Platelet Estimate Adequate Platelet Morphology Normal Hypochromasia 1+ Macrocytosis 1+ Sodium Level 136 MMOL/L (136-145) Potassium Level 4.0 MMOL/L (3.5-5.1) Chloride Level 100 MMOL/L (98-107) Carbon Dioxide Level 31 MMOL/L (21-32) Anion Gap 5 mmol/L (5-15) Blood Urea Nitrogen 3 mg/dL (7-18) L Creatinine 0.5 MG/DL (0.55-1.30) L Estimat Glomerular Filtration Rate > 60 mL/min (>60) Glucose Level 131 MG/DL (74-106) H Calcium Level 9.5 MG/DL (8.5-10.1) Height (Feet): 5 Height (Inches): 1.00 Weight (Pounds): 86 General Appearance: WD/WN, no apparent distress, alert, thin Cardiovascular: normal rate Respiratory/Chest: normal breath sounds, no respiratory distress Abdominal Exam: normal bowel sounds, non tender, soft Extremities: normal range of motion, non-tender Xochitl Bartlett N.P. Jan 28, 2018 12:13
--- NOTE | 2018-01-28 12:22 | Infectious Diseases Prog Note ---
Assessment/Plan Assessment/Plan IMPRESSION: 1. Alcoholic hepatitis. 2. Alcoholic gastritis, nausea, vomiting, anemia, and nicotine dependence. 3. Fatty liver. 4. Anemia RECOMMENDATIONS: We will observe off antibiotic viral hepatitis serology was negative in January Subjective ROS Limited/Unobtainable: Yes Constitutional: Reports: other Allergies: Coded Allergies: No Known Allergies (Unverified , 02/15/15) Objective Vital Signs Last 24 Hour Vital Signs Date Time Temp Pulse Resp B/P (MAP) Pulse Ox O2 Delivery O2 Flow Rate FiO2 01/28/18 08:00 97.3 69 20 119/83 98 Room Air 97.3 01/28/18 08:00 80 01/28/18 04:00 71 01/28/18 04:00 97.7 69 20 137/87 95 Room Air 97.7 01/28/18 00:00 98.2 75 20 117/75 95 Room Air 98.2 01/28/18 00:00 78 01/27/18 20:00 78 01/27/18 20:00 98.0 72 20 131/89 97 Room Air 98.0 01/27/18 16:00 85 01/27/18 15:59 97.8 72 20 127/78 97 Room Air 97.8 Height (Feet): 5 Height (Inches): 1.00 Weight (Pounds): 86 HEENT: mucous membranes moist Respiratory/Chest: lungs clear Cardiovascular: normal rate Abdomen: soft, non tender Neurologic/Psychiatric: abnormal gait, oriented x 3, responsive Laboratory Tests Test 01/28/18 07:30 White Blood Count 4.4 K/UL (4.8-10.8) L Red Blood Count 2.64 M/UL (4.20-5.40) L Hemoglobin 10.7 G/DL (12.0-16.0) L Hematocrit 30.3 % (37.0-47.0) L Mean Corpuscular Volume 115 FL (80-99) H Mean Corpuscular Hemoglobin 40.5 PG (27.0-31.0) H Mean Corpuscular Hemoglobin Concent 35.3 G/DL (32.0-36.0) Red Cell Distribution Width 11.1 % (11.6-14.8) L Platelet Count 259 K/UL (150-450) Mean Platelet Volume 6.1 FL (6.5-10.1) L Neutrophils (%) (Auto) % (45.0-75.0) Lymphocytes (%) (Auto) % (20.0-45.0) Monocytes (%) (Auto) % (1.0-10.0) Eosinophils (%) (Auto) % (0.0-3.0) Basophils (%) (Auto) % (0.0-2.0) Differential Total Cells Counted 100 Neutrophils % (Manual) 65 % (45-75) Lymphocytes % (Manual) 28 % (20-45) Monocytes % (Manual) 4 % (1-10) Eosinophils % (Manual) 2 % (0-3) Basophils % (Manual) 1 % (0-2) Band Neutrophils 0 % (0-8) Platelet Estimate Adequate Platelet Morphology Normal Hypochromasia 1+ Macrocytosis 1+ Sodium Level 136 MMOL/L (136-145) Potassium Level 4.0 MMOL/L (3.5-5.1) Chloride Level 100 MMOL/L (98-107) Carbon Dioxide Level 31 MMOL/L (21-32) Anion Gap 5 mmol/L (5-15) Blood Urea Nitrogen 3 mg/dL (7-18) L Creatinine 0.5 MG/DL (0.55-1.30) L Estimat Glomerular Filtration Rate > 60 mL/min (>60) Glucose Level 131 MG/DL (74-106) H Calcium Level 9.5 MG/DL (8.5-10.1) Current Medications Medications (Trade) Dose Ordered Sig/Desiree Route PRN Reason Start Time Stop Time Status Last Admin Dose Admin Acetaminophen (Tylenol) 650 mg Q4H PRN ORAL Mild Pain (Pain Scale 1-3) 01/28/18 11:00 02/25/18 10:59 Dextrose (Dextrose 50%) STAT PRN IV Hypoglycemia 01/28/18 11:00 02/27/18 10:59 Dextrose/Sodium Chloride 1,000 ml @ 60 mls/hr [id number] IV 01/28/18 11:00 02/25/18 10:59 Folic Acid (Folate) 1 mg DAILY ORAL 01/29/18 09:00 02/25/18 09:44 Lorazepam (Ativan 2mg/ml 1ml) 1 mg Q4H PRN IV For Anxiety 01/28/18 11:00 02/02/18 10:59 Morphine Sulfate (Morphine Sulfate) 2 mg Q4H PRN IVP Moderate Pain (Pain Scale 4-6) 01/28/18 11:00 02/02/18 10:59 Multivitamins (Multivitamins) 1 tab DAILY ORAL 01/29/18 09:00 02/25/18 09:44 Ondansetron HCl (Zofran) 4 mg Q6H PRN IVP Nausea & Vomiting 01/28/18 11:00 02/25/18 10:59 Pantoprazole (Protonix) 40 mg DAILY IVP 01/29/18 09:00 02/25/18 10:59 Potassium Chloride (K-Dur) 40 meq TWICE A DAY ORAL 01/28/18 18:00 02/26/18 10:14 Thiamine HCl 100 mg/Sodium Chloride 56 ml @ 112 mls/hr Q24H IVPB 01/28/18 21:00 02/26/18 20:59 PAZ MARTINEZ Jan 28, 2018 12:22
[2018-01-28 12:40] VITALS: BP 113/73
[2018-01-28 16:00] VITALS: BP 132/52
--- NOTE | 2018-01-28 17:48 | General Progress Note ---
Assessment/Plan Problem List: (1) Alcohol intoxication ICD Codes: F10.929 - Alcohol use, unspecified with intoxication, unspecified SNOMED: 59219795 Qualifiers: Qualified Codes: F10.929 - Alcohol use, unspecified with intoxication, unspecified (2) Gastritis ICD Codes: K29.70 - Gastritis, unspecified, without bleeding SNOMED: 6614572 Qualifiers: Qualified Codes: K29.20 - Alcoholic gastritis without bleeding (3) Weakness ICD Codes: R53.1 - Weakness SNOMED: 35054467 (4) Intractable abdominal pain ICD Codes: R10.9 - Unspecified abdominal pain SNOMED: 28283001, [id number] (5) Syncope ICD Codes: R55 - Syncope and collapse SNOMED: 693493443 Qualifiers: Qualified Codes: R55 - Syncope and collapse Status: progressing Assessment/Plan tolerating po feeding dc home abdominal pain is improving Subjective ROS Limited/Unobtainable: Yes Constitutional: Reports: no symptoms Allergies: Coded Allergies: No Known Allergies (Unverified , 02/15/15) Objective Last 24 Hour Vital Signs Date Time Temp Pulse Resp B/P (MAP) Pulse Ox O2 Delivery O2 Flow Rate FiO2 01/28/18 16:00 98.4 74 20 132/52 93 Room Air 98.4 01/28/18 12:40 98.5 76 18 113/73 97 Room Air 98.5 01/28/18 08:00 97.3 69 20 119/83 98 Room Air 97.3 01/28/18 08:00 80 01/28/18 04:00 71 01/28/18 04:00 97.7 69 20 137/87 95 Room Air 97.7 01/28/18 00:00 98.2 75 20 117/75 95 Room Air 98.2 01/28/18 00:00 78 01/27/18 20:00 78 01/27/18 20:00 98.0 72 20 131/89 97 Room Air 98.0 Intake and Output 01/27/18 01/28/18 19:00 07:00 Intake Total 1260 ml 600 ml Balance 1260 ml 600 ml Intake Oral 600 ml IV Total 660 ml 600 ml # Voids 2 Laboratory Tests 01/28/18 07:30: White Blood Count 4.4L, Red Blood Count 2.64L, Hemoglobin 10.7L, Hematocrit 30.3L, Mean Corpuscular Volume 115H, Mean Corpuscular Hemoglobin 40.5H, Mean Corpuscular Hemoglobin Concent 35.3, Red Cell Distribution Width 11.1L, Platelet Count 259, Mean Platelet Volume 6.1L, Neutrophils (%) (Auto) , Lymphocytes (%) (Auto) , Monocytes (%) (Auto) , Eosinophils (%) (Auto) , Basophils (%) (Auto) , Differential Total Cells Counted 100, Neutrophils % ( Manual) 65, Lymphocytes % (Manual) 28, Monocytes % (Manual) 4, Eosinophils % ( Manual) 2, Basophils % (Manual) 1, Band Neutrophils 0, Platelet Estimate Adequate, Platelet Morphology Normal, Hypochromasia 1+, Macrocytosis 1+, Sodium Level 136, Potassium Level 4.0, Chloride Level 100, Carbon Dioxide Level 31, Anion Gap 5, Blood Urea Nitrogen 3L, Creatinine 0.5L, Estimat Glomerular Filtration Rate > 60, Glucose Level 131H, Calcium Level 9.5 Height (Feet): 5 Height (Inches): 1.00 Weight (Pounds): 86 Abdomen: soft Vaibhav Peace MD Jan 28, 2018 17:48
[2018-01-28 20:00] VITALS: BP 118/81
[2018-01-28] MEDS ORDERED: Thiamine HCl 100 MG in NS 55 ML IVPB SCH (21:00)
[2018-01-28] MEDS ORDERED: D5 1/2NS 1000ml IV ONE (21:49)
[2018-01-29] MEDS ORDERED: Pantoprazole Inj IVP SCH (09:00)
--- NOTE | 2018-01-29 15:06 | Discharge Summary ---
Discharge Summary Discharge Summary Discharge Summary DATE OF ADMISSION: 01/25/2018 DATE OF DISCHARGE: 01/28/2018 CONSULTANTS: 1. Dr. Fito Milton 2. Dr. Brandyn Guerrero 3. Dr. Simone Kilpatrick 4. Dr. Alhaji Espinoza BRIEF HOSPITAL COURSE: Patient is a 52-year-old female who presented acute abdominal pain, nausea, and vomiting. She has history of alcohol abuse and has an active alcohol problem. She complained of vomiting for one week and had abdominal pain, she denied rectal bleed, no hematemesis, no melena. She has a history of alcohol abuse and had hepatitis from alcohol, history of GERD and hypertension. She also complained of several syncopal episodes for the past 2 days prior to admission. She hit her knees and head. He felt her legs have gotten weak. She was unable to keep anything down orally. On evaluation at ED blood work did not show any leukocytoses WBC was 5.9. LFTs were elevated, AST was 91 and ALT was 57. Alkaline phosphatase 115. Serum alcohol level was 219. She had a head CT that showed chronic age-related changes, negative for acute intracranial bleed or mass effect. Abdominal x-ray was negative for acute process. She continued to have vomiting while at ED. She complained of epigastric pain and was given morphine. She was also given thiamine. Urine toxicology was negative. She had an EKG done that showed no acute injury. She was then admitted to telemetry for evaluation of SYNCOPE and abdominal pain, and alcoholic hepatitis. She was seen by GI specialist Dr. Brandyn Guerrero. She was initially started on full liquid diet and advanced as tolerated. She was given IV hydration and was given symptomatic treatment with Zofran and Ativan prn. She was given folate and vitamin B12 supplements. She was advised alcohol abstinence. She underwent cardiac evaluation with Dr. Alhaji Espinoza. 12-lead electrocardiogram showed sinus rhythm with no ST and T-wave abnormalities. Echocardiogram done on 01/01/2018 showed normal LV systolic function with LVEF over 65%. No evidence of left ventricular hypertrophy, mild mitral regurgitation, grade 1 LV diastolic dysfunction, and mild tricuspid regurgitation with tricuspid to go systolic pressure at 40 mmHg consistent with mild pulmonary hypertension. Syncopal event was assessed to be likely due to water and electrolyte depletion. Patient was given to placement of magnesium, phosphorous and potassium. She had first-degree AV block on EKG however is asymptomatic. She was observed off antibiotic treatment. Abdominal pain improved. Patient was tolerating po diet well, she was discharged home. FINAL DIAGNOSES: 1. Syncope secondary to volume depletion 2. Hypokalemia 3. Gastritis 4. Alcohol dependence 5. EtOH abuse 6. Alcoholic hepatitis 7. Anemia 8. Fatty liver DISPOSITION: Patient was discharged home. DISCHARGE MEDICATIONS: Refer to Discharge Medication List. DISCHARGE INSTRUCTIONS: Follow up with GI of choice in a week. I have been assigned to dictate discharge summary on this account, and I was not involved in the patient's management. Emi Major NP Jan 29, 2018 15:06
--- NOTE | 2018-01-29 19:18 | Cardiology Report ---
APPROVED REPORT EKG Measurement Heart [id number] MD [id number] Normal sinus rhythm Normal ECG
--- NOTE | 2018-01-30 08:54 | Diagnostic Imaging Report ---
APPROVED REPORT CPT Code: 94137 Present Symptoms Comments: R/O DVT BILATERAL: Imaging reveals a patent deep venous system bilaterally. There is no evidence of thrombus within the femoral, popliteal or tibial segments. The greater saphenous veins are also within normal limits. Doppler indicates normal spontaneous flow within these segments.
== END 2018-01-28 21:50 | disposition home or self-care (01) | DRG 775 ==
LOC: EMR 18:20 → 2E 19:11 → EDBEDREQ 22:13 → 4E 01-28 10:20
DX: F10.229 Alcohol dependence with intoxication, unspecified (principal); K76.0 Fatty (change of) liver, not elsewhere classified; K70.10 Alcoholic hepatitis without ascites; F10.20 Alcohol dependence, uncomplicated; E87.6 Hypokalemia; D64.9 Anemia, unspecified; K29.70 Gastritis, unspecified, without bleeding; E86.9 Volume depletion, unspecified; E78.5 Hyperlipidemia, unspecified; K21.9 Gastro-esophageal reflux disease without esophagitis; Y90.7 Blood alcohol level of 200-239 mg/100 ml
CPT/HCPCS: 36415; 70450; 74018; 80048; 80053; 80307; 80329; 81003; 82140; 82248; 82607; 82728; 82746; 83540; 83550; 83690; 84484; 84550; 85007; 85025; 85610; 85730; 93005; 93970; 99285; J2405; J8499

== ENCOUNTER 2018-02-20 19:54 | Emergency (ER) | payer OTHER ==
[~2018-02-20] VITALS: Ht 144.8 cm; Wt 39.5 kg
[~2018-02-20 19:54] MED LIST changes: +LOSARTAN POTASS25 MG ORAL; +VITAMIN B-1100 MG ORAL; +VITAMIN B-122000 MC1 PO
--- NOTE | 2018-02-20 20:44 | Emergency Room Report ---
History of Present Illness General Chief Complaint: General Complaint Source: Patient Present Illness HPI 52-year-old female presents ED for evaluation. Patient complaining of headache , nausea and vomiting, chest pain, dizziness which started yesterday. Daughter at bedside states that patient does have history of alcohol abuse. Fell a few times yesterday. Pain is sharp, 5 out of 10, nonradiating. Denies history of drug use. Denies photophobia or blurry vision. Denies neck pain. No other aggravating relieving factors. Denies any other associated symptoms Allergies: Coded Allergies: No Known Allergies (Unverified , 02/15/15) Patient History Past Medical History: HTN Past Surgical History: none Pertinent Family History: none Social History: Denies: smoking, alcohol use, drug use Last Menstrual Period: None Now: No Immunizations: UTD Reviewed Nursing Documentation: PMH: Agreed; PSxH: Agreed Nursing Documentation-PMH Hx Cardiac Problems: Yes Hx Hypertension: Yes Hx Cancer: No Hx Gastrointestinal Problems: Yes Hx Neurological Problems: Yes Hx Seizures: Yes - Unverified, not on any seizure meds Review of Systems All Other Systems: negative except mentioned in HPI Physical Exam Vital Signs Date Time Temp Pulse Resp B/P (MAP) Pulse Ox O2 Delivery O2 Flow Rate FiO2 02/20/18 20:07 97.7 75 18 105/72 98 Room Air 97.7 Sp02 EP Interpretation: reviewed, normal General Appearance: no apparent distress, alert, GCS 15, non-toxic, thin Head: normocephalic, atraumatic Eyes: bilateral eye normal inspection, bilateral eye PERRL ENT: hearing grossly normal, normal pharynx, no angioedema, normal voice Neck: full range of motion, supple/symm/no masses Respiratory: chest non-tender, lungs clear, normal breath sounds, speaking full sentences Cardiovascular #1: regular rate, rhythm, no edema Cardiovascular #2: 2+ carotid (R), 2+ carotid (L), 2+ radial (R), 2+ radial (L) , 2+ dorsalis pedis (R), 2+ dorsalis pedis (L) Gastrointestinal: normal bowel sounds, non tender, soft, non-distended, no guarding, no rebound Rectal: deferred Genitourinary: normal inspection, no CVA tenderness Musculoskeletal: back normal, gait/station normal, normal range of motion, non- tender Neurologic: alert, oriented x3, responsive, motor strength/tone normal, sensory intact, speech normal Psychiatric: judgement/insight normal, memory normal, mood/affect normal, no suicidal/homicidal ideation Reflexes: 3+ bicep (R), 3+ bicep (L), 3+ tricep (R), 3+ tricep (L), 3+ knee (R) , 3+ knee (L) Skin: normal color, no rash, warm/dry, well hydrated Lymphatic: no adenopathy Medical Decision Making Diagnostic Impression: Primary Impression: Alcohol intoxication Qualified Codes: F10.920 - Alcohol use, unspecified with intoxication, uncomplicated Additional Impression: Dizziness ER Course Hospital Course 52 yo F presents to ED c/o dizziness, vomiting, chest pain Differential diagnoses include: arrythmia, dehydration, intracranial bleed, seizure Clinical course Patient placed on stretcher. on cafeteria monitor. After initial history and physical I ordered labs, EKG, chest Xray, IVFs, CT Brain labs reviewed- no leukocytosis, Hb/Hct stable, glucose in 60s, troponins negative, ETOH > 300 CT Brain - unremarkable Chest x-ray- no acute process EKG - NSR, no acute ischemic changes interpreted by me I reviewed EMR. Patient has been here multiple times with similar presentation. Daughter admits to history of alcohol abuse. Patient given juice , food, crackers Patient allowed to rest. Observed with stable vitals. Patient is safe for discharge I. I feel this is a highly complex case requiring extensive working including EKG/Rhythm strip, Xray/CT/US, Blood/urine lab work, repeat exams while in ED, and administration of strong opiates/narcotics for pain control, admission to hospital or close patient follow up. Diagnosis - alcohol intoxication, dizziness Stable and discharged to home. Followup with PMD. Return to ED if symptoms recur or worsen Labs Test 02/20/18 20:35 02/20/18 21:45 White Blood Count 5.0 K/UL (4.8-10.8) Red Blood Count 3.15 M/UL (4.20-5.40) Hemoglobin 12.5 G/DL (12.0-16.0) Hematocrit 36.0 % (37.0-47.0) Mean Corpuscular Volume 114 FL (80-99) Mean Corpuscular Hemoglobin 39.7 PG (27.0-31.0) Mean Corpuscular Hemoglobin Concent 34.8 G/DL (32.0-36.0) Red Cell Distribution Width 11.1 % (11.6-14.8) Platelet Count 326 K/UL (150-450) Mean Platelet Volume 5.2 FL (6.5-10.1) Neutrophils (%) (Auto) % (45.0-75.0) Lymphocytes (%) (Auto) % (20.0-45.0) Monocytes (%) (Auto) % (1.0-10.0) Eosinophils (%) (Auto) % (0.0-3.0) Basophils (%) (Auto) % (0.0-2.0) Differential Total Cells Counted 100 Neutrophils % (Manual) 48 % (45-75) Lymphocytes % (Manual) 43 % (20-45) Monocytes % (Manual) 6 % (1-10) Eosinophils % (Manual) 1 % (0-3) Basophils % (Manual) 0 % (0-2) Band Neutrophils 2 % (0-8) Platelet Estimate Adequate Platelet Morphology Normal Anisocytosis 1+ Macrocytosis 2+ Sodium Level 140 MMOL/L (136-145) Potassium Level 3.1 MMOL/L (3.5-5.1) Chloride Level 99 MMOL/L (98-107) Carbon Dioxide Level 26 MMOL/L (21-32) Anion Gap 15 mmol/L (5-15) Blood Urea Nitrogen 4 mg/dL (7-18) Creatinine 0.5 MG/DL (0.55-1.30) Estimat Glomerular Filtration Rate > 60 mL/min (>60) Glucose Level 64 MG/DL (74-106) Calcium Level 9.0 MG/DL (8.5-10.1) Total Bilirubin 1.9 MG/DL (0.2-1.0) Direct Bilirubin 0.8 MG/DL (0.0-0.3) Aspartate Amino Transf (AST/SGOT) 133 U/L (15-37) Alanine Aminotransferase (ALT/SGPT) 31 U/L (12-78) Alkaline Phosphatase 138 U/L (46-116) Troponin I 0.000 ng/mL (0.000-0.056) Total Protein 7.9 G/DL (6.4-8.2) Albumin 4.2 G/DL (3.4-5.0) Globulin 3.7 g/dL Albumin/Globulin Ratio 1.1 (1.0-2.7) Lipase 123 U/L (73-393) Salicylates Level 0.6 ug/mL (2.8-20) Acetaminophen Level < 2 MCG/ML (10-30) Serum Alcohol 340 mg/dL Urine Opiates Screen Negative (NEGATIVE) Urine Barbiturates Screen Negative (NEGATIVE) Phencyclidine (PCP) Screen Negative (NEGATIVE) Urine Amphetamines Screen Negative (NEGATIVE) Urine Benzodiazepines Screen Negative (NEGATIVE) Urine Cocaine Screen Negative (NEGATIVE) Urine Marijuana (THC) Screen Negative (NEGATIVE) EKG Diagnostic Results Rate: normal Rhythm: NSR ST Segments: no acute changes ASA given to the pt in ED: No Rhythm Strip Diag. Results EP Interpretation: yes Rhythm: NSR, no PVC's, no ectopy Chest X-Ray Diagnostic Results Chest X-Ray Diagnostic Results : Chest X-Ray Ordered: Yes # of Views/Limited/Complete: 1 View Indication: Other - dizziness EP Interpretation: Yes Interpretation: no consolidation, no effusion, no pneumothorax, no acute cardiopulmonary disease Impression: No acute disease Electronically Signed by: Electronically signed by Giovanni Haskins MD CT/MRI/US Diagnostic Results CT/MRI/US Diagnostic Results : Imaging Test Ordered: CT Head Impression no acute process Last Vital Signs Date Time Temp Pulse Resp B/P (MAP) Pulse Ox O2 Delivery O2 Flow Rate FiO2 02/20/18 20:07 97.7 75 18 105/72 98 Room Air 97.7 Status: improved Disposition: ADMITTED INPATIENT Condition: Serious Scripts Omeprazole (OMEPRAZOLE) 20 Mg Capsule. 20 MG ORAL DAILY, #30 CAP Prov: James Horn 02/21/18 Giovanni Haskins MD Feb 20, 2018 20:44
[2018-02-20 20:50] LABS: HEMOGLOBIN 12.5 G/DL (12.0-16.0); MEAN CORPUSCULAR VOLUME 114 FL (80-99); PLATELET COUNT 326 K/UL (150-450); RED BLOOD COUNT 3.15 M/UL (4.20-5.40); RED CELL DISTRIBUTION WIDTH 11.1 % (11.6-14.8)
[2018-02-20 21:00] VITALS: BP 113/69
[2018-02-20 21:11] LABS: ANION GAP 15 mmol/L (5-15); BLOOD UREA NITROGEN 4 mg/dL (7-18); CARBON DIOXIDE 26 MMOL/L (21-32); CHLORIDE 99 MMOL/L (98-107); CREATININE 0.5 MG/DL (0.55-1.30); POTASSIUM 3.1 MMOL/L (3.5-5.1); SODIUM 140 MMOL/L (136-145)
[2018-02-20 21:22] LABS: ALANINE AMINOTRANSFERASE 31 U/L (12-78); ALBUMIN 4.2 G/DL (3.4-5.0); ALBUMIN/GLOBULIN RATIO 1.1 (1.0-2.7); ALKALINE PHOSPHATASE 138 U/L (46-116); ASPARTATE AMINO TRANSFERASE 133 U/L (15-37); BILIRUBIN,TOTAL 1.9 MG/DL (0.2-1.0)
[2018-02-20 21:28] LABS: BILIRUBIN,DIRECT 0.8 MG/DL (0.0-0.3)
[2018-02-20 22:52] VITALS: BP 113/69
[2018-02-21 00:01] VITALS: BP 105/71
[2018-02-21 02:00] VITALS: BP 113/70
[2018-02-21 03:00] VITALS: BP 118/73
[2018-02-21] MEDS ORDERED: Albuterol/Ipratropium 3ml neb HHN ONE (03:45)
[2018-02-21 05:30] VITALS: BP 109/67
[2018-02-21] MEDS ORDERED: OMEPRAZOLE20 M2 ORAL (07:01)
[2018-02-21 07:13] VITALS: BP 118/72
--- NOTE | 2018-02-21 10:04 | Diagnostic Imaging Report ---
Indication: Shortness of breath Technique: XRAY Chest 1v Comparison: 01/01/2018 Findings: Cardiomediastinal silhouette is stable. There is no consolidation or pleural effusion. Right paratracheal and left upper lobe calcifications are unchanged suggesting prior granulomatous disease. The osseous structures are stable. Impression: No acute cardiopulmonary disease.
--- NOTE | 2018-02-21 10:13 | Diagnostic Imaging Report ---
Indication: Vertigo Technique: Continuous helical CT scanning of the head was performed utilizing automated exposure control without intravenous contrast material. Axial and coronal reconstructions were obtained. Comparison: 01/25/2018 CT dose: Total DLP 1418 mGycm; CTDI vol 70.4 mGy Findings: There is no acute intracranial hemorrhage, mass effect or cortical edema. The ventricles, cisterns and sulci are stable. Moderate periventricular and subcortical hypoattenuation are seen, a nonspecific finding. The posterior fossa and fourth ventricle are unremarkable. Sellar and suprasellar regions are grossly unremarkable. Visualized mastoid air cells and paranasal sinuses are unremarkable. No focal lesions of the bony calvarium or soft tissues of the scalp are seen. Impression: No evidence of acute intracranial hemorrhage, mass effect or cortical edema. MRI may be obtained for more sensitive evaluation as clinically indicated. Moderate nonspecific periventricular and subcortical hypoattenuation. Although findings could represent chronic ischemic microvascular changes, other etiologies not excluded. Clinical correlation recommended. The CT scanner at [facility] is accredited by the [employer] and the scans are performed using protocols designed to limit radiation exposure to as low as reasonably achievable to attain images of sufficient resolution adequate for diagnostic evaluation.
== END 2018-02-21 08:30 | disposition home or self-care (01) ==
LOC: EMR 21:10
DX: F10.129 Alcohol abuse with intoxication, unspecified (principal); R42 Dizziness and giddiness; I10 Essential (primary) hypertension
CPT/HCPCS: 36415; 70450; 71045; 80053; 80307; 80329; 82248; 83690; 84484; 85007; 85025; 93005; 94640; 94664; 96374; 96375; 99284; J2405; S0028; J7620

== ENCOUNTER 2018-03-06 19:34 | Inpatient (IN) | payer SELFPAY ==
[~2018-03-06] VITALS: Ht 144.8 cm; Wt 38.6 kg
[~2018-03-06 19:34] MED LIST changes: +OMEPRAZOLE20 M2 ORAL; +PEPCID AC20 M2 PO; +ZOFRAN4 M3 ORAL
--- NOTE | 2018-03-06 19:59 | Emergency Room Report ---
History of Present Illness General Chief Complaint: Multiple Trauma/Fall Source: Patient Present Illness HPI Patient presents with daughter who reports of the patient is an alcoholic she last drank this morning however has had Increased nausea vomiting Patient also had several falls and general weakness Denies any focal weakness at this time denies any headache she does have increased nausea and epigastric discomfort Denies any neck pain or photophobia Allergies: Coded Allergies: No Known Allergies (Unverified , 02/15/15) Patient History Past Medical History: see triage record Pertinent Family History: none Last Menstrual Period: n/a Reviewed Nursing Documentation: PMH: Agreed; PSxH: Agreed Nursing Documentation-PMH Hx Cardiac Problems: Yes Hx Hypertension: Yes Hx Cancer: No Hx Gastrointestinal Problems: Yes Hx Neurological Problems: Yes - ETOH-DEPENDENCE Hx Seizures: Yes - Unverified, not on any seizure meds Review of Systems All Other Systems: negative except mentioned in HPI Physical Exam Vital Signs Date Time Temp Pulse Resp B/P (MAP) Pulse Ox O2 Delivery O2 Flow Rate FiO2 03/06/18 19:36 98.3 117 16 93/69 95 98.2 Sp02 EP Interpretation: reviewed, normal General Appearance: mild distress - Appears nauseated Head: normocephalic, atraumatic Eyes: bilateral eye PERRL, bilateral eye EOMI ENT: hearing grossly normal, normal pharynx, TMs + canals normal, uvula midline Neck: full range of motion, supple, no meningismus, no bony tend Respiratory: lungs clear, normal breath sounds, no rhonchi, no respiratory distress, no retraction, no accessory muscle use Cardiovascular #1: normal peripheral pulses, regular rate, rhythm, no edema, no gallop, no JVD, no murmur Gastrointestinal: normal bowel sounds, non tender, soft, no mass, no organomegaly, non-distended, no guarding, no hernia, no pulsatile mass, no rebound Genitourinary: no CVA tenderness Musculoskeletal: normal inspection Neurologic: oriented x3, responsive, bookstore clerk III-XII nml as tested, motor strength/ tone normal, sensory intact Psychiatric: mood/affect normal Skin: normal color, no rash, warm/dry, palpation normal Lymphatic: normal inspection, no adenopathy Medical Decision Making Diagnostic Impression: Primary Impression: Alcohol withdrawal Additional Impression: Vomiting ER Course Given the presentation patient had IV access established Is complex requiring multiple blood work and acute intervention Patient was given IV hydration anti-nausea medicine including Ativan Patient was observed however again began having tachycardia and tremors concern for alcohol withdrawal is made and patient admitted for further care Labs Test 03/06/18 20:10 03/07/18 11:35 White Blood Count 9.6 K/UL (4.8-10.8) 5.5 K/UL (4.8-10.8) Red Blood Count 3.01 M/UL (4.20-5.40) 2.37 M/UL (4.20-5.40) Hemoglobin 11.9 G/DL (12.0-16.0) 9.4 G/DL (12.0-16.0) Hematocrit 34.2 % (37.0-47.0) 26.6 % (37.0-47.0) Mean Corpuscular Volume 114 FL (80-99) 112 FL (80-99) Mean Corpuscular Hemoglobin 39.5 PG (27.0-31.0) 39.5 PG (27.0-31.0) Mean Corpuscular Hemoglobin Concent 34.8 G/DL (32.0-36.0) 35.2 G/DL (32.0-36.0) Red Cell Distribution Width 11.0 % (11.6-14.8) 10.9 % (11.6-14.8) Platelet Count 310 K/UL (150-450) 233 K/UL (150-450) Mean Platelet Volume 5.5 FL (6.5-10.1) 4.9 FL (6.5-10.1) Neutrophils (%) (Auto) % (45.0-75.0) % (45.0-75.0) Lymphocytes (%) (Auto) % (20.0-45.0) % (20.0-45.0) Monocytes (%) (Auto) % (1.0-10.0) % (1.0-10.0) Eosinophils (%) (Auto) % (0.0-3.0) % (0.0-3.0) Basophils (%) (Auto) % (0.0-2.0) % (0.0-2.0) Differential Total Cells Counted 100 100 Neutrophils % (Manual) 83 % (45-75) 75 % (45-75) Lymphocytes % (Manual) 7 % (20-45) 17 % (20-45) Monocytes % (Manual) 5 % (1-10) 6 % (1-10) Eosinophils % (Manual) 0 % (0-3) 2 % (0-3) Basophils % (Manual) 0 % (0-2) 0 % (0-2) Band Neutrophils 5 % (0-8) 0 % (0-8) Platelet Estimate Adequate Adequate Platelet Morphology Normal Normal Hypochromasia 1+ 1+ Anisocytosis 1+ Macrocytosis 2+ 1+ Sodium Level 131 MMOL/L (136-145) 136 MMOL/L (136-145) Potassium Level 3.1 MMOL/L (3.5-5.1) 3.6 MMOL/L (3.5-5.1) Chloride Level 85 MMOL/L (98-107) 100 MMOL/L (98-107) Carbon Dioxide Level 16 MMOL/L (21-32) 24 MMOL/L (21-32) Anion Gap 30 mmol/L (5-15) 12 mmol/L (5-15) Blood Urea Nitrogen 13 mg/dL (7-18) 8 mg/dL (7-18) Creatinine 0.8 MG/DL (0.55-1.30) 0.7 MG/DL (0.55-1.30) Estimat Glomerular Filtration Rate > 60 mL/min (>60) > 60 mL/min (>60) Glucose Level 133 MG/DL (74-106) 173 MG/DL (74-106) Calcium Level 9.8 MG/DL (8.5-10.1) 9.3 MG/DL (8.5-10.1) Total Bilirubin 2.8 MG/DL (0.2-1.0) 2.5 MG/DL (0.2-1.0) Direct Bilirubin 1.1 MG/DL (0.0-0.3) 1.1 MG/DL (0.0-0.3) Aspartate Amino Transf (AST/SGOT) 178 U/L (15-37) 123 U/L (15-37) Alanine Aminotransferase (ALT/SGPT) 40 U/L (12-78) 29 U/L (12-78) Alkaline Phosphatase 132 U/L (46-116) 95 U/L (46-116) Total Protein 9.5 G/DL (6.4-8.2) 6.8 G/DL (6.4-8.2) Albumin 5.0 G/DL (3.4-5.0) 3.6 G/DL (3.4-5.0) Globulin 4.5 g/dL 3.2 g/dL Albumin/Globulin Ratio 1.1 (1.0-2.7) 1.1 (1.0-2.7) Lipase 251 U/L (73-393) Phosphorus Level 1.6 MG/DL (2.5-4.9) Magnesium Level 1.6 MG/DL (1.8-2.4) Rhythm Strip Diag. Results EP Interpretation: yes Rate: 105 Rhythm: no PVC's, no ectopy, other - Sinus tach Last Vital Signs Date Time Temp Pulse Resp B/P (MAP) Pulse Ox O2 Delivery O2 Flow Rate FiO2 03/06/18 19:36 98.3 117 16 93/69 95 98.2 Status: improved Disposition: ADMITTED INPATIENT Condition: Serious Vaibhav Case DO March 06, 2018 19:59
[2018-03-06 20:00] VITALS: BP 163/89
[2018-03-06] MEDS ORDERED: Metoclopramide 10mg/2ml Inj IVP ONE (20:00)
[2018-03-06] MEDS ORDERED: DiphenhydrAMINE 50mg/ml Inj IVP ONE (20:00)
[2018-03-06] MEDS ORDERED: LORazepam Inj 2mg/ml 1ml IV ONE ×2 (20:00→22:00)
[2018-03-06 20:44] LABS: ANION GAP 30 mmol/L (5-15); BLOOD UREA NITROGEN 13 mg/dL (7-18); CALCIUM 9.8 MG/DL (8.5-10.1); CARBON DIOXIDE 16 MMOL/L (21-32); CHLORIDE 85 MMOL/L (98-107); CREATININE 0.8 MG/DL (0.55-1.30); POTASSIUM 3.1 MMOL/L (3.5-5.1); SODIUM 131 MMOL/L (136-145)
[2018-03-06 20:45] LABS: HEMATOCRIT 34.2 % (37.0-47.0); HEMOGLOBIN 11.9 G/DL (12.0-16.0); MEAN CORPUSCULAR VOLUME 114 FL (80-99); PLATELET COUNT 310 K/UL (150-450); RED BLOOD COUNT 3.01 M/UL (4.20-5.40); WHITE BLOOD COUNT 9.6 K/UL (4.8-10.8)
[2018-03-06 20:54] LABS: ALANINE AMINOTRANSFERASE 40 U/L (12-78); ALBUMIN/GLOBULIN RATIO 1.1 (1.0-2.7); ALKALINE PHOSPHATASE 132 U/L (46-116); ASPARTATE AMINO TRANSFERASE 178 U/L (15-37); BILIRUBIN,TOTAL 2.8 MG/DL (0.2-1.0)
[2018-03-06 20:59] LABS: BILIRUBIN,DIRECT 1.1 MG/DL (0.0-0.3)
[2018-03-06 21:00] VITALS: BP 116/76
[2018-03-06] MEDS ORDERED: Potassium Chloride 10 MEQ in NS 110 ML IVPB SCH (21:30)
[2018-03-06 22:00] VITALS: BP 153/87
[2018-03-06 23:00] VITALS: BP 166/93
[2018-03-06] MEDS ORDERED: Milk of Magnesia 30ml Ud ORAL PRN (23:30)
[2018-03-06] MEDS: Heparin 5000 units/ml inj SUBQ SCH (23:30)
[2018-03-06] MEDS: Docusate 100mg cap ORAL SCH (23:30)
[2018-03-06] MEDS ORDERED: chlordiazePOXIDE 25mg Cap ORAL PRN (23:45)
[2018-03-07] VITALS (8 sets, daily range): BP systolic 109–125; BP diastolic 66–81
[2018-03-07] MEDS: D5NS w/KCl 40mEq 1000ml 1,000 ML IV SCH ×2 (02:52→09:59)
[2018-03-07] MEDS: Heparin 5000 units/ml inj SUBQ SCH ×3 (06:00→21:39)
[2018-03-07] MEDS: Docusate 100mg cap ORAL SCH ×2 (08:30→21:04)
[2018-03-07] MEDS ORDERED: Thiamine 100mg tab ORAL ONE (09:00)
[2018-03-07 11:56] LABS: HEMATOCRIT 26.6 % (37.0-47.0); HEMOGLOBIN 9.4 G/DL (12.0-16.0); MEAN CORPUSCULAR VOLUME 112 FL (80-99); PLATELET COUNT 233 K/UL (150-450); RED BLOOD COUNT 2.37 M/UL (4.20-5.40); RED CELL DISTRIBUTION WIDTH 10.9 % (11.6-14.8); WHITE BLOOD COUNT 5.5 K/UL (4.8-10.8)
[2018-03-07 12:13] LABS: PHOSPHORUS 1.6 MG/DL (2.5-4.9)
[2018-03-07 12:19] LABS: ALANINE AMINOTRANSFERASE 29 U/L (12-78); ALBUMIN 3.6 G/DL (3.4-5.0); ALBUMIN/GLOBULIN RATIO 1.1 (1.0-2.7); ALKALINE PHOSPHATASE 95 U/L (46-116); ANION GAP 12 mmol/L (5-15); ASPARTATE AMINO TRANSFERASE 123 U/L (15-37); BILIRUBIN,TOTAL 2.5 MG/DL (0.2-1.0); BLOOD UREA NITROGEN 8 mg/dL (7-18); CALCIUM 9.3 MG/DL (8.5-10.1); CARBON DIOXIDE 24 MMOL/L (21-32); CHLORIDE 100 MMOL/L (98-107); CREATININE 0.7 MG/DL (0.55-1.30); POTASSIUM 3.6 MMOL/L (3.5-5.1); SODIUM 136 MMOL/L (136-145)
[2018-03-07 12:24] LABS: BILIRUBIN,DIRECT 1.1 MG/DL (0.0-0.3)
--- NOTE | 2018-03-07 14:46 | General Progress Note ---
Assessment/Plan Assessment/Plan GI Consult - Dictated Thank you Magali Gardner MD Subjective Allergies: Coded Allergies: No Known Allergies (Unverified , 02/15/15) Objective Last 24 Hour Vital Signs Date Time Temp Pulse Resp B/P (MAP) Pulse Ox O2 Delivery O2 Flow Rate FiO2 03/07/18 08:00 94 03/07/18 08:00 98.8 88 18 119/75 94 98.8 03/07/18 04:00 91 03/07/18 04:00 97.3 95 20 109/71 97 97.3 03/07/18 02:20 97.3 87 125/81 Room Air 97.3 03/07/18 01:35 98.0 84 15 114/67 97 Room Air 98.0 03/07/18 01:00 98.0 84 15 114/67 97 Room Air 98.0 03/07/18 00:00 98.2 82 14 119/66 98 Room Air 98.2 03/06/18 23:00 98.1 86 16 166/93 97 Room Air 98.1 03/06/18 22:00 98.0 105 17 153/87 97 Room Air 98.0 03/06/18 21:00 98.0 96 18 116/76 97 Room Air 98.0 03/06/18 20:00 98.2 87 16 163/89 96 Room Air 98.2 03/06/18 19:36 98.3 117 16 93/69 95 98.2 Intake and Output 03/06/18 03/07/18 19:00 07:00 Intake Total 2115 ml Balance 2115 ml IV Total 2115 ml # Voids 4 # Bowel Movements 1 Laboratory Tests 03/06/18 20:10: White Blood Count 9.6, Red Blood Count 3.01L, Hemoglobin 11.9L, Hematocrit 34.2L , Mean Corpuscular Volume 114H, Mean Corpuscular Hemoglobin 39.5H, Mean Corpuscular Hemoglobin Concent 34.8, Red Cell Distribution Width 11.0L, Platelet Count 310, Mean Platelet Volume 5.5L, Neutrophils (%) (Auto) , Lymphocytes (%) (Auto) , Monocytes (%) (Auto) , Eosinophils (%) (Auto) , Basophils (%) (Auto) , Differential Total Cells Counted 100, Neutrophils % ( Manual) 83H, Lymphocytes % (Manual) 7L, Monocytes % (Manual) 5, Eosinophils % ( Manual) 0, Basophils % (Manual) 0, Band Neutrophils 5, Platelet Estimate Adequate, Platelet Morphology Normal, Hypochromasia 1+, Anisocytosis 1+, Macrocytosis 2+, Sodium Level 131L, Potassium Level 3.1L, Chloride Level 85L, Carbon Dioxide Level 16L, Anion Gap 30H, Blood Urea Nitrogen 13, Creatinine 0.8 , Estimat Glomerular Filtration Rate > 60, Glucose Level 133H, Calcium Level 9.8 , Total Bilirubin 2.8H, Direct Bilirubin 1.1H, Aspartate Amino Transf (AST/SGOT ) 178H, Alanine Aminotransferase (ALT/SGPT) 40, Alkaline Phosphatase 132H, Total Protein 9.5H, Albumin 5.0, Globulin 4.5, Albumin/Globulin Ratio 1.1, Lipase 251 /03/20 11:35: White Blood Count 5.5, Red Blood Count 2.37L, Hemoglobin 9.4L, Hematocrit 26.6L , Mean Corpuscular Volume 112H, Mean Corpuscular Hemoglobin 39.5H, Mean Corpuscular Hemoglobin Concent 35.2, Red Cell Distribution Width 10.9L, Platelet Count 233, Mean Platelet Volume 4.9L, Neutrophils (%) (Auto) , Lymphocytes (%) (Auto) , Monocytes (%) (Auto) , Eosinophils (%) (Auto) , Basophils (%) (Auto) , Differential Total Cells Counted 100, Neutrophils % ( Manual) 75, Lymphocytes % (Manual) 17L, Monocytes % (Manual) 6, Eosinophils % ( Manual) 2, Basophils % (Manual) 0, Band Neutrophils 0, Platelet Estimate Adequate, Platelet Morphology Normal, Hypochromasia 1+, Macrocytosis 1+, Sodium Level 136, Potassium Level 3.6, Chloride Level 100, Carbon Dioxide Level 24, Anion Gap 12, Blood Urea Nitrogen 8, Creatinine 0.7, Estimat Glomerular Filtration Rate > 60, Glucose Level 173H, Calcium Level 9.3, Total Bilirubin 2.5H, Direct Bilirubin 1.1H, Aspartate Amino Transf (AST/SGOT) 123H, Alanine Aminotransferase (ALT/SGPT) 29, Alkaline Phosphatase 95, Total Protein 6.8, Albumin 3.6, Globulin 3.2, Albumin/Globulin Ratio 1.1, Phosphorus Level 1.6L, Magnesium Level 1.6L Height (Feet): 4 Height (Inches): 9.00 Weight (Pounds): 85 BAKARI GARDNER March 07, 2018 14:46
--- NOTE | 2018-03-07 17:00 | History and Physical Report ---
DATE OF ADMISSION: 03/05/2018 REASON FOR ADMISSION: 1. Alcohol dependency. 2. Nausea and vomiting. HISTORY OF PRESENT ILLNESS: The patient is a 52-year-old female, well known to [facility] with repeated visits for alcohol dependency. It seems that the patient presented early this morning with the daughter due to the fact that the patient had been drinking and started having nausea and vomiting. The patient feels very weak tired and fatigued. She is somnolent, but arousable. Denies any neck pain. Difficult to communicate with. No overt distress or shortness of breath. PAST MEDICAL HISTORY: 1. Alcohol dependency. 2. Hypertension. 3. Hyperlipidemia. 4. Gastroesophageal reflux disease. PAST SURGICAL HISTORY: Noncontributory. ALLERGIES: No known drug allergies. FAMILY HISTORY: Positive for hypertension. REVIEW OF SYSTEMS: NEUROLOGIC: The patient denies headache or change in vision. CARDIOVASCULAR: No current chest pain or palpitations. PULMONARY: No difficulty breathing or productive cough. GASTROINTESTINAL/GENITOURINARY: No changes in urinary or bowel habits. Was having nausea and vomiting. No diarrhea. ENDOCRINOLOGY: No night sweats, fevers, or chills. MUSCULOSKELETAL: The patient is feeling weak, tired, and fatigued. PHYSICAL EXAM: VITAL SIGNS: Blood pressure 109/71, respiratory rate 20, temperature 97.3, pulse 95, and oxygen saturation 97% on room air. GENERAL: The patient is somnolent, but arousable, awake, not otherwise in any distress. HEENT: Extraocular muscles intact. No lymphadenopathy noted. CARDIOVASCULAR: S1 and S2. No rubs or gallops. PULMONARY: Clear to auscultation bilaterally. No rales, rhonchi, or wheezes. ABDOMINAL: Nondistended and nontender. Fair bowel sounds. EXTREMITIES: No edema. Fair pedal pulses. LABORATORY DATA: Labs dated 03/07/2018 are pending. Laboratories dated 03/06/2018, sodium 131, potassium 3.1, chloride 85, bicarb 16, calcium 9.8, albumin of 5.0, hemoglobin 11.9, white cell count 9.6, and platelet count 310,000. ASSESSMENT AND PLAN: 1. Alcohol dependency, current in nature. At this time, the patient will be placed on thiamine and folate with Librium as needed and watch for alcohol withdrawal. Encourage p.o. intake. Gastroenterology evaluation for nausea and vomiting. 2. Electrolyte disturbances. The a.m. laboratories are pending. We will replace potassium, magnesium, and phosphorus as needed. 3. Hypertension. Blood pressure currently stable and on the lower side. Holding antihypertensive medications until the patient is more stable. 4. Nausea and vomiting, most likely secondary to alcohol dependency. We will consult Gastroenterology for further evaluation and management. Chapo Marie MD DR: JAZ JOB#: [id number] CC:
[2018-03-07] MEDS: D5NS 1,000 ML IV SCH (17:14)
[2018-03-07] MEDS ORDERED: Potassium Phosphate 20 MM in NS 275 ML IV SCH (17:30)
[2018-03-07] MEDS: Atorvastatin 20mg tab ORAL SCH (21:04)
--- NOTE | 2018-03-07 21:15 | Consultation ---
DATE OF CONSULTATION: 03/07/2018 GASTROENTEROLOGY CONSULTATION CONSULTING PHYSICIAN: Camron Gardner M.D. CHIEF COMPLAINT: I was asked to see this patient by Dr. Robbie Espinoza for evaluation of alcoholic hepatitis. HISTORY OF PRESENT ILLNESS: The patient is a 52-year-old woman who was brought in alcoholic state. She has had complaints of some nausea and vomiting and has had several falls. During my interview, the patient was minimally verbal, although she nodded her head multiple times during her interview in agreement. She denies any symptoms at this time, although she is not very informative. PAST MEDICAL HISTORY: Otherwise unavailable. MEDICATIONS: See chart list for details. FAMILY HISTORY: Unobtainable. SOCIAL HISTORY: The patient reportedly has a significant alcohol consumption history, but at this time no further information is available. REVIEW OF SYSTEMS: Otherwise negative. PHYSICAL EXAMINATION: GENERAL: The patient is a well-developed and well-nourished woman, seen in her room. She is awake and interactive, but not very informative. She keeps her eyes closed throughout the interview and just nods yes to most questions. HEENT: Normocephalic and atraumatic. Oropharynx could not be evaluated. NECK: Supple. CHEST: Clear to auscultation. CARDIOVASCULAR: Revealed regular rate. ABDOMEN: Soft. Good bowel sounds. EXTREMITIES: Revealed no edema. NEUROLOGIC: Notable for responsiveness, but apparent non-cooperative state, perhaps some degree of altered mental status. LABORATORY DATA: Noted. ASSESSMENT: This patient comes in with a given history of significant alcohol consumption and some falls. The patient should be seen by Neurology team and will undergo a neurologic evaluation including a CT scan of the head if not already done. From a GI standpoint, the patient does appear to have some mild degree of alcoholic hepatitis with expectant ratios of transaminases and some mild elevation in bilirubin. The discriminant function equation shows the patient therefore does not need prednisone. Her liver tests are already improving and should continue to improve off of alcohol. Should watch for signs of alcohol withdrawal syndrome. Multivitamins, thiamine, and folate should be given in addition to IV fluids containing potassium and magnesium. Alcohol cessation should be encouraged. RECOMMENDATIONS: Per above discussion and per orders written in the chart. Thank you for asking me to participate in the care of this patient. Camron Gardner M.D. DR: Charissa JOB#: [id number] CC:
[2018-03-08] VITALS: BP 122/74
[2018-03-08 04:00] VITALS: BP 122/85
[2018-03-08] MEDS: Heparin 5000 units/ml inj SUBQ SCH ×3 (05:36→21:34)
[2018-03-08] MEDS: D5NS 1,000 ML IV SCH (06:11)
[2018-03-08 08:00] VITALS: BP 113/78
[2018-03-08] MEDS: Docusate 100mg cap ORAL SCH ×2 (08:09→21:33)
[2018-03-08] MEDS: Thiamine 100mg tab ORAL SCH (08:10)
[2018-03-08 08:34] LABS: HEMATOCRIT 25.9 % (37.0-47.0); HEMOGLOBIN 9.3 G/DL (12.0-16.0); MEAN CORPUSCULAR VOLUME 114 FL (80-99); PLATELET COUNT 221 K/UL (150-450); RED BLOOD COUNT 2.28 M/UL (4.20-5.40); RED CELL DISTRIBUTION WIDTH 10.9 % (11.6-14.8); WHITE BLOOD COUNT 3.8 K/UL (4.8-10.8)
--- NOTE | 2018-03-08 09:01 | Nephrology Progress Note ---
Assessment/Plan Assessment/Plan 1. Alcohol Dependancy - Thiamine and folate - PT eval - replace electrolytes as needed. DC IVF's and patient tolerating po 2. Anemia- Hgb 11.3-9.3 - appreciate GI evaluation and recc's pending - Will DC patient once cleared by GI 3. E- AbN, am labs pending 4. DVT prophylaxsis with heparin sub q Subjective Date patient seen: March 08, 2018 Time patient seen: 08:58 Constitutional: Reports: weakness Allergies: Coded Allergies: No Known Allergies (Unverified , 02/15/15) All Systems: reviewed and negative except above Subjective Patient feels better. Appetite improved Objective Last 24 Hour Vital Signs Date Time Temp Pulse Resp B/P (MAP) Pulse Ox O2 Delivery O2 Flow Rate FiO2 03/08/18 04:00 98.2 82 20 122/85 95 Room Air 98.2 03/08/18 04:00 72 03/08/18 00:00 81 03/08/18 00:00 98.4 78 20 122/74 97 Room Air 98.4 03/07/18 20:00 98.4 85 20 124/80 97 Room Air 98.4 03/07/18 20:00 79 03/07/18 16:00 82 03/07/18 16:00 97.5 83 18 115/75 96 Room Air 97.5 03/07/18 12:00 82 03/07/18 12:00 97.7 83 18 123/75 98 Room Air 97.7 Intake and Output 03/07/18 03/08/18 19:00 07:00 Intake Total 480 ml 899 ml Balance 480 ml 899 ml Intake Oral 480 ml IV Total 899 ml # Voids 2 5 Laboratory Tests 03/07/18 11:35: White Blood Count 5.5, Red Blood Count 2.37L, Hemoglobin 9.4L, Hematocrit 26.6L , Mean Corpuscular Volume 112H, Mean Corpuscular Hemoglobin 39.5H, Mean Corpuscular Hemoglobin Concent 35.2, Red Cell Distribution Width 10.9L, Platelet Count 233, Mean Platelet Volume 4.9L, Neutrophils (%) (Auto) , Lymphocytes (%) (Auto) , Monocytes (%) (Auto) , Eosinophils (%) (Auto) , Basophils (%) (Auto) , Differential Total Cells Counted 100, Neutrophils % ( Manual) 75, Lymphocytes % (Manual) 17L, Monocytes % (Manual) 6, Eosinophils % ( Manual) 2, Basophils % (Manual) 0, Band Neutrophils 0, Platelet Estimate Adequate, Platelet Morphology Normal, Hypochromasia 1+, Macrocytosis 1+, Sodium Level 136, Potassium Level 3.6, Chloride Level 100, Carbon Dioxide Level 24, Anion Gap 12, Blood Urea Nitrogen 8, Creatinine 0.7, Estimat Glomerular Filtration Rate > 60, Glucose Level 173H, Calcium Level 9.3, Phosphorus Level 1.6L, Magnesium Level 1.6L, Total Bilirubin 2.5H, Direct Bilirubin 1.1H, Aspartate Amino Transf (AST/SGOT) 123H, Alanine Aminotransferase (ALT/SGPT) 29, Alkaline Phosphatase 95, Total Protein 6.8, Albumin 3.6, Globulin 3.2, Albumin/ Globulin Ratio 1.1 03/08/18 07:55: White Blood Count 3.8L, Red Blood Count 2.28L, Hemoglobin 9.3L, Hematocrit 25.9L , Mean Corpuscular Volume 114H, Mean Corpuscular Hemoglobin 40.8H, Mean Corpuscular Hemoglobin Concent 35.9, Red Cell Distribution Width 10.9L, Platelet Count 221, Mean Platelet Volume 5.6L, Neutrophils (%) (Auto) , Lymphocytes (%) (Auto) , Monocytes (%) (Auto) , Eosinophils (%) (Auto) , Basophils (%) (Auto) , Neutrophils % (Manual) [Pending], Lymphocytes % (Manual) [Pending], Platelet Estimate [Pending], Platelet Morphology [Pending], Sodium Level [Pending], Potassium Level [Pending], Chloride Level [Pending], Carbon Dioxide Level [Pending], Blood Urea Nitrogen [Pending], Creatinine [Pending], Estimat Glomerular Filtration Rate [Pending], Glucose Level [Pending], Calcium Level [Pending], Phosphorus Level [Pending], Magnesium Level [Pending], Total Bilirubin [Pending], Aspartate Amino Transf (AST/SGOT) [Pending], Alanine Aminotransferase (ALT/SGPT) [Pending], Alkaline Phosphatase [Pending], Total Protein [Pending], Albumin [Pending], Globulin [Pending] Height (Feet): 4 Height (Inches): 9.00 Weight (Pounds): 85 General Appearance: WD/WN, no apparent distress EENT: PERRL/EOMI, normal ENT inspection Neck: non-tender, normal alignment Cardiovascular: normal peripheral pulses, normal rate Respiratory/Chest: chest wall non-tender, lungs clear, normal breath sounds Abdomen: normal bowel sounds, non tender, soft Edema: no edema noted Arm (L), no edema noted Arm (R), no edema noted Leg (L), no edema noted Leg (R), no edema noted Pedal (L), no edema noted Pedal (R), no edema noted Generalized Chapo Marie M.D. March 08, 2018 09:01
[2018-03-08 09:05] LABS: ALANINE AMINOTRANSFERASE 26 U/L (12-78); ALBUMIN 3.2 G/DL (3.4-5.0); ALBUMIN/GLOBULIN RATIO 1.1 (1.0-2.7); ALKALINE PHOSPHATASE 89 U/L (46-116); ANION GAP 10 mmol/L (5-15); ASPARTATE AMINO TRANSFERASE 99 U/L (15-37); BILIRUBIN,TOTAL 1.5 MG/DL (0.2-1.0); BLOOD UREA NITROGEN 3 mg/dL (7-18); CALCIUM 8.9 MG/DL (8.5-10.1); CARBON DIOXIDE 26 MMOL/L (21-32); CHLORIDE 103 MMOL/L (98-107); CREATININE 0.6 MG/DL (0.55-1.30); PHOSPHORUS 1.1 MG/DL (2.5-4.9); POTASSIUM 3.1 MMOL/L (3.5-5.1); SODIUM 138 MMOL/L (136-145)
[2018-03-08 09:16] LABS: BILIRUBIN,DIRECT 0.6 MG/DL (0.0-0.3)
[2018-03-08] MEDS ORDERED: D5NS 1000ml IV ONE (10:28)
[2018-03-08] MEDS ORDERED: Tubing IV Secondary IV ONE ×2 (10:28→16:08)
[2018-03-08] MEDS ORDERED: NS 500ML ONE (10:28)
[2018-03-08] MEDS ORDERED: Potassium Phosphate 30 MM in NS 275 ML IV ONE (10:30)
--- NOTE | 2018-03-08 11:49 | Cardiology Report ---
APPROVED REPORT EKG Measurement Heart [id number] Normal sinus rhythm Possible Inferior infarct, age undetermined T wave abnormality, consider anterior ischemia Abnormal ECG
[2018-03-08 12:00] VITALS: BP 121/80
--- NOTE | 2018-03-08 12:16 | General Progress Note ---
Assessment/Plan Assessment/Plan Assessment - EtOH abuse - EtOH hepatitis - Anemia Recommendations - Advance diet - Follow labs - Check abd u/s - outpatient EGD/Colon Subjective Allergies: Coded Allergies: No Known Allergies (Unverified , 02/15/15) Subjective feels OK more awake tolerating liquids d/w RN Objective Last 24 Hour Vital Signs Date Time Temp Pulse Resp B/P (MAP) Pulse Ox O2 Delivery O2 Flow Rate FiO2 03/08/18 08:00 77 03/08/18 08:00 98.2 86 18 113/78 97 Room Air 98.2 03/08/18 04:00 98.2 82 20 122/85 95 Room Air 98.2 03/08/18 04:00 72 03/08/18 00:00 81 03/08/18 00:00 98.4 78 20 122/74 97 Room Air 98.4 03/07/18 20:00 98.4 85 20 124/80 97 Room Air 98.4 03/07/18 20:00 79 03/07/18 16:00 82 03/07/18 16:00 97.5 83 18 115/75 96 Room Air 97.5 Intake and Output 03/07/18 03/08/18 19:00 07:00 Intake Total 480 ml 899 ml Balance 480 ml 899 ml Intake Oral 480 ml IV Total 899 ml # Voids 2 5 Laboratory Tests 03/08/18 07:55: White Blood Count 3.8L, Red Blood Count 2.28L, Hemoglobin 9.3L, Hematocrit 25.9L , Mean Corpuscular Volume 114H, Mean Corpuscular Hemoglobin 40.8H, Mean Corpuscular Hemoglobin Concent 35.9, Red Cell Distribution Width 10.9L, Platelet Count 221, Mean Platelet Volume 5.6L, Neutrophils (%) (Auto) , Lymphocytes (%) (Auto) , Monocytes (%) (Auto) , Eosinophils (%) (Auto) , Basophils (%) (Auto) , Differential Total Cells Counted 100, Neutrophils % ( Manual) 60, Lymphocytes % (Manual) 36, Monocytes % (Manual) 2, Eosinophils % ( Manual) 2, Basophils % (Manual) 0, Band Neutrophils 0, Platelet Estimate Adequate, Platelet Morphology Normal, Macrocytosis 1+, Sodium Level 138, Potassium Level 3.1L, Chloride Level 103, Carbon Dioxide Level 26, Anion Gap 10 , Blood Urea Nitrogen 3L, Creatinine 0.6, Estimat Glomerular Filtration Rate > 60, Glucose Level 175H, Calcium Level 8.9, Phosphorus Level 1.1L, Magnesium Level 1.5L, Total Bilirubin 1.5H, Direct Bilirubin 0.6H, Aspartate Amino Transf (AST/SGOT) 99H, Alanine Aminotransferase (ALT/SGPT) 26, Alkaline Phosphatase 89 , Total Protein 6.2L, Albumin 3.2L, Globulin 3.0, Albumin/Globulin Ratio 1.1 Height (Feet): 4 Height (Inches): 9.00 Weight (Pounds): 85 BAKARI AKBAR March 08, 2018 12:16
[2018-03-08 16:00] VITALS: BP 117/77
[2018-03-08 20:00] VITALS: BP 114/71
[2018-03-08] MEDS: Atorvastatin 20mg tab ORAL SCH (21:34)
[2018-03-09] VITALS: BP 105/68
[2018-03-09 04:00] VITALS: BP 103/67
[2018-03-09] MEDS: Heparin 5000 units/ml inj SUBQ SCH ×2 (05:55→14:00)
[2018-03-09 08:00] VITALS: BP 118/73
[2018-03-09] MEDS: Thiamine 100mg tab ORAL SCH (08:28)
[2018-03-09] MEDS: Docusate 100mg cap ORAL SCH (08:28)
--- NOTE | 2018-03-09 09:22 | Nephrology Progress Note ---
Assessment/Plan Assessment/Plan 1. Alcohol Dependancy - Thiamine and folate - DC today post Abd US - replace electrolytes as needed. AM labs pending 2. Alcoholic Hepatitis/Anemia- - appreciate GI evaluation - Abd US then DC patient home. She declined HH - Out patient EGD and colonoscopy 3. E- AbN, am labs pending 4. DVT prophylaxsis with heparin sub q Subjective Date patient seen: March 09, 2018 Time patient seen: 09:19 ROS Limited/Unobtainable: No Allergies: Coded Allergies: No Known Allergies (Unverified , 02/15/15) All Systems: reviewed and negative except above Subjective Patient feels better. Appetite improved and possible DC today after Abd US Objective Last 24 Hour Vital Signs Date Time Temp Pulse Resp B/P (MAP) Pulse Ox O2 Delivery O2 Flow Rate FiO2 03/09/18 08:00 98.8 88 20 118/73 97 Room Air 98.8 03/09/18 08:00 85 03/09/18 04:12 72 03/09/18 04:00 97.9 79 20 103/67 99 Room Air 97.9 03/09/18 00:03 80 03/09/18 00:00 98.1 78 20 105/68 97 Room Air 98.1 03/08/18 21:07 83 03/08/18 20:00 98.4 81 20 114/71 96 Room Air 98.4 03/08/18 16:00 79 03/08/18 16:00 98.6 81 18 117/77 96 Room Air 98.6 03/08/18 12:00 98.2 83 18 121/80 98 Room Air 98.2 03/08/18 12:00 78 Intake and Output 03/08/18 03/09/18 19:00 07:00 Intake Total 600 ml Output Total 850 ml 500 ml Balance -250 ml -500 ml Intake Oral 600 ml Output Urine Total 850 ml 500 ml # Bowel Movements 2 Laboratory Tests 03/08/18 12:06: Stool Occult Blood Negative Height (Feet): 4 Height (Inches): 9.00 Weight (Pounds): 85 General Appearance: WD/WN, no apparent distress, alert EENT: PERRL/EOMI, normal ENT inspection Neck: non-tender, normal alignment Cardiovascular: normal peripheral pulses, normal rate Respiratory/Chest: chest wall non-tender, lungs clear Abdomen: normal bowel sounds, non tender Edema: no edema noted Arm (L), no edema noted Arm (R), no edema noted Leg (L), no edema noted Leg (R), no edema noted Pedal (L), no edema noted Pedal (R), no edema noted Generalized Chapo Marie M.D. March 09, 2018 09:22
[2018-03-09 09:54] LABS: HEMATOCRIT 26.8 % (37.0-47.0); HEMOGLOBIN 9.6 G/DL (12.0-16.0); MEAN CORPUSCULAR VOLUME 114 FL (80-99); PLATELET COUNT 248 K/UL (150-450); RED BLOOD COUNT 2.36 M/UL (4.20-5.40); RED CELL DISTRIBUTION WIDTH 10.9 % (11.6-14.8); WHITE BLOOD COUNT 4.2 K/UL (4.8-10.8)
--- NOTE | 2018-03-09 10:40 | GI Progress Note ---
Assessment/Plan Problems: (1) ETOH abuse ICD Codes: F10.10 - Alcohol abuse, uncomplicated SNOMED: 57478934 (2) Alcohol withdrawal ICD Codes: F10.239 - Alcohol dependence with withdrawal, unspecified SNOMED: 043057418 (3) Vomiting ICD Codes: R11.10 - Vomiting, unspecified SNOMED: 430581144 (4) Alcohol abuse ICD Codes: F10.10 - Alcohol abuse, uncomplicated SNOMED: 38201105 (5) Hepatitis, alcoholic, acute ICD Codes: K70.10 - Alcoholic hepatitis without ascites SNOMED: 3769713 Status: stable Status Narrative Discussed with Dr. Guerrero. Assessment/Plan Assessment - EtOH abuse - EtOH hepatitis - Anemia Recommendations >> - Stress test today, ok to advance diet after procedure - Advance diet - Follow labs - Check abd u/s - outpatient EGD/Colon okay for DC per GI standpoint Subjective Gastrointestinal/Abdominal: Reports: no symptoms Objective Last 24 Hour Vital Signs Date Time Temp Pulse Resp B/P (MAP) Pulse Ox O2 Delivery O2 Flow Rate FiO2 03/09/18 08:00 98.8 88 20 118/73 97 Room Air 98.8 03/09/18 08:00 85 03/09/18 04:12 72 03/09/18 04:00 97.9 79 20 103/67 99 Room Air 97.9 03/09/18 00:03 80 03/09/18 00:00 98.1 78 20 105/68 97 Room Air 98.1 03/08/18 21:07 83 03/08/18 20:00 98.4 81 20 114/71 96 Room Air 98.4 03/08/18 16:00 79 03/08/18 16:00 98.6 81 18 117/77 96 Room Air 98.6 03/08/18 12:00 98.2 83 18 121/80 98 Room Air 98.2 03/08/18 12:00 78 Intake and Output 03/08/18 03/09/18 19:00 07:00 Intake Total 600 ml Output Total 850 ml 500 ml Balance -250 ml -500 ml Intake Oral 600 ml Output Urine Total 850 ml 500 ml # Bowel Movements 2 Laboratory Tests Test 03/08/18 12:06 03/09/18 08:35 Stool Occult Blood Negative (NEGATIVE) White Blood Count 4.2 K/UL (4.8-10.8) L Red Blood Count 2.36 M/UL (4.20-5.40) L Hemoglobin 9.6 G/DL (12.0-16.0) L Hematocrit 26.8 % (37.0-47.0) L Mean Corpuscular Volume 114 FL (80-99) H Mean Corpuscular Hemoglobin 40.8 PG (27.0-31.0) H Mean Corpuscular Hemoglobin Concent 35.9 G/DL (32.0-36.0) Red Cell Distribution Width 10.9 % (11.6-14.8) L Platelet Count 248 K/UL (150-450) Mean Platelet Volume 5.8 FL (6.5-10.1) L Neutrophils (%) (Auto) % (45.0-75.0) Lymphocytes (%) (Auto) % (20.0-45.0) Monocytes (%) (Auto) % (1.0-10.0) Eosinophils (%) (Auto) % (0.0-3.0) Basophils (%) (Auto) % (0.0-2.0) Differential Total Cells Counted 100 Neutrophils % (Manual) 54 % (45-75) Lymphocytes % (Manual) 35 % (20-45) Monocytes % (Manual) 6 % (1-10) Eosinophils % (Manual) 4 % (0-3) H Basophils % (Manual) 1 % (0-2) Band Neutrophils 0 % (0-8) Platelet Estimate Adequate Platelet Morphology Normal Macrocytosis 1+ Sodium Level Pending Potassium Level Pending Chloride Level Pending Carbon Dioxide Level Pending Blood Urea Nitrogen Pending Creatinine Pending Estimat Glomerular Filtration Rate Pending Glucose Level Pending Calcium Level Pending Phosphorus Level Pending Magnesium Level Pending Total Bilirubin Pending Aspartate Amino Transf (AST/SGOT) Pending Alanine Aminotransferase (ALT/SGPT) Pending Alkaline Phosphatase Pending Total Protein Pending Albumin Pending Globulin Pending Height (Feet): 4 Height (Inches): 9.00 Weight (Pounds): 85 General Appearance: WD/WN, no apparent distress, alert Cardiovascular: normal rate Respiratory/Chest: normal breath sounds, no respiratory distress Abdominal Exam: normal bowel sounds, non tender, soft Extremities: normal range of motion, non-tender Xochitl Bartlett N.P. March 09, 2018 10:40
[2018-03-09 11:15] LABS: ALANINE AMINOTRANSFERASE 35 U/L (12-78); ALBUMIN 3.7 G/DL (3.4-5.0); ALBUMIN/GLOBULIN RATIO 1.1 (1.0-2.7); ALKALINE PHOSPHATASE 96 U/L (46-116); ANION GAP 9 mmol/L (5-15); ASPARTATE AMINO TRANSFERASE 118 U/L (15-37); BILIRUBIN,TOTAL 1.6 MG/DL (0.2-1.0); BLOOD UREA NITROGEN 2 mg/dL (7-18); CALCIUM 9.7 MG/DL (8.5-10.1); CARBON DIOXIDE 29 MMOL/L (21-32); CHLORIDE 98 MMOL/L (98-107); CREATININE 0.4 MG/DL (0.55-1.30); PHOSPHORUS 2.9 MG/DL (2.5-4.9); POTASSIUM 3.3 MMOL/L (3.5-5.1); SODIUM 136 MMOL/L (136-145)
[2018-03-09 11:27] LABS: BILIRUBIN,DIRECT 0.6 MG/DL (0.0-0.3)
[2018-03-09 12:00] VITALS: BP 120/71
[2018-03-09] MEDS ORDERED: D5NS 1,000 ML IV SCH (12:45)
--- NOTE | 2018-03-09 13:57 | Discharge Instructions ---
Discharge Instructions Discharge Instructions Follow up with: PCP 1 week Services at Discharge: home health services Resume Normal Activity?: Yes Pneumonia Vaccine: vaccine not indicated Influenza Vaccine (Aug to Jan): vaccine not indicated For Congestive Heart Failure Reminder Report to your physician any weight gain of 5 pounds or more in one week. Chapo Marie M.D. March 09, 2018 13:57
--- NOTE | 2018-03-09 15:00 | Diagnostic Imaging Report ---
Indication: Elevated lipase, nausea and vomiting, elevated liver function tests Technique: Grayscale and duplex Doppler imaging of the abdomen performed. Comparison: None Findings: Aorta is calcified. Liver echogenicity is slightly increased. Kidneys are unremarkable. There is no hydronephrosis. There is no ascites. Main portal vein is patent. Gallbladder is distended. No obvious gallstones. Main portal vein is patent. CBD is 8 mm. There is a 2 cm cyst in the left kidney. Spleen is normal in size with calcifications present. IMPRESSION: Mild fatty liver suspected. Mild prominence of the CBD. This may be normal. Correlate clinically and obtain further imaging if needed. Left renal cyst Calcified splenic granulomata
--- NOTE | 2018-03-09 22:45 | Discharge Summary ---
DATE OF ADMISSION: 03/06/2018 DATE OF DISCHARGE: 03/09/2018 REASON FOR ADMISSION: 1. Alcohol dependency. 2. Failure to thrive. 3. Weakness and fatigue. HOSPITAL COURSE: The patient is a pleasant 52-year-old female who was had multiple evaluations in the emergency room for alcohol intoxication. On this occasion, the patient was brought in by her daughter and concerned after the patient's increased alcohol intake. She was admitted for alcohol dependancy and failure to thrive . The patient did extremely well. Ultrasound of the abdomen found no acute findings any findings. GI evaluated the patient and will have a followup as an outpatient. The patient at the time of discharge was stable and doing well. HOME MEDICATIONS: The patient to continue home medications. DISPOSITION AT DISCHARGE: Stable. DISCHARGE DIAGNOSIS 1. Failure to thrive 2. Abdominal pain 3. Alcohol Dependancy FOLLOWUP POST HOSPITALIZATION: The patient to follow up with Gastroenterology in one to two days for EGD and colonoscopy. Chapo Marie MD DR: Florecita JOB#: [id number] CC: YANELY
--- NOTE | 2018-03-10 08:11 | Discharge Summary ---
Discharge Summary Discharge Summary Discharge Summary ADDENDUM DISCHARGE DIAGNOSIS ETOH abuse with dependency Alcoholic hepatitis Anemia Electrolyte abnormalities ( hypoK, hypo mg) Kwan (Bianca),Dipti MOSELEY March 10, 2018 08:11
== END 2018-03-09 15:25 | disposition home or self-care (01) | DRG 897 ==
LOC: EMR 19:52 → 2E 22:08 → EDBEDREQ 03-07 00:20 → 2E 03-07 01:29
DX: F10.229 Alcohol dependence with intoxication, unspecified (principal); R62.7 Adult failure to thrive; E78.5 Hyperlipidemia, unspecified; K21.9 Gastro-esophageal reflux disease without esophagitis; I10 Essential (primary) hypertension; K70.10 Alcoholic hepatitis without ascites; D64.9 Anemia, unspecified; F10.239 Alcohol dependence with withdrawal, unspecified; E87.6 Hypokalemia; E83.42 Hypomagnesemia
CPT/HCPCS: 36415; 76700; 80053; 82248; 82270; 83690; 83735; 84100; 85007; 85025; 93005; 99285; J2765

== ENCOUNTER 2019-11-21 15:06 | Emergency (ER) | payer OTHER ==
[~2019-11-21] VITALS: Ht 160 cm; Wt 59.0 kg
[2019-11-21] MEDS ORDERED: Omnipaque-300 100ml vial INJ PRN (15:30)
--- NOTE | 2019-11-21 15:43 | Emergency Room Report ---
History of Present Illness General Chief Complaint: Abdominal Pain Source: Medical Record Present Illness HPI 54-year-old female with serious history of alcohol abuse who drinks one half bottle of soda juice every day here complaining of 1 week of continuous nonbloody emesis and epigastric pain. Denies diarrhea and constipation. Reports that has not been able to eat any food however has been able to drink alcohol. Denies drug use however does admit to daily tobacco use. Denies any cardiac history and no other medical history. Patient does not appear to be compliant with doctor visits and yearly checkup. Denies chest pain, shortness of breath, headache and dizziness at this time. Reports that 2 days ago she had too much alcohol and had a syncope episode which might have hit her head however she does not recall. Denies urinary symptoms and other associated symptoms. Complains of minor palpitation today. Allergies: Coded Allergies: No Known Allergies (Unverified , 02/15/15) Patient History Past Medical History: see triage record Past Surgical History: unable to obtain Pertinent Family History: unable to obtain Social History: Reports: smoking, alcohol use Now: No Immunizations: UTD Reviewed Nursing Documentation: PMH: Agreed; PSxH: Agreed Nursing Documentation-PMH Past Medical History: No History, Except For Hx Cardiac Problems: Yes Hx Hypertension: Yes Hx Pacemaker: No Hx Asthma: No Hx COPD: No Hx Diabetes: No Hx Cancer: No Hx Gastrointestinal Problems: Yes Hx Dialysis: No History Of Psychiatric Problem: No Hx Neurological Problems: Yes - ETOH-DEPENDENCE Hx Cerebrovascular Accident: No Hx Seizures: Yes - Unverified, not on any seizure meds Review of Systems All Other Systems: negative except mentioned in HPI Physical Exam Vital Signs Date Time Temp Pulse Resp B/P (MAP) Pulse Ox O2 Delivery O2 Flow Rate FiO2 11/21/19 15:15 98.4 104 16 113/70 (84) 94 Room Air Sp02 EP Interpretation: reviewed, normal General Appearance: alert, GCS 15, non-toxic, mild distress Head: normocephalic, atraumatic Eyes: bilateral eye normal inspection, bilateral eye PERRL ENT: hearing grossly normal, normal pharynx, no angioedema, normal voice Neck: full range of motion, supple, thyroid normal, no meningismus, no bony tend, no carotid bruits, supple/symm/no masses Respiratory: chest non-tender, lungs clear, normal breath sounds, no rhonchi, no retraction, no wheezing, speaking full sentences Cardiovascular #1: regular rate, rhythm, no edema, no gallop, no JVD, no murmur , normal capillary refill Cardiovascular #2: 2+ carotid (R), 2+ carotid (L), 2+ radial (R), 2+ radial (L) Gastrointestinal: normal bowel sounds, non tender, soft, no mass, no organomegaly, no peritonitis, no bruit, non-distended, no guarding, no hernia, no pulsatile mass, no rebound Rectal: deferred Genitourinary: normal inspection, no CVA tenderness Musculoskeletal: back normal, normal range of motion, digits/nails normal, no calf tenderness Neurologic: alert, motor strength/tone normal, oriented x3, sensory intact, responsive, speech normal Psychiatric: judgement/insight normal, memory normal, mood/affect normal, no suicidal/homicidal ideation Skin: no rash Lymphatic: no adenopathy Medical Decision Making PA Attestation All diagnoses and treatment plans were reviewed and discussed with my supervising physician Dr. Johnston Diagnostic Impression: Primary Impression: Alcohol abuse Additional Impression: Pulmonary nodule ER Course 54-year-old female with serious history of alcohol abuse who drinks one half bottle of soda juice every day here complaining of 1 week of continuous nonbloody emesis and epigastric pain. Denies diarrhea and constipation. Reports that has not been able to eat any food however has been able to drink alcohol. Denies drug use however does admit to daily tobacco use. Denies any cardiac history and no other medical history. Patient does not appear to be compliant with doctor visits and yearly checkup. Denies chest pain, shortness of breath, headache and dizziness at this time. Reports that 2 days ago she had too much alcohol and had a syncope episode which might have hit her head however she does not recall. Denies urinary symptoms and other associated symptoms. Complains of minor palpitation today. Ddx considered but are not limited to: appendicitis, cholecystis, gastritis, gastroenteritis, UTI, pyelonephritis, SBO, diverticulitis, influenza with GI manifestation, [place], complication with Vital signs: are WNL, pt. is afebrile H&PE are most consistent with: alcohol intoxication, pulmonary nodule ORDERS: abdominal CT, abdominal pain set, EKG,zofran, omeprazole ED INTERVENTIONS: NS bolus, Zofran, Toradol, Pepcid DISCHARGE: At this time pt. is stable for d/c to home. Will provide printed patient care instructions, and any necessary prescriptions. Care plan and follow up instructions have been discussed with the patient prior to discharge. Avoid drinking alcohol, follow-up with your primary care provider for referral to a corrective therapy aide teacher for biopsy of the pulmonary nodule. Increase oral hydration, take medication as directed, if worsening symptoms return to emergency room EKG Diagnostic Results Rate: normal Rhythm: NSR ST Segments: no acute changes Other Impression No acute ST changes Chest X-Ray Diagnostic Results Chest X-Ray Diagnostic Results : Chest X-Ray Ordered: Yes # of Views/Limited/Complete: 1 View Indication: Other EP Interpretation: Yes PA Xray: Interpretation reviewed, by supervising MD, and agrees with findings. Interpretation: no consolidation, no effusion, no pneumothorax, other - pulmonary nodule Impression: No acute disease Electronically Signed by: Gunner FABIAN Scribe Text Pulmonary nodule noted also same nodule the same size noted in 2018 chest x-ray CT/MRI/US Diagnostic Results CT/MRI/US Diagnostic Results #1: Imaging Test Ordered: CT abd pelvis w contrast Impression CT ABDOMEN & PELVIS With Contrast: EXAM: CT Abdomen and Pelvis With Intravenous Contrast CLINICAL HISTORY: ABD PAIN TECHNIQUE: Axial computed tomography images of the abdomen and pelvis with intravenous contrast. Coronal and sagittal reformatted images were created and reviewed. COMPARISON: 5 [id number] ultrasound abdomen FINDINGS: Lung bases: The lung bases are unremarkable. ABDOMEN: Liver: Normal Gallbladder and bile ducts: Normal Pancreas: Normal Spleen: Normal Adrenals: Normal . Kidneys and ureters: Normal Stomach and bowel: Normal Appendix: Normal PELVIS: Bladder: Normal Reproductive: Normal ABDOMEN and PELVIS: Intraperitoneal space: No free intraperitoneal fluid or free intraperitoneal gas. Bones/joints: Unremarkable. No acute fracture. No dislocation. Soft tissues: Normal Vasculature: Normal. Lymph nodes: Normal . IMPRESSION: No acute abdominal or pelvic pathology CT/MRI/US Diagnostic Results #2: Imaging Test Ordered: CT head no contrast Impression FINDINGS: No intracranial hemorrhage, abnormal intra- or extra-axial collections or parenchymal lesions are seen. There are involutional changes with prominence of the sulci, basal cisterns and ventricles. Scattered white matter hypoattenuations are present, likely from small vessel disease. The das- white differentiation is preserved. No evidence of mass effect, midline shift, or edema. The osseous structures are unremarkable. The visualized portions of the paranasal sinuses are clear. IMPRESSION: 1. No acute intracranial process. 2. Involutional changes with small vessel disease. Last Vital Signs Date Time Temp Pulse Resp B/P (MAP) Pulse Ox O2 Delivery O2 Flow Rate FiO2 11/21/19 15:15 98.4 104 16 113/70 (84) 94 Room Air Disposition: HOME, SELF-CARE Condition: Stable Patient Instructions: Alcohol Abuse and Nutrition, Pulmonary Nodule Additional Instructions: Avoid drinking alcohol, follow-up with your primary care provider for referral to a corrective therapy aide teacher for biopsy of the pulmonary nodule. Increase oral hydration , take medication as directed, if worsening symptoms return to emergency room. Avoid tobacco Gunner Gordon Nov 21, 2019 15:43
[2019-11-21] MEDS ORDERED: Ketorolac 30mg Inj IV ONE (15:45)
--- NOTE | 2019-11-21 16:23 | Diagnostic Imaging Report ---
Indication: Headache Technique: Contiguous 5 mm thick transaxial imaging of the head obtained in a Siemens Sensation [address] scanner. Soft tissue and bone windows generated. Automatic Exposure Control was utilized. Total Dose length Product (DLP): 1300.[address] Dose Index Volume (CTDIvol): 62.7 mGy Comparison: 02/20/2018 Findings: There is mild prominence of the ventricles, basal cisterns, and cerebral sulci consistent with atrophy. Mild, nonspecific, white matter hypoattenuation is noted throughout the brain consistent with chronic small vessel disease. There is no midline shift, edema, acute hemorrhage, mass effect, or abnormal extra-axial fluid collections. Bones are unremarkable. Impression: No acute intracranial bleed, mass effect or edema. Mild atrophy of the brain. Nonspecific white matter hypoattenuation probably due to chronic small vessel disease. The CT scanner at [facility] is accredited by the [employer] and the scans are performed using dose optimization techniques as appropriate to a performed exam including Automatic Exposure control.
--- NOTE | 2019-11-21 16:25 | NUR ---
ED Nurse Note:pt. came from home with c/o abdominal pain and nausea over 3 days, pt. is A/Ox4 ambulatory, VSS, blood and urine sent to labs, pt. had CT head done and drank oral contrast
[2019-11-21 16:40] LABS: APPEARANCE,URINE CLEAR; BILIRUBIN, URINE NEGATIVE (NEGATIVE); COLOR,URINE PALE YELLOW; GLUCOSE, URINE (UA) NEGATIVE (NEGATIVE); KETONES,URINE NEGATIVE (NEGATIVE); LEUKOCYTE ESTERASE ,URINE NEGATIVE (NEGATIVE); NITRITE,URINE NEGATIVE (NEGATIVE); PH,URINE 7 (4.5-8.0); PROTEIN,URINE NEGATIVE (NEGATIVE); UROBILINOGEN,URINE NORMAL MG/DL (0.0-1.0)
[2019-11-21 16:46] LABS: BASOPHILS % (AUTO) 1.5 % (0.0-2.0); EOSINOPHILS % (AUTO) 0.7 % (0.0-3.0); HEMATOCRIT 33.8 % (37.0-47.0); HEMOGLOBIN 12.1 G/DL (12.0-16.0); LYMPHOCYTES % (AUTO) 32.4 % (20.0-45.0); MEAN CORPUSCULAR VOLUME 110 FL (80-99); MONOCYTES % (AUTO) 7.4 % (1.0-10.0); NEUTROPHILS % (AUTO) 58.1 % (45.0-75.0); PLATELET COUNT 282 K/UL (150-450); RED BLOOD COUNT 3.09 M/UL (4.20-5.40); RED CELL DISTRIBUTION WIDTH 9.9 % (11.6-14.8); WHITE BLOOD COUNT 5.3 K/UL (4.8-10.8)
[2019-11-21 16:47] LABS: ANION GAP 16 mmol/L (5-15); BLOOD UREA NITROGEN 11 mg/dL (7-18); CARBON DIOXIDE 27 MMOL/L (21-32); CHLORIDE 102 MMOL/L (98-107); CREATININE 0.6 MG/DL (0.55-1.30); POTASSIUM 3.8 MMOL/L (3.5-5.1); SODIUM 145 MMOL/L (136-145)
[2019-11-21 16:50] VITALS: BP 113/70
--- NOTE | 2019-11-21 16:52 | NUR ---
ED Nurse Note:pt. was given IV fluids and pain nausea meds
[2019-11-21 16:53] LABS: INR 0.9 (0.9-1.1)
[2019-11-21 16:57] LABS: ALANINE AMINOTRANSFERASE 71 U/L (12-78); ALBUMIN 4.3 G/DL (3.4-5.0); ALBUMIN/GLOBULIN RATIO 1.3 (1.0-2.7); ALKALINE PHOSPHATASE 121 U/L (46-116); ASPARTATE AMINO TRANSFERASE 163 U/L (15-37)
--- NOTE | 2019-11-21 18:44 | NUR ---
ED Nurse Note:pt. went to CT abdominal
[2019-11-21 19:00] VITALS: BP 117/76
--- NOTE | 2019-11-21 19:08 | Diagnostic Imaging Report ---
INDICATION: Abdominal pain TECHNIQUE: Continuous helical transaxial imaging of the abdomen and pelvis was obtained from the lung bases to the pubic symphysis during intravenous contrast administration. Coronal 2-D reformats were also obtained. Study obtained in a Siemens sensation [address] Automatic Exposure Control was utilized. Total Dose length Product (DLP): 459.[address] Dose Index Volume (CTDIvol): 8.8 mGy COMPARISON: None FINDINGS: Lungs: The visualized lung bases are clear. Small hiatal hernia noted. Liver: Liver is diffusely hypodense consistent with fatty infiltration. Gallbladder/biliary system: No gallstones are identified. There is no evidence of intrahepatic or extrahepatic biliary ductal dilatation. Spleen: Unremarkable Pancreas: Unremarkable Kidneys: No hydronephrosis identified. Both kidneys enhance symmetrically.. Adrenal glands: Unremarkable Aorta/IVC: The aorta shows moderate mural calcification and is tortuous and slightly ectatic. There is no aneurysm. Bowel: There is no evidence of bowel obstruction. Bladder: Unremarkable Peritoneum: Atrophic uterus noted. There is no free fluid identified.. Bones: Generalized osteopenia noted. There is narrowing of intervertebral discs and accompanying endplate osteophyte formation. Hypertrophied facet joints also demonstrated. IMPRESSION: Fatty liver Degenerative changes of the spine. Atherosclerotic vascular disease The CT scanner at [facility] is accredited by the [employer] and the scans are performed using dose optimization techniques as appropriate to a performed exam including Automatic Exposure control.
[2019-11-21] MEDS ORDERED: OMEPRAZOLE20 M3 ORAL (19:58)
[2019-11-21] MEDS ORDERED: ZOFRAN4 M1 ORAL (19:58)
[2019-11-21 20:12] VITALS: BP 117/76
--- NOTE | 2019-11-21 20:18 | NUR ---
ER DISCHARGE NOTE: Patient is cleared to be discharged per ERMD, pt is aox4, on room air, with stable vital signs. pt was given dc and prescription instructions, pt was able to verbalize understanding, pt id band and iv site removed without complications. pt is able to ambulate with steady gait. pt took all belongings.
--- NOTE | 2019-11-22 13:07 | Diagnostic Imaging Report ---
Indication: Chest pain Comparison: 02/20/2018 A single view chest radiograph was obtained. Findings: No definite infiltrate or pulmonary vascular congestion identified. Calcified granulomata are again noted within the mediastinum and left upper lobe. The heart is enlarged. The aorta is mildly enlarged consistent with atherosclerotic vascular disease. The bones are osteopenic. Impression: No acute disease
== END 2019-11-21 20:12 | disposition home or self-care (01) ==
LOC: EMR 15:54
DX: F10.10 Alcohol abuse, uncomplicated (principal); R91.1 Solitary pulmonary nodule; I10 Essential (primary) hypertension; F17.200 Nicotine dependence, unspecified, uncomplicated; R55 Syncope and collapse
CPT/HCPCS: 36415; 70450; 71045; 74177; 80053; 80307; 81003; 81025; 83690; 84484; 85025; 85610; 85730; 86850; 86900; 86901; 93005; 96361; 96374; 96375; G0480; J1885; J2405; J7030; Q9967; S0028; Z7502; 99284

== ENCOUNTER 2019-12-14 18:51 | Emergency (ER) | payer OTHER ==
[~2019-12-14] VITALS: Ht 152.4 cm; Wt 54.4 kg
[~2019-12-14 18:51] MED LIST changes: +OMEPRAZOLE20 M3 ORAL; +ZOFRAN4 M1 ORAL
[2019-12-14 19:25] VITALS: BP 122/80
--- NOTE | 2019-12-14 19:25 | NUR ---
ED Nurse Note: Pt walked in to ED c/o fever, nausea, vomiting x 10 days. Pt has hx of ETOH abuse. Last alcohol intake was yesterday with unk amount. No episode of vomiting at this time. Temp at triage is 97.9. Mongolian speaking only.
--- NOTE | 2019-12-14 19:30 | NUR ---
ED Nurse Note: IV line establsihed. Blood and urine specimen collecetd and sent to lab.
[2019-12-14 19:58] LABS: HEMATOCRIT 38.2 % (37.0-47.0); HEMOGLOBIN 12.7 G/DL (12.0-16.0); MEAN CORPUSCULAR VOLUME 119 FL (80-99); PLATELET COUNT 339 K/UL (150-450); RED BLOOD COUNT 3.21 M/UL (4.20-5.40)
[2019-12-14 20:25] LABS: LYMPHOCYTES % (AUTO) 7.4 % (20.0-45.0); NEUTROPHILS % (AUTO) 81.3 % (45.0-75.0)
[2019-12-14 20:26] LABS: BASOPHILS % (AUTO) 0.3 % (0.0-2.0); EOSINOPHILS % (AUTO) 0.1 % (0.0-3.0); MONOCYTES % (AUTO) 8.6 % (1.0-10.0)
[2019-12-14 20:33] LABS: ALANINE AMINOTRANSFERASE 72 U/L (12-78); ALBUMIN/GLOBULIN RATIO 1.2 (1.0-2.7); ALKALINE PHOSPHATASE 129 U/L (46-116); ANION GAP 31 mmol/L (5-15); ASPARTATE AMINO TRANSFERASE 99 U/L (15-37); BILIRUBIN,TOTAL 3.6 MG/DL (0.2-1.0); BLOOD UREA NITROGEN 19 mg/dL (7-18); CALCIUM 9.6 MG/DL (8.5-10.1); CARBON DIOXIDE 10 MMOL/L (21-32); CHLORIDE 91 MMOL/L (98-107); POTASSIUM 3.8 MMOL/L (3.5-5.1); SODIUM 132 MMOL/L (136-145)
[2019-12-14 20:37] LABS: BILIRUBIN,DIRECT 1.5 MG/DL (0.0-0.3)
[2019-12-14 21:09] LABS: APPEARANCE,URINE SLIGHTLY CLOUDY; BILIRUBIN, URINE 1+ (NEGATIVE); GLUCOSE, URINE (UA) NEGATIVE (NEGATIVE); KETONES,URINE 4+ (NEGATIVE); LEUKOCYTE ESTERASE ,URINE 1+ (NEGATIVE); NITRITE,URINE NEGATIVE (NEGATIVE); PH,URINE 5 (4.5-8.0); PROTEIN,URINE 3+ (NEGATIVE); UROBILINOGEN,URINE 4 MG/DL (0.0-1.0)
[2019-12-14 21:10] LABS: COLOR,URINE AMBER
--- NOTE | 2019-12-14 21:27 | Emergency Room Report ---
History of Present Illness General Chief Complaint: Vomiting Source: Patient Present Illness HPI 54-year-old female presents ED for evaluation. Of vomiting for the last 10 days. Weakness. History of EtOH. Denies drug use. Denies chest pain or shortness of breath. Denies fevers or chills. No other aggravating relieving factors. Denies any other associated symptoms Allergies: Coded Allergies: No Known Allergies (Unverified , 02/15/15) Patient History Past Medical History: HTN, psych hx Past Surgical History: none Pertinent Family History: none Social History: Reports: alcohol use; Denies: smoking, drug use Now: No Immunizations: UTD Reviewed Nursing Documentation: PMH: Agreed; PSxH: Agreed Nursing Documentation-PMH Past Medical History: No History, Except For Hx Hypertension: Yes Hx Pacemaker: No Hx Asthma: No Hx COPD: No Hx Diabetes: No Hx Cancer: No Hx Gastrointestinal Problems: Yes Hx Dialysis: No Hx Neurological Problems: Yes - ETOH-DEPENDENCE Hx Cerebrovascular Accident: No Hx Seizures: Yes - Unverified, not on any seizure meds Review of Systems All Other Systems: negative except mentioned in HPI Physical Exam Vital Signs Date Time Temp Pulse Resp B/P (MAP) Pulse Ox O2 Delivery O2 Flow Rate FiO2 12/14/19 19:12 97.9 121 18 122/80 (94) 95 Room Air Sp02 EP Interpretation: reviewed, normal General Appearance: alert, GCS 15, non-toxic, thin Head: normocephalic, atraumatic Eyes: bilateral eye normal inspection, bilateral eye PERRL ENT: hearing grossly normal, normal pharynx, no angioedema, normal voice Neck: full range of motion, supple/symm/no masses Respiratory: chest non-tender, lungs clear, normal breath sounds, speaking full sentences Cardiovascular #1: regular rate, rhythm, no edema Cardiovascular #2: 2+ carotid (R), 2+ carotid (L), 2+ radial (R), 2+ radial (L) , 2+ dorsalis pedis (R), 2+ dorsalis pedis (L) Gastrointestinal: normal bowel sounds, non tender, soft, non-distended, no guarding, no rebound Rectal: deferred Genitourinary: normal inspection, no CVA tenderness Musculoskeletal: back normal, normal range of motion, gait/station normal, non- tender Neurologic: alert, motor strength/tone normal, oriented x3, sensory intact, responsive, speech normal Psychiatric: judgement/insight normal, memory normal, mood/affect normal, no suicidal/homicidal ideation Reflexes: 3+ bicep (R), 3+ bicep (L), 3+ tricep (R), 3+ tricep (L), 3+ knee (R) , 3+ knee (L) Skin: other - see nursing skin notes Lymphatic: no adenopathy Medical Decision Making Diagnostic Impression: Primary Impression: Pancreatitis Qualified Codes: K85.20 - Alcohol induced acute pancreatitis without necrosis or infection Additional Impression: Transaminitis ER Course Hospital Course 54-year-old female presents to ED with vomiting. h/o ETOH use Differential diagnoses include: gastritis, gastroenteritis, alcohol withdrawal Clinical course Patient placed on stretcher. pre parole counseling aide. After initial history and physical I ordered labs, IV fluids, zofran, pepcid Labs - no leukocytosis, Hb/Hct stable. LFTs elevated, lipase > 800 She continues to feel weak. Vomiting. Not tolerating p.o. intake. Not safe for discharge. Because of insurance patient will be transferred I feel this is a highly complex case requiring extensive working including EKG/ Rhythm strip, Xray/CT/US, Blood/urine lab work, repeat exams while in ED, and administration of strong opiates/narcotics for pain control, admission to hospital or close patient follow up. Diagnosis - pancreatitis Patient transferred in serious condition Labs Test 12/14/19 19:38 12/14/19 20:40 White Blood Count 9.0 K/UL (4.8-10.8) Red Blood Count 3.21 M/UL (4.20-5.40) Hemoglobin 12.7 G/DL (12.0-16.0) Hematocrit 38.2 % (37.0-47.0) Mean Corpuscular Volume 119 FL (80-99) Mean Corpuscular Hemoglobin 39.5 PG (27.0-31.0) Mean Corpuscular Hemoglobin Concent 33.3 G/DL (32.0-36.0) Red Cell Distribution Width 12.0 % (11.6-14.8) Platelet Count 339 K/UL (150-450) Mean Platelet Volume 6.0 FL (6.5-10.1) Neutrophils (%) (Auto) 81.3 % (45.0-75.0) Lymphocytes (%) (Auto) 7.4 % (20.0-45.0) Monocytes (%) (Auto) 8.6 % (1.0-10.0) Eosinophils (%) (Auto) 0.1 % (0.0-3.0) Basophils (%) (Auto) 0.3 % (0.0-2.0) Sodium Level 132 MMOL/L (136-145) Potassium Level 3.8 MMOL/L (3.5-5.1) Chloride Level 91 MMOL/L (98-107) Carbon Dioxide Level 10 MMOL/L (21-32) Anion Gap 31 mmol/L (5-15) Blood Urea Nitrogen 19 mg/dL (7-18) Creatinine 1.0 MG/DL (0.55-1.30) Estimat Glomerular Filtration Rate 57.4 mL/min (>60) Glucose Level 165 MG/DL (74-106) Calcium Level 9.6 MG/DL (8.5-10.1) Total Bilirubin 3.6 MG/DL (0.2-1.0) Direct Bilirubin 1.5 MG/DL (0.0-0.3) Aspartate Amino Transf (AST/SGOT) 99 U/L (15-37) Alanine Aminotransferase (ALT/SGPT) 72 U/L (12-78) Alkaline Phosphatase 129 U/L (46-116) Total Protein 9.1 G/DL (6.4-8.2) Albumin 5.0 G/DL (3.4-5.0) Globulin 4.1 g/dL Albumin/Globulin Ratio 1.2 (1.0-2.7) Lipase 893 U/L (73-393) Serum Alcohol < 3 mg/dL Urine Color [place] Urine Appearance Slightly cloudy Urine pH 5 (4.5-8.0) Urine Specific [place] 1.025 (1.005-1.035) Urine Protein 3+ (NEGATIVE) Urine Glucose (UA) Negative (NEGATIVE) Urine Ketones 4+ (NEGATIVE) Urine Blood 1+ (NEGATIVE) Urine Nitrite Negative (NEGATIVE) Urine Bilirubin 1+ (NEGATIVE) Urine Ictotest Positive (NEGATIVE) Urine Urobilinogen 4 MG/DL (0.0-1.0) Urine Leukocyte Esterase 1+ (NEGATIVE) Urine RBC 2-4 /HPF (0 - 2) Urine WBC 0-2 /HPF (0 - 2) Urine Squamous Epithelial Cells Moderate /LPF (NONE/OCC) Urine Bacteria Few /HPF (NONE) Urine Hyaline Casts 10-15 /LPF (NONE) Last Vital Signs Date Time Temp Pulse Resp B/P (MAP) Pulse Ox O2 Delivery O2 Flow Rate FiO2 12/14/19 19:25 97.9 121 18 122/80 95 Room Air Status: improved Disposition: XFER SHT-TRM HOSP Condition: Serious Giovanni Haskins MD Dec 14, 2019 21:27
[2019-12-14 21:47] VITALS: BP 149/78
--- NOTE | 2019-12-14 23:11 | NUR ---
ED Nurse Note: Report given to Ebony JESSICA from [facility].
[2019-12-14 23:17] VITALS: BP 145/80
--- NOTE | 2019-12-14 23:17 | NUR ---
ED Nurse Note: Pt was cleared by ERMShayy to be transferred to [facility]. Report given Ebony JESSICA. Pt was picked up by 2 EMT via areli. Pt alert and oriented, verbally responsive. Not in any distress. No SOB. Sinus rhythm. Afebrile. IV line on left hand 22g patent and intact. No skin issues. No isolation. All belongings sent with the patient. Family member aware of the transfer.
== END 2019-12-14 23:17 | disposition short-term general hospital (02) ==
LOC: EMR 21:00
DX: K85.20 Alcohol induced acute pancreatitis without necrosis or infection (principal); R74.0 Nonspecific elevation of levels of transaminase and lactic acid dehydrogenase [LDH]; I10 Essential (primary) hypertension
CPT/HCPCS: 36415; 80053; 81003; 82248; 83690; 85025; 96361; 96374; 96375; G0480; J2405; J7030; S0028; Z7502; 99284